=== PATIENT | male | born 1985 | race Asian ===

== ENCOUNTER 2016-06-26 23:03 | Inpatient (IN) | payer MEDICAID ==
[2016-06-26] MEDS ORDERED: Sodium Chloride 0.9% 2,000 ML IV ONE (23:23)
--- NOTE | 2016-06-26 23:29 | ED Physician Chart ---
Chief Complaint/HPI - Patient Information Date Seen:: 06/26/16 Time Seen:: 23:15 Chief Complaint:: vomiting History of Present Illness:: has vomited 4 times since 1600. No diarrhea. Allergies:: Allergies Allergy/AdvReac Type Severity Reaction Status Date / Time MDX No Known Allergies - Nka Allergy Verified 05/18/12 10:42 [No Known Allergies - Nka] Historian:: EMS, Family Member Review:: Nurse's Note Reviewed, Transfer documents Reviewed Review of Systems - Review of Systems General/Constitutional: No fever, No chills Skin: No skin lesions Head: No headache Eyes: No loss of vision ENT: No earache Neck: No neck pain Cardio Vascular: No chest pain, No palpitations Pulmonary: No SOB GI: Vomiting G/U: No dysuria Musculoskeletal: No bone or joint pain Endocrine: No polyuria, No polydipsia Psychiatric: No prior psych history Hematopoietic: No bruising Allergic/Immuno: No urticaria Neurological: No syncope Past Medical History - Past Medical History Past Medical History: Arthritis, Other (cerebral palsy; spastic quadrplegia; osteopenia; dysphagia; chronic otitis media; osteoporosis) Family History: Other (non-contributory) Social History: Care Facility Surgical History: PEG/GTube Medication: Reviewed Labs/Radiology/EKG Results - Lab Results Results: CXR: negative. KUB: small bowel obstruction; large amount of stool in recto- sigmoid Laboratory Results - last 24 hr 06/26/16 06/26/16 23:39 23:39 WBC 12.9 H D RBC 6.12 H Hgb 18.7 H D Hct 54.2 H D MCV 88.5 MCH 30.5 H MCHC Differential 34.5 RDW 12.5 Plt Count 239 D MPV 8.2 Band Neutrophils % 2 Neutrophils (Manual) 90 H Lymphocytes 8 L Platelet Estimate ADEQUATE Sodium 145 Potassium 4.0 Chloride 97 L Carbon Dioxide 27.6 Anion Gap 24.4 H BUN 28 H Creatinine 1.3 Est GFR ( Amer) > 60.0 Est GFR (Non-Af Amer) > 60.0 BUN/Creatinine Ratio 21.5 Glucose 136 H Calcium 11.5 H Lipase 13 - Radiology Results Results: chest x-ray negative; KUB: SBO; large stool in rectosigmoid ED Septic Shock - . Is Septic Shock (SBP<90, OR Lactate>4 mmol\L) present?: No Reassessment (Disposition) - Reassessment Reassessment Condition:: Unchanged - Diagnosis Diagnosis:: small bowel obstruction; leukocytosis; obstipation; profound mental retardation - Patient Disposition Admitted to:: Med/Surg Spoke to:: José Luis Conteh Admitting Medical Physician:: José Luis Conteh Condition at Disposition:: Stable, Unchanged
[2016-06-26 23:48] LABS: MEAN CELL VOLUME 88.5 fl (80-99); MEAN CORPUSCULAR HEMOGLOBIN 30.5 pg (26.0-30.0); MEAN CORPUSCULAR HGB CONC 34.5 pg (28.0-36.0); MEAN PLATELET VOLUME 8.2 fl; RED BLOOD COUNT 6.12 Mil/cmm (4.30-5.70); RED CELL DISTRIBUTION WIDTH 12.5 % (11.5-20.0)
[2016-06-26 23:49] LABS: HEMATOCRIT 54.2 % (39.0-49.0); HEMOGLOBIN 18.7 gm/dL (13.2-17.3); WHITE BLOOD COUNT 12.9 Th/cmm (4.8-10.8)
[2016-06-26 23:50] LABS: PLATELET COUNT 239 Th/cmm (150-400)
[2016-06-26] MEDS ORDERED: Morphine Sulfate 2 mg/mL 1mL Syr IVP PRN (23:51)
--- NOTE | 2016-06-26 23:52 | Admit Criteria Form ---
Admit Criteria Forms - Admit Criteria Diagnosis: VOMITING: OBSERVATION CARE USE THIS FORM ONLY WHEN INPATIENT ADMISSION CRITERIA ARE NOT MET. (Place X for any and all applicable criteria): Placement for observation care is indicated for patient with ANY ONE of the following(1)(2)(3)(4)(5)(6): []I. Hemodynamic instability [X]II. Vomiting refractory to outpatient treatment (ie, precluding oral rehydration) []III. Electrolyte imbalance unable to be corrected in outpatient setting []IV. Inability to take necessary medication or fluids orally []V. Child whose situation includes ANY ONE of the following: []a) Clinical response to outpatient therapy uncertain []b) Outpatient supervision by parents or caregivers uncertain []. Other observation care needs ( Use General Criteria: Observation Care) The original [facility] content created by [facility] has been revised. The portions of the content which have been revised are identified through the use of italic text, and [facility] has neither reviewed nor approved the modified material. All other unmodified content is copyright [facility]. Please see references footnoted in the original [facility] edition 2016 Admit Criteria Met?: Yes
[2016-06-26] MEDS ORDERED: Magnesium Hydroxide (MOM) 30 mL UDC PO PRN (23:53)
[2016-06-26] MEDS ORDERED: Fleet Enema 135 mL RC PRN (23:53)
[2016-06-26] MEDS ORDERED: Fleet Enema 135 mL RC ONE (23:53)
[2016-06-27] LABS: ANION GAP 24.4 (7.0-16.0); BUN - UREA NITROGEN 28 mg/dL (7-25); BUN/CREATININE RATIO 21.5; CALCIUM SERUM 11.5 mg/dL (8.6-10.3); CARBON DIOXIDE 27.6 mEq/L (21.0-31.0); CHLORIDE 97 mEq/L (98-107); CREATININE - SERUM 1.3 mg/dL (0.7-1.3); GLUCOSE 136 mg/dL (70-105); LIPASE 13 U/L (11-82); SODIUM SERUM 145 mEq/L (136-145)
[2016-06-27 00:16] LABS: BAND NEUTROPHILE 2 % (0-10); NEUTROPHILS 90 % (40-80); PLATELET ESTIMATE ADEQUATE (NORMAL); TOTAL CELLS COUNTED 100
--- NOTE | 2016-06-27 02:19 | Admit Criteria Form ---
Admit Criteria Forms - Admit Criteria Diagnosis: VOMITING Clinical Indications for Admission to Inpatient Care ( Place 'X' for any and all applicable criteria): Admission is indicated for ANY ONE of the following(1)(2)(3): [ ]I. Inpatient admission required rather than observation care because of ANY ONE of the following: [ ]i) Hemodynamic instability that is severe or persistent [ ]ii) Vomiting that is severe or persistent [ ]iii) Severe electrolyte abnormalities requiring inpatient care [ ]iv) Severe pain requiring acute inpatient management [ ]v) High fever or infection requiring inpatient admission as indicated by ANY ONE of the following(7)(8): [ ]1) Appropriate outpatient or observation care antimicrobial treatment unavailable, not effective, or not feasible [ ]2) Documented bacteremia [ ]3) Temp >104.9 degrees F (40.5 degrees C) (oral) [ ]4) Temp >103.1 degrees F (39.5 C) (oral) or <96.8 degrees F (36 C) (rectal) that does not respond to all emergency treatment measures [ ]vi) Acute renal failure [ ]vii) IV fluid to replace significant ongoing losses (greater than 3 L/m2 per day) [ ]viii) Parenteral nutrition regimen that must be implemented on inpatient basis [ ]ix) Other condition, treatment or monitoring requiring inpatient admission [X ]II. Complete or partial gastrointestinal obstruction [ ]III. Other cause of vomiting requiring hospitalization (eg, poisoning, increased intracranial pressure) [ ]IV. Vomiting due to significant metabolic derangement (eg, severe hypercalcemia, diabetic ketoacidosis) Extended stay beyond goal length of stay may be needed for(1)(4): [ ]a) Severe vomiting [ ]b) Persistent vomiting, vital sign changes, severe electrolyte imbalance , or diagnosed cause of vomiting that requires continued hospitalization (eg, gastrointestinal obstruction , increased intracranial pressure) [ ]c) Surgery to treat identified causes of vomiting (eg, bowel obstruction , intracranial process) [ ]d) Comorbid illness that requires inpatient care (eg, acute heart failure , renal failure) [ ]e) Need for inpatient endoscopy The original [facility] content created by [facility] has been revised. The portions of the content which have been revised are identified through the use of italic text or in bold, and [employer] has neither reviewed nor approved the modified material. All other unmodified content is copyright [facility]. Please see references footnoted in the original [facility] edition 2016 Admit Criteria Met?: Yes
[2016-06-27] MEDS: D5-0.45NS 1,000 ML IV SCH (03:00)
[2016-06-27 07:33] LABS: MEAN CELL VOLUME 89.6 fl (80-99); MEAN CORPUSCULAR HEMOGLOBIN 30.2 pg (26.0-30.0); MEAN CORPUSCULAR HGB CONC 33.8 pg (28.0-36.0); MEAN PLATELET VOLUME 8.5 fl; PLATELET COUNT 204 Th/cmm (150-400); RED BLOOD COUNT 5.08 Mil/cmm (4.30-5.70); RED CELL DISTRIBUTION WIDTH 12.7 % (11.5-20.0)
[2016-06-27 07:36] LABS: ALB/GLOB RATIO 1.2 (1.0-1.8); ALKALINE PHOSPHATASE 73 U/L (34-104); ANION GAP 12.5 (7.0-16.0); BILIRUBIN,TOTAL 0.5 mg/dL (0.3-1.0); BUN - UREA NITROGEN 25 mg/dL (7-25); BUN/CREATININE RATIO 35.7; CALCIUM SERUM 9.2 mg/dL (8.6-10.3); CARBON DIOXIDE 27.9 mEq/L (21.0-31.0); CHLORIDE 108 mEq/L (98-107); CREATININE - SERUM 0.7 mg/dL (0.7-1.3); GLUCOSE 139 mg/dL (70-105); POTASSIUM SERUM 3.4 mEq/L (3.5-5.1); SGOT 14 U/L (13-39); SGPT/ALT 9 U/L (7-52); SODIUM SERUM 145 mEq/L (136-145)
[2016-06-27 07:50] LABS: HEMATOCRIT 45.5 % (39.0-49.0); HEMOGLOBIN 15.4 gm/dL (13.2-17.3); WHITE BLOOD COUNT 8.5 Th/cmm (4.8-10.8)
[2016-06-27] MEDS ORDERED: Pneumococcal Vaccine 0.5 mL Vial IM ONE (09:00)
[2016-06-27 09:32] LABS: BAND NEUTROPHILE 5 % (0-10); EOSINOPHIL 0 % (0-5); NEUTROPHILS 78 % (40-80); PLATELET ESTIMATE ADEQUATE (NORMAL); PLATELET MORPHOLOGY NORMAL (NORMAL); TOTAL CELLS COUNTED 100
[2016-06-27 09:34] LABS: EOSINOPHIL 0 % (0-5)
--- NOTE | 2016-06-27 09:38 | Diagnostic Imaging Report ---
CHEST X-RAY: AP view INDICATION: Small bowel obstruction COMPARISON: KUB the same day FINDINGS: No focal consolidation or pleural effusions. Heart size is normal. Distended bowel loops are seen along the right upper quadrant. Osseous structures are intact. IMPRESSION: No focal acute pulmonary process. Distended bowel loops along the right upper quadrant. Please refer to KUB the same day for further findings.
--- NOTE | 2016-06-27 09:44 | Diagnostic Imaging Report ---
KUB History: Obstruction, constipation comparison: Chest x-ray the same day Findings: There is severe distal fecal impaction. Diffuse distended loops of bowel are seen proximally including markedly distended small bowel loops. No evidence of gross free air. A gastric feeding tube is noted. Spinal scoliosis is noted. 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 IMPRESSION: Severe distal fecal impaction. Diffuse distended loops of bowel are seen proximally including markedly distended small bowel loops. The distended small bowel loops may be due to patient's severe distal fecal impaction, however, a distal small bowel obstructive process cannot be completely excluded. Clinical correlation and follow-up is recommended.
[2016-06-27] MEDS ORDERED: Fleet Enema 135 mL RC ONE (12:51)
--- NOTE | 2016-06-27 12:58 | Internal Medicine Prog Note ---
Internal Medicine Subjective - Subjective Service Date: 06/27/16 ([facility] dictated [id number]) Internal Medicine Objective - Results Result Diagrams: 06/27/16 06:16 06/27/16 06:16 Recent Labs: Laboratory Last Values WBC 8.5 Th/cmm (4.8-10.8) D 06/27/16 06:16 RBC 5.08 Mil/cmm (4.30-5.70) 06/27/16 06:16 Hgb 15.4 gm/dL (13.2-17.3) D 06/27/16 06:16 Hct 45.5 % (39.0-49.0) D 06/27/16 06:16 MCV 89.6 fl (80-99) 06/27/16 06:16 MCH 30.2 pg (26.0-30.0) H 06/27/16 06:16 MCHC Differential 33.8 pg (28.0-36.0) 06/27/16 06:16 RDW 12.7 % (11.5-20.0) 06/27/16 06:16 Plt Count 204 Th/cmm (150-400) 06/27/16 06:16 MPV 8.5 fl 06/27/16 06:16 Band Neutrophils % 5 % (0-10) 06/27/16 06:16 Neutrophils (Manual) 78 % (40-80) 06/27/16 06:16 Lymphocytes 7 % (20-50) L 06/27/16 06:16 Monocytes 10 % (2-10) 06/27/16 06:16 Eosinophils 0 % (0-5) 06/27/16 06:16 Platelet Estimate ADEQUATE (NORMAL) 06/27/16 06:16 Platelet Morphology NORMAL (NORMAL) 06/27/16 06:16 RBC Morph Micro Appear NORMAL (NORMAL) 06/27/16 06:16 Sodium 145 mEq/L (136-145) 06/27/16 06:16 Potassium 3.4 mEq/L (3.5-5.1) L 06/27/16 06:16 Chloride 108 mEq/L (98-107) H 06/27/16 06:16 Carbon Dioxide 27.9 mEq/L (21.0-31.0) 06/27/16 06:16 Anion Gap 12.5 (7.0-16.0) 06/27/16 06:16 BUN 25 mg/dL (7-25) 06/27/16 06:16 Creatinine 0.7 mg/dL (0.7-1.3) 06/27/16 06:16 Est GFR ( Amer) > 60.0 ml/min 06/27/16 06:16 Est GFR (Non-Af Amer) > 60.0 ml/min 06/27/16 06:16 BUN/Creatinine Ratio 35.7 06/27/16 06:16 Glucose 139 mg/dL (70-105) H 06/27/16 06:16 Calcium 9.2 mg/dL (8.6-10.3) 06/27/16 06:16 Total Bilirubin 0.5 mg/dL (0.3-1.0) 06/27/16 06:16 AST 14 U/L (13-39) 06/27/16 06:16 ALT 9 U/L (7-52) 06/27/16 06:16 Alkaline Phosphatase 73 U/L (34-104) 06/27/16 06:16 Total Protein 7.6 gm/dL (6.0-8.3) 06/27/16 06:16 Albumin 4.2 gm/dL (4.2-5.5) 06/27/16 06:16 Globulin 3.4 gm/dL 06/27/16 06:16 Albumin/Globulin Ratio 1.2 (1.0-1.8) 06/27/16 06:16 Lipase 13 U/L (11-82) 06/26/16 23:39 TSH 0.20 uIU/ml (0.34-5.60) L 06/27/16 06:16 - Physical Exam Vitals and I&O: Vital Signs Temp 99 F 06/27/16 05:00 Pulse 90 06/27/16 05:00 Resp 18 06/27/16 05:00 BP 117/71 06/27/16 05:00 Pulse Ox 100 06/27/16 05:00 Intake & Output 06/26/16 06/27/16 06/27/16 18:59 06:59 18:59 Intake Total 4000.000 Balance 4000.000 Intake: Intake, IV Amount 4000.000 Active Medications: Current Medications Acetaminophen (Tylenol) 650 mg PO Q4HR PRN PRN Reason: Pain or Fever >101 Stop: 08/25/16 23:50 Bisacodyl (Dulcolax 10 Mg Supp) 10 mg RC DAILY PRN PRN Reason: Constipation Stop: 08/25/16 23:52 Clonidine HCl (Catapres) 0.1 mg PO Q6HR PRN PRN Reason: SBP GREATER THAN 160 Stop: 08/25/16 23:50 Dextrose/Sodium Chloride (D5-0.45ns) 1,000 mls @ 100 mls/hr IV .Q10H ALLISON Stop: 08/25/16 23:44 Last Admin: 06/27/16 03:00 Dose: 100 mls/hr Magnesium Hydroxide (Milk Of Magnesia) 30 ml PO Q72H PRN PRN Reason: Constipation Stop: 08/25/16 23:52 Mineral Oil (Mineral Oil 30 Ml) 30 ml GT Q72H PRN PRN Reason: Constipation Stop: 08/25/16 23:52 Morphine Sulfate (Morphine) 2 mg IVP Q4HR PRN PRN Reason: Pain (Severe) Stop: 08/25/16 23:50 Ondansetron HCl (Zofran) 4 mg IV Q8H PRN PRN Reason: Nausea / Vomiting Stop: 08/25/16 23:50 Pantoprazole Sodium (Protonix) 40 mg IVP BID [facility] Stop: 08/26/16 08:59 Last Admin: 06/27/16 10:48 Dose: 40 mg Prochlorperazine (Compazine) 25 mg RC Q12H PRN; Protocol PRN Reason: Nausea Stop: 08/25/16 23:52 Sodium Phosphate (Fleet Enema) 135 ml RC Q72H PRN PRN Reason: Constipation Stop: 08/25/16 23:52 Sodium Phosphate (Fleet Enema) 135 ml RC X1 ONE Stop: 06/27/16 12:52 Vitamin D (Vitamin D) 400 iu GT DAILY [facility] Stop: 08/26/16 08:59 Last Admin: 06/27/16 10:44 Dose: Not Given - Procedures Procedures: Procedures Procedure Code Date EGD BIOPSY SINGLE/MULTIPLE 06594 12/22/13 ESOPHAGOGASTRODUODENOSCOPY [EGD] W/CLOSED BIOPSY 45.16 12/22/13 INFLUENZA VACCINATION 99.52 07/14/13 INSERT INDWELLING CATH 57.94 05/17/12 INSERT INTESTINAL TUBE 96.08 05/17/12 INSERT PICC CATH [id number] 05/17/12 INSERT TEMP BLADDER CATH 97182 05/17/12 OPEN AND OTHER CECECTOMY 45.72 05/17/12 OPEN AND OTHER RIGHT HEMICOLECTOMY 45.73 05/17/12 PARTIAL REMOVAL OF COLON 93594 05/17/12 UNLISTED PX SMALL INTESTINE 80939 05/17/12 VENOUS CATHETERIZATION NEC 38.93 05/17/12 Internal Medicine Assmt/Plan - Assessment Assessment: abdominal pain, intractable vomiting
--- NOTE | 2016-06-27 17:28 | History & Physical ---
CHIEF COMPLAINT: Vomiting. HISTORY OF PRESENT ILLNESS: This is a 31-year-old male who is a resident of [facility] who is brought here to [facility] for reports of vomiting x 3 since yesterday afternoon. The patient did not have any diarrhea or any fevers. For this reason, the patient is now admitted to the med/surg unit. PAST MEDICAL HISTORY: Arthritis, cerebral palsy, spastic quadriplegia, osteopenia, dysphagia. FAMILY HISTORY: Noncontributory. ALLERGIES: No drug allergies. SOCIAL HISTORY: The patient resides at [facility], requiring 24-hour nursing care. PAST SURGICAL HISTORY: PEG. MEDICATIONS: Please see medication reconciliation sheet. REVIEW OF SYSTEMS: Unable to obtain, the patient is non-interactive. PHYSICAL EXAMINATION: GENERAL: The patient is well developed, well nourished, no acute distress. VITAL SIGNS: Temperature 99, heart rate 90, blood pressure 170/71, respirations 18, O2 100%. HEENT: Head; normocephalic, atraumatic. NECK: Supple. No mass. LUNGS: Clear bilaterally upon auscultation. CARDIOVASCULAR: Regular rhythm. No murmurs or gallops. SKIN: Intact, warm and dry to touch. ABDOMEN: Soft, nontender, nondistended. Positive bowel sounds in all 4 quadrants. LABORATORY DATA: WBC 12.9, H and H 18.7 and 54.2. Sodium 145, potassium 4.0, chloride 97, BUN ____, creatinine 1.3. The patient had a chest x-ray done and the impression is no focal acute pulmonary processes. ASSESSMENT: Abdominal pain, intractable vomiting, spastic quadriplegia, intellectual disability and seizures. PLAN: The patient to be admitted to the med/surg unit. The patient to have a consultation with Dr. Gallegos. The patient to be kept n.p.o. for now. IV fluids for hydration. We will continue to monitor the patient. JOB# [id number]
[2016-06-27] MEDS: Magnesium Hydroxide (MOM) 30 mL UDC PO SCH (21:53)
[2016-06-28] MEDS: D5-0.45NS 1,000 ML IV SCH ×2 (05:15→21:56)
[2016-06-28] MEDS ORDERED: Potassium Chloride 20 mEq ER Tab PO ONE (16:48)
--- NOTE | 2016-06-28 21:12 | Consultation ---
REASON FOR CONSULTATION: Abdominal pain and vomiting. HISTORY OF PRESENT ILLNESS: This consult was obtained through the courtesy of Dr. Conteh for this 31-year-old with history of mental retardation, cerebral palsy, spastic quadriplegia, osteopenia, dysphagia, status post G-tube and arthritis, admitted to the hospital because of vomiting few times yesterday. The patient came to the hospital. GI consult was called in for further evaluation. The patient is unable to provide any history. Apparently, the patient had some fecal impaction, was given some laxative, did better, and now he seems calmer. PAST MEDICAL HISTORY: Cerebral palsy, spastic quadriplegia, arthritis, osteopenia, dysphagia. PAST SURGICAL HISTORY: He had hip surgery and he had abdominal surgery and has a G-tube. SOCIAL HISTORY: Nonsmoker, nonalcoholic, non-IV drug abuser. FAMILY HISTORY: Noncontributory. ALLERGIES: No known drug allergies. MEDICATIONS: The patient is on Tylenol, Dulcolax, clonidine, milk of magnesia, mineral oil, Zofran, morphine, Protonix, Fleet enema, vitamin D. REVIEW OF SYSTEMS: Unobtainable. PHYSICAL EXAMINATION: GENERAL: The patient is awake, nonverbal. VITAL SIGNS: Blood pressure is 117/71, heart rate 90, respiratory rate 18, temperature is 99.0. HEAD AND NECK: Pupils reactive to light. Extraocular muscles could not be tested. Oral cavity, no lesion. NECK: Supple. No jugular venous distention. No carotid bruit or lymph nodes. CHEST: Good respiratory movements. LUNGS: Clear to auscultation. CARDIOVASCULAR SYSTEM: Regular rate and rhythm. No murmur or gallop. ABDOMEN: Soft. There is scar on midline. There is a G-tube, which has a balloon. Bowel sounds are present. Nontender. EXTREMITIES: Lower extremities, no edema. There is a scar on the left hip. CENTRAL NERVOUS SYSTEM: Unable to evaluate. Limbs has contracted posture of the lower ones. LABORATORY DATA: White count was 12.9, now is normal. Potassium was low. H and H are normal. KUB showed fecal impaction. IMPRESSION: A 31-year-old with multiple medical problems, now with fecal impaction, nausea and vomiting. ASSESSMENT AND PLAN: Nausea and vomiting most probably due to fecal impaction. The patient had good response to laxative, so now he is more comfortable, he is not vomiting, he is at ease. So, we will continue his bowel prep. We will give him on a daily basis milk of magnesia. If needed, we can add some more. Then, further recommendations to follow. Given the age of the patient and general condition, at this time there is no reason for colonoscopy unless some other issues arise. Other medical problems such as cerebral palsy, quadriplegia, osteoporosis, etc., as per Dr. Conteh. Thank you, Dr. Conteh, for allowing me to participate in the care of this patient. If you have any further questions, please let me know. JOB# [id number]
[2016-06-28] MEDS: Magnesium Hydroxide (MOM) 30 mL UDC PO SCH (21:57)
[2016-06-28 22:13] LABS: URINE BILIRUBIN NEGATIVE (NEGATIVE); URINE BLOOD NEGATIVE (NEGATIVE); URINE COLOR YELLOW; URINE GLUCOSE (UA) NEGATIVE (NEGATIVE); URINE KETONE NEGATIVE (NEGATIVE)
[2016-06-28 22:14] LABS: URINE BACTERIA FEW /hpf (NONE SEEN); URINE EPITHELIAL CELLS NONE SEEN /lpf (FEW); URINE PH >=9.0; URINE PROTEIN TRACE mg/dL (NEGATIVE); URINE RBC 0-2 /hpf (0-5); URINE UROBILINOGEN 0.2 E.U./dL (0.2 - 1.0); URINE WBC 0-2 /hpf (0-5)
[2016-06-29] MEDS ORDERED: POLYETHYLENE GLYCOL 3350 17 GM PACK PO SCH (09:00)
--- NOTE | 2016-06-29 11:21 | Diagnostic Imaging Report ---
KUB abdominal film HISTORY: Abdominal distention Compared with the prior exam of 06/26/2016, slight decrease in small bowel dilatation along with persistent mildly dilated air-filled large bowel. Stool noted in the rectal region of May be associated with a degree of fecal impaction. IMPRESSION: 1. Stool-filled distended rectum suggesting a fecal impaction. Additional mildly dilated large and small bowel.
--- NOTE | 2016-06-29 16:52 | Internal Medicine Prog Note ---
Internal Medicine Subjective - Subjective Service Date: 06/29/16 Patient seen and examined:: with staff Patient is:: awake Per staff patient is:: no adverse event Internal Medicine Objective - Results Result Diagrams: 06/27/16 06:16 06/27/16 06:16 Recent Labs: Laboratory Last Values WBC 8.5 Th/cmm (4.8-10.8) D 06/27/16 06:16 RBC 5.08 Mil/cmm (4.30-5.70) 06/27/16 06:16 Hgb 15.4 gm/dL (13.2-17.3) D 06/27/16 06:16 Hct 45.5 % (39.0-49.0) D 06/27/16 06:16 MCV 89.6 fl (80-99) 06/27/16 06:16 MCH 30.2 pg (26.0-30.0) H 06/27/16 06:16 MCHC Differential 33.8 pg (28.0-36.0) 06/27/16 06:16 RDW 12.7 % (11.5-20.0) 06/27/16 06:16 Plt Count 204 Th/cmm (150-400) 06/27/16 06:16 MPV 8.5 fl 06/27/16 06:16 Band Neutrophils % 5 % (0-10) 06/27/16 06:16 Neutrophils (Manual) 78 % (40-80) 06/27/16 06:16 Lymphocytes 7 % (20-50) L 06/27/16 06:16 Monocytes 10 % (2-10) 06/27/16 06:16 Eosinophils 0 % (0-5) 06/27/16 06:16 Platelet Estimate ADEQUATE (NORMAL) 06/27/16 06:16 Platelet Morphology NORMAL (NORMAL) 06/27/16 06:16 RBC Morph Micro Appear NORMAL (NORMAL) 06/27/16 06:16 Sodium 145 mEq/L (136-145) 06/27/16 06:16 Potassium 3.4 mEq/L (3.5-5.1) L 06/27/16 06:16 Chloride 108 mEq/L (98-107) H 06/27/16 06:16 Carbon Dioxide 27.9 mEq/L (21.0-31.0) 06/27/16 06:16 Anion Gap 12.5 (7.0-16.0) 06/27/16 06:16 BUN 25 mg/dL (7-25) 06/27/16 06:16 Creatinine 0.7 mg/dL (0.7-1.3) 06/27/16 06:16 Est GFR ( Amer) > 60.0 ml/min 06/27/16 06:16 Est GFR (Non-Af Amer) > 60.0 ml/min 06/27/16 06:16 BUN/Creatinine Ratio 35.7 06/27/16 06:16 Glucose 139 mg/dL (70-105) H 06/27/16 06:16 Calcium 9.2 mg/dL (8.6-10.3) 06/27/16 06:16 Total Bilirubin 0.5 mg/dL (0.3-1.0) 06/27/16 06:16 AST 14 U/L (13-39) 06/27/16 06:16 ALT 9 U/L (7-52) 06/27/16 06:16 Alkaline Phosphatase 73 U/L (34-104) 06/27/16 06:16 Total Protein 7.6 gm/dL (6.0-8.3) 06/27/16 06:16 Albumin 4.2 gm/dL (4.2-5.5) 06/27/16 06:16 Globulin 3.4 gm/dL 06/27/16 06:16 Albumin/Globulin Ratio 1.2 (1.0-1.8) 06/27/16 06:16 Lipase 13 U/L (11-82) 06/26/16 23:39 TSH 0.20 uIU/ml (0.34-5.60) L 06/27/16 06:16 Urine Source CLEAN C 06/28/16 21:35 Urine Color YELLOW 06/28/16 21:35 Urine Clarity CLEAR (CLEAR) 06/28/16 21:35 Urine pH >=9.0 06/28/16 21:35 Ur Specific [place] 1.020 (1.005-1.030) 06/28/16 21:35 Urine Protein TRACE mg/dL (NEGATIVE) 06/28/16 21:35 Urine Glucose (UA) NEGATIVE mg/dL (NEGATIVE) 06/28/16 21:35 Urine Ketones NEGATIVE mg/dL (NEGATIVE) 06/28/16 21:35 Urine Blood NEGATIVE (NEGATIVE) 06/28/16 21:35 Urine Nitrate NEGATIVE (NEGATIVE) 06/28/16 21:35 Urine Bilirubin NEGATIVE (NEGATIVE) 06/28/16 21:35 Urine Urobilinogen 0.2 E.U./dL (0.2 - 1.0) 06/28/16 21:35 Ur Leukocyte Esterase NEGATIVE (NEGATIVE) 06/28/16 21:35 Urine RBC 0-2 /hpf (0-5) H 06/28/16 21:35 Urine WBC 0-2 /hpf (0-5) 06/28/16 21:35 Ur Epithelial Cells NONE SEEN /lpf (FEW) 06/28/16 21:35 Urine Bacteria FEW /hpf (NONE SEEN) 06/28/16 21:35 - Physical Exam Vitals and I&O: Vital Signs Temp 98.1 F 06/29/16 16:00 Pulse 83 06/29/16 16:00 Resp 17 06/29/16 16:00 BP 112/40 06/29/16 16:00 Pulse Ox 95 06/29/16 16:00 Intake & Output 06/28/16 06/29/16 06/29/16 18:59 06:59 18:59 Intake Total 360 Balance 360 Intake: Tube Feeding 240 Other 120 Active Medications: Current Medications Acetaminophen (Tylenol) 650 mg PO Q4HR PRN PRN Reason: Pain or Fever >101 Stop: 08/25/16 23:50 Bisacodyl (Dulcolax 10 Mg Supp) 10 mg RC DAILY PRN PRN Reason: Constipation Stop: 08/25/16 23:52 Clonidine HCl (Catapres) 0.1 mg PO Q6HR PRN PRN Reason: SBP GREATER THAN 160 Stop: 08/25/16 23:50 Dextrose/Sodium Chloride (D5-0.45ns) 1,000 mls @ 70 mls/hr IV .[id number] ALLISON Stop: 08/27/16 21:46 Last Admin: 06/28/16 21:56 Dose: 70 mls/hr Magnesium Hydroxide (Milk Of Magnesia) 30 ml PO HS ALLISON Stop: 08/26/16 20:59 Last Admin: 06/28/16 21:57 Dose: 30 ml Mineral Oil (Mineral Oil 30 Ml) 30 ml GT DAILY ALLISON Stop: 08/27/16 08:59 Last Admin: 06/29/16 10:59 Dose: 30 ml Morphine Sulfate (Morphine) 2 mg IVP Q4HR PRN PRN Reason: Pain (Severe) Stop: 08/25/16 23:50 Ondansetron HCl (Zofran) 4 mg IV Q8H PRN PRN Reason: Nausea / Vomiting Stop: 08/25/16 23:50 Pantoprazole Sodium (Protonix) 40 mg IVP BID ALLISON Stop: 08/26/16 08:59 Last Admin: 06/29/16 10:59 Dose: 40 mg Polyethylene Glycol (Miralax) 17 gm PO DAILY ALLISON Stop: 08/28/16 08:59 Last Admin: 06/29/16 10:59 Dose: 17 gm Prochlorperazine (Compazine) 25 mg RC Q12H PRN; Protocol PRN Reason: Nausea Stop: 08/25/16 23:52 Sodium Phosphate (Fleet Enema) 135 ml RC Q72H PRN PRN Reason: Constipation Stop: 08/25/16 23:52 Vitamin D (Vitamin D) 400 iu GT DAILY ALLISON Stop: 08/26/16 08:59 Last Admin: 06/29/16 10:59 Dose: 400 iu General: alert HEENT: NC/AT, PERRLA Neck: Supple Lungs: CTAB Cardiovascular: RRR, Normal S1, Normal S2, without murmur Abdomen: soft non-tender - Procedures Procedures: Procedures Procedure Code Date EGD BIOPSY SINGLE/MULTIPLE 92322 12/22/13 ESOPHAGOGASTRODUODENOSCOPY [EGD] W/CLOSED BIOPSY 45.16 12/22/13 INFLUENZA VACCINATION 99.52 07/14/13 INSERT INDWELLING CATH 57.94 05/17/12 INSERT INTESTINAL TUBE 96.08 05/17/12 INSERT PICC CATH 17777 05/17/12 INSERT TEMP BLADDER CATH 45488 05/17/12 OPEN AND OTHER CECECTOMY 45.72 05/17/12 OPEN AND OTHER RIGHT HEMICOLECTOMY 45.73 05/17/12 PARTIAL REMOVAL OF COLON 14862 05/17/12 UNLISTED PX SMALL INTESTINE 43836 05/17/12 VENOUS CATHETERIZATION NEC 38.93 05/17/12 Internal Medicine Assmt/Plan - Assessment Assessment: abdominal pain intractable vomitinG - Plan Plan: ivf for hydration gtf zofran prn monitor electrolytes cbc/bmp in am
[2016-06-29] MEDS: Magnesium Hydroxide (MOM) 30 mL UDC PO SCH (22:52)
[2016-06-30] MEDS ORDERED: Diatrizoate Meglumine/Diatri 30 mL Sol PO ONE ×2 (01:00→12:00)
[2016-06-30] MEDS: D5-0.45NS 1,000 ML IV SCH (03:48)
[2016-06-30] MEDS: Metoclopramide 5 mg/mL 2mL Vial IVP SCH ×3 (05:46→22:36)
[2016-06-30 06:46] LABS: ANION GAP 8.5 (7.0-16.0); BUN - UREA NITROGEN 12 mg/dL (7-25); CALCIUM SERUM 9.5 mg/dL (8.6-10.3); CARBON DIOXIDE 26.6 mEq/L (21.0-31.0); CHLORIDE 104 mEq/L (98-107); CREATININE - SERUM 0.5 mg/dL (0.7-1.3); GLUCOSE 115 mg/dL (70-105); POTASSIUM SERUM 4.1 mEq/L (3.5-5.1); SODIUM SERUM 135 mEq/L (136-145)
[2016-06-30 06:49] LABS: % BASOPHILS 0.2 % (0.0-2.0); % EOSINOPHILS 5.5 % (0.0-5.0); % LYMPHOCYTES 33.4 % (20.0-50.0); % NEUTROPHILS 51.9 % (40.0-80.0); MEAN CELL VOLUME 86.2 fl (80-99); MEAN CORPUSCULAR HEMOGLOBIN 29.7 pg (26.0-30.0); MEAN CORPUSCULAR HGB CONC 34.4 pg (28.0-36.0); MEAN PLATELET VOLUME 8.5 fl; NEUTROPHILE ABSOLUTE 3.8 Th/cmm (1.8-8.0); PLATELET COUNT 168 Th/cmm (150-400); RED BLOOD COUNT 4.71 Mil/cmm (4.30-5.70); RED CELL DISTRIBUTION WIDTH 12.4 % (11.5-20.0); WHITE BLOOD COUNT 7.4 Th/cmm (4.8-10.8)
[2016-06-30 07:05] LABS: HEMATOCRIT 40.6 % (39.0-49.0)
[2016-06-30] MEDS: POLYETHYLENE GLYCOL 3350 17 GM PACK PO SCH ×2 (09:39→16:44)
--- NOTE | 2016-06-30 12:16 | Internal Medicine Prog Note ---
Internal Medicine Subjective - Subjective Service Date: 06/30/16 Patient seen and examined:: with staff Patient is:: awake Per staff patient is:: no adverse event Internal Medicine Objective - Results Result Diagrams: 06/30/16 05:50 06/30/16 05:50 Recent Labs: Laboratory Last Values WBC 7.4 Th/cmm (4.8-10.8) 06/30/16 05:50 RBC 4.71 Mil/cmm (4.30-5.70) 06/30/16 05:50 Hgb 14.0 gm/dL (13.2-17.3) 06/30/16 05:50 Hct 40.6 % (39.0-49.0) D 06/30/16 05:50 MCV 86.2 fl (80-99) 06/30/16 05:50 MCH 29.7 pg (26.0-30.0) 06/30/16 05:50 MCHC Differential 34.4 pg (28.0-36.0) 06/30/16 05:50 RDW 12.4 % (11.5-20.0) 06/30/16 05:50 Plt Count 168 Th/cmm (150-400) 06/30/16 05:50 MPV 8.5 fl 06/30/16 05:50 Neutrophils % 51.9 % (40.0-80.0) 06/30/16 05:50 Band Neutrophils % 5 % (0-10) 06/27/16 06:16 Lymphocytes % 33.4 % (20.0-50.0) 06/30/16 05:50 Monocytes % 9.0 % (2.0-10.0) 06/30/16 05:50 Eosinophils % 5.5 % (0.0-5.0) H 06/30/16 05:50 Basophils % 0.2 % (0.0-2.0) 06/30/16 05:50 Neutrophils (Manual) 78 % (40-80) 06/27/16 06:16 Lymphocytes 7 % (20-50) L 06/27/16 06:16 Monocytes 10 % (2-10) 06/27/16 06:16 Eosinophils 0 % (0-5) 06/27/16 06:16 Platelet Estimate ADEQUATE (NORMAL) 06/27/16 06:16 Platelet Morphology NORMAL (NORMAL) 06/27/16 06:16 RBC Morph Micro Appear NORMAL (NORMAL) 06/27/16 06:16 Sodium 135 mEq/L (136-145) L 06/30/16 05:50 Potassium 4.1 mEq/L (3.5-5.1) 06/30/16 05:50 Chloride 104 mEq/L (98-107) 06/30/16 05:50 Carbon Dioxide 26.6 mEq/L (21.0-31.0) 06/30/16 05:50 Anion Gap 8.5 (7.0-16.0) 06/30/16 05:50 BUN 12 mg/dL (7-25) 06/30/16 05:50 Creatinine 0.5 mg/dL (0.7-1.3) L 06/30/16 05:50 Est GFR ( Amer) > 60.0 ml/min 06/30/16 05:50 Est GFR (Non-Af Amer) > 60.0 ml/min 06/30/16 05:50 BUN/Creatinine Ratio 24.0 06/30/16 05:50 Glucose 115 mg/dL (70-105) H 06/30/16 05:50 Calcium 9.5 mg/dL (8.6-10.3) 06/30/16 05:50 Total Bilirubin 0.5 mg/dL (0.3-1.0) 06/27/16 06:16 AST 14 U/L (13-39) 06/27/16 06:16 ALT 9 U/L (7-52) 06/27/16 06:16 Alkaline Phosphatase 73 U/L (34-104) 06/27/16 06:16 Total Protein 7.6 gm/dL (6.0-8.3) 06/27/16 06:16 Albumin 4.2 gm/dL (4.2-5.5) 06/27/16 06:16 Globulin 3.4 gm/dL 06/27/16 06:16 Albumin/Globulin Ratio 1.2 (1.0-1.8) 06/27/16 06:16 Lipase 13 U/L (11-82) 06/26/16 23:39 TSH 0.20 uIU/ml (0.34-5.60) L 06/27/16 06:16 Urine Source CLEAN C 06/28/16 21:35 Urine Color YELLOW 06/28/16 21:35 Urine Clarity CLEAR (CLEAR) 06/28/16 21:35 Urine pH >=9.0 06/28/16 21:35 Ur Specific [place] 1.020 (1.005-1.030) 06/28/16 21:35 Urine Protein TRACE mg/dL (NEGATIVE) 06/28/16 21:35 Urine Glucose (UA) NEGATIVE mg/dL (NEGATIVE) 06/28/16 21:35 Urine Ketones NEGATIVE mg/dL (NEGATIVE) 06/28/16 21:35 Urine Blood NEGATIVE (NEGATIVE) 06/28/16 21:35 Urine Nitrate NEGATIVE (NEGATIVE) 06/28/16 21:35 Urine Bilirubin NEGATIVE (NEGATIVE) 06/28/16 21:35 Urine Urobilinogen 0.2 E.U./dL (0.2 - 1.0) 06/28/16 21:35 Ur Leukocyte Esterase NEGATIVE (NEGATIVE) 06/28/16 21:35 Urine RBC 0-2 /hpf (0-5) H 06/28/16 21:35 Urine WBC 0-2 /hpf (0-5) 06/28/16 21:35 Ur Epithelial Cells NONE SEEN /lpf (FEW) 06/28/16 21:35 Urine Bacteria FEW /hpf (NONE SEEN) 06/28/16 21:35 - Physical Exam Vitals and I&O: Vital Signs Temp 97.3 F 06/30/16 08:00 Pulse 62 06/30/16 08:00 Resp 19 06/30/16 08:00 BP 102/56 06/30/16 08:00 Pulse Ox 96 06/30/16 08:00 Intake & Output 06/29/16 06/30/16 06/30/16 18:59 06:59 18:59 Intake Total 1200 Balance 1200 Intake: Intake, IV Amount 1000 D5-0.45NS 1,000 ml @ 70 1000 mls/hr IV .[id number] [facility] Rx #:[id number] Oral 200 Other: # Voids 3 3 Stool Characteristics Soft Active Medications: Current Medications Acetaminophen (Tylenol) 650 mg PO Q4HR PRN PRN Reason: Pain or Fever >101 Stop: 08/25/16 23:50 Bisacodyl (Dulcolax 10 Mg Supp) 10 mg RC DAILY PRN PRN Reason: Constipation Stop: 08/25/16 23:52 Clonidine HCl (Catapres) 0.1 mg PO Q6HR PRN PRN Reason: SBP GREATER THAN 160 Stop: 08/25/16 23:50 Dextrose/Sodium Chloride (D5-0.45ns) 1,000 mls @ 70 mls/hr IV .[id number] [facility] Stop: 08/27/16 21:46 Last Admin: 06/30/16 03:48 Dose: 70 mls/hr Magnesium Hydroxide (Milk Of Magnesia) 30 ml PO HS [facility] Stop: 08/26/16 20:59 Last Admin: 06/29/16 22:52 Dose: 30 ml Metoclopramide HCl (Reglan) 10 mg IVP Q8HR [facility] Stop: 08/29/16 04:59 Last Admin: 06/30/16 05:46 Dose: 10 mg Mineral Oil (Mineral Oil 30 Ml) 30 ml GT DAILY [facility] Stop: 08/27/16 08:59 Last Admin: 06/30/16 09:39 Dose: 30 ml Morphine Sulfate (Morphine) 2 mg IVP Q4HR PRN PRN Reason: Pain (Severe) Stop: 08/25/16 23:50 Ondansetron HCl (Zofran) 4 mg IV Q8H PRN PRN Reason: Nausea / Vomiting Stop: 08/25/16 23:50 Pantoprazole Sodium (Protonix) 40 mg IVP BID [facility] Stop: 08/26/16 08:59 Last Admin: 06/30/16 09:39 Dose: 40 mg Polyethylene Glycol (Miralax) 17 gm PO BID [facility] Stop: 08/29/16 08:59 Last Admin: 06/30/16 09:39 Dose: 17 gm Prochlorperazine (Compazine) 25 mg RC Q12H PRN; Protocol PRN Reason: Nausea Stop: 08/25/16 23:52 Vitamin D (Vitamin D) 400 iu GT DAILY [facility] Stop: 08/26/16 08:59 Last Admin: 06/30/16 09:39 Dose: 400 iu General: alert HEENT: NC/AT, PERRLA Neck: Supple Lungs: CTAB Cardiovascular: RRR, Normal S1, Normal S2, without murmur Abdomen: soft non-tender, positive bowel sound - Procedures Procedures: Procedures Procedure Code Date EGD BIOPSY SINGLE/MULTIPLE 97067 12/22/13 ESOPHAGOGASTRODUODENOSCOPY [EGD] W/CLOSED BIOPSY 45.16 12/22/13 INFLUENZA VACCINATION 99.52 07/14/13 INSERT INDWELLING CATH 57.94 05/17/12 INSERT INTESTINAL TUBE 96.08 05/17/12 INSERT PICC CATH [id number] 05/17/12 INSERT TEMP BLADDER CATH 45072 05/17/12 OPEN AND OTHER CECECTOMY 45.72 05/17/12 OPEN AND OTHER RIGHT HEMICOLECTOMY 45.73 05/17/12 PARTIAL REMOVAL OF COLON 79874 05/17/12 UNLISTED PX SMALL INTESTINE 34424 05/17/12 VENOUS CATHETERIZATION NEC 38.93 05/17/12 Internal Medicine Assmt/Plan - Assessment Assessment: abdominal pain intractable vomiting- resolved - Plan Plan: ivf for hydration awaiting for results for abdominal US results zofran prn monitor electrolytes cbc/bmp in am
--- NOTE | 2016-06-30 12:19 | Diagnostic Imaging Report ---
Abdominal ultrasound HISTORY: Nausea, vomiting Exam is very limited due to considerable bowel gas. There is incomplete visualization the liver with no definite focal lesions. No definite intraluminal abnormality seen within the gallbladder. The common bile duct is difficult to visualized, but appears to be somewhat generous in caliber (9 mm). Findings should be correlated clinically and with laboratory data. The pancreas cannot be seen. There is poor visualization of the right kidney with no obvious focal lesions or hydronephrosis. The left kidney and spleen cannot be seen. IMPRESSION: 1. Very Limited/suboptimal exam with incomplete visualization particularly of the left abdomen and liver. 2. Questionable dilatation of the common bile duct (9 mm). The findings should be correlated clinically and with laboratory data.
[2016-06-30] MEDS ORDERED: Fleet Enema 135 mL RC ONE (14:04)
--- NOTE | 2016-06-30 15:45 | Diagnostic Imaging Report ---
CT scan abdomen and pelvis without intravenous contrast HISTORY: Nausea, vomiting The liver exhibits a homogeneous parenchyma. No focal lesions. The spleen appears normal. The suboptimal delineation the margins of the pancreas. No focal abnormalities. Gastrostomy tube noted. No significant focal renal lesions. The exam of the pelvis demonstrate a markedly distended stool and air-filled rectum and lower sigmoid colon. Additional dilated loops of large bowel noted. There is poor delineation of the small bowel wall margins due to a paucity of intra-abdominal fat. No obvious abnormal masses or fluid collections. IMPRESSION: 1. Markedly distended stool-filled air-filled rectum associated with generalized dilatation of the colon. Suggestion of dilated loops of small bowel. However, bowel wall margins are poorly defined due to a paucity of intra-abdominal fat. Colonic and bowel dilatation is less pronounced compared to a prior CT scan of May 16, 2012. Findings may be at least partially related to fecal impaction along with a chronic etiology. Clinical correlation is needed.
[2016-06-30] MEDS: Magnesium Hydroxide (MOM) 30 mL UDC PO SCH (22:36)
[2016-07-01] MEDS: Metoclopramide 5 mg/mL 2mL Vial IVP SCH ×3 (05:52→21:54)
[2016-07-01 06:13] LABS: HEMATOCRIT 44.6 % (39.0-49.0); HEMOGLOBIN 14.7 gm/dL (13.2-17.3); MEAN CELL VOLUME 88.3 fl (80-99); MEAN CORPUSCULAR HEMOGLOBIN 29.1 pg (26.0-30.0); MEAN PLATELET VOLUME 8.6 fl; PLATELET COUNT 154 Th/cmm (150-400); RED BLOOD COUNT 5.05 Mil/cmm (4.30-5.70); RED CELL DISTRIBUTION WIDTH 12.4 % (11.5-20.0); WHITE BLOOD COUNT 7.8 Th/cmm (4.8-10.8)
[2016-07-01 07:17] LABS: BASOPHIL 1 % (0-3); EOSINOPHIL 2 % (0-5); NEUTROPHILS 42 % (40-80); PLATELET ESTIMATE ADEQUATE (NORMAL); PLATELET MORPHOLOGY NORMAL (NORMAL); TOTAL CELLS COUNTED 100
[2016-07-01] MEDS: POLYETHYLENE GLYCOL 3350 17 GM PACK PO SCH ×2 (08:28→18:44)
[2016-07-01 09:13] LABS: BUN - UREA NITROGEN 15 mg/dL (7-25); CALCIUM SERUM 9.6 mg/dL (8.6-10.3); CARBON DIOXIDE 18.7 mEq/L (21.0-31.0); CHLORIDE 108 mEq/L (98-107); CREATININE - SERUM 0.6 mg/dL (0.7-1.3); GLUCOSE 95 mg/dL (70-105); POTASSIUM SERUM 4.7 mEq/L (3.5-5.1); SODIUM SERUM 141 mEq/L (136-145)
[2016-07-01] MEDS ORDERED: Diatrizoate Meglumine/Diatri 30 mL Sol PO ONE (13:08)
--- NOTE | 2016-07-01 16:20 | Internal Medicine Prog Note ---
Internal Medicine Subjective - Subjective Patient seen and examined:: with staff, chart reviewed, other (family at bedside ) Patient is:: awake, non-verbal, in bed Patient Complaints of:: congestion Per staff patient is:: no adverse event, confused Internal Medicine Objective - Results Result Diagrams: 07/01/16 05:45 07/01/16 05:45 Recent Labs: Laboratory Last Values WBC 7.8 Th/cmm (4.8-10.8) 07/01/16 05:45 RBC 5.05 Mil/cmm (4.30-5.70) 07/01/16 05:45 Hgb 14.7 gm/dL (13.2-17.3) 07/01/16 05:45 Hct 44.6 % (39.0-49.0) 07/01/16 05:45 MCV 88.3 fl (80-99) 07/01/16 05:45 MCH 29.1 pg (26.0-30.0) 07/01/16 05:45 MCHC Differential 33.0 pg (28.0-36.0) 07/01/16 05:45 RDW 12.4 % (11.5-20.0) 07/01/16 05:45 Plt Count 154 Th/cmm (150-400) 07/01/16 05:45 MPV 8.6 fl 07/01/16 05:45 Neutrophils % 51.9 % (40.0-80.0) 06/30/16 05:50 Band Neutrophils % 5 % (0-10) 06/27/16 06:16 Lymphocytes % 33.4 % (20.0-50.0) 06/30/16 05:50 Monocytes % 9.0 % (2.0-10.0) 06/30/16 05:50 Eosinophils % 5.5 % (0.0-5.0) H 06/30/16 05:50 Basophils % 0.2 % (0.0-2.0) 06/30/16 05:50 Neutrophils (Manual) 42 % (40-80) 07/01/16 05:45 Lymphocytes 36 % (20-50) 07/01/16 05:45 Monocytes 14 % (2-10) H 07/01/16 05:45 Eosinophils 2 % (0-5) 07/01/16 05:45 Basophils 1 % (0-3) 07/01/16 05:45 Atypical Lymphocytes 5 % 07/01/16 05:45 Platelet Estimate ADEQUATE (NORMAL) 07/01/16 05:45 Platelet Morphology NORMAL (NORMAL) 07/01/16 05:45 RBC Morph Micro Appear NORMAL (NORMAL) 07/01/16 05:45 Sodium 141 mEq/L (136-145) 07/01/16 05:45 Potassium 4.7 mEq/L (3.5-5.1) 07/01/16 05:45 Chloride 108 mEq/L (98-107) H 07/01/16 05:45 Carbon Dioxide 18.7 mEq/L (21.0-31.0) L 07/01/16 05:45 Anion Gap 19.0 (7.0-16.0) H 07/01/16 05:45 BUN 15 mg/dL (7-25) 07/01/16 05:45 Creatinine 0.6 mg/dL (0.7-1.3) L 07/01/16 05:45 Est GFR ( Amer) > 60.0 ml/min 07/01/16 05:45 Est GFR (Non-Af Amer) > 60.0 ml/min 07/01/16 05:45 BUN/Creatinine Ratio 25.0 07/01/16 05:45 Glucose 95 mg/dL (70-105) 07/01/16 05:45 Calcium 9.6 mg/dL (8.6-10.3) 07/01/16 05:45 Total Bilirubin 0.5 mg/dL (0.3-1.0) 06/27/16 06:16 AST 14 U/L (13-39) 06/27/16 06:16 ALT 9 U/L (7-52) 06/27/16 06:16 Alkaline Phosphatase 73 U/L (34-104) 06/27/16 06:16 Total Protein 7.6 gm/dL (6.0-8.3) 06/27/16 06:16 Albumin 4.2 gm/dL (4.2-5.5) 06/27/16 06:16 Globulin 3.4 gm/dL 06/27/16 06:16 Albumin/Globulin Ratio 1.2 (1.0-1.8) 06/27/16 06:16 Lipase 13 U/L (11-82) 06/26/16 23:39 TSH 0.20 uIU/ml (0.34-5.60) L 06/27/16 06:16 Urine Source CLEAN C 06/28/16 21:35 Urine Color YELLOW 06/28/16 21:35 Urine Clarity CLEAR (CLEAR) 06/28/16 21:35 Urine pH >=9.0 06/28/16 21:35 Ur Specific [place] 1.020 (1.005-1.030) 06/28/16 21:35 Urine Protein TRACE mg/dL (NEGATIVE) 06/28/16 21:35 Urine Glucose (UA) NEGATIVE mg/dL (NEGATIVE) 06/28/16 21:35 Urine Ketones NEGATIVE mg/dL (NEGATIVE) 06/28/16 21:35 Urine Blood NEGATIVE (NEGATIVE) 06/28/16 21:35 Urine Nitrate NEGATIVE (NEGATIVE) 06/28/16 21:35 Urine Bilirubin NEGATIVE (NEGATIVE) 06/28/16 21:35 Urine Urobilinogen 0.2 E.U./dL (0.2 - 1.0) 06/28/16 21:35 Ur Leukocyte Esterase NEGATIVE (NEGATIVE) 06/28/16 21:35 Urine RBC 0-2 /hpf (0-5) H 06/28/16 21:35 Urine WBC 0-2 /hpf (0-5) 06/28/16 21:35 Ur Epithelial Cells NONE SEEN /lpf (FEW) 06/28/16 21:35 Urine Bacteria FEW /hpf (NONE SEEN) 06/28/16 21:35 - Physical Exam Vitals and I&O: Vital Signs Temp 97.1 F 07/01/16 12:00 Pulse 67 07/01/16 12:00 Resp 17 07/01/16 12:00 BP 106/78 07/01/16 12:00 Pulse Ox 97 07/01/16 12:00 Intake & Output 06/30/16 07/01/16 07/01/16 18:59 06:59 18:59 Intake Total 300 Balance 300 Intake: Tube Feeding 300 Other: # Voids 3 Stool Characteristics Soft Soft Liquid Active Medications: Current Medications Acetaminophen (Tylenol) 650 mg PO Q4HR PRN PRN Reason: Pain or Fever >101 Stop: 08/25/16 23:50 Bisacodyl (Dulcolax 10 Mg Supp) 10 mg RC DAILY PRN PRN Reason: Constipation Stop: 08/25/16 23:52 Clonidine HCl (Catapres) 0.1 mg PO Q6HR PRN PRN Reason: SBP GREATER THAN 160 Stop: 08/25/16 23:50 Dextrose/Sodium Chloride (D5-0.45ns) 1,000 mls @ 70 mls/hr IV .[id number] [facility] Stop: 08/27/16 21:46 Last Admin: 06/30/16 03:48 Dose: 70 mls/hr Magnesium Hydroxide (Milk Of Magnesia) 30 ml PO HS [facility] Stop: 08/26/16 20:59 Last Admin: 06/30/16 22:36 Dose: 30 ml Metoclopramide HCl (Reglan) 10 mg IVP Q8HR [facility] Stop: 08/29/16 04:59 Last Admin: 07/01/16 14:20 Dose: 10 mg Mineral Oil (Mineral Oil 30 Ml) 30 ml GT DAILY [facility] Stop: 08/27/16 08:59 Last Admin: 07/01/16 08:28 Dose: 30 ml Morphine Sulfate (Morphine) 2 mg IVP Q4HR PRN PRN Reason: Pain (Severe) Stop: 08/25/16 23:50 Ondansetron HCl (Zofran) 4 mg IV Q8H PRN PRN Reason: Nausea / Vomiting Stop: 08/25/16 23:50 Pantoprazole Sodium (Protonix) 40 mg IVP BID [facility] Stop: 08/26/16 08:59 Last Admin: 07/01/16 16:15 Dose: 40 mg Polyethylene Glycol (Miralax) 17 gm PO BID [facility] Stop: 08/29/16 08:59 Last Admin: 07/01/16 08:28 Dose: 17 gm Prochlorperazine (Compazine) 25 mg RC Q12H PRN; Protocol PRN Reason: Nausea Stop: 08/25/16 23:52 Vitamin D (Vitamin D) 400 iu GT DAILY [facility] Stop: 08/26/16 08:59 Last Admin: 07/01/16 08:29 Dose: 400 iu General: lethargic, demented HEENT: NC/AT, PERRLA Neck: Supple Lungs: CTAB Cardiovascular: RRR, Normal S1, Normal S2 Abdomen: soft non-tender, thin, +GT Extremities: excoriation, contracture Neurological: no change - Procedures Procedures: Procedures Procedure Code Date EGD BIOPSY SINGLE/MULTIPLE 17143 12/22/13 ESOPHAGOGASTRODUODENOSCOPY [EGD] W/CLOSED BIOPSY 45.16 12/22/13 INFLUENZA VACCINATION 99.52 07/14/13 INSERT INDWELLING CATH 57.94 05/17/12 INSERT INTESTINAL TUBE 96.08 05/17/12 INSERT PICC CATH [id number] 05/17/12 INSERT TEMP BLADDER CATH 66621 05/17/12 OPEN AND OTHER CECECTOMY 45.72 05/17/12 OPEN AND OTHER RIGHT HEMICOLECTOMY 45.73 05/17/12 PARTIAL REMOVAL OF COLON 45839 05/17/12 UNLISTED PX SMALL INTESTINE 10676 05/17/12 VENOUS CATHETERIZATION NEC 38.93 05/17/12 Internal Medicine Assmt/Plan - Assessment Assessment: abdominal pain intractable vomiting dehyration cp - Plan Plan: cont on ivf on reglan on ppi veronika rn ge follow up
[2016-07-01] MEDS: Magnesium Hydroxide (MOM) 30 mL UDC PO SCH (21:54)
[2016-07-02] MEDS: Metoclopramide 5 mg/mL 2mL Vial IVP SCH ×3 (06:03→21:22)
[2016-07-02 07:54] LABS: ALB/GLOB RATIO 1.2 (1.0-1.8); ALKALINE PHOSPHATASE 65 U/L (34-104); ANION GAP 8.5 (7.0-16.0); BILIRUBIN,TOTAL 0.4 mg/dL (0.3-1.0); BUN - UREA NITROGEN 14 mg/dL (7-25); CALCIUM SERUM 9.4 mg/dL (8.6-10.3); CARBON DIOXIDE 30.1 mEq/L (21.0-31.0); CHLORIDE 104 mEq/L (98-107); CREATININE - SERUM 0.5 mg/dL (0.7-1.3); GLUCOSE 94 mg/dL (70-105); POTASSIUM SERUM 4.6 mEq/L (3.5-5.1); SGOT 23 U/L (13-39); SGPT/ALT 15 U/L (7-52); SODIUM SERUM 138 mEq/L (136-145)
[2016-07-02] MEDS: POLYETHYLENE GLYCOL 3350 17 GM PACK PO SCH ×2 (08:37→16:27)
[2016-07-02] MEDS ORDERED: Fleet Enema 135 mL RC ONE (10:14)
--- NOTE | 2016-07-02 10:55 | Diagnostic Imaging Report ---
KUB History: Nausea and vomiting Comparison: CT abdomen and pelvis on 06/30/2016 showing severe distal fecal impaction Findings: Percutaneous feeding tube is noted. Diffuse distended loops of small and large bowel are noted. IMPRESSION: Persistent diffuse distended loops of small and large bowel. Findings may be related patient's distal fecal impaction better seen on recent CT examination. Clinical correlation recommended.
--- NOTE | 2016-07-02 13:41 | Internal Medicine Prog Note ---
Internal Medicine Subjective - Subjective Service Date: 07/02/16 Patient seen and examined:: with staff Patient is:: awake Per staff patient is:: no adverse event Internal Medicine Objective - Results Result Diagrams: 07/01/16 05:45 07/02/16 06:55 Recent Labs: Laboratory Last Values WBC 7.8 Th/cmm (4.8-10.8) 07/01/16 05:45 RBC 5.05 Mil/cmm (4.30-5.70) 07/01/16 05:45 Hgb 14.7 gm/dL (13.2-17.3) 07/01/16 05:45 Hct 44.6 % (39.0-49.0) 07/01/16 05:45 MCV 88.3 fl (80-99) 07/01/16 05:45 MCH 29.1 pg (26.0-30.0) 07/01/16 05:45 MCHC Differential 33.0 pg (28.0-36.0) 07/01/16 05:45 RDW 12.4 % (11.5-20.0) 07/01/16 05:45 Plt Count 154 Th/cmm (150-400) 07/01/16 05:45 MPV 8.6 fl 07/01/16 05:45 Neutrophils % 51.9 % (40.0-80.0) 06/30/16 05:50 Band Neutrophils % 5 % (0-10) 06/27/16 06:16 Lymphocytes % 33.4 % (20.0-50.0) 06/30/16 05:50 Monocytes % 9.0 % (2.0-10.0) 06/30/16 05:50 Eosinophils % 5.5 % (0.0-5.0) H 06/30/16 05:50 Basophils % 0.2 % (0.0-2.0) 06/30/16 05:50 Neutrophils (Manual) 42 % (40-80) 07/01/16 05:45 Lymphocytes 36 % (20-50) 07/01/16 05:45 Monocytes 14 % (2-10) H 07/01/16 05:45 Eosinophils 2 % (0-5) 07/01/16 05:45 Basophils 1 % (0-3) 07/01/16 05:45 Atypical Lymphocytes 5 % 07/01/16 05:45 Platelet Estimate ADEQUATE (NORMAL) 07/01/16 05:45 Platelet Morphology NORMAL (NORMAL) 07/01/16 05:45 RBC Morph Micro Appear NORMAL (NORMAL) 07/01/16 05:45 Sodium 138 mEq/L (136-145) 07/02/16 06:55 Potassium 4.6 mEq/L (3.5-5.1) 07/02/16 06:55 Chloride 104 mEq/L (98-107) 07/02/16 06:55 Carbon Dioxide 30.1 mEq/L (21.0-31.0) 07/02/16 06:55 Anion Gap 8.5 (7.0-16.0) 07/02/16 06:55 BUN 14 mg/dL (7-25) 07/02/16 06:55 Creatinine 0.5 mg/dL (0.7-1.3) L 07/02/16 06:55 Est GFR ( Amer) > 60.0 ml/min 07/02/16 06:55 Est GFR (Non-Af Amer) > 60.0 ml/min 07/02/16 06:55 BUN/Creatinine Ratio 28.0 07/02/16 06:55 Glucose 94 mg/dL (70-105) 07/02/16 06:55 Calcium 9.4 mg/dL (8.6-10.3) 07/02/16 06:55 Total Bilirubin 0.4 mg/dL (0.3-1.0) 07/02/16 06:55 AST 23 U/L (13-39) 07/02/16 06:55 ALT 15 U/L (7-52) 07/02/16 06:55 Alkaline Phosphatase 65 U/L (34-104) 07/02/16 06:55 Total Protein 7.6 gm/dL (6.0-8.3) 07/02/16 06:55 Albumin 4.2 gm/dL (4.2-5.5) 07/02/16 06:55 Globulin 3.4 gm/dL 07/02/16 06:55 Albumin/Globulin Ratio 1.2 (1.0-1.8) 07/02/16 06:55 Lipase 13 U/L (11-82) 06/26/16 23:39 TSH 0.20 uIU/ml (0.34-5.60) L 06/27/16 06:16 Urine Source CLEAN C 06/28/16 21:35 Urine Color YELLOW 06/28/16 21:35 Urine Clarity CLEAR (CLEAR) 06/28/16 21:35 Urine pH >=9.0 06/28/16 21:35 Ur Specific [place] 1.020 (1.005-1.030) 06/28/16 21:35 Urine Protein TRACE mg/dL (NEGATIVE) 06/28/16 21:35 Urine Glucose (UA) NEGATIVE mg/dL (NEGATIVE) 06/28/16 21:35 Urine Ketones NEGATIVE mg/dL (NEGATIVE) 06/28/16 21:35 Urine Blood NEGATIVE (NEGATIVE) 06/28/16 21:35 Urine Nitrate NEGATIVE (NEGATIVE) 06/28/16 21:35 Urine Bilirubin NEGATIVE (NEGATIVE) 06/28/16 21:35 Urine Urobilinogen 0.2 E.U./dL (0.2 - 1.0) 06/28/16 21:35 Ur Leukocyte Esterase NEGATIVE (NEGATIVE) 06/28/16 21:35 Urine RBC 0-2 /hpf (0-5) H 06/28/16 21:35 Urine WBC 0-2 /hpf (0-5) 06/28/16 21:35 Ur Epithelial Cells NONE SEEN /lpf (FEW) 06/28/16 21:35 Urine Bacteria FEW /hpf (NONE SEEN) 06/28/16 21:35 - Physical Exam Vitals and I&O: Vital Signs Temp 98.6 F 07/02/16 12:10 Pulse 93 07/02/16 12:10 Resp 18 07/02/16 12:10 BP 117/77 07/02/16 12:10 Pulse Ox 97 07/02/16 12:10 Intake & Output 07/01/16 07/02/16 07/02/16 18:59 06:59 18:59 Output Total 1 Balance -1 Output: Emesis 1 Other: # Voids 3 # Bowel Movements 3 Stool Characteristics Liquid Liquid Active Medications: Current Medications Acetaminophen (Tylenol) 650 mg PO Q4HR PRN PRN Reason: Pain or Fever >101 Stop: 08/25/16 23:50 Bisacodyl (Dulcolax 10 Mg Supp) 10 mg RC DAILY PRN PRN Reason: Constipation Stop: 08/25/16 23:52 Clonidine HCl (Catapres) 0.1 mg PO Q6HR PRN PRN Reason: SBP GREATER THAN 160 Stop: 08/25/16 23:50 Dextrose/Sodium Chloride (D5-0.45ns) 1,000 mls @ 70 mls/hr IV .[id number] [facility] Stop: 08/27/16 21:46 Last Admin: 06/30/16 03:48 Dose: 70 mls/hr Magnesium Hydroxide (Milk Of Magnesia) 30 ml PO HS [facility] Stop: 08/26/16 20:59 Last Admin: 07/01/16 21:54 Dose: 30 ml Metoclopramide HCl (Reglan) 10 mg IVP Q8HR [facility] Stop: 08/29/16 04:59 Last Admin: 07/02/16 12:57 Dose: 10 mg Mineral Oil (Mineral Oil 30 Ml) 30 ml GT DAILY [facility] Stop: 08/27/16 08:59 Last Admin: 07/02/16 08:37 Dose: Not Given Morphine Sulfate (Morphine) 2 mg IVP Q4HR PRN PRN Reason: Pain (Severe) Stop: 08/25/16 23:50 Ondansetron HCl (Zofran) 4 mg IV Q8H PRN PRN Reason: Nausea / Vomiting Stop: 08/25/16 23:50 Pantoprazole Sodium (Protonix) 40 mg IVP BID [facility] Stop: 08/26/16 08:59 Last Admin: 07/02/16 08:37 Dose: 40 mg Polyethylene Glycol (Miralax) 17 gm PO BID [facility] Stop: 08/29/16 08:59 Last Admin: 07/02/16 08:37 Dose: Not Given Prochlorperazine (Compazine) 25 mg RC Q12H PRN; Protocol PRN Reason: Nausea Stop: 08/25/16 23:52 Vitamin D (Vitamin D) 400 iu GT DAILY [facility] Stop: 08/26/16 08:59 Last Admin: 07/02/16 08:38 Dose: Not Given General: alert Neck: Supple Lungs: CTAB Cardiovascular: RRR, Normal S1, Normal S2, without murmur Abdomen: soft non-tender Neurological: no change - Procedures Procedures: Procedures Procedure Code Date EGD BIOPSY SINGLE/MULTIPLE 95640 12/22/13 ESOPHAGOGASTRODUODENOSCOPY [EGD] W/CLOSED BIOPSY 45.16 07/10/14 INFLUENZA VACCINATION 99.52 07/14/13 INSERT INDWELLING CATH 57.94 05/17/12 INSERT INTESTINAL TUBE 96.08 05/17/12 INSERT PICC CATH 17175 05/17/12 INSERT TEMP BLADDER CATH 95876 05/17/12 OPEN AND OTHER CECECTOMY 45.72 05/17/12 OPEN AND OTHER RIGHT HEMICOLECTOMY 45.73 05/17/12 PARTIAL REMOVAL OF COLON 59838 05/17/12 UNLISTED PX SMALL INTESTINE 22528 05/17/12 VENOUS CATHETERIZATION NEC 38.93 05/17/12 Internal Medicine Assmt/Plan - Assessment Assessment: abdominal pain intractable vomiting- resolved - Plan Plan: ivf for hydration zofran prn monitor electrolytes cbc/bmp in am
[2016-07-02] MEDS: Magnesium Hydroxide (MOM) 30 mL UDC PO SCH (21:23)
[2016-07-03] MEDS: Metoclopramide 5 mg/mL 2mL Vial IVP SCH ×3 (05:32→22:22)
[2016-07-03 07:36] LABS: % BASOPHILS 0.1 % (0.0-2.0); % EOSINOPHILS 5.9 % (0.0-5.0); % LYMPHOCYTES 33.5 % (20.0-50.0); % MONOCYTES 9.2 % (2.0-10.0); % NEUTROPHILS 51.3 % (40.0-80.0); HEMOGLOBIN 12.9 gm/dL (13.2-17.3); MEAN CELL VOLUME 88.6 fl (80-99); MEAN CORPUSCULAR HEMOGLOBIN 30.2 pg (26.0-30.0); MEAN CORPUSCULAR HGB CONC 34.1 pg (28.0-36.0); MEAN PLATELET VOLUME 8.1 fl; NEUTROPHILE ABSOLUTE 2.7 Th/cmm (1.8-8.0); PLATELET COUNT 156 Th/cmm (150-400); RED BLOOD COUNT 4.27 Mil/cmm (4.30-5.70); RED CELL DISTRIBUTION WIDTH 12.4 % (11.5-20.0)
[2016-07-03 07:57] LABS: ANION GAP 7.6 (7.0-16.0); BUN - UREA NITROGEN 15 mg/dL (7-25); CALCIUM SERUM 8.8 mg/dL (8.6-10.3); CARBON DIOXIDE 29.6 mEq/L (21.0-31.0); CHLORIDE 103 mEq/L (98-107); CREATININE - SERUM 0.5 mg/dL (0.7-1.3); GLUCOSE 100 mg/dL (70-105); POTASSIUM SERUM 4.2 mEq/L (3.5-5.1); SODIUM SERUM 136 mEq/L (136-145)
[2016-07-03 08:06] LABS: HEMATOCRIT 37.9 % (39.0-49.0); WHITE BLOOD COUNT 5.2 Th/cmm (4.8-10.8)
[2016-07-03] MEDS: POLYETHYLENE GLYCOL 3350 17 GM PACK PO SCH (10:07)
[2016-07-03] MEDS: Magnesium Hydroxide (MOM) 30 mL UDC PO SCH (22:22)
--- NOTE | 2016-07-04 12:24 | Internal Medicine Prog Note ---
Internal Medicine Subjective - Subjective Service Date: 07/04/16 Patient seen and examined:: with staff Patient is:: awake Per staff patient is:: no adverse event Internal Medicine Objective - Results Result Diagrams: 07/03/16 07:07 07/03/16 07:07 Recent Labs: Laboratory Last Values WBC 5.2 Th/cmm (4.8-10.8) D 07/03/16 07:07 RBC 4.27 Mil/cmm (4.30-5.70) L 07/03/16 07:07 Hgb 12.9 gm/dL (13.2-17.3) L 07/03/16 07:07 Hct 37.9 % (39.0-49.0) L D 07/03/16 07:07 MCV 88.6 fl (80-99) 07/03/16 07:07 MCH 30.2 pg (26.0-30.0) H 07/03/16 07:07 MCHC Differential 34.1 pg (28.0-36.0) 07/03/16 07:07 RDW 12.4 % (11.5-20.0) 07/03/16 07:07 Plt Count 156 Th/cmm (150-400) 07/03/16 07:07 MPV 8.1 fl 07/03/16 07:07 Neutrophils % 51.3 % (40.0-80.0) 07/03/16 07:07 Band Neutrophils % 5 % (0-10) 06/27/16 06:16 Lymphocytes % 33.5 % (20.0-50.0) 07/03/16 07:07 Monocytes % 9.2 % (2.0-10.0) 07/03/16 07:07 Eosinophils % 5.9 % (0.0-5.0) H 07/03/16 07:07 Basophils % 0.1 % (0.0-2.0) 07/03/16 07:07 Neutrophils (Manual) 42 % (40-80) 07/01/16 05:45 Lymphocytes 36 % (20-50) 07/01/16 05:45 Monocytes 14 % (2-10) H 07/01/16 05:45 Eosinophils 2 % (0-5) 07/01/16 05:45 Basophils 1 % (0-3) 07/01/16 05:45 Atypical Lymphocytes 5 % 07/01/16 05:45 Platelet Estimate ADEQUATE (NORMAL) 07/01/16 05:45 Platelet Morphology NORMAL (NORMAL) 07/01/16 05:45 RBC Morph Micro Appear NORMAL (NORMAL) 07/01/16 05:45 Sodium 136 mEq/L (136-145) 07/03/16 07:07 Potassium 4.2 mEq/L (3.5-5.1) 07/03/16 07:07 Chloride 103 mEq/L (98-107) 07/03/16 07:07 Carbon Dioxide 29.6 mEq/L (21.0-31.0) 07/03/16 07:07 Anion Gap 7.6 (7.0-16.0) 07/03/16 07:07 BUN 15 mg/dL (7-25) 07/03/16 07:07 Creatinine 0.5 mg/dL (0.7-1.3) L 07/03/16 07:07 Est GFR ( Amer) > 60.0 ml/min 07/03/16 07:07 Est GFR (Non-Af Amer) > 60.0 ml/min 07/03/16 07:07 BUN/Creatinine Ratio 30.0 07/03/16 07:07 Glucose 100 mg/dL (70-105) 07/03/16 07:07 Calcium 8.8 mg/dL (8.6-10.3) 07/03/16 07:07 Total Bilirubin 0.4 mg/dL (0.3-1.0) 07/02/16 06:55 AST 23 U/L (13-39) 07/02/16 06:55 ALT 15 U/L (7-52) 07/02/16 06:55 Alkaline Phosphatase 65 U/L (34-104) 07/02/16 06:55 Total Protein 7.6 gm/dL (6.0-8.3) 07/02/16 06:55 Albumin 4.2 gm/dL (4.2-5.5) 07/02/16 06:55 Globulin 3.4 gm/dL 07/02/16 06:55 Albumin/Globulin Ratio 1.2 (1.0-1.8) 07/02/16 06:55 Lipase 13 U/L (11-82) 06/26/16 23:39 TSH 0.20 uIU/ml (0.34-5.60) L 06/27/16 06:16 Urine Source CLEAN C 06/28/16 21:35 Urine Color YELLOW 06/28/16 21:35 Urine Clarity CLEAR (CLEAR) 06/28/16 21:35 Urine pH >=9.0 06/28/16 21:35 Ur Specific [place] 1.020 (1.005-1.030) 06/28/16 21:35 Urine Protein TRACE mg/dL (NEGATIVE) 06/28/16 21:35 Urine Glucose (UA) NEGATIVE mg/dL (NEGATIVE) 06/28/16 21:35 Urine Ketones NEGATIVE mg/dL (NEGATIVE) 06/28/16 21:35 Urine Blood NEGATIVE (NEGATIVE) 06/28/16 21:35 Urine Nitrate NEGATIVE (NEGATIVE) 06/28/16 21:35 Urine Bilirubin NEGATIVE (NEGATIVE) 06/28/16 21:35 Urine Urobilinogen 0.2 E.U./dL (0.2 - 1.0) 06/28/16 21:35 Ur Leukocyte Esterase NEGATIVE (NEGATIVE) 06/28/16 21:35 Urine RBC 0-2 /hpf (0-5) H 06/28/16 21:35 Urine WBC 0-2 /hpf (0-5) 06/28/16 21:35 Ur Epithelial Cells NONE SEEN /lpf (FEW) 06/28/16 21:35 Urine Bacteria FEW /hpf (NONE SEEN) 06/28/16 21:35 - Physical Exam Vitals and I&O: Vital Signs Temp 97.1 F 07/04/16 08:00 Pulse 65 07/04/16 08:00 Resp 18 07/04/16 08:00 BP 108/83 07/04/16 08:00 Pulse Ox 98 07/04/16 08:00 Intake & Output 07/03/16 07/04/16 07/04/16 18:59 06:59 18:59 Intake Total 700 120 Balance 700 120 Intake: Oral 400 120 Other 300 Other: # Voids 3 # Bowel Movements 2 Active Medications: Current Medications Bisacodyl (Dulcolax 10 Mg Supp) 10 mg RC DAILY PRN PRN Reason: Constipation Stop: 08/25/16 23:52 Dextrose/Sodium Chloride (D5-0.45ns) 1,000 mls @ 70 mls/hr IV .[id number] [facility] Stop: 09/02/16 12:29 Magnesium Hydroxide (Milk Of Magnesia) 30 ml PO HS [facility] Stop: 08/26/16 20:59 Last Admin: 07/03/16 22:22 Dose: 30 ml Metoclopramide HCl (Reglan) 10 mg IVP Q8HR [facility] Stop: 08/29/16 04:59 Last Admin: 07/03/16 22:22 Dose: 10 mg Mineral Oil (Mineral Oil 30 Ml) 30 ml GT DAILY [facility] Stop: 08/27/16 08:59 Last Admin: 07/04/16 10:04 Dose: 30 ml Prochlorperazine (Compazine) 25 mg RC Q12H PRN; Protocol PRN Reason: Nausea Stop: 08/25/16 23:52 Vitamin D (Vitamin D) 400 iu GT DAILY [facility] Stop: 08/26/16 08:59 Last Admin: 07/04/16 10:04 Dose: 400 iu General: alert HEENT: NC/AT Neck: Supple Lungs: CTAB Cardiovascular: RRR, Normal S1, Normal S2, without murmur Abdomen: soft non-tender, non-distended, positive bowel sound Neurological: no change - Procedures Procedures: Procedures Procedure Code Date EGD BIOPSY SINGLE/MULTIPLE 04798 12/22/13 ESOPHAGOGASTRODUODENOSCOPY [EGD] W/CLOSED BIOPSY 45.16 12/22/13 INFLUENZA VACCINATION 99.52 07/14/13 INSERT INDWELLING CATH 57.94 05/17/12 INSERT INTESTINAL TUBE 96.08 05/17/12 INSERT PICC CATH 48248 05/17/12 INSERT TEMP BLADDER CATH 28937 05/17/12 OPEN AND OTHER CECECTOMY 45.72 05/17/12 OPEN AND OTHER RIGHT HEMICOLECTOMY 45.73 05/17/12 PARTIAL REMOVAL OF COLON 96983 05/17/12 UNLISTED PX SMALL INTESTINE 17616 05/17/12 VENOUS CATHETERIZATION NEC 38.93 05/17/12 Internal Medicine Assmt/Plan - Assessment Assessment: abdominal pain intractable vomiting- resolved - Plan Plan: ivf for hydration placement issues zofran prn monitor electrolytes cbc/bmp in am
[2016-07-04] MEDS ORDERED: D5-0.45NS 1,000 ML IV SCH (12:30)
[2016-07-04] MEDS: Magnesium Hydroxide (MOM) 30 mL UDC PO SCH (22:29)
[2016-07-05 05:45] LABS: % BASOPHILS 1.7 % (0.0-2.0); % EOSINOPHILS 5.3 % (0.0-5.0); % LYMPHOCYTES 32.8 % (20.0-50.0); % MONOCYTES 10.8 % (2.0-10.0); % NEUTROPHILS 49.4 % (40.0-80.0); HEMATOCRIT 39.8 % (39.0-49.0); HEMOGLOBIN 13.5 gm/dL (13.2-17.3); MEAN CELL VOLUME 87.2 fl (80-99); MEAN CORPUSCULAR HEMOGLOBIN 29.6 pg (26.0-30.0); MEAN CORPUSCULAR HGB CONC 33.9 pg (28.0-36.0); NEUTROPHILE ABSOLUTE 3.3 Th/cmm (1.8-8.0); PLATELET COUNT 180 Th/cmm (150-400); RED BLOOD COUNT 4.56 Mil/cmm (4.30-5.70); RED CELL DISTRIBUTION WIDTH 12.5 % (11.5-20.0)
[2016-07-05 06:15] LABS: WHITE BLOOD COUNT 6.7 Th/cmm (4.8-10.8)
[2016-07-05 06:42] LABS: ANION GAP 10.3 (7.0-16.0); BUN - UREA NITROGEN 9 mg/dL (7-25); BUN/CREATININE RATIO 22.5; CALCIUM SERUM 9.3 mg/dL (8.6-10.3); CARBON DIOXIDE 25.6 mEq/L (21.0-31.0); CHLORIDE 101 mEq/L (98-107); CREATININE - SERUM 0.4 mg/dL (0.7-1.3); GLUCOSE 103 mg/dL (70-105); POTASSIUM SERUM 3.9 mEq/L (3.5-5.1); SODIUM SERUM 133 mEq/L (136-145)
[2016-07-05] MEDS: D5-0.45NS 1,000 ML IV SCH ×2 (08:25→21:32)
--- NOTE | 2016-07-05 09:41 | Internal Medicine Prog Note ---
Internal Medicine Subjective - Subjective Patient seen and examined:: with staff, chart reviewed Patient is:: asleep, non-verbal, non-interactive, arousable Patient Complaints of:: congestion Per staff patient is:: no adverse event, confused Internal Medicine Objective - Results Result Diagrams: 07/05/16 05:25 07/05/16 05:25 Recent Labs: Laboratory Last Values WBC 6.7 Th/cmm (4.8-10.8) D 07/05/16 05:25 RBC 4.56 Mil/cmm (4.30-5.70) 07/05/16 05:25 Hgb 13.5 gm/dL (13.2-17.3) 07/05/16 05:25 Hct 39.8 % (39.0-49.0) 07/05/16 05:25 MCV 87.2 fl (80-99) 07/05/16 05:25 MCH 29.6 pg (26.0-30.0) 07/05/16 05:25 MCHC Differential 33.9 pg (28.0-36.0) 07/05/16 05:25 RDW 12.5 % (11.5-20.0) 07/05/16 05:25 Plt Count 180 Th/cmm (150-400) 07/05/16 05:25 MPV 8.0 fl 07/05/16 05:25 Neutrophils % 49.4 % (40.0-80.0) 07/05/16 05:25 Band Neutrophils % 5 % (0-10) 06/27/16 06:16 Lymphocytes % 32.8 % (20.0-50.0) 07/05/16 05:25 Monocytes % 10.8 % (2.0-10.0) H 07/05/16 05:25 Eosinophils % 5.3 % (0.0-5.0) H 07/05/16 05:25 Basophils % 1.7 % (0.0-2.0) 07/05/16 05:25 Neutrophils (Manual) 42 % (40-80) 07/01/16 05:45 Lymphocytes 36 % (20-50) 07/01/16 05:45 Monocytes 14 % (2-10) H 07/01/16 05:45 Eosinophils 2 % (0-5) 07/01/16 05:45 Basophils 1 % (0-3) 07/01/16 05:45 Atypical Lymphocytes 5 % 07/01/16 05:45 Platelet Estimate ADEQUATE (NORMAL) 07/01/16 05:45 Platelet Morphology NORMAL (NORMAL) 07/01/16 05:45 RBC Morph Micro Appear NORMAL (NORMAL) 07/01/16 05:45 Sodium 133 mEq/L (136-145) L 07/05/16 05:25 Potassium 3.9 mEq/L (3.5-5.1) 07/05/16 05:25 Chloride 101 mEq/L (98-107) 07/05/16 05:25 Carbon Dioxide 25.6 mEq/L (21.0-31.0) 07/05/16 05:25 Anion Gap 10.3 (7.0-16.0) 07/05/16 05:25 BUN 9 mg/dL (7-25) 07/05/16 05:25 Creatinine 0.4 mg/dL (0.7-1.3) L 07/05/16 05:25 Est GFR ( Amer) > 60.0 ml/min 07/05/16 05:25 Est GFR (Non-Af Amer) > 60.0 ml/min 07/05/16 05:25 BUN/Creatinine Ratio 22.5 07/05/16 05:25 Glucose 103 mg/dL (70-105) 07/05/16 05:25 Calcium 9.3 mg/dL (8.6-10.3) 07/05/16 05:25 Total Bilirubin 0.4 mg/dL (0.3-1.0) 07/02/16 06:55 AST 23 U/L (13-39) 07/02/16 06:55 ALT 15 U/L (7-52) 07/02/16 06:55 Alkaline Phosphatase 65 U/L (34-104) 07/02/16 06:55 Total Protein 7.6 gm/dL (6.0-8.3) 07/02/16 06:55 Albumin 4.2 gm/dL (4.2-5.5) 07/02/16 06:55 Globulin 3.4 gm/dL 07/02/16 06:55 Albumin/Globulin Ratio 1.2 (1.0-1.8) 07/02/16 06:55 Lipase 13 U/L (11-82) 06/26/16 23:39 TSH 0.20 uIU/ml (0.34-5.60) L 06/27/16 06:16 Urine Source CLEAN C 06/28/16 21:35 Urine Color YELLOW 06/28/16 21:35 Urine Clarity CLEAR (CLEAR) 06/28/16 21:35 Urine pH >=9.0 06/28/16 21:35 Ur Specific [place] 1.020 (1.005-1.030) 06/28/16 21:35 Urine Protein TRACE mg/dL (NEGATIVE) 06/28/16 21:35 Urine Glucose (UA) NEGATIVE mg/dL (NEGATIVE) 06/28/16 21:35 Urine Ketones NEGATIVE mg/dL (NEGATIVE) 06/28/16 21:35 Urine Blood NEGATIVE (NEGATIVE) 06/28/16 21:35 Urine Nitrate NEGATIVE (NEGATIVE) 06/28/16 21:35 Urine Bilirubin NEGATIVE (NEGATIVE) 06/28/16 21:35 Urine Urobilinogen 0.2 E.U./dL (0.2 - 1.0) 06/28/16 21:35 Ur Leukocyte Esterase NEGATIVE (NEGATIVE) 06/28/16 21:35 Urine RBC 0-2 /hpf (0-5) H 06/28/16 21:35 Urine WBC 0-2 /hpf (0-5) 06/28/16 21:35 Ur Epithelial Cells NONE SEEN /lpf (FEW) 06/28/16 21:35 Urine Bacteria FEW /hpf (NONE SEEN) 06/28/16 21:35 - Physical Exam Vitals and I&O: Vital Signs Temp 97.2 F 07/05/16 08:34 Pulse 62 07/05/16 08:34 Resp 18 07/05/16 08:34 BP 105/58 07/05/16 08:34 Pulse Ox 99 07/05/16 08:34 Intake & Output 07/04/16 07/05/16 07/05/16 18:59 06:59 18:59 Intake Total 470 Balance 470 Intake: Oral 350 Tube Feeding 120 Other: # Voids 2 # Bowel Movements 1 Active Medications: Current Medications Bisacodyl (Dulcolax 10 Mg Supp) 10 mg RC DAILY PRN PRN Reason: Constipation Stop: 08/25/16 23:52 Dextrose/Sodium Chloride (D5-0.45ns) 1,000 mls @ 70 mls/hr IV .[id number] [facility] Stop: 09/02/16 19:04 Last Admin: 07/05/16 08:25 Dose: 70 mls/hr Magnesium Hydroxide (Milk Of Magnesia) 30 ml PO HS [facility] Stop: 08/26/16 20:59 Last Admin: 07/04/16 22:29 Dose: 30 ml Metoclopramide HCl (Reglan) 10 mg PO TID [facility] Stop: 09/02/16 14:59 Last Admin: 07/05/16 08:25 Dose: 10 mg Mineral Oil (Mineral Oil 30 Ml) 30 ml GT DAILY [facility] Stop: 08/27/16 08:59 Last Admin: 07/05/16 08:25 Dose: 30 ml Prochlorperazine (Compazine) 25 mg RC Q12H PRN; Protocol PRN Reason: Nausea Stop: 08/25/16 23:52 Vitamin D (Vitamin D) 400 iu GT DAILY [facility] Stop: 08/26/16 08:59 Last Admin: 07/05/16 08:25 Dose: 400 iu General: lethargic HEENT: NC/AT Neck: Supple, No JVD Lungs: congested Cardiovascular: RRR, Normal S1, Normal S2 Abdomen: soft non-tender, globular, distended, positive bowel sound Extremities: excoriation, contracture Neurological: no change - Procedures Procedures: Procedures Procedure Code Date EGD BIOPSY SINGLE/MULTIPLE 34333 12/22/13 ESOPHAGOGASTRODUODENOSCOPY [EGD] W/CLOSED BIOPSY 45.16 12/22/13 INFLUENZA VACCINATION 99.52 07/14/13 INSERT INDWELLING CATH 57.94 05/17/12 INSERT INTESTINAL TUBE 96.08 05/17/12 INSERT PICC CATH 19114 05/17/12 INSERT TEMP BLADDER CATH 84444 05/17/12 OPEN AND OTHER CECECTOMY 45.72 05/17/12 OPEN AND OTHER RIGHT HEMICOLECTOMY 45.73 05/17/12 PARTIAL REMOVAL OF COLON 07614 05/17/12 UNLISTED PX SMALL INTESTINE 95879 05/17/12 VENOUS CATHETERIZATION NEC 38.93 05/17/12 Internal Medicine Assmt/Plan - Assessment Assessment: abdominal pain intractable vomiting dehyration cp stool impaction debility - Plan Plan: cont on ivf on reglan on ppi dw rn gi follow up
[2016-07-05] MEDS: Magnesium Hydroxide (MOM) 30 mL UDC PO SCH (21:24)
--- NOTE | 2016-07-06 11:49 | Internal Medicine Prog Note ---
Internal Medicine Subjective - Subjective Patient seen and examined:: with staff, chart reviewed Patient is:: asleep, non-verbal, non-interactive Per staff patient is:: no adverse event, confused Internal Medicine Objective - Results Result Diagrams: 07/05/16 05:25 07/05/16 05:25 Recent Labs: Laboratory Last Values WBC 6.7 Th/cmm (4.8-10.8) D 07/05/16 05:25 RBC 4.56 Mil/cmm (4.30-5.70) 07/05/16 05:25 Hgb 13.5 gm/dL (13.2-17.3) 07/05/16 05:25 Hct 39.8 % (39.0-49.0) 07/05/16 05:25 MCV 87.2 fl (80-99) 07/05/16 05:25 MCH 29.6 pg (26.0-30.0) 07/05/16 05:25 MCHC Differential 33.9 pg (28.0-36.0) 07/05/16 05:25 RDW 12.5 % (11.5-20.0) 07/05/16 05:25 Plt Count 180 Th/cmm (150-400) 07/05/16 05:25 MPV 8.0 fl 07/05/16 05:25 Neutrophils % 49.4 % (40.0-80.0) 07/05/16 05:25 Band Neutrophils % 5 % (0-10) 06/27/16 06:16 Lymphocytes % 32.8 % (20.0-50.0) 07/05/16 05:25 Monocytes % 10.8 % (2.0-10.0) H 07/05/16 05:25 Eosinophils % 5.3 % (0.0-5.0) H 07/05/16 05:25 Basophils % 1.7 % (0.0-2.0) 07/05/16 05:25 Neutrophils (Manual) 42 % (40-80) 07/01/16 05:45 Lymphocytes 36 % (20-50) 07/01/16 05:45 Monocytes 14 % (2-10) H 07/01/16 05:45 Eosinophils 2 % (0-5) 07/01/16 05:45 Basophils 1 % (0-3) 07/01/16 05:45 Atypical Lymphocytes 5 % 07/01/16 05:45 Platelet Estimate ADEQUATE (NORMAL) 07/01/16 05:45 Platelet Morphology NORMAL (NORMAL) 07/01/16 05:45 RBC Morph Micro Appear NORMAL (NORMAL) 07/01/16 05:45 Sodium 133 mEq/L (136-145) L 07/05/16 05:25 Potassium 3.9 mEq/L (3.5-5.1) 07/05/16 05:25 Chloride 101 mEq/L (98-107) 07/05/16 05:25 Carbon Dioxide 25.6 mEq/L (21.0-31.0) 07/05/16 05:25 Anion Gap 10.3 (7.0-16.0) 07/05/16 05:25 BUN 9 mg/dL (7-25) 07/05/16 05:25 Creatinine 0.4 mg/dL (0.7-1.3) L 07/05/16 05:25 Est GFR ( Amer) > 60.0 ml/min 07/05/16 05:25 Est GFR (Non-Af Amer) > 60.0 ml/min 07/05/16 05:25 BUN/Creatinine Ratio 22.5 07/05/16 05:25 Glucose 103 mg/dL (70-105) 07/05/16 05:25 Calcium 9.3 mg/dL (8.6-10.3) 07/05/16 05:25 Total Bilirubin 0.4 mg/dL (0.3-1.0) 07/02/16 06:55 AST 23 U/L (13-39) 07/02/16 06:55 ALT 15 U/L (7-52) 07/02/16 06:55 Alkaline Phosphatase 65 U/L (34-104) 07/02/16 06:55 Total Protein 7.6 gm/dL (6.0-8.3) 07/02/16 06:55 Albumin 4.2 gm/dL (4.2-5.5) 07/02/16 06:55 Globulin 3.4 gm/dL 07/02/16 06:55 Albumin/Globulin Ratio 1.2 (1.0-1.8) 07/02/16 06:55 Lipase 13 U/L (11-82) 06/26/16 23:39 TSH 0.20 uIU/ml (0.34-5.60) L 06/27/16 06:16 Urine Source CLEAN C 06/28/16 21:35 Urine Color YELLOW 06/28/16 21:35 Urine Clarity CLEAR (CLEAR) 06/28/16 21:35 Urine pH >=9.0 06/28/16 21:35 Ur Specific [place] 1.020 (1.005-1.030) 06/28/16 21:35 Urine Protein TRACE mg/dL (NEGATIVE) 06/28/16 21:35 Urine Glucose (UA) NEGATIVE mg/dL (NEGATIVE) 06/28/16 21:35 Urine Ketones NEGATIVE mg/dL (NEGATIVE) 06/28/16 21:35 Urine Blood NEGATIVE (NEGATIVE) 06/28/16 21:35 Urine Nitrate NEGATIVE (NEGATIVE) 06/28/16 21:35 Urine Bilirubin NEGATIVE (NEGATIVE) 06/28/16 21:35 Urine Urobilinogen 0.2 E.U./dL (0.2 - 1.0) 06/28/16 21:35 Ur Leukocyte Esterase NEGATIVE (NEGATIVE) 06/28/16 21:35 Urine RBC 0-2 /hpf (0-5) H 06/28/16 21:35 Urine WBC 0-2 /hpf (0-5) 06/28/16 21:35 Ur Epithelial Cells NONE SEEN /lpf (FEW) 06/28/16 21:35 Urine Bacteria FEW /hpf (NONE SEEN) 06/28/16 21:35 - Physical Exam Vitals and I&O: Vital Signs Temp 97.5 F 07/06/16 08:00 Pulse 61 07/06/16 08:00 Resp 18 07/06/16 08:00 BP 120/73 07/06/16 08:00 Pulse Ox 95 07/06/16 08:00 Intake & Output 07/05/16 07/06/16 07/06/16 18:59 06:59 18:59 Intake Total 250 918.167 150 Balance 250 918.167 150 Intake: Intake, IV Amount 918.167 D5-0.45NS 1,000 ml @ 70 918.167 mls/hr IV .[id number] [facility] Rx #:[id number] Oral 100 0 Tube Feeding 150 150 Other: # Voids 1 1 # Bowel Movements 0 Active Medications: Current Medications Bisacodyl (Dulcolax 10 Mg Supp) 10 mg RC DAILY PRN PRN Reason: Constipation Stop: 08/25/16 23:52 Bisacodyl (Dulcolax 5 Mg Ec Tab) 10 mg PO X1 ONE Stop: 07/06/16 16:01 Dextrose/Sodium Chloride (D5-0.45ns) 1,000 mls @ 70 mls/hr IV .[id number] [facility] Stop: 09/02/16 19:04 Last Admin: 07/05/16 21:32 Dose: 70 mls/hr Magnesium Hydroxide (Milk Of Magnesia) 30 ml PO HS [facility] Stop: 08/26/16 20:59 Last Admin: 07/05/16 21:24 Dose: 30 ml Metoclopramide HCl (Reglan) 10 mg PO TID [facility] Stop: 09/02/16 14:59 Last Admin: 07/06/16 08:20 Dose: 10 mg Mineral Oil (Mineral Oil 30 Ml) 30 ml GT DAILY [facility] Stop: 08/27/16 08:59 Last Admin: 07/06/16 08:20 Dose: 30 ml Prochlorperazine (Compazine) 25 mg RC Q12H PRN; Protocol PRN Reason: Nausea Stop: 08/25/16 23:52 Vitamin D (Vitamin D) 400 iu GT DAILY [facility] Stop: 08/26/16 08:59 Last Admin: 07/06/16 08:20 Dose: 400 iu General: lethargic HEENT: NC/AT, PERRLA Neck: Supple, No JVD Lungs: CTAB Cardiovascular: RRR, Normal S1, Normal S2 Abdomen: soft non-tender, globular, +GT Extremities: excoriation, contracture Neurological: no change - Procedures Procedures: Procedures Procedure Code Date EGD BIOPSY SINGLE/MULTIPLE 09493 12/22/13 ESOPHAGOGASTRODUODENOSCOPY [EGD] W/CLOSED BIOPSY 45.16 12/22/13 INFLUENZA VACCINATION 99.52 07/14/13 INSERT INDWELLING CATH 57.94 05/17/12 INSERT INTESTINAL TUBE 96.08 05/17/12 INSERT PICC CATH 15214 05/17/12 INSERT TEMP BLADDER CATH 82545 05/17/12 OPEN AND OTHER CECECTOMY 45.72 05/17/12 OPEN AND OTHER RIGHT HEMICOLECTOMY 45.73 05/17/12 PARTIAL REMOVAL OF COLON 05070 05/17/12 UNLISTED PX SMALL INTESTINE 52456 05/17/12 VENOUS CATHETERIZATION NEC 38.93 05/17/12 Internal Medicine Assmt/Plan - Assessment Assessment: abdominal pain intractable vomiting dehyration cp stool impaction debility - Plan Plan: cont on ivf on reglan on ppi [place] rn gi follow up
[2016-07-06] MEDS: D5-0.45NS 1,000 ML IV SCH (13:01)
[2016-07-06] MEDS: Magnesium Hydroxide (MOM) 30 mL UDC PO SCH (21:18)
[2016-07-07 07:38] LABS: INR 1.1 (0.5-1.4)
[2016-07-07] MEDS: D5-0.45NS 1,000 ML IV SCH (12:05)
--- NOTE | 2016-07-07 12:51 | Internal Medicine Prog Note ---
Internal Medicine Subjective - Subjective Service Date: 07/07/16 Patient seen and examined:: with staff Patient is:: awake, non-interactive Internal Medicine Objective - Results Result Diagrams: 07/05/16 05:25 07/05/16 05:25 Recent Labs: Laboratory Last Values WBC 6.7 Th/cmm (4.8-10.8) D 07/05/16 05:25 RBC 4.56 Mil/cmm (4.30-5.70) 07/05/16 05:25 Hgb 13.5 gm/dL (13.2-17.3) 07/05/16 05:25 Hct 39.8 % (39.0-49.0) 07/05/16 05:25 MCV 87.2 fl (80-99) 07/05/16 05:25 MCH 29.6 pg (26.0-30.0) 07/05/16 05:25 MCHC Differential 33.9 pg (28.0-36.0) 07/05/16 05:25 RDW 12.5 % (11.5-20.0) 07/05/16 05:25 Plt Count 180 Th/cmm (150-400) 07/05/16 05:25 MPV 8.0 fl 07/05/16 05:25 Neutrophils % 49.4 % (40.0-80.0) 07/05/16 05:25 Band Neutrophils % 5 % (0-10) 06/27/16 06:16 Lymphocytes % 32.8 % (20.0-50.0) 07/05/16 05:25 Monocytes % 10.8 % (2.0-10.0) H 07/05/16 05:25 Eosinophils % 5.3 % (0.0-5.0) H 07/05/16 05:25 Basophils % 1.7 % (0.0-2.0) 07/05/16 05:25 Neutrophils (Manual) 42 % (40-80) 07/01/16 05:45 Lymphocytes 36 % (20-50) 07/01/16 05:45 Monocytes 14 % (2-10) H 07/01/16 05:45 Eosinophils 2 % (0-5) 07/01/16 05:45 Basophils 1 % (0-3) 07/01/16 05:45 Atypical Lymphocytes 5 % 07/01/16 05:45 Platelet Estimate ADEQUATE (NORMAL) 07/01/16 05:45 Platelet Morphology NORMAL (NORMAL) 07/01/16 05:45 RBC Morph Micro Appear NORMAL (NORMAL) 07/01/16 05:45 PT 11.0 SECONDS (9.5-11.5) 07/07/16 07:00 INR 1.10 (0.5-1.4) 07/07/16 07:00 Sodium 133 mEq/L (136-145) L 07/05/16 05:25 Potassium 3.9 mEq/L (3.5-5.1) 07/05/16 05:25 Chloride 101 mEq/L (98-107) 07/05/16 05:25 Carbon Dioxide 25.6 mEq/L (21.0-31.0) 07/05/16 05:25 Anion Gap 10.3 (7.0-16.0) 07/05/16 05:25 BUN 9 mg/dL (7-25) 07/05/16 05:25 Creatinine 0.4 mg/dL (0.7-1.3) L 07/05/16 05:25 Est GFR ( Amer) > 60.0 ml/min 07/05/16 05:25 Est GFR (Non-Af Amer) > 60.0 ml/min 07/05/16 05:25 BUN/Creatinine Ratio 22.5 07/05/16 05:25 Glucose 103 mg/dL (70-105) 07/05/16 05:25 Calcium 9.3 mg/dL (8.6-10.3) 07/05/16 05:25 Total Bilirubin 0.4 mg/dL (0.3-1.0) 07/02/16 06:55 AST 23 U/L (13-39) 07/02/16 06:55 ALT 15 U/L (7-52) 07/02/16 06:55 Alkaline Phosphatase 65 U/L (34-104) 07/02/16 06:55 Total Protein 7.6 gm/dL (6.0-8.3) 07/02/16 06:55 Albumin 4.2 gm/dL (4.2-5.5) 07/02/16 06:55 Globulin 3.4 gm/dL 07/02/16 06:55 Albumin/Globulin Ratio 1.2 (1.0-1.8) 07/02/16 06:55 Lipase 13 U/L (11-82) 06/26/16 23:39 TSH 0.20 uIU/ml (0.34-5.60) L 06/27/16 06:16 Urine Source CLEAN C 06/28/16 21:35 Urine Color YELLOW 06/28/16 21:35 Urine Clarity CLEAR (CLEAR) 06/28/16 21:35 Urine pH >=9.0 06/28/16 21:35 Ur Specific [place] 1.020 (1.005-1.030) 06/28/16 21:35 Urine Protein TRACE mg/dL (NEGATIVE) 06/28/16 21:35 Urine Glucose (UA) NEGATIVE mg/dL (NEGATIVE) 06/28/16 21:35 Urine Ketones NEGATIVE mg/dL (NEGATIVE) 06/28/16 21:35 Urine Blood NEGATIVE (NEGATIVE) 06/28/16 21:35 Urine Nitrate NEGATIVE (NEGATIVE) 06/28/16 21:35 Urine Bilirubin NEGATIVE (NEGATIVE) 06/28/16 21:35 Urine Urobilinogen 0.2 E.U./dL (0.2 - 1.0) 06/28/16 21:35 Ur Leukocyte Esterase NEGATIVE (NEGATIVE) 06/28/16 21:35 Urine RBC 0-2 /hpf (0-5) H 06/28/16 21:35 Urine WBC 0-2 /hpf (0-5) 06/28/16 21:35 Ur Epithelial Cells NONE SEEN /lpf (FEW) 06/28/16 21:35 Urine Bacteria FEW /hpf (NONE SEEN) 06/28/16 21:35 - Physical Exam Vitals and I&O: Vital Signs Temp 97.4 F 07/07/16 04:25 Pulse 77 07/07/16 04:25 Resp 20 07/07/16 08:19 BP 114/73 07/07/16 04:25 Pulse Ox 97 07/07/16 04:25 Intake & Output 07/06/16 07/07/16 07/07/16 18:59 06:59 18:59 Intake Total 1150 1200 Balance 1150 1200 Intake: Intake, IV Amount 1000 1000 D5-0.45NS 1,000 ml @ 70 1000 1000 mls/hr IV .[id number] [facility] Rx #:[id number] Oral 0 Tube Feeding 150 200 Other: # Voids 1 Active Medications: Current Medications Bisacodyl (Dulcolax 10 Mg Supp) 10 mg RC DAILY PRN PRN Reason: Constipation Stop: 08/25/16 23:52 Dextrose/Sodium Chloride (D5-0.45ns) 1,000 mls @ 70 mls/hr IV .[id number] [facility] Stop: 09/02/16 19:04 Last Admin: 07/07/16 12:05 Dose: 70 mls/hr Magnesium Hydroxide (Milk Of Magnesia) 30 ml PO HS ALLISON Stop: 08/26/16 20:59 Last Admin: 07/06/16 21:18 Dose: 30 ml Megestrol Acetate (Megace) 400 mg PO BID ALLISON PRN Reason: Protocol Stop: 09/04/16 16:59 Last Admin: 07/06/16 16:02 Dose: Not Given Metoclopramide HCl (Reglan) 10 mg PO TID ALLISON Stop: 09/02/16 14:59 Last Admin: 07/06/16 21:18 Dose: 10 mg Mineral Oil (Mineral Oil 30 Ml) 30 ml GT DAILY ALLISON Stop: 08/27/16 08:59 Last Admin: 07/06/16 08:20 Dose: 30 ml Prochlorperazine (Compazine) 25 mg RC Q12H PRN; Protocol PRN Reason: Nausea Stop: 08/25/16 23:52 Vitamin D (Vitamin D) 400 iu GT DAILY ALLISON Stop: 08/26/16 08:59 Last Admin: 07/06/16 08:20 Dose: 400 iu General: weak HEENT: NC/AT Neck: Supple Lungs: CTAB Cardiovascular: RRR, Normal S1, Normal S2, without murmur Abdomen: soft non-tender - Procedures Procedures: Procedures Procedure Code Date EGD BIOPSY SINGLE/MULTIPLE 51105 12/22/13 ESOPHAGOGASTRODUODENOSCOPY [EGD] W/CLOSED BIOPSY 45.16 12/22/13 INFLUENZA VACCINATION 99.52 07/14/13 INSERT INDWELLING CATH 57.94 05/17/12 INSERT INTESTINAL TUBE 96.08 05/17/12 INSERT PICC CATH [id number] 05/17/12 INSERT TEMP BLADDER CATH [id number] 05/17/12 OPEN AND OTHER CECECTOMY 45.72 05/17/12 OPEN AND OTHER RIGHT HEMICOLECTOMY 45.73 05/17/12 PARTIAL REMOVAL OF COLON 24683 05/17/12 UNLISTED PX SMALL INTESTINE 47633 05/17/12 VENOUS CATHETERIZATION NEC 38.93 05/17/12 Internal Medicine Assmt/Plan - Assessment Assessment: abdominal pain intractable vomiting- resolved - Plan Plan: ivf for hydration colonoscopy today reglan prn monitor electrolytes cbc/bmp in am
[2016-07-07] MEDS ORDERED: Lactated Ringer 1,000 ML IV SCH (15:00)
--- NOTE | 2016-07-07 17:51 | Operative Report ---
GASTROINTESTINAL CONSULTATION NAME OF PROCEDURE: Colonoscopy. REASON FOR PROCEDURE: Fecal impaction. REFERRING PHYSICIAN: Dr. Conteh. CONSENT: Risks, benefits, alternatives, nature, indication, possible outcomes were discussed. Mentioned bleeding, infection, perforation, , disability, cardiopulmonary distress and arrest, missed lesion and cancers, need for surgery. The patient's mother expressed understanding and provided informed consent. PREOPERATIVE DIAGNOSIS: Fecal impaction. POSTOPERATIVE DIAGNOSES: Altered anatomy of the colon, did not see the ileocecal valve and appendiceal orifice or cecum, possible anastomosis. MEDICATIONS: Provided by anesthesiologist because the patient has mental retardation and difficult IV access. DESCRIPTION OF PROCEDURE: The patient was placed on left side. Rectal exam was performed and was normal. Pediatric colonoscope was advanced from the anus into the proximal colon where there might have been an anastomosis. Scope could not get beyond this area. Scope was slowly withdrawn ____ mucosa along the way. Once in the rectum, retroflexion was performed, scope was straightened and removed along with air. COMPLICATIONS: None. FINDINGS: Ulcerative anatomy, possible colonic enteric anastomosis. No ileocecal valve, cecum or appendiceal orifice seen. RECOMMENDATIONS: 1. Barium enema. 2. Continue supportive care and laxatives. Thank you for allowing me to participate. Please call me if any questions. [facility]# [phone]
[2016-07-07] MEDS: Magnesium Hydroxide (MOM) 30 mL UDC PO SCH (22:04)
[2016-07-08] MEDS ORDERED: Fleet Enema 135 mL RC ONE (05:00)
[2016-07-08 07:18] LABS: % BASOPHILS 0.4 % (0.0-2.0); % EOSINOPHILS 3.4 % (0.0-5.0); % LYMPHOCYTES 26.4 % (20.0-50.0); % NEUTROPHILS 61.8 % (40.0-80.0); HEMATOCRIT 40.2 % (39.0-49.0); HEMOGLOBIN 13.5 gm/dL (13.2-17.3); MEAN CELL VOLUME 88.9 fl (80-99); MEAN CORPUSCULAR HGB CONC 33.7 pg (28.0-36.0); MEAN PLATELET VOLUME 7.9 fl; NEUTROPHILE ABSOLUTE 4.2 Th/cmm (1.8-8.0); PLATELET COUNT 190 Th/cmm (150-400); RED BLOOD COUNT 4.52 Mil/cmm (4.30-5.70); RED CELL DISTRIBUTION WIDTH 12.6 % (11.5-20.0); WHITE BLOOD COUNT 6.7 Th/cmm (4.8-10.8)
[2016-07-08 08:28] LABS: ANION GAP 8.7 (7.0-16.0); BUN - UREA NITROGEN 7 mg/dL (7-25); CALCIUM SERUM 9.4 mg/dL (8.6-10.3); CHLORIDE 106 mEq/L (98-107); CREATININE - SERUM 0.5 mg/dL (0.7-1.3); GLUCOSE 114 mg/dL (70-105); POTASSIUM SERUM 3.7 mEq/L (3.5-5.1); SODIUM SERUM 136 mEq/L (136-145)
--- NOTE | 2016-07-08 09:47 | Diagnostic Imaging Report ---
KUB abdominal film HISTORY: Abdominal distention The exam demonstrates multiple loops of mildly dilated large and small bowel. Little change from the prior exam of July 02, 2016. Changes associated with any dynamic ileus cannot be excluded. Gastrostomy catheter projects over the upper mid abdomen. No free intraperitoneal air. IMPRESSION: 1. Multiple loops of mildly dilated large and small bowel. Findings may be associated with an ileus. Clinical correlation is needed.
--- NOTE | 2016-07-08 12:59 | Internal Medicine Prog Note ---
Internal Medicine Subjective - Subjective Patient seen and examined:: with staff, chart reviewed Patient is:: awake, non-verbal, non-interactive Per staff patient is:: no adverse event, noncompliant, confused Internal Medicine Objective - Results Result Diagrams: 07/08/16 06:45 07/08/16 06:45 Recent Labs: Laboratory Last Values WBC 6.7 Th/cmm (4.8-10.8) 07/08/16 06:45 RBC 4.52 Mil/cmm (4.30-5.70) 07/08/16 06:45 Hgb 13.5 gm/dL (13.2-17.3) 07/08/16 06:45 Hct 40.2 % (39.0-49.0) 07/08/16 06:45 MCV 88.9 fl (80-99) 07/08/16 06:45 MCH 30.0 pg (26.0-30.0) 07/08/16 06:45 MCHC Differential 33.7 pg (28.0-36.0) 07/08/16 06:45 RDW 12.6 % (11.5-20.0) 07/08/16 06:45 Plt Count 190 Th/cmm (150-400) 07/08/16 06:45 MPV 7.9 fl 07/08/16 06:45 Neutrophils % 61.8 % (40.0-80.0) 07/08/16 06:45 Band Neutrophils % 5 % (0-10) 06/27/16 06:16 Lymphocytes % 26.4 % (20.0-50.0) 07/08/16 06:45 Monocytes % 8.0 % (2.0-10.0) 07/08/16 06:45 Eosinophils % 3.4 % (0.0-5.0) 07/08/16 06:45 Basophils % 0.4 % (0.0-2.0) 07/08/16 06:45 Neutrophils (Manual) 42 % (40-80) 07/01/16 05:45 Lymphocytes 36 % (20-50) 07/01/16 05:45 Monocytes 14 % (2-10) H 07/01/16 05:45 Eosinophils 2 % (0-5) 07/01/16 05:45 Basophils 1 % (0-3) 07/01/16 05:45 Atypical Lymphocytes 5 % 07/01/16 05:45 Platelet Estimate ADEQUATE (NORMAL) 07/01/16 05:45 Platelet Morphology NORMAL (NORMAL) 07/01/16 05:45 RBC Morph Micro Appear NORMAL (NORMAL) 07/01/16 05:45 PT 11.0 SECONDS (9.5-11.5) 07/07/16 07:00 INR 1.10 (0.5-1.4) 07/07/16 07:00 Sodium 136 mEq/L (136-145) 07/08/16 06:45 Potassium 3.7 mEq/L (3.5-5.1) 07/08/16 06:45 Chloride 106 mEq/L (98-107) 07/08/16 06:45 Carbon Dioxide 25.0 mEq/L (21.0-31.0) 07/08/16 06:45 Anion Gap 8.7 (7.0-16.0) 07/08/16 06:45 BUN 7 mg/dL (7-25) 07/08/16 06:45 Creatinine 0.5 mg/dL (0.7-1.3) L 07/08/16 06:45 Est GFR ( Amer) > 60.0 ml/min 07/08/16 06:45 Est GFR (Non-Af Amer) > 60.0 ml/min 07/08/16 06:45 BUN/Creatinine Ratio 14.0 07/08/16 06:45 Glucose 114 mg/dL (70-105) H 07/08/16 06:45 Calcium 9.4 mg/dL (8.6-10.3) 07/08/16 06:45 Total Bilirubin 0.4 mg/dL (0.3-1.0) 07/02/16 06:55 AST 23 U/L (13-39) 07/02/16 06:55 ALT 15 U/L (7-52) 07/02/16 06:55 Alkaline Phosphatase 65 U/L (34-104) 07/02/16 06:55 Total Protein 7.6 gm/dL (6.0-8.3) 07/02/16 06:55 Albumin 4.2 gm/dL (4.2-5.5) 07/02/16 06:55 Globulin 3.4 gm/dL 07/02/16 06:55 Albumin/Globulin Ratio 1.2 (1.0-1.8) 07/02/16 06:55 Lipase 13 U/L (11-82) 06/26/16 23:39 TSH 0.20 uIU/ml (0.34-5.60) L 06/27/16 06:16 Urine Source CLEAN C 06/28/16 21:35 Urine Color YELLOW 06/28/16 21:35 Urine Clarity CLEAR (CLEAR) 06/28/16 21:35 Urine pH >=9.0 06/28/16 21:35 Ur Specific [place] 1.020 (1.005-1.030) 06/28/16 21:35 Urine Protein TRACE mg/dL (NEGATIVE) 06/28/16 21:35 Urine Glucose (UA) NEGATIVE mg/dL (NEGATIVE) 06/28/16 21:35 Urine Ketones NEGATIVE mg/dL (NEGATIVE) 06/28/16 21:35 Urine Blood NEGATIVE (NEGATIVE) 06/28/16 21:35 Urine Nitrate NEGATIVE (NEGATIVE) 06/28/16 21:35 Urine Bilirubin NEGATIVE (NEGATIVE) 06/28/16 21:35 Urine Urobilinogen 0.2 E.U./dL (0.2 - 1.0) 06/28/16 21:35 Ur Leukocyte Esterase NEGATIVE (NEGATIVE) 06/28/16 21:35 Urine RBC 0-2 /hpf (0-5) H 06/28/16 21:35 Urine WBC 0-2 /hpf (0-5) 06/28/16 21:35 Ur Epithelial Cells NONE SEEN /lpf (FEW) 06/28/16 21:35 Urine Bacteria FEW /hpf (NONE SEEN) 06/28/16 21:35 - Physical Exam Vitals and I&O: Vital Signs Temp 98.5 F 07/08/16 12:00 Pulse 71 07/08/16 12:00 Resp 17 07/08/16 12:00 BP 124/59 07/08/16 12:00 Pulse Ox 98 07/08/16 12:00 Intake & Output 07/07/16 07/08/16 07/08/16 18:59 06:59 18:59 Intake Total 600 Balance 600 Intake: Oral 480 Tube Feeding 120 Other: # Voids 3 # Bowel Movements 3 Stool Characteristics Formed Active Medications: Current Medications Bisacodyl (Dulcolax 10 Mg Supp) 10 mg RC DAILY PRN PRN Reason: Constipation Stop: 08/25/16 23:52 Dextrose/Sodium Chloride (D5-0.45ns) 1,000 mls @ 70 mls/hr IV .[id number] [facility] Stop: 09/02/16 19:04 Last Admin: 07/07/16 12:05 Dose: 70 mls/hr Magnesium Hydroxide (Milk Of Magnesia) 30 ml PO HS [facility] Stop: 08/26/16 20:59 Last Admin: 07/07/16 22:04 Dose: 30 ml Megestrol Acetate (Megace) 400 mg PO BID [facility] PRN Reason: Protocol Stop: 09/04/16 16:59 Last Admin: 07/08/16 09:38 Dose: Not Given Metoclopramide HCl (Reglan) 10 mg PO TID [facility] Stop: 09/02/16 14:59 Last Admin: 07/08/16 09:38 Dose: Not Given Mineral Oil (Mineral Oil 30 Ml) 30 ml GT DAILY [facility] Stop: 08/27/16 08:59 Last Admin: 07/08/16 09:38 Dose: Not Given Prochlorperazine (Compazine) 25 mg RC Q12H PRN; Protocol PRN Reason: Nausea Stop: 08/25/16 23:52 Vitamin D (Vitamin D) 400 iu GT DAILY [facility] Stop: 08/26/16 08:59 Last Admin: 07/08/16 09:38 Dose: Not Given General: lethargic HEENT: NC/AT, PERRLA Neck: Supple, No JVD Lungs: congested Cardiovascular: RRR, Normal S1, Normal S2 Abdomen: soft non-tender, globular Extremities: excoriation, contracture Neurological: no change - Procedures Procedures: Procedures Procedure Code Date EGD BIOPSY SINGLE/MULTIPLE 24938 12/22/13 ESOPHAGOGASTRODUODENOSCOPY [EGD] W/CLOSED BIOPSY 45.16 12/22/13 INFLUENZA VACCINATION 99.52 07/14/13 INSERT INDWELLING CATH 57.94 05/17/12 INSERT INTESTINAL TUBE 96.08 05/17/12 INSERT PICC CATH 60501 05/17/12 INSERT TEMP BLADDER CATH 62496 05/17/12 OPEN AND OTHER CECECTOMY 45.72 05/17/12 OPEN AND OTHER RIGHT HEMICOLECTOMY 45.73 05/17/12 PARTIAL REMOVAL OF COLON 60231 05/17/12 UNLISTED PX SMALL INTESTINE 08859 05/17/12 VENOUS CATHETERIZATION NEC 38.93 05/17/12 Internal Medicine Assmt/Plan - Assessment Assessment: abdominal pain intractable vomiting dehyration cp stool impaction debility - Plan Plan: cont on ivf on reglan on ppi veronika rn gi follow up for BE today
[2016-07-08] MEDS: Magnesium Hydroxide (MOM) 30 mL UDC PO SCH (22:37)
--- NOTE | 2016-07-09 12:19 | Internal Medicine Prog Note ---
Internal Medicine Subjective - Subjective Service Date: 07/09/16 Patient seen and examined:: with staff Patient is:: awake Per staff patient is:: no adverse event Internal Medicine Objective - Results Result Diagrams: 07/08/16 06:45 07/08/16 06:45 Recent Labs: Laboratory Last Values WBC 6.7 Th/cmm (4.8-10.8) 07/08/16 06:45 RBC 4.52 Mil/cmm (4.30-5.70) 07/08/16 06:45 Hgb 13.5 gm/dL (13.2-17.3) 07/08/16 06:45 Hct 40.2 % (39.0-49.0) 07/08/16 06:45 MCV 88.9 fl (80-99) 07/08/16 06:45 MCH 30.0 pg (26.0-30.0) 07/08/16 06:45 MCHC Differential 33.7 pg (28.0-36.0) 07/08/16 06:45 RDW 12.6 % (11.5-20.0) 07/08/16 06:45 Plt Count 190 Th/cmm (150-400) 07/08/16 06:45 MPV 7.9 fl 07/08/16 06:45 Neutrophils % 61.8 % (40.0-80.0) 07/08/16 06:45 Band Neutrophils % 5 % (0-10) 06/27/16 06:16 Lymphocytes % 26.4 % (20.0-50.0) 07/08/16 06:45 Monocytes % 8.0 % (2.0-10.0) 07/08/16 06:45 Eosinophils % 3.4 % (0.0-5.0) 07/08/16 06:45 Basophils % 0.4 % (0.0-2.0) 07/08/16 06:45 Neutrophils (Manual) 42 % (40-80) 07/01/16 05:45 Lymphocytes 36 % (20-50) 07/01/16 05:45 Monocytes 14 % (2-10) H 07/01/16 05:45 Eosinophils 2 % (0-5) 07/01/16 05:45 Basophils 1 % (0-3) 07/01/16 05:45 Atypical Lymphocytes 5 % 07/01/16 05:45 Platelet Estimate ADEQUATE (NORMAL) 07/01/16 05:45 Platelet Morphology NORMAL (NORMAL) 07/01/16 05:45 RBC Morph Micro Appear NORMAL (NORMAL) 07/01/16 05:45 PT 11.0 SECONDS (9.5-11.5) 07/07/16 07:00 INR 1.10 (0.5-1.4) 07/07/16 07:00 Sodium 136 mEq/L (136-145) 07/08/16 06:45 Potassium 3.7 mEq/L (3.5-5.1) 07/08/16 06:45 Chloride 106 mEq/L (98-107) 07/08/16 06:45 Carbon Dioxide 25.0 mEq/L (21.0-31.0) 07/08/16 06:45 Anion Gap 8.7 (7.0-16.0) 07/08/16 06:45 BUN 7 mg/dL (7-25) 07/08/16 06:45 Creatinine 0.5 mg/dL (0.7-1.3) L 07/08/16 06:45 Est GFR ( Amer) > 60.0 ml/min 07/08/16 06:45 Est GFR (Non-Af Amer) > 60.0 ml/min 07/08/16 06:45 BUN/Creatinine Ratio 14.0 07/08/16 06:45 Glucose 114 mg/dL (70-105) H 07/08/16 06:45 Calcium 9.4 mg/dL (8.6-10.3) 07/08/16 06:45 Total Bilirubin 0.4 mg/dL (0.3-1.0) 07/02/16 06:55 AST 23 U/L (13-39) 07/02/16 06:55 ALT 15 U/L (7-52) 07/02/16 06:55 Alkaline Phosphatase 65 U/L (34-104) 07/02/16 06:55 Total Protein 7.6 gm/dL (6.0-8.3) 07/02/16 06:55 Albumin 4.2 gm/dL (4.2-5.5) 07/02/16 06:55 Globulin 3.4 gm/dL 07/02/16 06:55 Albumin/Globulin Ratio 1.2 (1.0-1.8) 07/02/16 06:55 Lipase 13 U/L (11-82) 06/26/16 23:39 TSH 0.20 uIU/ml (0.34-5.60) L 06/27/16 06:16 Urine Source CLEAN C 06/28/16 21:35 Urine Color YELLOW 06/28/16 21:35 Urine Clarity CLEAR (CLEAR) 06/28/16 21:35 Urine pH >=9.0 06/28/16 21:35 Ur Specific [place] 1.020 (1.005-1.030) 06/28/16 21:35 Urine Protein TRACE mg/dL (NEGATIVE) 06/28/16 21:35 Urine Glucose (UA) NEGATIVE mg/dL (NEGATIVE) 06/28/16 21:35 Urine Ketones NEGATIVE mg/dL (NEGATIVE) 06/28/16 21:35 Urine Blood NEGATIVE (NEGATIVE) 06/28/16 21:35 Urine Nitrate NEGATIVE (NEGATIVE) 06/28/16 21:35 Urine Bilirubin NEGATIVE (NEGATIVE) 06/28/16 21:35 Urine Urobilinogen 0.2 E.U./dL (0.2 - 1.0) 06/28/16 21:35 Ur Leukocyte Esterase NEGATIVE (NEGATIVE) 06/28/16 21:35 Urine RBC 0-2 /hpf (0-5) H 06/28/16 21:35 Urine WBC 0-2 /hpf (0-5) 06/28/16 21:35 Ur Epithelial Cells NONE SEEN /lpf (FEW) 06/28/16 21:35 Urine Bacteria FEW /hpf (NONE SEEN) 06/28/16 21:35 - Physical Exam Vitals and I&O: Vital Signs Temp 98.3 F 07/09/16 08:01 Pulse 65 07/09/16 08:01 Resp 18 07/09/16 08:01 BP 110/68 07/09/16 08:01 Pulse Ox 93 07/09/16 08:01 Intake & Output 07/08/16 07/09/16 07/09/16 18:59 06:59 18:59 Intake Total 250 310 Balance 250 310 Intake: Oral 250 310 Tube Feeding 0 0 Other: # Voids 3 2 # Bowel Movements 3 0 Stool Characteristics Formed Formed Active Medications: Current Medications Bisacodyl (Dulcolax 10 Mg Supp) 10 mg RC DAILY PRN PRN Reason: Constipation Stop: 08/25/16 23:52 Dextrose/Sodium Chloride (D5-0.45ns) 1,000 mls @ 70 mls/hr IV .[id number] [facility] Stop: 09/02/16 19:04 Last Admin: 07/07/16 12:05 Dose: 70 mls/hr Magnesium Hydroxide (Milk Of Magnesia) 30 ml PO HS [facility] Stop: 08/26/16 20:59 Last Admin: 07/08/16 22:37 Dose: 30 ml Megestrol Acetate (Megace) 400 mg PO BID [facility] PRN Reason: Protocol Stop: 09/04/16 16:59 Last Admin: 07/09/16 09:41 Dose: 400 mg Metoclopramide HCl (Reglan) 10 mg PO TID [facility] Stop: 09/02/16 14:59 Last Admin: 07/09/16 09:41 Dose: 10 mg Mineral Oil (Mineral Oil 30 Ml) 30 ml GT DAILY [facility] Stop: 08/27/16 08:59 Last Admin: 07/09/16 09:41 Dose: 30 ml Prochlorperazine (Compazine) 25 mg RC Q12H PRN; Protocol PRN Reason: Nausea Stop: 08/25/16 23:52 Vitamin D (Vitamin D) 400 iu GT DAILY [facility] Stop: 08/26/16 08:59 Last Admin: 07/09/16 09:42 Dose: 400 iu General: weak HEENT: NC/AT Neck: Supple Lungs: CTAB Cardiovascular: RRR, Normal S1, Normal S2, without murmur Abdomen: soft non-tender, non-distended, positive bowel sound Extremities: clear Neurological: no change - Procedures Procedures: Procedures Procedure Code Date DIAGNOSTIC COLONOSCOPY 15108 06/26/16 EGD BIOPSY SINGLE/MULTIPLE 62594 12/22/13 ESOPHAGOGASTRODUODENOSCOPY [EGD] W/CLOSED BIOPSY 45.16 12/22/13 INFLUENZA VACCINATION 99.52 07/14/13 INSERT INDWELLING CATH 57.94 05/17/12 INSERT INTESTINAL TUBE 96.08 05/17/12 INSERT PICC CATH 35384 05/17/12 INSERT TEMP BLADDER CATH 68916 05/17/12 INSPECTION OF LOWER INTESTINAL TRACT, ENDO [id number] 06/26/16 OPEN AND OTHER CECECTOMY 45.72 05/17/12 OPEN AND OTHER RIGHT HEMICOLECTOMY 45.73 05/17/12 PARTIAL REMOVAL OF COLON 54857 05/17/12 UNLISTED PX SMALL INTESTINE 43278 05/17/12 VENOUS CATHETERIZATION NEC 38.93 05/17/12 Internal Medicine Assmt/Plan - Assessment Assessment: abdominal pain intractable vomiting- resolved - Plan Plan: awaiting for placement ivf for hydration reglan prn monitor electrolytes cbc/bmp in am
--- NOTE | 2016-07-09 16:47 | Diagnostic Imaging Report ---
Barium (Gastrografin) enema HISTORY: Abdominal distention, incomplete colonoscopy The preliminary coffee blender radiograph demonstrates mild to moderately dilated air-filled large and small bowel. Exam is very limited and suboptimal due to patient contracture and difficulty in positioning and mobility. Contrast was passed from the rectum up through the distal portion of the transverse colon. Contrast could not be passed beyond this point due to difficulty in patient tolerances. No obvious focal lesions seen within the visualized colon. No evidence of any extrinsic masses. IMPRESSION: 1. Incomplete/suboptimal exam due to patient contracture, immobility, and intolerance. No obvious focal lesions within the distal large bowel.
[2016-07-09] MEDS: Magnesium Hydroxide (MOM) 30 mL UDC PO SCH (21:18)
[2016-07-10 05:48] LABS: % BASOPHILS 0.7 % (0.0-2.0); % EOSINOPHILS 1.2 % (0.0-5.0); % MONOCYTES 7.9 % (2.0-10.0); % NEUTROPHILS 65.2 % (40.0-80.0); HEMATOCRIT 38.9 % (39.0-49.0); HEMOGLOBIN 13.1 gm/dL (13.2-17.3); MEAN CELL VOLUME 88.5 fl (80-99); MEAN CORPUSCULAR HEMOGLOBIN 29.9 pg (26.0-30.0); MEAN CORPUSCULAR HGB CONC 33.7 pg (28.0-36.0); MEAN PLATELET VOLUME 7.8 fl; NEUTROPHILE ABSOLUTE 5.9 Th/cmm (1.8-8.0); PLATELET COUNT 180 Th/cmm (150-400); RED CELL DISTRIBUTION WIDTH 12.3 % (11.5-20.0)
[2016-07-10 06:39] LABS: ANION GAP 12.6 (7.0-16.0); BUN - UREA NITROGEN 10 mg/dL (7-25); CALCIUM SERUM 9.2 mg/dL (8.6-10.3); CARBON DIOXIDE 19.4 mEq/L (21.0-31.0); CHLORIDE 105 mEq/L (98-107); CREATININE - SERUM 0.5 mg/dL (0.7-1.3); GLUCOSE 104 mg/dL (70-105); SODIUM SERUM 133 mEq/L (136-145)
--- NOTE | 2016-07-10 14:37 | Internal Medicine Prog Note ---
Internal Medicine Subjective - Subjective Patient seen and examined:: with staff, chart reviewed Patient is:: awake, non-verbal, non-interactive Patient Complaints of:: congestion Per staff patient is:: no adverse event, eating well, confused Internal Medicine Objective - Results Result Diagrams: 07/10/16 05:30 07/10/16 05:30 Recent Labs: Laboratory Last Values WBC 9.0 Th/cmm (4.8-10.8) D 07/10/16 05:30 RBC 4.40 Mil/cmm (4.30-5.70) 07/10/16 05:30 Hgb 13.1 gm/dL (13.2-17.3) L 07/10/16 05:30 Hct 38.9 % (39.0-49.0) L 07/10/16 05:30 MCV 88.5 fl (80-99) 07/10/16 05:30 MCH 29.9 pg (26.0-30.0) 07/10/16 05:30 MCHC Differential 33.7 pg (28.0-36.0) 07/10/16 05:30 RDW 12.3 % (11.5-20.0) 07/10/16 05:30 Plt Count 180 Th/cmm (150-400) 07/10/16 05:30 MPV 7.8 fl 07/10/16 05:30 Neutrophils % 65.2 % (40.0-80.0) 07/10/16 05:30 Band Neutrophils % 5 % (0-10) 06/27/16 06:16 Lymphocytes % 25.0 % (20.0-50.0) 07/10/16 05:30 Monocytes % 7.9 % (2.0-10.0) 07/10/16 05:30 Eosinophils % 1.2 % (0.0-5.0) 07/10/16 05:30 Basophils % 0.7 % (0.0-2.0) 07/10/16 05:30 Neutrophils (Manual) 42 % (40-80) 07/01/16 05:45 Lymphocytes 36 % (20-50) 07/01/16 05:45 Monocytes 14 % (2-10) H 07/01/16 05:45 Eosinophils 2 % (0-5) 07/01/16 05:45 Basophils 1 % (0-3) 07/01/16 05:45 Atypical Lymphocytes 5 % 07/01/16 05:45 Platelet Estimate ADEQUATE (NORMAL) 07/01/16 05:45 Platelet Morphology NORMAL (NORMAL) 07/01/16 05:45 RBC Morph Micro Appear NORMAL (NORMAL) 07/01/16 05:45 PT 11.0 SECONDS (9.5-11.5) 07/07/16 07:00 INR 1.10 (0.5-1.4) 07/07/16 07:00 Sodium 133 mEq/L (136-145) L 07/10/16 05:30 Potassium 4.0 mEq/L (3.5-5.1) 07/10/16 05:30 Chloride 105 mEq/L (98-107) 07/10/16 05:30 Carbon Dioxide 19.4 mEq/L (21.0-31.0) L 07/10/16 05:30 Anion Gap 12.6 (7.0-16.0) 07/10/16 05:30 BUN 10 mg/dL (7-25) 07/10/16 05:30 Creatinine 0.5 mg/dL (0.7-1.3) L 07/10/16 05:30 Est GFR ( Amer) > 60.0 ml/min (>90) 07/10/16 05:30 Est GFR (Non-Af Amer) > 60.0 ml/min 07/10/16 05:30 BUN/Creatinine Ratio 20.0 07/10/16 05:30 Glucose 104 mg/dL (70-105) 07/10/16 05:30 Calcium 9.2 mg/dL (8.6-10.3) 07/10/16 05:30 Total Bilirubin 0.4 mg/dL (0.3-1.0) 07/02/16 06:55 AST 23 U/L (13-39) 07/02/16 06:55 ALT 15 U/L (7-52) 07/02/16 06:55 Alkaline Phosphatase 65 U/L (34-104) 07/02/16 06:55 Total Protein 7.6 gm/dL (6.0-8.3) 07/02/16 06:55 Albumin 4.2 gm/dL (4.2-5.5) 07/02/16 06:55 Globulin 3.4 gm/dL 07/02/16 06:55 Albumin/Globulin Ratio 1.2 (1.0-1.8) 07/02/16 06:55 Lipase 13 U/L (11-82) 06/26/16 23:39 TSH 0.20 uIU/ml (0.34-5.60) L 06/27/16 06:16 Urine Source CLEAN C 06/28/16 21:35 Urine Color YELLOW 06/28/16 21:35 Urine Clarity CLEAR (CLEAR) 06/28/16 21:35 Urine pH >=9.0 06/28/16 21:35 Ur Specific [place] 1.020 (1.005-1.030) 06/28/16 21:35 Urine Protein TRACE mg/dL (NEGATIVE) 06/28/16 21:35 Urine Glucose (UA) NEGATIVE mg/dL (NEGATIVE) 06/28/16 21:35 Urine Ketones NEGATIVE mg/dL (NEGATIVE) 06/28/16 21:35 Urine Blood NEGATIVE (NEGATIVE) 06/28/16 21:35 Urine Nitrate NEGATIVE (NEGATIVE) 06/28/16 21:35 Urine Bilirubin NEGATIVE (NEGATIVE) 06/28/16 21:35 Urine Urobilinogen 0.2 E.U./dL (0.2 - 1.0) 06/28/16 21:35 Ur Leukocyte Esterase NEGATIVE (NEGATIVE) 06/28/16 21:35 Urine RBC 0-2 /hpf (0-5) H 06/28/16 21:35 Urine WBC 0-2 /hpf (0-5) 06/28/16 21:35 Ur Epithelial Cells NONE SEEN /lpf (FEW) 06/28/16 21:35 Urine Bacteria FEW /hpf (NONE SEEN) 06/28/16 21:35 - Physical Exam Vitals and I&O: Vital Signs Temp 97.8 F 07/10/16 12:00 Pulse 64 07/10/16 12:00 Resp 18 07/10/16 12:00 BP 100/55 07/10/16 12:00 Pulse Ox 96 07/10/16 12:00 Intake & Output 07/09/16 07/10/16 07/10/16 18:59 06:59 18:59 Intake Total 300 100 Balance 300 100 Intake: Oral 250 100 Tube Feeding 50 Other: # Voids 2 2 # Bowel Movements 3 Active Medications: Current Medications Bisacodyl (Dulcolax 10 Mg Supp) 10 mg RC DAILY PRN PRN Reason: Constipation Stop: 08/25/16 23:52 Dextrose/Sodium Chloride (D5-0.45ns) 1,000 mls @ 70 mls/hr IV .[id number] [facility] Stop: 09/02/16 19:04 Last Admin: 07/07/16 12:05 Dose: 70 mls/hr Magnesium Hydroxide (Milk Of Magnesia) 30 ml PO HS [facility] Stop: 08/26/16 20:59 Last Admin: 07/09/16 21:18 Dose: 30 ml Megestrol Acetate (Megace) 400 mg PO BID [facility] PRN Reason: Protocol Stop: 09/04/16 16:59 Last Admin: 07/10/16 09:17 Dose: 400 mg Metoclopramide HCl (Reglan) 10 mg PO TID [facility] Stop: 09/02/16 14:59 Last Admin: 07/10/16 14:10 Dose: 10 mg Mineral Oil (Mineral Oil 30 Ml) 30 ml GT DAILY [facility] Stop: 08/27/16 08:59 Last Admin: 07/10/16 09:18 Dose: 30 ml Prochlorperazine (Compazine) 25 mg RC Q12H PRN; Protocol PRN Reason: Nausea Stop: 08/25/16 23:52 Vitamin D (Vitamin D) 400 iu GT DAILY [facility] Stop: 08/26/16 08:59 Last Admin: 07/10/16 09:17 Dose: 400 iu General: demented HEENT: NC/AT, PERRLA Neck: Supple, No JVD Lungs: congested Cardiovascular: RRR, Normal S1, Normal S2 Abdomen: soft non-tender, globular, positive bowel sound Extremities: excoriation, contracture Neurological: no change - Procedures Procedures: Procedures Procedure Code Date DIAGNOSTIC COLONOSCOPY 13881 06/26/16 EGD BIOPSY SINGLE/MULTIPLE 03583 12/22/13 ESOPHAGOGASTRODUODENOSCOPY [EGD] W/CLOSED BIOPSY 45.16 12/22/13 INFLUENZA VACCINATION 99.52 07/14/13 INSERT INDWELLING CATH 57.94 05/17/12 INSERT INTESTINAL TUBE 96.08 05/17/12 INSERT PICC CATH 97378 05/17/12 INSERT TEMP BLADDER CATH 43982 05/17/12 INSPECTION OF LOWER INTESTINAL TRACT, ENDO [id number] 06/26/16 OPEN AND OTHER CECECTOMY 45.72 05/17/12 OPEN AND OTHER RIGHT HEMICOLECTOMY 45.73 05/17/12 PARTIAL REMOVAL OF COLON 18145 05/17/12 UNLISTED PX SMALL INTESTINE 82378 05/17/12 VENOUS CATHETERIZATION NEC 38.93 05/17/12 Internal Medicine Assmt/Plan - Assessment Assessment: abdominal pain intractable vomiting dehyration cp stool impaction debility - Plan Plan: cont on ivf on reglan on ppi veronika rn gi follow up for BE today
[2016-07-10] MEDS: Magnesium Hydroxide (MOM) 30 mL UDC PO SCH (21:08)
[2016-07-11] MEDS: D5-0.45NS 1,000 ML IV SCH (03:05)
--- NOTE | 2016-07-11 12:12 | Internal Medicine Prog Note ---
Internal Medicine Subjective - Subjective Service Date: 07/11/16 Patient seen and examined:: with staff Patient is:: awake Per staff patient is:: no adverse event Internal Medicine Objective - Results Result Diagrams: 07/10/16 05:30 07/10/16 05:30 Recent Labs: Laboratory Last Values WBC 9.0 Th/cmm (4.8-10.8) D 07/10/16 05:30 RBC 4.40 Mil/cmm (4.30-5.70) 07/10/16 05:30 Hgb 13.1 gm/dL (13.2-17.3) L 07/10/16 05:30 Hct 38.9 % (39.0-49.0) L 07/10/16 05:30 MCV 88.5 fl (80-99) 07/10/16 05:30 MCH 29.9 pg (26.0-30.0) 07/10/16 05:30 MCHC Differential 33.7 pg (28.0-36.0) 07/10/16 05:30 RDW 12.3 % (11.5-20.0) 07/10/16 05:30 Plt Count 180 Th/cmm (150-400) 07/10/16 05:30 MPV 7.8 fl 07/10/16 05:30 Neutrophils % 65.2 % (40.0-80.0) 07/10/16 05:30 Band Neutrophils % 5 % (0-10) 06/27/16 06:16 Lymphocytes % 25.0 % (20.0-50.0) 07/10/16 05:30 Monocytes % 7.9 % (2.0-10.0) 07/10/16 05:30 Eosinophils % 1.2 % (0.0-5.0) 07/10/16 05:30 Basophils % 0.7 % (0.0-2.0) 07/10/16 05:30 Neutrophils (Manual) 42 % (40-80) 07/01/16 05:45 Lymphocytes 36 % (20-50) 07/01/16 05:45 Monocytes 14 % (2-10) H 07/01/16 05:45 Eosinophils 2 % (0-5) 07/01/16 05:45 Basophils 1 % (0-3) 07/01/16 05:45 Atypical Lymphocytes 5 % 07/01/16 05:45 Platelet Estimate ADEQUATE (NORMAL) 07/01/16 05:45 Platelet Morphology NORMAL (NORMAL) 07/01/16 05:45 RBC Morph Micro Appear NORMAL (NORMAL) 07/01/16 05:45 PT 11.0 SECONDS (9.5-11.5) 07/07/16 07:00 INR 1.10 (0.5-1.4) 07/07/16 07:00 Sodium 133 mEq/L (136-145) L 07/10/16 05:30 Potassium 4.0 mEq/L (3.5-5.1) 07/10/16 05:30 Chloride 105 mEq/L (98-107) 07/10/16 05:30 Carbon Dioxide 19.4 mEq/L (21.0-31.0) L 07/10/16 05:30 Anion Gap 12.6 (7.0-16.0) 07/10/16 05:30 BUN 10 mg/dL (7-25) 07/10/16 05:30 Creatinine 0.5 mg/dL (0.7-1.3) L 07/10/16 05:30 Est GFR ( Amer) > 60.0 ml/min (>90) 07/10/16 05:30 Est GFR (Non-Af Amer) > 60.0 ml/min 07/10/16 05:30 BUN/Creatinine Ratio 20.0 07/10/16 05:30 Glucose 104 mg/dL (70-105) 07/10/16 05:30 Calcium 9.2 mg/dL (8.6-10.3) 07/10/16 05:30 Total Bilirubin 0.4 mg/dL (0.3-1.0) 07/02/16 06:55 AST 23 U/L (13-39) 07/02/16 06:55 ALT 15 U/L (7-52) 07/02/16 06:55 Alkaline Phosphatase 65 U/L (34-104) 07/02/16 06:55 Total Protein 7.6 gm/dL (6.0-8.3) 07/02/16 06:55 Albumin 4.2 gm/dL (4.2-5.5) 07/02/16 06:55 Globulin 3.4 gm/dL 07/02/16 06:55 Albumin/Globulin Ratio 1.2 (1.0-1.8) 07/02/16 06:55 Lipase 13 U/L (11-82) 06/26/16 23:39 TSH 0.20 uIU/ml (0.34-5.60) L 06/27/16 06:16 Urine Source CLEAN C 06/28/16 21:35 Urine Color YELLOW 06/28/16 21:35 Urine Clarity CLEAR (CLEAR) 06/28/16 21:35 Urine pH >=9.0 06/28/16 21:35 Ur Specific [place] 1.020 (1.005-1.030) 06/28/16 21:35 Urine Protein TRACE mg/dL (NEGATIVE) 06/28/16 21:35 Urine Glucose (UA) NEGATIVE mg/dL (NEGATIVE) 06/28/16 21:35 Urine Ketones NEGATIVE mg/dL (NEGATIVE) 06/28/16 21:35 Urine Blood NEGATIVE (NEGATIVE) 06/28/16 21:35 Urine Nitrate NEGATIVE (NEGATIVE) 06/28/16 21:35 Urine Bilirubin NEGATIVE (NEGATIVE) 06/28/16 21:35 Urine Urobilinogen 0.2 E.U./dL (0.2 - 1.0) 06/28/16 21:35 Ur Leukocyte Esterase NEGATIVE (NEGATIVE) 06/28/16 21:35 Urine RBC 0-2 /hpf (0-5) H 06/28/16 21:35 Urine WBC 0-2 /hpf (0-5) 06/28/16 21:35 Ur Epithelial Cells NONE SEEN /lpf (FEW) 06/28/16 21:35 Urine Bacteria FEW /hpf (NONE SEEN) 06/28/16 21:35 - Physical Exam Vitals and I&O: Vital Signs Temp 97.5 F 07/11/16 08:00 Pulse 80 07/11/16 08:00 Resp 18 07/11/16 08:00 BP 127/73 07/11/16 08:00 Pulse Ox 96 07/11/16 08:00 Intake & Output 07/10/16 07/11/16 07/11/16 18:59 06:59 18:59 Other: # Voids 2 Stool Characteristics Brown Active Medications: Current Medications Bisacodyl (Dulcolax 10 Mg Supp) 10 mg RC DAILY PRN PRN Reason: Constipation Stop: 08/25/16 23:52 Dextrose/Sodium Chloride (D5-0.45ns) 1,000 mls @ 70 mls/hr IV .[id number] [facility] Stop: 09/02/16 19:04 Last Admin: 07/11/16 03:05 Dose: 70 mls/hr Magnesium Hydroxide (Milk Of Magnesia) 30 ml PO HS [facility] Stop: 08/26/16 20:59 Last Admin: 07/10/16 21:08 Dose: 30 ml Megestrol Acetate (Megace) 400 mg PO BID [facility] PRN Reason: Protocol Stop: 09/04/16 16:59 Last Admin: 07/11/16 08:33 Dose: 400 mg Metoclopramide HCl (Reglan) 10 mg PO TID [facility] Stop: 09/02/16 14:59 Last Admin: 07/11/16 08:33 Dose: 10 mg Mineral Oil (Mineral Oil 30 Ml) 30 ml GT DAILY [facility] Stop: 08/27/16 08:59 Last Admin: 07/10/16 09:18 Dose: 30 ml Prochlorperazine (Compazine) 25 mg RC Q12H PRN; Protocol PRN Reason: Nausea Stop: 08/25/16 23:52 Vitamin D (Vitamin D) 400 iu GT DAILY [facility] Stop: 08/26/16 08:59 Last Admin: 07/11/16 08:33 Dose: 400 iu General: alert HEENT: NC/AT, PERRLA Neck: Supple Lungs: CTAB Cardiovascular: RRR, Normal S1, Normal S2, without murmur Abdomen: soft non-tender, non-distended Extremities: clear - Procedures Procedures: Procedures Procedure Code Date DIAGNOSTIC COLONOSCOPY 01826 06/26/16 EGD BIOPSY SINGLE/MULTIPLE 60304 12/22/13 ESOPHAGOGASTRODUODENOSCOPY [EGD] W/CLOSED BIOPSY 45.16 12/22/13 INFLUENZA VACCINATION 99.52 07/14/13 INSERT INDWELLING CATH 57.94 05/17/12 INSERT INTESTINAL TUBE 96.08 05/17/12 INSERT PICC CATH [id number] 05/17/12 INSERT TEMP BLADDER CATH 21053 05/17/12 INSPECTION OF LOWER INTESTINAL TRACT, ENDO [id number] 06/26/16 OPEN AND OTHER CECECTOMY 45.72 05/17/12 OPEN AND OTHER RIGHT HEMICOLECTOMY 45.73 05/17/12 PARTIAL REMOVAL OF COLON 72528 05/17/12 UNLISTED PX SMALL INTESTINE 52589 05/17/12 VENOUS CATHETERIZATION NEC 38.93 05/17/12 Internal Medicine Assmt/Plan - Assessment Assessment: abdominal pain intractable vomiting dehyration cp stool impaction debility - Plan Plan: awaiting for placement ivf for hydration reglan prn monitor electrolytes cbc/bmp in am
[2016-07-11] MEDS: Magnesium Hydroxide (MOM) 30 mL UDC PO SCH (20:56)
[2016-07-12 06:57] LABS: % BASOPHILS 0.2 % (0.0-2.0); % EOSINOPHILS 0.4 % (0.0-5.0); % LYMPHOCYTES 21.7 % (20.0-50.0); % MONOCYTES 7.3 % (2.0-10.0); % NEUTROPHILS 70.4 % (40.0-80.0); HEMATOCRIT 37.3 % (39.0-49.0); HEMOGLOBIN 12.8 gm/dL (13.2-17.3); MEAN CELL VOLUME 88.1 fl (80-99); MEAN CORPUSCULAR HEMOGLOBIN 30.3 pg (26.0-30.0); MEAN CORPUSCULAR HGB CONC 34.4 pg (28.0-36.0); MEAN PLATELET VOLUME 7.8 fl; NEUTROPHILE ABSOLUTE 5.6 Th/cmm (1.8-8.0); PLATELET COUNT 174 Th/cmm (150-400); RED BLOOD COUNT 4.23 Mil/cmm (4.30-5.70); RED CELL DISTRIBUTION WIDTH 12.8 % (11.5-20.0); WHITE BLOOD COUNT 7.9 Th/cmm (4.8-10.8)
[2016-07-12 07:33] LABS: ANION GAP 10.1 (7.0-16.0); BUN - UREA NITROGEN 9 mg/dL (7-25); CHLORIDE 107 mEq/L (98-107); CREATININE - SERUM 0.5 mg/dL (0.7-1.3); GLUCOSE 113 mg/dL (70-105); POTASSIUM SERUM 4.1 mEq/L (3.5-5.1); SODIUM SERUM 137 mEq/L (136-145)
--- NOTE | 2016-07-12 14:42 | Internal Medicine Prog Note ---
Internal Medicine Subjective - Subjective Service Date: 07/12/16 Patient seen and examined:: with staff Patient is:: awake Per staff patient is:: no adverse event Internal Medicine Objective - Results Result Diagrams: 07/12/16 06:30 07/12/16 06:30 Recent Labs: Laboratory Last Values WBC 7.9 Th/cmm (4.8-10.8) 07/12/16 06:30 RBC 4.23 Mil/cmm (4.30-5.70) L 07/12/16 06:30 Hgb 12.8 gm/dL (13.2-17.3) L 07/12/16 06:30 Hct 37.3 % (39.0-49.0) L 07/12/16 06:30 MCV 88.1 fl (80-99) 07/12/16 06:30 MCH 30.3 pg (26.0-30.0) H 07/12/16 06:30 MCHC Differential 34.4 pg (28.0-36.0) 07/12/16 06:30 RDW 12.8 % (11.5-20.0) 07/12/16 06:30 Plt Count 174 Th/cmm (150-400) 07/12/16 06:30 MPV 7.8 fl 07/12/16 06:30 Neutrophils % 70.4 % (40.0-80.0) 07/12/16 06:30 Band Neutrophils % 5 % (0-10) 06/27/16 06:16 Lymphocytes % 21.7 % (20.0-50.0) 07/12/16 06:30 Monocytes % 7.3 % (2.0-10.0) 07/12/16 06:30 Eosinophils % 0.4 % (0.0-5.0) 07/12/16 06:30 Basophils % 0.2 % (0.0-2.0) 07/12/16 06:30 Neutrophils (Manual) 42 % (40-80) 07/01/16 05:45 Lymphocytes 36 % (20-50) 07/01/16 05:45 Monocytes 14 % (2-10) H 07/01/16 05:45 Eosinophils 2 % (0-5) 07/01/16 05:45 Basophils 1 % (0-3) 07/01/16 05:45 Atypical Lymphocytes 5 % 07/01/16 05:45 Platelet Estimate ADEQUATE (NORMAL) 07/01/16 05:45 Platelet Morphology NORMAL (NORMAL) 07/01/16 05:45 RBC Morph Micro Appear NORMAL (NORMAL) 07/01/16 05:45 PT 11.0 SECONDS (9.5-11.5) 07/07/16 07:00 INR 1.10 (0.5-1.4) 07/07/16 07:00 Sodium 137 mEq/L (136-145) 07/12/16 06:30 Potassium 4.1 mEq/L (3.5-5.1) 07/12/16 06:30 Chloride 107 mEq/L (98-107) 07/12/16 06:30 Carbon Dioxide 24.0 mEq/L (21.0-31.0) 07/12/16 06:30 Anion Gap 10.1 (7.0-16.0) 07/12/16 06:30 BUN 9 mg/dL (7-25) 07/12/16 06:30 Creatinine 0.5 mg/dL (0.7-1.3) L 07/12/16 06:30 Est GFR ( Amer) > 60.0 ml/min (>90) 07/12/16 06:30 Est GFR (Non-Af Amer) > 60.0 ml/min 07/12/16 06:30 BUN/Creatinine Ratio 18.0 07/12/16 06:30 Glucose 113 mg/dL (70-105) H 07/12/16 06:30 Calcium 9.0 mg/dL (8.6-10.3) 07/12/16 06:30 Total Bilirubin 0.4 mg/dL (0.3-1.0) 07/02/16 06:55 AST 23 U/L (13-39) 07/02/16 06:55 ALT 15 U/L (7-52) 07/02/16 06:55 Alkaline Phosphatase 65 U/L (34-104) 07/02/16 06:55 Total Protein 7.6 gm/dL (6.0-8.3) 07/02/16 06:55 Albumin 4.2 gm/dL (4.2-5.5) 07/02/16 06:55 Globulin 3.4 gm/dL 07/02/16 06:55 Albumin/Globulin Ratio 1.2 (1.0-1.8) 07/02/16 06:55 Lipase 13 U/L (11-82) 06/26/16 23:39 TSH 0.20 uIU/ml (0.34-5.60) L 06/27/16 06:16 Urine Source CLEAN C 06/28/16 21:35 Urine Color YELLOW 06/28/16 21:35 Urine Clarity CLEAR (CLEAR) 06/28/16 21:35 Urine pH >=9.0 06/28/16 21:35 Ur Specific [place] 1.020 (1.005-1.030) 06/28/16 21:35 Urine Protein TRACE mg/dL (NEGATIVE) 06/28/16 21:35 Urine Glucose (UA) NEGATIVE mg/dL (NEGATIVE) 06/28/16 21:35 Urine Ketones NEGATIVE mg/dL (NEGATIVE) 06/28/16 21:35 Urine Blood NEGATIVE (NEGATIVE) 06/28/16 21:35 Urine Nitrate NEGATIVE (NEGATIVE) 06/28/16 21:35 Urine Bilirubin NEGATIVE (NEGATIVE) 06/28/16 21:35 Urine Urobilinogen 0.2 E.U./dL (0.2 - 1.0) 06/28/16 21:35 Ur Leukocyte Esterase NEGATIVE (NEGATIVE) 06/28/16 21:35 Urine RBC 0-2 /hpf (0-5) H 06/28/16 21:35 Urine WBC 0-2 /hpf (0-5) 06/28/16 21:35 Ur Epithelial Cells NONE SEEN /lpf (FEW) 06/28/16 21:35 Urine Bacteria FEW /hpf (NONE SEEN) 06/28/16 21:35 - Physical Exam Vitals and I&O: Vital Signs Temp 97.8 F 07/12/16 12:00 Pulse 80 07/12/16 12:00 Resp 18 07/12/16 12:00 BP 110/60 07/12/16 12:00 Pulse Ox 97 07/12/16 12:00 Intake & Output 07/11/16 07/12/16 07/12/16 18:59 06:59 18:59 Intake Total 500 1000 Balance 500 1000 Intake: Intake, IV Amount 1000 D5-0.45NS 1,000 ml @ 70 1000 mls/hr IV .[id number] [facility] Rx #:[id number] Oral 500 Other: # Voids 2 Stool Characteristics Brown Brown Active Medications: Current Medications Bisacodyl (Dulcolax 10 Mg Supp) 10 mg RC DAILY PRN PRN Reason: Constipation Stop: 08/25/16 23:52 Dextrose/Sodium Chloride (D5-0.45ns) 1,000 mls @ 70 mls/hr IV .[id number] [facility] Stop: 09/02/16 19:04 Last Infusion: 07/11/16 23:10 Dose: Infused Magnesium Hydroxide (Milk Of Magnesia) 30 ml PO HS [facility] Stop: 08/26/16 20:59 Last Admin: 07/11/16 20:56 Dose: 30 ml Megestrol Acetate (Megace) 400 mg PO BID [facility] PRN Reason: Protocol Stop: 09/04/16 16:59 Last Admin: 07/12/16 08:49 Dose: 400 mg Metoclopramide HCl (Reglan) 10 mg PO TID [facility] Stop: 09/02/16 14:59 Last Admin: 07/12/16 14:26 Dose: 10 mg Mineral Oil (Mineral Oil 30 Ml) 30 ml GT DAILY [facility] Stop: 08/27/16 08:59 Last Admin: 07/12/16 08:49 Dose: 30 ml Prochlorperazine (Compazine) 25 mg RC Q12H PRN; Protocol PRN Reason: Nausea Stop: 08/25/16 23:52 Vitamin D (Vitamin D) 400 iu GT DAILY [facility] Stop: 08/26/16 08:59 Last Admin: 07/12/16 08:49 Dose: 400 iu General: alert HEENT: NC/AT, PERRLA Neck: Supple Lungs: CTAB Cardiovascular: RRR, Normal S1, Normal S2, without murmur Abdomen: soft non-tender, non-distended, positive bowel sound Extremities: clear Neurological: no change - Procedures Procedures: Procedures Procedure Code Date DIAGNOSTIC COLONOSCOPY 26106 06/26/16 EGD BIOPSY SINGLE/MULTIPLE 87507 12/22/13 ESOPHAGOGASTRODUODENOSCOPY [EGD] W/CLOSED BIOPSY 45.16 12/22/13 INFLUENZA VACCINATION 99.52 07/14/13 INSERT INDWELLING CATH 57.94 05/17/12 INSERT INTESTINAL TUBE 96.08 05/17/12 INSERT PICC CATH 96839 05/17/12 INSERT TEMP BLADDER CATH 08279 05/17/12 INSPECTION OF LOWER INTESTINAL TRACT, ENDO [id number] 06/26/16 OPEN AND OTHER CECECTOMY 45.72 05/17/12 OPEN AND OTHER RIGHT HEMICOLECTOMY 45.73 05/17/12 PARTIAL REMOVAL OF COLON 95804 05/17/12 UNLISTED PX SMALL INTESTINE 06639 05/17/12 VENOUS CATHETERIZATION NEC 38.93 05/17/12 Internal Medicine Assmt/Plan - Assessment Assessment: abdominal pain intractable vomiting dehyration cp stool impaction debility - Plan Plan: awaiting for placement ivf for hydration reglan prn monitor electrolytes cbc/bmp in am
[2016-07-12] MEDS: D5-0.45NS 1,000 ML IV SCH ×8 (19:15→19:34)
[2016-07-12] MEDS: Magnesium Hydroxide (MOM) 30 mL UDC PO SCH (20:07)
[2016-07-13] MEDS: D5-0.45NS 1,000 ML IV SCH (09:09)
--- NOTE | 2016-07-13 17:32 | Internal Medicine Prog Note ---
Internal Medicine Subjective - Subjective Service Date: 07/13/16 Patient seen and examined:: with staff Patient is:: awake Per staff patient is:: no adverse event Internal Medicine Objective - Results Result Diagrams: 07/12/16 06:30 07/12/16 06:30 Recent Labs: Laboratory Last Values WBC 7.9 Th/cmm (4.8-10.8) 07/12/16 06:30 RBC 4.23 Mil/cmm (4.30-5.70) L 07/12/16 06:30 Hgb 12.8 gm/dL (13.2-17.3) L 07/12/16 06:30 Hct 37.3 % (39.0-49.0) L 07/12/16 06:30 MCV 88.1 fl (80-99) 07/12/16 06:30 MCH 30.3 pg (26.0-30.0) H 07/12/16 06:30 MCHC Differential 34.4 pg (28.0-36.0) 07/12/16 06:30 RDW 12.8 % (11.5-20.0) 07/12/16 06:30 Plt Count 174 Th/cmm (150-400) 07/12/16 06:30 MPV 7.8 fl 07/12/16 06:30 Neutrophils % 70.4 % (40.0-80.0) 07/12/16 06:30 Band Neutrophils % 5 % (0-10) 06/27/16 06:16 Lymphocytes % 21.7 % (20.0-50.0) 07/12/16 06:30 Monocytes % 7.3 % (2.0-10.0) 07/12/16 06:30 Eosinophils % 0.4 % (0.0-5.0) 07/12/16 06:30 Basophils % 0.2 % (0.0-2.0) 07/12/16 06:30 Neutrophils (Manual) 42 % (40-80) 07/01/16 05:45 Lymphocytes 36 % (20-50) 07/01/16 05:45 Monocytes 14 % (2-10) H 07/01/16 05:45 Eosinophils 2 % (0-5) 07/01/16 05:45 Basophils 1 % (0-3) 07/01/16 05:45 Atypical Lymphocytes 5 % 07/01/16 05:45 Platelet Estimate ADEQUATE (NORMAL) 07/01/16 05:45 Platelet Morphology NORMAL (NORMAL) 07/01/16 05:45 RBC Morph Micro Appear NORMAL (NORMAL) 07/01/16 05:45 PT 11.0 SECONDS (9.5-11.5) 07/07/16 07:00 INR 1.10 (0.5-1.4) 07/07/16 07:00 Sodium 137 mEq/L (136-145) 07/12/16 06:30 Potassium 4.1 mEq/L (3.5-5.1) 07/12/16 06:30 Chloride 107 mEq/L (98-107) 07/12/16 06:30 Carbon Dioxide 24.0 mEq/L (21.0-31.0) 07/12/16 06:30 Anion Gap 10.1 (7.0-16.0) 07/12/16 06:30 BUN 9 mg/dL (7-25) 07/12/16 06:30 Creatinine 0.5 mg/dL (0.7-1.3) L 07/12/16 06:30 Est GFR ( Amer) > 60.0 ml/min (>90) 07/12/16 06:30 Est GFR (Non-Af Amer) > 60.0 ml/min 07/12/16 06:30 BUN/Creatinine Ratio 18.0 07/12/16 06:30 Glucose 113 mg/dL (70-105) H 07/12/16 06:30 Calcium 9.0 mg/dL (8.6-10.3) 07/12/16 06:30 Total Bilirubin 0.4 mg/dL (0.3-1.0) 07/02/16 06:55 AST 23 U/L (13-39) 07/02/16 06:55 ALT 15 U/L (7-52) 07/02/16 06:55 Alkaline Phosphatase 65 U/L (34-104) 07/02/16 06:55 Total Protein 7.6 gm/dL (6.0-8.3) 07/02/16 06:55 Albumin 4.2 gm/dL (4.2-5.5) 07/02/16 06:55 Globulin 3.4 gm/dL 07/02/16 06:55 Albumin/Globulin Ratio 1.2 (1.0-1.8) 07/02/16 06:55 Lipase 13 U/L (11-82) 06/26/16 23:39 TSH 0.20 uIU/ml (0.34-5.60) L 06/27/16 06:16 Urine Source CLEAN C 06/28/16 21:35 Urine Color YELLOW 06/28/16 21:35 Urine Clarity CLEAR (CLEAR) 06/28/16 21:35 Urine pH >=9.0 06/28/16 21:35 Ur Specific [place] 1.020 (1.005-1.030) 06/28/16 21:35 Urine Protein TRACE mg/dL (NEGATIVE) 06/28/16 21:35 Urine Glucose (UA) NEGATIVE mg/dL (NEGATIVE) 06/28/16 21:35 Urine Ketones NEGATIVE mg/dL (NEGATIVE) 06/28/16 21:35 Urine Blood NEGATIVE (NEGATIVE) 06/28/16 21:35 Urine Nitrate NEGATIVE (NEGATIVE) 06/28/16 21:35 Urine Bilirubin NEGATIVE (NEGATIVE) 06/28/16 21:35 Urine Urobilinogen 0.2 E.U./dL (0.2 - 1.0) 06/28/16 21:35 Ur Leukocyte Esterase NEGATIVE (NEGATIVE) 06/28/16 21:35 Urine RBC 0-2 /hpf (0-5) H 06/28/16 21:35 Urine WBC 0-2 /hpf (0-5) 06/28/16 21:35 Ur Epithelial Cells NONE SEEN /lpf (FEW) 06/28/16 21:35 Urine Bacteria FEW /hpf (NONE SEEN) 06/28/16 21:35 - Physical Exam Vitals and I&O: Vital Signs Temp 98.2 F 07/13/16 15:00 Pulse 93 07/13/16 15:00 Resp 17 07/13/16 15:00 BP 96/50 07/13/16 15:00 Pulse Ox 94 07/13/16 15:00 Intake & Output 07/12/16 07/13/16 07/13/16 18:59 06:59 18:59 Intake Total 480 22.168 950.833 Output Total 750 Balance -270 22.168 950.833 Intake: Intake, IV Amount 22.168 950.833 D5-0.45NS 1,000 ml @ 70 22.168 950.833 mls/hr IV .[id number] [facility] Rx #:[id number] Tube Feeding 480 Output: Urine 750 Stool 0 Other: # Voids 3 Active Medications: Current Medications Bisacodyl (Dulcolax 10 Mg Supp) 10 mg RC DAILY PRN PRN Reason: Constipation Stop: 08/25/16 23:52 Dextrose/Sodium Chloride (D5-0.45ns) 1,000 mls @ 70 mls/hr IV .[id number] [facility] Stop: 09/02/16 19:04 Last Admin: 07/13/16 09:09 Dose: 70 mls/hr Magnesium Hydroxide (Milk Of Magnesia) 30 ml PO HS [facility] Stop: 08/26/16 20:59 Last Admin: 07/12/16 20:07 Dose: 30 ml Megestrol Acetate (Megace) 400 mg PO BID [facility] PRN Reason: Protocol Stop: 09/04/16 16:59 Last Admin: 07/13/16 17:01 Dose: 400 mg Metoclopramide HCl (Reglan) 10 mg PO TID [facility] Stop: 09/02/16 14:59 Last Admin: 07/13/16 14:51 Dose: 10 mg Mineral Oil (Mineral Oil 30 Ml) 30 ml GT DAILY [facility] Stop: 08/27/16 08:59 Last Admin: 07/13/16 09:09 Dose: 30 ml Prochlorperazine (Compazine) 25 mg RC Q12H PRN; Protocol PRN Reason: Nausea Stop: 08/25/16 23:52 Vitamin D (Vitamin D) 400 iu GT DAILY [facility] Stop: 08/26/16 08:59 Last Admin: 07/13/16 09:09 Dose: 400 iu General: alert HEENT: NC/AT, PERRLA Neck: Supple Lungs: CTAB Cardiovascular: RRR, Normal S1, without murmur Abdomen: soft non-tender, non-distended Extremities: clear - Procedures Procedures: Procedures Procedure Code Date DIAGNOSTIC COLONOSCOPY 11453 06/26/16 EGD BIOPSY SINGLE/MULTIPLE 11506 12/22/13 ESOPHAGOGASTRODUODENOSCOPY [EGD] W/CLOSED BIOPSY 45.16 12/22/13 INFLUENZA VACCINATION 99.52 07/14/13 INSERT INDWELLING CATH 57.94 05/17/12 INSERT INTESTINAL TUBE 96.08 05/17/12 INSERT PICC CATH 19903 05/17/12 INSERT TEMP BLADDER CATH 00692 05/17/12 INSPECTION OF LOWER INTESTINAL TRACT, ENDO [id number] 06/26/16 OPEN AND OTHER CECECTOMY 45.72 05/17/12 OPEN AND OTHER RIGHT HEMICOLECTOMY 45.73 05/17/12 PARTIAL REMOVAL OF COLON 42993 05/17/12 UNLISTED PX SMALL INTESTINE 13253 05/17/12 VENOUS CATHETERIZATION NEC 38.93 05/17/12 Internal Medicine Assmt/Plan - Assessment Assessment: abdominal pain intractable vomiting dehyration cp stool impaction debility - Plan Plan: awaiting for placement ivf for hydration monitor electrolytes cbc/bmp in am
[2016-07-13] MEDS: Magnesium Hydroxide (MOM) 30 mL UDC PO SCH (22:17)
[2016-07-14 07:25] LABS: % EOSINOPHILS 0.4 % (0.0-5.0); HEMOGLOBIN 12.5 gm/dL (13.2-17.3); WHITE BLOOD COUNT 8.3 Th/cmm (4.8-10.8)
[2016-07-14 07:44] LABS: ANION GAP 8.1 (7.0-16.0); BUN - UREA NITROGEN 10 mg/dL (7-25); CALCIUM SERUM 9.2 mg/dL (8.6-10.3); CARBON DIOXIDE 22.9 mEq/L (21.0-31.0); CHLORIDE 108 mEq/L (98-107); CREATININE - SERUM 0.4 mg/dL (0.7-1.3); GLUCOSE 111 mg/dL (70-105); SODIUM SERUM 135 mEq/L (136-145)
[2016-07-14 07:52] LABS: % BASOPHILS 0.2 % (0.0-2.0); % LYMPHOCYTES 23.2 % (20.0-50.0); % MONOCYTES 7.9 % (2.0-10.0); % NEUTROPHILS 68.3 % (40.0-80.0); HEMATOCRIT 37.1 % (39.0-49.0); MEAN CELL VOLUME 89.8 fl (80-99); MEAN CORPUSCULAR HEMOGLOBIN 30.2 pg (26.0-30.0); MEAN CORPUSCULAR HGB CONC 33.6 pg (28.0-36.0); NEUTROPHILE ABSOLUTE 5.7 Th/cmm (1.8-8.0); PLATELET COUNT 196 Th/cmm (150-400); RED BLOOD COUNT 4.13 Mil/cmm (4.30-5.70); RED CELL DISTRIBUTION WIDTH 12.9 % (11.5-20.0)
--- NOTE | 2016-07-14 11:38 | Internal Medicine Prog Note ---
Internal Medicine Subjective - Subjective Service Date: 07/14/16 Patient seen and examined:: with staff Patient is:: awake Per staff patient is:: no adverse event Internal Medicine Objective - Results Result Diagrams: 07/14/16 06:50 07/14/16 06:50 Recent Labs: Laboratory Last Values WBC 8.3 Th/cmm (4.8-10.8) 07/14/16 06:50 RBC 4.13 Mil/cmm (4.30-5.70) L 07/14/16 06:50 Hgb 12.5 gm/dL (13.2-17.3) L 07/14/16 06:50 Hct 37.1 % (39.0-49.0) L 07/14/16 06:50 MCV 89.8 fl (80-99) 07/14/16 06:50 MCH 30.2 pg (26.0-30.0) H 07/14/16 06:50 MCHC Differential 33.6 pg (28.0-36.0) 07/14/16 06:50 RDW 12.9 % (11.5-20.0) 07/14/16 06:50 Plt Count 196 Th/cmm (150-400) 07/14/16 06:50 MPV 8.0 fl 07/14/16 06:50 Neutrophils % 68.3 % (40.0-80.0) 07/14/16 06:50 Band Neutrophils % 5 % (0-10) 06/27/16 06:16 Lymphocytes % 23.2 % (20.0-50.0) 07/14/16 06:50 Monocytes % 7.9 % (2.0-10.0) 07/14/16 06:50 Eosinophils % 0.4 % (0.0-5.0) 07/14/16 06:50 Basophils % 0.2 % (0.0-2.0) 07/14/16 06:50 Neutrophils (Manual) 42 % (40-80) 07/01/16 05:45 Lymphocytes 36 % (20-50) 07/01/16 05:45 Monocytes 14 % (2-10) H 07/01/16 05:45 Eosinophils 2 % (0-5) 07/01/16 05:45 Basophils 1 % (0-3) 07/01/16 05:45 Atypical Lymphocytes 5 % 07/01/16 05:45 Platelet Estimate ADEQUATE (NORMAL) 07/01/16 05:45 Platelet Morphology NORMAL (NORMAL) 07/01/16 05:45 RBC Morph Micro Appear NORMAL (NORMAL) 07/01/16 05:45 PT 11.0 SECONDS (9.5-11.5) 07/07/16 07:00 INR 1.10 (0.5-1.4) 07/07/16 07:00 Sodium 135 mEq/L (136-145) L 07/14/16 06:50 Potassium 4.0 mEq/L (3.5-5.1) 07/14/16 06:50 Chloride 108 mEq/L (98-107) H 07/14/16 06:50 Carbon Dioxide 22.9 mEq/L (21.0-31.0) 07/14/16 06:50 Anion Gap 8.1 (7.0-16.0) 07/14/16 06:50 BUN 10 mg/dL (7-25) 07/14/16 06:50 Creatinine 0.4 mg/dL (0.7-1.3) L 07/14/16 06:50 Est GFR ( Amer) > 60.0 ml/min (>90) 07/14/16 06:50 Est GFR (Non-Af Amer) > 60.0 ml/min 07/14/16 06:50 BUN/Creatinine Ratio 25.0 07/14/16 06:50 Glucose 111 mg/dL (70-105) H 07/14/16 06:50 Calcium 9.2 mg/dL (8.6-10.3) 07/14/16 06:50 Total Bilirubin 0.4 mg/dL (0.3-1.0) 07/02/16 06:55 AST 23 U/L (13-39) 07/02/16 06:55 ALT 15 U/L (7-52) 07/02/16 06:55 Alkaline Phosphatase 65 U/L (34-104) 07/02/16 06:55 Total Protein 7.6 gm/dL (6.0-8.3) 07/02/16 06:55 Albumin 4.2 gm/dL (4.2-5.5) 07/02/16 06:55 Globulin 3.4 gm/dL 07/02/16 06:55 Albumin/Globulin Ratio 1.2 (1.0-1.8) 07/02/16 06:55 Lipase 13 U/L (11-82) 06/26/16 23:39 TSH 0.20 uIU/ml (0.34-5.60) L 06/27/16 06:16 Urine Source CLEAN C 06/28/16 21:35 Urine Color YELLOW 06/28/16 21:35 Urine Clarity CLEAR (CLEAR) 06/28/16 21:35 Urine pH >=9.0 06/28/16 21:35 Ur Specific [place] 1.020 (1.005-1.030) 06/28/16 21:35 Urine Protein TRACE mg/dL (NEGATIVE) 06/28/16 21:35 Urine Glucose (UA) NEGATIVE mg/dL (NEGATIVE) 06/28/16 21:35 Urine Ketones NEGATIVE mg/dL (NEGATIVE) 06/28/16 21:35 Urine Blood NEGATIVE (NEGATIVE) 06/28/16 21:35 Urine Nitrate NEGATIVE (NEGATIVE) 06/28/16 21:35 Urine Bilirubin NEGATIVE (NEGATIVE) 06/28/16 21:35 Urine Urobilinogen 0.2 E.U./dL (0.2 - 1.0) 06/28/16 21:35 Ur Leukocyte Esterase NEGATIVE (NEGATIVE) 06/28/16 21:35 Urine RBC 0-2 /hpf (0-5) H 06/28/16 21:35 Urine WBC 0-2 /hpf (0-5) 06/28/16 21:35 Ur Epithelial Cells NONE SEEN /lpf (FEW) 06/28/16 21:35 Urine Bacteria FEW /hpf (NONE SEEN) 06/28/16 21:35 - Physical Exam Vitals and I&O: Vital Signs Temp 98.0 F 07/14/16 08:00 Pulse 64 07/14/16 08:00 Resp 18 07/14/16 08:00 BP 119/62 07/14/16 08:00 Pulse Ox 96 07/14/16 08:00 Intake & Output 07/13/16 07/14/16 07/14/16 18:59 06:59 18:59 Intake Total 950.833 200 Balance 950.833 200 Intake: Intake, IV Amount 950.833 D5-0.45NS 1,000 ml @ 70 950.833 mls/hr IV .[id number] [facility] Rx #:[id number] Other 200 Other: # Voids 4 2 # Bowel Movements 2 0 Active Medications: Current Medications Bisacodyl (Dulcolax 10 Mg Supp) 10 mg RC DAILY PRN PRN Reason: Constipation Stop: 08/25/16 23:52 Dextrose/Sodium Chloride (D5-0.45ns) 1,000 mls @ 70 mls/hr IV .[id number] [facility] Stop: 09/02/16 19:04 Last Admin: 07/13/16 09:09 Dose: 70 mls/hr Magnesium Hydroxide (Milk Of Magnesia) 30 ml PO HS [facility] Stop: 08/26/16 20:59 Last Admin: 07/13/16 22:17 Dose: 30 ml Megestrol Acetate (Megace) 400 mg PO BID [facility] PRN Reason: Protocol Stop: 09/04/16 16:59 Last Admin: 07/14/16 09:06 Dose: 400 mg Metoclopramide HCl (Reglan) 10 mg PO TID [facility] Stop: 09/02/16 14:59 Last Admin: 07/14/16 09:06 Dose: 10 mg Mineral Oil (Mineral Oil 30 Ml) 30 ml GT DAILY [facility] Stop: 08/27/16 08:59 Last Admin: 07/14/16 09:06 Dose: 30 ml Prochlorperazine (Compazine) 25 mg RC Q12H PRN; Protocol PRN Reason: Nausea Stop: 08/25/16 23:52 Vitamin D (Vitamin D) 400 iu GT DAILY [facility] Stop: 08/26/16 08:59 Last Admin: 07/14/16 09:06 Dose: 400 iu General: alert HEENT: NC/AT, PERRLA Neck: Supple Lungs: CTAB Cardiovascular: RRR, Normal S1, Normal S2, without murmur Abdomen: soft non-tender, non-distended, positive bowel sound Extremities: clear - Procedures Procedures: Procedures Procedure Code Date DIAGNOSTIC COLONOSCOPY 28744 06/26/16 EGD BIOPSY SINGLE/MULTIPLE 94632 12/22/13 ESOPHAGOGASTRODUODENOSCOPY [EGD] W/CLOSED BIOPSY 45.16 12/22/13 INFLUENZA VACCINATION 99.52 07/14/13 INSERT INDWELLING CATH 57.94 05/17/12 INSERT INTESTINAL TUBE 96.08 05/17/12 INSERT PICC CATH 30379 05/17/12 INSERT TEMP BLADDER CATH 86269 05/17/12 INSPECTION OF LOWER INTESTINAL TRACT, ENDO [id number] 06/26/16 OPEN AND OTHER CECECTOMY 45.72 05/17/12 OPEN AND OTHER RIGHT HEMICOLECTOMY 45.73 05/17/12 PARTIAL REMOVAL OF COLON 08113 05/17/12 UNLISTED PX SMALL INTESTINE 12217 05/17/12 VENOUS CATHETERIZATION NEC 38.93 05/17/12 Internal Medicine Assmt/Plan - Assessment Assessment: abdominal pain intractable vomiting dehyration cp stool impaction debility - Plan Plan: awaiting for placement ivf for hydration monitor electrolytes cbc/bmp in am
[2016-07-14] MEDS: D5-0.45NS 1,000 ML IV SCH (15:10)
[2016-07-14] MEDS: Magnesium Hydroxide (MOM) 30 mL UDC PO SCH (22:21)
[2016-07-15 07:37] LABS: % BASOPHILS 1.1 % (0.0-2.0); % EOSINOPHILS 0.2 % (0.0-5.0); % MONOCYTES 8.2 % (2.0-10.0); % NEUTROPHILS 68.5 % (40.0-80.0); HEMATOCRIT 37.6 % (39.0-49.0); HEMOGLOBIN 12.7 gm/dL (13.2-17.3); MEAN CORPUSCULAR HEMOGLOBIN 30.3 pg (26.0-30.0); MEAN CORPUSCULAR HGB CONC 33.7 pg (28.0-36.0); MEAN PLATELET VOLUME 8.1 fl; NEUTROPHILE ABSOLUTE 5.7 Th/cmm (1.8-8.0); PLATELET COUNT 191 Th/cmm (150-400); RED BLOOD COUNT 4.18 Mil/cmm (4.30-5.70); RED CELL DISTRIBUTION WIDTH 12.7 % (11.5-20.0); WHITE BLOOD COUNT 8.3 Th/cmm (4.8-10.8)
[2016-07-15 07:39] LABS: ANION GAP 12.3 (7.0-16.0); BUN - UREA NITROGEN 10 mg/dL (7-25); CARBON DIOXIDE 22.7 mEq/L (21.0-31.0); CHLORIDE 105 mEq/L (98-107); CREATININE - SERUM 0.5 mg/dL (0.7-1.3); GLUCOSE 109 mg/dL (70-105); SODIUM SERUM 136 mEq/L (136-145)
[2016-07-15] MEDS: D5-0.45NS 1,000 ML IV SCH (10:18)
--- NOTE | 2016-07-15 12:05 | Internal Medicine Prog Note ---
Internal Medicine Subjective - Subjective Service Date: 07/15/16 Patient seen and examined:: with staff Patient is:: awake Per staff patient is:: no adverse event Internal Medicine Objective - Results Result Diagrams: 07/15/16 06:48 07/15/16 06:48 Recent Labs: Laboratory Last Values WBC 8.3 Th/cmm (4.8-10.8) 07/15/16 06:48 RBC 4.18 Mil/cmm (4.30-5.70) L 07/15/16 06:48 Hgb 12.7 gm/dL (13.2-17.3) L 07/15/16 06:48 Hct 37.6 % (39.0-49.0) L 07/15/16 06:48 MCV 90.0 fl (80-99) 07/15/16 06:48 MCH 30.3 pg (26.0-30.0) H 07/15/16 06:48 MCHC Differential 33.7 pg (28.0-36.0) 07/15/16 06:48 RDW 12.7 % (11.5-20.0) 07/15/16 06:48 Plt Count 191 Th/cmm (150-400) 07/15/16 06:48 MPV 8.1 fl 07/15/16 06:48 Neutrophils % 68.5 % (40.0-80.0) 07/15/16 06:48 Band Neutrophils % 5 % (0-10) 06/27/16 06:16 Lymphocytes % 22.0 % (20.0-50.0) 07/15/16 06:48 Monocytes % 8.2 % (2.0-10.0) 07/15/16 06:48 Eosinophils % 0.2 % (0.0-5.0) 07/15/16 06:48 Basophils % 1.1 % (0.0-2.0) 07/15/16 06:48 Neutrophils (Manual) 42 % (40-80) 07/01/16 05:45 Lymphocytes 36 % (20-50) 07/01/16 05:45 Monocytes 14 % (2-10) H 07/01/16 05:45 Eosinophils 2 % (0-5) 07/01/16 05:45 Basophils 1 % (0-3) 07/01/16 05:45 Atypical Lymphocytes 5 % 07/01/16 05:45 Platelet Estimate ADEQUATE (NORMAL) 07/01/16 05:45 Platelet Morphology NORMAL (NORMAL) 07/01/16 05:45 RBC Morph Micro Appear NORMAL (NORMAL) 07/01/16 05:45 PT 11.0 SECONDS (9.5-11.5) 07/07/16 07:00 INR 1.10 (0.5-1.4) 07/07/16 07:00 Sodium 136 mEq/L (136-145) 07/15/16 06:48 Potassium 4.0 mEq/L (3.5-5.1) 07/15/16 06:48 Chloride 105 mEq/L (98-107) 07/15/16 06:48 Carbon Dioxide 22.7 mEq/L (21.0-31.0) 07/15/16 06:48 Anion Gap 12.3 (7.0-16.0) 07/15/16 06:48 BUN 10 mg/dL (7-25) 07/15/16 06:48 Creatinine 0.5 mg/dL (0.7-1.3) L 07/15/16 06:48 Est GFR ( Amer) > 60.0 ml/min (>90) 07/15/16 06:48 Est GFR (Non-Af Amer) > 60.0 ml/min 07/15/16 06:48 BUN/Creatinine Ratio 20.0 07/15/16 06:48 Glucose 109 mg/dL (70-105) H 07/15/16 06:48 Calcium 9.0 mg/dL (8.6-10.3) 07/15/16 06:48 Total Bilirubin 0.4 mg/dL (0.3-1.0) 07/02/16 06:55 AST 23 U/L (13-39) 07/02/16 06:55 ALT 15 U/L (7-52) 07/02/16 06:55 Alkaline Phosphatase 65 U/L (34-104) 07/02/16 06:55 Total Protein 7.6 gm/dL (6.0-8.3) 07/02/16 06:55 Albumin 4.2 gm/dL (4.2-5.5) 07/02/16 06:55 Globulin 3.4 gm/dL 07/02/16 06:55 Albumin/Globulin Ratio 1.2 (1.0-1.8) 07/02/16 06:55 Lipase 13 U/L (11-82) 06/26/16 23:39 TSH 0.20 uIU/ml (0.34-5.60) L 06/27/16 06:16 Urine Source CLEAN C 06/28/16 21:35 Urine Color YELLOW 06/28/16 21:35 Urine Clarity CLEAR (CLEAR) 06/28/16 21:35 Urine pH >=9.0 06/28/16 21:35 Ur Specific [place] 1.020 (1.005-1.030) 06/28/16 21:35 Urine Protein TRACE mg/dL (NEGATIVE) 06/28/16 21:35 Urine Glucose (UA) NEGATIVE mg/dL (NEGATIVE) 06/28/16 21:35 Urine Ketones NEGATIVE mg/dL (NEGATIVE) 06/28/16 21:35 Urine Blood NEGATIVE (NEGATIVE) 06/28/16 21:35 Urine Nitrate NEGATIVE (NEGATIVE) 06/28/16 21:35 Urine Bilirubin NEGATIVE (NEGATIVE) 06/28/16 21:35 Urine Urobilinogen 0.2 E.U./dL (0.2 - 1.0) 06/28/16 21:35 Ur Leukocyte Esterase NEGATIVE (NEGATIVE) 06/28/16 21:35 Urine RBC 0-2 /hpf (0-5) H 06/28/16 21:35 Urine WBC 0-2 /hpf (0-5) 06/28/16 21:35 Ur Epithelial Cells NONE SEEN /lpf (FEW) 06/28/16 21:35 Urine Bacteria FEW /hpf (NONE SEEN) 06/28/16 21:35 - Physical Exam Vitals and I&O: Vital Signs Temp 97.4 F 07/15/16 07:00 Pulse 72 07/15/16 07:00 Resp 18 07/15/16 08:00 BP 105/27 07/15/16 07:00 Pulse Ox 98 07/15/16 07:00 Intake & Output 07/14/16 07/15/16 07/15/16 18:59 06:59 18:59 Intake Total 600 1000 Output Total 1 Balance 599 1000 Intake: Intake, IV Amount 1000 D5-0.45NS 1,000 ml @ 70 1000 mls/hr IV .[id number] [facility] Rx #:[id number] Oral 600 Output: Stool 1 Other: # Voids 2 3 # Bowel Movements 1 Stool Characteristics Liquid Liquid Liquid Active Medications: Current Medications Bisacodyl (Dulcolax 10 Mg Supp) 10 mg RC DAILY PRN PRN Reason: Constipation Stop: 08/25/16 23:52 Dextrose/Sodium Chloride (D5-0.45ns) 1,000 mls @ 70 mls/hr IV .[id number] [facility] Stop: 09/02/16 19:04 Last Admin: 07/15/16 10:18 Dose: 70 mls/hr Magnesium Hydroxide (Milk Of Magnesia) 30 ml PO HS [facility] Stop: 08/26/16 20:59 Last Admin: 07/14/16 22:21 Dose: 30 ml Megestrol Acetate (Megace) 400 mg PO BID [facility] PRN Reason: Protocol Stop: 09/04/16 16:59 Last Admin: 07/15/16 10:00 Dose: 400 mg Metoclopramide HCl (Reglan) 10 mg PO TID [facility] Stop: 09/02/16 14:59 Last Admin: 07/15/16 10:00 Dose: 10 mg Mineral Oil (Mineral Oil 30 Ml) 30 ml GT DAILY [facility] Stop: 08/27/16 08:59 Last Admin: 07/15/16 10:01 Dose: 30 ml Prochlorperazine (Compazine) 25 mg RC Q12H PRN; Protocol PRN Reason: Nausea Stop: 08/25/16 23:52 Vitamin D (Vitamin D) 400 iu GT DAILY [facility] Stop: 08/26/16 08:59 Last Admin: 07/15/16 10:00 Dose: 400 iu General: alert HEENT: NC/AT, PERRLA Neck: Supple Lungs: CTAB Cardiovascular: RRR, Normal S1, Normal S2, without murmur Abdomen: soft non-tender Extremities: clear - Procedures Procedures: Procedures Procedure Code Date DIAGNOSTIC COLONOSCOPY 30739 06/26/16 EGD BIOPSY SINGLE/MULTIPLE 54901 12/22/13 ESOPHAGOGASTRODUODENOSCOPY [EGD] W/CLOSED BIOPSY 45.16 12/22/13 INFLUENZA VACCINATION 99.52 07/14/13 INSERT INDWELLING CATH 57.94 05/17/12 INSERT INTESTINAL TUBE 96.08 05/17/12 INSERT PICC CATH 74280 05/17/12 INSERT TEMP BLADDER CATH 04170 05/17/12 INSPECTION OF LOWER INTESTINAL TRACT, ENDO [id number] 06/26/16 OPEN AND OTHER CECECTOMY 45.72 05/17/12 OPEN AND OTHER RIGHT HEMICOLECTOMY 45.73 05/17/12 PARTIAL REMOVAL OF COLON 65133 05/17/12 UNLISTED PX SMALL INTESTINE 13462 05/17/12 VENOUS CATHETERIZATION NEC 38.93 05/17/12 Internal Medicine Assmt/Plan - Assessment Assessment: abdominal pain intractable vomiting dehyration cp stool impaction debility - Plan Plan: awaiting for placement ivf for hydration monitor electrolytes cbc/bmp in am
[2016-07-15 13:14] LABS: HEP B CORE IGM Negative (Negative); HEP C ANTIBODY <0.1 s/co ratio (0.0-0.9)
[2016-07-15] MEDS: Magnesium Hydroxide (MOM) 30 mL UDC PO SCH (21:25)
[2016-07-16] MEDS: D5-0.45NS 1,000 ML IV SCH (05:24)
[2016-07-16 06:57] LABS: % BASOPHILS 0.2 % (0.0-2.0); % EOSINOPHILS 0.3 % (0.0-5.0); % LYMPHOCYTES 21.4 % (20.0-50.0); % MONOCYTES 8.4 % (2.0-10.0); % NEUTROPHILS 69.7 % (40.0-80.0); HEMATOCRIT 37.2 % (39.0-49.0); HEMOGLOBIN 12.5 gm/dL (13.2-17.3); MEAN CELL VOLUME 90.4 fl (80-99); MEAN CORPUSCULAR HEMOGLOBIN 30.3 pg (26.0-30.0); MEAN CORPUSCULAR HGB CONC 33.6 pg (28.0-36.0); MEAN PLATELET VOLUME 7.8 fl; PLATELET COUNT 197 Th/cmm (150-400); RED BLOOD COUNT 4.11 Mil/cmm (4.30-5.70); WHITE BLOOD COUNT 8.5 Th/cmm (4.8-10.8)
[2016-07-16 07:25] LABS: ANION GAP 9.9 (7.0-16.0); BUN - UREA NITROGEN 11 mg/dL (7-25); CALCIUM SERUM 8.9 mg/dL (8.6-10.3); CARBON DIOXIDE 21.3 mEq/L (21.0-31.0); CHLORIDE 105 mEq/L (98-107); CREATININE - SERUM 0.5 mg/dL (0.7-1.3); GLUCOSE 114 mg/dL (70-105); POTASSIUM SERUM 4.2 mEq/L (3.5-5.1); SODIUM SERUM 132 mEq/L (136-145)
--- NOTE | 2016-07-16 12:32 | Internal Medicine Prog Note ---
Internal Medicine Subjective - Subjective Service Date: 07/16/16 Patient seen and examined:: with staff Patient is:: awake Per staff patient is:: no adverse event Internal Medicine Objective - Results Result Diagrams: 07/16/16 06:19 07/16/16 06:19 Recent Labs: Laboratory Last Values WBC 8.5 Th/cmm (4.8-10.8) 07/16/16 06:19 RBC 4.11 Mil/cmm (4.30-5.70) L 07/16/16 06:19 Hgb 12.5 gm/dL (13.2-17.3) L 07/16/16 06:19 Hct 37.2 % (39.0-49.0) L 07/16/16 06:19 MCV 90.4 fl (80-99) 07/16/16 06:19 MCH 30.3 pg (26.0-30.0) H 07/16/16 06:19 MCHC Differential 33.6 pg (28.0-36.0) 07/16/16 06:19 RDW 13.0 % (11.5-20.0) 07/16/16 06:19 Plt Count 197 Th/cmm (150-400) 07/16/16 06:19 MPV 7.8 fl 07/16/16 06:19 Neutrophils % 69.7 % (40.0-80.0) 07/16/16 06:19 Band Neutrophils % 5 % (0-10) 06/27/16 06:16 Lymphocytes % 21.4 % (20.0-50.0) 07/16/16 06:19 Monocytes % 8.4 % (2.0-10.0) 07/16/16 06:19 Eosinophils % 0.3 % (0.0-5.0) 07/16/16 06:19 Basophils % 0.2 % (0.0-2.0) 07/16/16 06:19 Neutrophils (Manual) 42 % (40-80) 07/01/16 05:45 Lymphocytes 36 % (20-50) 07/01/16 05:45 Monocytes 14 % (2-10) H 07/01/16 05:45 Eosinophils 2 % (0-5) 07/01/16 05:45 Basophils 1 % (0-3) 07/01/16 05:45 Atypical Lymphocytes 5 % 07/01/16 05:45 Platelet Estimate ADEQUATE (NORMAL) 07/01/16 05:45 Platelet Morphology NORMAL (NORMAL) 07/01/16 05:45 RBC Morph Micro Appear NORMAL (NORMAL) 07/01/16 05:45 PT 11.0 SECONDS (9.5-11.5) 07/07/16 07:00 INR 1.10 (0.5-1.4) 07/07/16 07:00 Sodium 132 mEq/L (136-145) L 07/16/16 06:19 Potassium 4.2 mEq/L (3.5-5.1) 07/16/16 06:19 Chloride 105 mEq/L (98-107) 07/16/16 06:19 Carbon Dioxide 21.3 mEq/L (21.0-31.0) 07/16/16 06:19 Anion Gap 9.9 (7.0-16.0) 07/16/16 06:19 BUN 11 mg/dL (7-25) 07/16/16 06:19 Creatinine 0.5 mg/dL (0.7-1.3) L 07/16/16 06:19 Est GFR ( Amer) > 60.0 ml/min (>90) 07/16/16 06:19 Est GFR (Non-Af Amer) > 60.0 ml/min 07/16/16 06:19 BUN/Creatinine Ratio 22.0 07/16/16 06:19 Glucose 114 mg/dL (70-105) H 07/16/16 06:19 Calcium 8.9 mg/dL (8.6-10.3) 07/16/16 06:19 Total Bilirubin 0.4 mg/dL (0.3-1.0) 07/02/16 06:55 AST 23 U/L (13-39) 07/02/16 06:55 ALT 15 U/L (7-52) 07/02/16 06:55 Alkaline Phosphatase 65 U/L (34-104) 07/02/16 06:55 Total Protein 7.6 gm/dL (6.0-8.3) 07/02/16 06:55 Albumin 4.2 gm/dL (4.2-5.5) 07/02/16 06:55 Globulin 3.4 gm/dL 07/02/16 06:55 Albumin/Globulin Ratio 1.2 (1.0-1.8) 07/02/16 06:55 Lipase 13 U/L (11-82) 06/26/16 23:39 TSH 0.20 uIU/ml (0.34-5.60) L 06/27/16 06:16 Urine Source CLEAN C 06/28/16 21:35 Urine Color YELLOW 06/28/16 21:35 Urine Clarity CLEAR (CLEAR) 06/28/16 21:35 Urine pH >=9.0 06/28/16 21:35 Ur Specific [place] 1.020 (1.005-1.030) 06/28/16 21:35 Urine Protein TRACE mg/dL (NEGATIVE) 06/28/16 21:35 Urine Glucose (UA) NEGATIVE mg/dL (NEGATIVE) 06/28/16 21:35 Urine Ketones NEGATIVE mg/dL (NEGATIVE) 06/28/16 21:35 Urine Blood NEGATIVE (NEGATIVE) 06/28/16 21:35 Urine Nitrate NEGATIVE (NEGATIVE) 06/28/16 21:35 Urine Bilirubin NEGATIVE (NEGATIVE) 06/28/16 21:35 Urine Urobilinogen 0.2 E.U./dL (0.2 - 1.0) 06/28/16 21:35 Ur Leukocyte Esterase NEGATIVE (NEGATIVE) 06/28/16 21:35 Urine RBC 0-2 /hpf (0-5) H 06/28/16 21:35 Urine WBC 0-2 /hpf (0-5) 06/28/16 21:35 Ur Epithelial Cells NONE SEEN /lpf (FEW) 06/28/16 21:35 Urine Bacteria FEW /hpf (NONE SEEN) 06/28/16 21:35 Hepatitis A IgM Ab Negative (Negative) 07/14/16 06:50 Hep Bs Antigen Negative (Negative) 07/14/16 06:50 Hep B Core IgM Ab Negative (Negative) 07/14/16 06:50 Hepatitis C Antibody <0.1 s/co ratio (0.0-0.9) 07/14/16 06:50 - Physical Exam Vitals and I&O: Vital Signs Temp 97.6 F 07/16/16 08:00 Pulse 66 07/16/16 08:00 Resp 18 07/16/16 08:00 BP 108/64 07/16/16 08:00 Pulse Ox 95 07/16/16 08:00 Intake & Output 07/15/16 07/16/16 07/16/16 18:59 06:59 18:59 Intake Total 1000 Balance 1000 Intake: Intake, IV Amount 1000 D5-0.45NS 1,000 ml @ 70 1000 mls/hr IV .[id number] [facility] Rx #:[id number] Other: # Voids 2 # Bowel Movements 1 Stool Characteristics Liquid Liquid Liquid Active Medications: Current Medications Bisacodyl (Dulcolax 10 Mg Supp) 10 mg RC DAILY PRN PRN Reason: Constipation Stop: 08/25/16 23:52 Last Admin: 07/15/16 16:12 Dose: 10 mg Dextrose/Sodium Chloride (D5-0.45ns) 1,000 mls @ 70 mls/hr IV .[id number] [facility] Stop: 09/02/16 19:04 Last Admin: 07/16/16 05:24 Dose: 70 mls/hr Magnesium Hydroxide (Milk Of Magnesia) 30 ml PO HS [facility] Stop: 08/26/16 20:59 Last Admin: 07/15/16 21:25 Dose: 30 ml Megestrol Acetate (Megace) 400 mg PO BID [facility] PRN Reason: Protocol Stop: 09/04/16 16:59 Last Admin: 07/16/16 09:22 Dose: 400 mg Metoclopramide HCl (Reglan) 10 mg PO TID [facility] Stop: 09/02/16 14:59 Last Admin: 07/16/16 09:22 Dose: 10 mg Mineral Oil (Mineral Oil 30 Ml) 30 ml GT DAILY [facility] Stop: 08/27/16 08:59 Last Admin: 07/16/16 09:26 Dose: 30 ml Prochlorperazine (Compazine) 25 mg RC Q12H PRN; Protocol PRN Reason: Nausea Stop: 08/25/16 23:52 Vitamin D (Vitamin D) 400 iu GT DAILY [facility] Stop: 08/26/16 08:59 Last Admin: 07/16/16 09:22 Dose: 400 iu General: alert HEENT: NC/AT, PERRLA Neck: Supple Lungs: CTAB Cardiovascular: RRR, Normal S1, Normal S2, without murmur Abdomen: soft non-tender, non-distended, positive bowel sound Extremities: clear Neurological: no change - Procedures Procedures: Procedures Procedure Code Date DIAGNOSTIC COLONOSCOPY 24270 06/26/16 EGD BIOPSY SINGLE/MULTIPLE 72927 12/22/13 ESOPHAGOGASTRODUODENOSCOPY [EGD] W/CLOSED BIOPSY 45.16 12/22/13 INFLUENZA VACCINATION 99.52 07/14/13 INSERT INDWELLING CATH 57.94 05/17/12 INSERT INTESTINAL TUBE 96.08 05/17/12 INSERT PICC CATH 26115 05/17/12 INSERT TEMP BLADDER CATH 31214 05/17/12 INSPECTION OF LOWER INTESTINAL TRACT, ENDO [id number] 06/26/16 OPEN AND OTHER CECECTOMY 45.72 05/17/12 OPEN AND OTHER RIGHT HEMICOLECTOMY 45.73 05/17/12 PARTIAL REMOVAL OF COLON 58655 05/17/12 UNLISTED PX SMALL INTESTINE 43468 05/17/12 VENOUS CATHETERIZATION NEC 38.93 05/17/12 Internal Medicine Assmt/Plan - Assessment Assessment: abdominal pain intractable vomiting dehyration cp stool impaction debility - Plan Plan: awaiting for placement ivf for hydration monitor electrolytes cbc/bmp in am
[2016-07-16] MEDS: Magnesium Hydroxide (MOM) 30 mL UDC PO SCH (20:45)
[2016-07-17 06:57] LABS: % BASOPHILS 0.1 % (0.0-2.0); % EOSINOPHILS 0.3 % (0.0-5.0); % LYMPHOCYTES 18.9 % (20.0-50.0); % MONOCYTES 7.1 % (2.0-10.0); % NEUTROPHILS 73.6 % (40.0-80.0); HEMATOCRIT 38.8 % (39.0-49.0); HEMOGLOBIN 12.9 gm/dL (13.2-17.3); MEAN CELL VOLUME 91.4 fl (80-99); MEAN CORPUSCULAR HEMOGLOBIN 30.4 pg (26.0-30.0); MEAN CORPUSCULAR HGB CONC 33.3 pg (28.0-36.0); MEAN PLATELET VOLUME 7.6 fl; NEUTROPHILE ABSOLUTE 7.1 Th/cmm (1.8-8.0); PLATELET COUNT 224 Th/cmm (150-400); RED BLOOD COUNT 4.25 Mil/cmm (4.30-5.70); RED CELL DISTRIBUTION WIDTH 13.1 % (11.5-20.0); WHITE BLOOD COUNT 9.6 Th/cmm (4.8-10.8)
[2016-07-17 07:07] LABS: ANION GAP 11.4 (7.0-16.0); BUN - UREA NITROGEN 13 mg/dL (7-25); BUN/CREATININE RATIO 21.7; CALCIUM SERUM 9.3 mg/dL (8.6-10.3); CARBON DIOXIDE 23.9 mEq/L (21.0-31.0); CHLORIDE 104 mEq/L (98-107); CREATININE - SERUM 0.6 mg/dL (0.7-1.3); GLUCOSE 107 mg/dL (70-105); POTASSIUM SERUM 4.3 mEq/L (3.5-5.1); SODIUM SERUM 135 mEq/L (136-145)
--- NOTE | 2016-07-17 21:23 | Discharge Summary ---
CHIEF COMPLAINT: Vomiting. FINAL DIAGNOSES: Abdominal pain with intractable vomiting, which has resolved, seizures, spastic quadriplegia, mental retardation, bedbound, anemia, protein calorie malnutrition. HISTORY OF PRESENT ILLNESS: This is a 31-year-old ____ male with cerebral palsy, mental retardation, was admitted from nursing facility secondary to abdominal pain, intractable vomiting. The patient was seen by Dr Gallegos for GI. HOSPITAL COURSE: The patient had endoscopy. The patient's condition did improve. There was an issue of aspiration. The patient's family was adamant that they wanted to continue with oral feeding, ____. The patient also has G-tube, which is main source of his nutrition. There was some issue with placement. The patient was not accepted back there in the previous extended care facility, will need to find a placement for the patient. CONDITION ON DISCHARGE: Fair. DISCHARGE INSTRUCTIONS: The patient to continue with current medical regimen. We will place the patient on aspiration precautions. This was related to the patient's physician. The patient will be followed by the medical lab scientist. Family were agreeable. ____ was also agreeable with the above plan. JOB# [id number]
== END 2016-07-17 08:20 | DRG 247 ==
LOC: ER 23:03 → MSI 23:35
PROVIDERS: ADMIT Internal Medicine; ATTEND Internal Medicine
PROC: 0DJD8ZZ Inspection of Lower Intestinal Tract, Via Natural or Artificial Opening Endoscopic (ICD-10-PCS; principal; 2016-07-07)
DX: K56.41 Fecal impaction (principal); E46 Unspecified protein-calorie malnutrition; G80.0 Spastic quadriplegic cerebral palsy; R13.10 Dysphagia, unspecified; G40.909 Epilepsy, unspecified, not intractable, without status epilepticus; M19.90 Unspecified osteoarthritis, unspecified site; M85.80 Other specified disorders of bone density and structure, unspecified site; F79 Unspecified intellectual disabilities; D64.9 Anemia, unspecified; E86.0 Dehydration; R53.81 Other malaise; M81.0 Age-related osteoporosis without current pathological fracture; H66.90 Otitis media, unspecified, unspecified ear; Z91.14 Patient's other noncompliance with medication regimen; Z74.01 Bed confinement status; Z68.22 Body mass index [BMI] 22.0-22.9, adult; Z98.890 Other specified postprocedural states; Z93.1 Gastrostomy status
CPT/HCPCS: 36415-UA; 71010-TC; 74000-TC; 74280-TC; 76700-TC; 80048-TC; 80053-TC; 80074-90; 81001-TC; 83690-TC; 84443-TC; 85007-TC; 85025-TC; 85027-TC; 85610-TC; 86592-TC; 87046-90; 87209-90; C9113; J2704; J2765; J7030; J7042; Z7506; Z7610

== ENCOUNTER 2016-08-17 22:39 | Inpatient (IN) | payer MEDICAID ==
--- NOTE | 2016-08-17 23:17 | ED Physician Chart ---
Chief Complaint/HPI - Patient Information Date Seen:: 08/17/16 Time Seen:: 22:40 Chief Complaint:: Constipation History of Present Illness:: Brought in by ambulance from nursing facility because pt has not had a BM for at least one day. Pt reportedly had prior h/o small bowel obstruction. Pt has profound intellectual disabilities. H & P are limited because pt is unable to cooperate. Info is primarily from review of limited transfer documents. Allergies:: Allergies Allergy/AdvReac Type Severity Reaction Status Date / Time No Known Allergies Allergy Verified 06/26/16 23:32 Vitals:: Vital Signs - 8 hr 08/17/16 22:51 Temp 98.2 F HR 84 RR 17 BP 119/69 O2 Sat % 98 Historian:: Medical Records (from transferrng facility.) Family MD/PCP:: Dr. Menard LMP:: N/A Review:: Nurse's Note Reviewed, Transfer documents Reviewed Review of Systems - Review of Systems General/Constitutional: Other (Pt does not cooperate for ROS.) Past Medical History - Past Medical History Past Medical History: PUD/GERD, Arthritis, Dementia, Other (cerebral palsy. spastic quadraplegia, osteoporosis) Family History: Other (Pt is unable to cooperate to provide info on FHx.) Social History: Care Facility, Other (Pt is unable to provide info on SHx.) Surgical History: PEG/GTube Psychiatricy History: Dementia Medication: Reviewed Family Medical History - Family Member Mother History Unknown: Yes Ethnicity: Non- Living Status: Still Living Physical Exam - Physical Examination General/Constitutional: Awake, Well-developed, well-nourished, Alert, No distress, Non-toxic appearing Other Gen/Cons comments:: Alert, responsive to voice and tactile stimuli at times. Breathes comfortably. Pt is not cooperative. Head: Atraumatic Eyes: Lids, conjuctiva normal Skin: No ecchymosis, Well hydrated, No lymphadenopathy ENMT: Oropharynx nl Neck: Nontender, Full ROM w/o pain, No JVD, No nuchal rigidity, No mass, No stridor Respiratory: Nl effort/Exclusion, Clear to Auscultation, No Wheeze/Rhonchi/Rales Cardio Vascular: RRR, No murmur, gallop, rubs GI: No tenderness/rebounding/guarding, No organomegaly, No hernia, Nondistended , No mass/bruits, No McBurney tenderness Other GI comments:: Well healed midline longitudinal surgical scar noticed. G-tube at LUQ. Slightly decrease in BS throughout. Abdominal exam is limited because pt cannot cooperate. Other Extremities comments:: Contractures noticed in all 4 extremities. Other Neuro/Psych comments:: Alert. Pt is responsive to voice and tactile stimuli at times. Occasional spontaneous movements with contractures noticed in all 4 extremities. Labs/Radiology/EKG Results - Lab Results Results: Laboratory Tests 08/17/16 08/17/16 23:00 23:00 PT 11.3 INR 1.09 PTT (Actin FS) 24.9 L Sodium 141 Potassium 3.8 Chloride 108 H Carbon Dioxide 23.1 Anion Gap 13.7 BUN 24 Creatinine 0.6 L Est GFR ( Amer) > 60.0 Est GFR (Non-Af Amer) > 60.0 BUN/Creatinine Ratio 40.0 Glucose 91 Calcium 10.0 Total Bilirubin 0.4 AST 19 ALT 12 Alkaline Phosphatase 65 Total Protein 8.1 Albumin 4.5 Globulin 3.6 Albumin/Globulin Ratio 1.3 Pending lab result: CBC - Radiology Results Results: CT abdomen/pelvis without contrast:pending. ED Septic Shock - . Is Septic Shock (SBP<90, OR Lactate>4 mmol\L) present?: No - <6hrs of presentation: Vital Signs: Vital Signs - 8 hr 08/17/16 22:51 Temp 98.2 F HR 84 RR 17 BP 119/69 O2 Sat % 98 Reassessment (Disposition) - Reassessment Reassessment:: 0012 Pt remains stable. H & P and available lab findings have been reviewed. Dr. Menard decided to admit pt to [facility] for observation. He will follow on pending lab results and abdominal/pelvic CT report. Reassessment Condition:: Improved - Diagnosis Diagnosis:: Prior h/o small bowel obstruction by hx with constipation for at least one day. Stable. h/o cerebral palsy with dementia and spastic quadraplegia. Stable. - Patient Disposition Admitted to:: Med/Surg Admitting Medical Physician:: Sobia Menard Time:: 00:20 Condition at Disposition:: Stable, Improved
[2016-08-17 23:28] LABS: ALB/GLOB RATIO 1.3 (1.0-1.8); ALKALINE PHOSPHATASE 65 U/L (34-104); ANION GAP 13.7 (7.0-16.0); BILIRUBIN,TOTAL 0.4 mg/dL (0.3-1.0); BUN - UREA NITROGEN 24 mg/dL (7-25); CARBON DIOXIDE 23.1 mEq/L (21.0-31.0); CHLORIDE 108 mEq/L (98-107); CREATININE - SERUM 0.6 mg/dL (0.7-1.3); GLUCOSE 91 mg/dL (70-105); POTASSIUM SERUM 3.8 mEq/L (3.5-5.1); SGOT 19 U/L (13-39); SGPT/ALT 12 U/L (7-52); SODIUM SERUM 141 mEq/L (136-145)
[2016-08-17 23:30] LABS: INR 1.09 (0.5-1.4); PROTHROMBIN TIME (TEST) 11.3 SECONDS (9.5-11.5)
[2016-08-18 00:21] LABS: HEMATOCRIT 43.4 % (39.0-49.0); MEAN CELL VOLUME 90.9 fl (80-99); MEAN CORPUSCULAR HEMOGLOBIN 29.4 pg (26.0-30.0); RED BLOOD COUNT 4.77 Mil/cmm (4.30-5.70); WHITE BLOOD COUNT 8.2 Th/cmm (4.8-10.8)
[2016-08-18 00:22] LABS: % EOSINOPHILS 2.3 % (0.0-5.0); % LYMPHOCYTES 26.6 % (20.0-50.0); % MONOCYTES 6.2 % (2.0-10.0); % NEUTROPHILS 63.9 % (40.0-80.0); MEAN CORPUSCULAR HGB CONC 32.3 pg (28.0-36.0); MEAN PLATELET VOLUME 7.2 fl; NEUTROPHILE ABSOLUTE 5.2 Th/cmm (1.8-8.0); PLATELET COUNT 211 Th/cmm (150-400); RED CELL DISTRIBUTION WIDTH 12.9 % (11.5-20.0)
[2016-08-18] MEDS ORDERED: Morphine Sulfate 2 mg/mL 1mL Syr IVP PRN (00:36)
[2016-08-18] MEDS: D5-0.45NS 1,000 ML IV SCH ×2 (05:06→18:40)
[2016-08-18 08:02] LABS: % BASOPHILS 0.4 % (0.0-2.0); % EOSINOPHILS 2.3 % (0.0-5.0); % LYMPHOCYTES 35.3 % (20.0-50.0); % MONOCYTES 7.4 % (2.0-10.0); % NEUTROPHILS 54.6 % (40.0-80.0); HEMATOCRIT 41.4 % (39.0-49.0); HEMOGLOBIN 13.6 gm/dL (13.2-17.3); MEAN CELL VOLUME 89.6 fl (80-99); MEAN CORPUSCULAR HEMOGLOBIN 29.5 pg (26.0-30.0); MEAN CORPUSCULAR HGB CONC 32.9 pg (28.0-36.0); MEAN PLATELET VOLUME 7.6 fl; NEUTROPHILE ABSOLUTE 4.9 Th/cmm (1.8-8.0); PLATELET COUNT 170 Th/cmm (150-400); RED BLOOD COUNT 4.62 Mil/cmm (4.30-5.70); RED CELL DISTRIBUTION WIDTH 12.8 % (11.5-20.0)
[2016-08-18 08:23] LABS: ALB/GLOB RATIO 1.3 (1.0-1.8); ALKALINE PHOSPHATASE 61 U/L (34-104); ANION GAP 15.7 (7.0-16.0); BILIRUBIN,TOTAL 0.4 mg/dL (0.3-1.0); BUN - UREA NITROGEN 25 mg/dL (7-25); BUN/CREATININE RATIO 41.7; CALCIUM SERUM 9.4 mg/dL (8.6-10.3); CARBON DIOXIDE 22.8 mEq/L (21.0-31.0); CHLORIDE 108 mEq/L (98-107); CREATININE - SERUM 0.6 mg/dL (0.7-1.3); GLUCOSE 91 mg/dL (70-105); MAGNESIUM 2.4 mg/dL (1.9-2.7); POTASSIUM SERUM 4.5 mEq/L (3.5-5.1); SGOT 21 U/L (13-39); SGPT/ALT 10 U/L (7-52); SODIUM SERUM 142 mEq/L (136-145)
--- NOTE | 2016-08-18 09:28 | Diagnostic Imaging Report ---
CT scan abdomen and pelvis without intravenous contrast HISTORY: Pain, abdominal distention Total DLP equals 389 CTDI equals 7.4 Exam is compared with prior study June 30, 2016. The liver exhibits a homogeneous parenchyma. No focal lesions. The spleen appears normal. No focal abnormality seen in the region of the pancreas. No focal renal lesions. The exam demonstrates stool and air-filled dilated large bowel. There is poor delineation of the small bowel margins due to limited intra-abdominal fat and absence/bowel contrast. Gastrostomy tube is noted. No abnormal masses or fluid collections seen within the pelvis. IMPRESSION: 1. Little change from the prior exam of June 30, 2016. 2. Dilated stool and air-filled large bowel 3. No other definite acute abnormalities.
--- NOTE | 2016-08-18 19:57 | General Progress Note ---
Subjective - Review of Systems Service Date: 08/18/16 Events since last encounter: CT scan noted Labs normal PE: abdomen is soft, scar from previous surgery Plan: SBO series Objective - Results Result Diagrams: 08/18/16 07:20 08/18/16 07:20 Recent Labs: Laboratory Last Values WBC 9.0 Th/cmm (4.8-10.8) 08/18/16 07:20 RBC 4.62 Mil/cmm (4.30-5.70) 08/18/16 07:20 Hgb 13.6 gm/dL (13.2-17.3) 08/18/16 07:20 Hct 41.4 % (39.0-49.0) 08/18/16 07:20 MCV 89.6 fl (80-99) 08/18/16 07:20 MCH 29.5 pg (26.0-30.0) 08/18/16 07:20 MCHC Differential 32.9 pg (28.0-36.0) 08/18/16 07:20 RDW 12.8 % (11.5-20.0) 08/18/16 07:20 Plt Count 170 Th/cmm (150-400) 08/18/16 07:20 MPV 7.6 fl 08/18/16 07:20 Neutrophils % 54.6 % (40.0-80.0) 08/18/16 07:20 Lymphocytes % 35.3 % (20.0-50.0) 08/18/16 07:20 Monocytes % 7.4 % (2.0-10.0) 08/18/16 07:20 Eosinophils % 2.3 % (0.0-5.0) 08/18/16 07:20 Basophils % 0.4 % (0.0-2.0) 08/18/16 07:20 PT 11.3 SECONDS (9.5-11.5) 08/17/16 23:00 INR 1.09 (0.5-1.4) 08/17/16 23:00 PTT (Actin FS) 24.9 SECONDS (26.0-38.0) L 08/17/16 23:00 Sodium 142 mEq/L (136-145) 08/18/16 07:20 Potassium 4.5 mEq/L (3.5-5.1) 08/18/16 07:20 Chloride 108 mEq/L (98-107) H 08/18/16 07:20 Carbon Dioxide 22.8 mEq/L (21.0-31.0) 08/18/16 07:20 Anion Gap 15.7 (7.0-16.0) 08/18/16 07:20 BUN 25 mg/dL (7-25) 08/18/16 07:20 Creatinine 0.6 mg/dL (0.7-1.3) L 08/18/16 07:20 Est GFR ( Amer) > 60.0 ml/min (>90) 08/18/16 07:20 Est GFR (Non-Af Amer) > 60.0 ml/min 08/18/16 07:20 BUN/Creatinine Ratio 41.7 08/18/16 07:20 Glucose 91 mg/dL (70-105) 08/18/16 07:20 Whole Bld Lactic Acid 1.51 mmol/L (0.60-1.99) 08/18/16 07:20 Calcium 9.4 mg/dL (8.6-10.3) 08/18/16 07:20 Magnesium 2.4 mg/dL (1.9-2.7) 08/18/16 07:20 Total Bilirubin 0.4 mg/dL (0.3-1.0) 08/18/16 07:20 AST 21 U/L (13-39) 08/18/16 07:20 ALT 10 U/L (7-52) 08/18/16 07:20 Alkaline Phosphatase 61 U/L (34-104) 08/18/16 07:20 Total Protein 7.7 gm/dL (6.0-8.3) 08/18/16 07:20 Albumin 4.3 gm/dL (4.2-5.5) 08/18/16 07:20 Globulin 3.4 gm/dL 08/18/16 07:20 Albumin/Globulin Ratio 1.3 (1.0-1.8) 08/18/16 07:20 - Physical Exam Vitals and I&O: Vital Signs Temp 97.9 F 08/18/16 19:50 Pulse 93 08/18/16 19:50 Resp 20 08/18/16 19:50 BP 117/81 08/18/16 19:50 Pulse Ox 97 08/18/16 16:00 Intake & Output 08/18/16 08/18/16 08/19/16 06:59 18:59 06:59 Intake Total 0 1000 Balance 0 1000 Intake: Intake, IV Amount 1000 D5-0.45NS 1,000 ml @ 75 1000 mls/hr IV .[id number] [facility] Rx #:[id number] Oral 0 Other: # Voids 0 3 Active Medications: Current Medications Dextrose/Sodium Chloride (D5-0.45ns) 1,000 mls @ 75 mls/hr IV .[id number] [facility] Stop: 10/17/16 00:36 Last Admin: 08/18/16 18:40 Dose: 75 mls/hr Morphine Sulfate (Morphine) 1 mg IVP Q4H PRN PRN Reason: Pain (Severe) Stop: 10/17/16 00:44 Ondansetron HCl (Zofran) 4 mg IV Q4H PRN PRN Reason: Nausea Stop: 10/17/16 00:44 - Procedures Procedures: Procedures Procedure Code Date DIAGNOSTIC COLONOSCOPY 53744 06/26/16 EGD BIOPSY SINGLE/MULTIPLE 07404 12/22/13 ESOPHAGOGASTRODUODENOSCOPY [EGD] W/CLOSED BIOPSY 45.16 12/22/13 INFLUENZA VACCINATION 99.52 07/14/13 INSERT INDWELLING CATH 57.94 05/17/12 INSERT INTESTINAL TUBE 96.08 05/17/12 INSERT PICC CATH 08893 05/17/12 INSERT TEMP BLADDER CATH 93659 05/17/12 INSPECTION OF LOWER INTESTINAL TRACT, ENDO [id number] 06/26/16 OPEN AND OTHER CECECTOMY 45.72 05/17/12 OPEN AND OTHER RIGHT HEMICOLECTOMY 45.73 05/17/12 PARTIAL REMOVAL OF COLON 90716 05/17/12 UNLISTED PX SMALL INTESTINE 74824 05/17/12 VENOUS CATHETERIZATION NEC 38.93 05/17/12 Assessment/Plan - Problem List Patient Problems: All Active Problems coffee ground vomitus (Acute)
[2016-08-19 07:20] LABS: % BASOPHILS 0.4 % (0.0-2.0); % LYMPHOCYTES 34.6 % (20.0-50.0); HEMATOCRIT 38.6 % (39.0-49.0); MEAN CELL VOLUME 90.1 fl (80-99); MEAN CORPUSCULAR HEMOGLOBIN 30.3 pg (26.0-30.0); MEAN CORPUSCULAR HGB CONC 33.7 pg (28.0-36.0); MEAN PLATELET VOLUME 7.3 fl; NEUTROPHILE ABSOLUTE 3.1 Th/cmm (1.8-8.0); PLATELET COUNT 174 Th/cmm (150-400); RED BLOOD COUNT 4.29 Mil/cmm (4.30-5.70); RED CELL DISTRIBUTION WIDTH 12.3 % (11.5-20.0)
[2016-08-19 07:26] LABS: INR 1.17 (0.5-1.4); PROTHROMBIN TIME (TEST) 12.3 SECONDS (9.5-11.5)
[2016-08-19 07:37] LABS: ANION GAP 11.5 (7.0-16.0); BUN - UREA NITROGEN 17 mg/dL (7-25); BUN/CREATININE RATIO 28.3; CALCIUM SERUM 8.9 mg/dL (8.6-10.3); CARBON DIOXIDE 24.1 mEq/L (21.0-31.0); CHLORIDE 109 mEq/L (98-107); CREATININE - SERUM 0.6 mg/dL (0.7-1.3); GLUCOSE 103 mg/dL (70-105); MAGNESIUM 2.1 mg/dL (1.9-2.7); POTASSIUM SERUM 3.6 mEq/L (3.5-5.1); SODIUM SERUM 141 mEq/L (136-145)
[2016-08-19 07:40] LABS: WHITE BLOOD COUNT 5.6 Th/cmm (4.8-10.8)
[2016-08-19] MEDS: D5-0.45NS 1,000 ML IV SCH (08:52)
--- NOTE | 2016-08-19 08:53 | General Progress Note ---
Subjective - Review of Systems Service Date: 08/19/16 Subjective: labs normal undergoing SBO series Objective - Results Result Diagrams: 08/19/16 06:56 08/19/16 06:56 Recent Labs: Laboratory Last Values WBC 5.6 Th/cmm (4.8-10.8) D 08/19/16 06:56 RBC 4.29 Mil/cmm (4.30-5.70) L 08/19/16 06:56 Hgb 13.0 gm/dL (13.2-17.3) L 08/19/16 06:56 Hct 38.6 % (39.0-49.0) L 08/19/16 06:56 MCV 90.1 fl (80-99) 08/19/16 06:56 MCH 30.3 pg (26.0-30.0) H 08/19/16 06:56 MCHC Differential 33.7 pg (28.0-36.0) 08/19/16 06:56 RDW 12.3 % (11.5-20.0) 08/19/16 06:56 Plt Count 174 Th/cmm (150-400) 08/19/16 06:56 MPV 7.3 fl 08/19/16 06:56 Neutrophils % 54.0 % (40.0-80.0) 08/19/16 06:56 Lymphocytes % 34.6 % (20.0-50.0) 08/19/16 06:56 Monocytes % 7.0 % (2.0-10.0) 08/19/16 06:56 Eosinophils % 4.0 % (0.0-5.0) 08/19/16 06:56 Basophils % 0.4 % (0.0-2.0) 08/19/16 06:56 PT 12.3 SECONDS (9.5-11.5) H 08/19/16 06:56 INR 1.17 (0.5-1.4) 08/19/16 06:56 PTT (Actin FS) 29.6 SECONDS (26.0-38.0) 08/19/16 06:56 Sodium 141 mEq/L (136-145) 08/19/16 06:56 Potassium 3.6 mEq/L (3.5-5.1) 08/19/16 06:56 Chloride 109 mEq/L (98-107) H 08/19/16 06:56 Carbon Dioxide 24.1 mEq/L (21.0-31.0) 08/19/16 06:56 Anion Gap 11.5 (7.0-16.0) 08/19/16 06:56 BUN 17 mg/dL (7-25) 08/19/16 06:56 Creatinine 0.6 mg/dL (0.7-1.3) L 08/19/16 06:56 Est GFR ( Amer) > 60.0 ml/min (>90) 08/19/16 06:56 Est GFR (Non-Af Amer) > 60.0 ml/min 08/19/16 06:56 BUN/Creatinine Ratio 28.3 08/19/16 06:56 Glucose 103 mg/dL (70-105) 08/19/16 06:56 Whole Bld Lactic Acid 1.51 mmol/L (0.60-1.99) 08/18/16 07:20 Calcium 8.9 mg/dL (8.6-10.3) 08/19/16 06:56 Magnesium 2.1 mg/dL (1.9-2.7) 08/19/16 06:56 Total Bilirubin 0.4 mg/dL (0.3-1.0) 08/18/16 07:20 AST 21 U/L (13-39) 08/18/16 07:20 ALT 10 U/L (7-52) 08/18/16 07:20 Alkaline Phosphatase 61 U/L (34-104) 08/18/16 07:20 Total Protein 7.7 gm/dL (6.0-8.3) 08/18/16 07:20 Albumin 4.3 gm/dL (4.2-5.5) 08/18/16 07:20 Globulin 3.4 gm/dL 08/18/16 07:20 Albumin/Globulin Ratio 1.3 (1.0-1.8) 08/18/16 07:20 - Physical Exam Vitals and I&O: Vital Signs Temp 97.6 F 08/19/16 03:35 Pulse 70 08/19/16 03:35 Resp 18 08/19/16 03:35 BP 118/74 08/19/16 03:35 Pulse Ox 97 08/18/16 16:00 Intake & Output 08/18/16 08/19/16 08/19/16 18:59 06:59 18:59 Intake Total 1000 Balance 1000 Intake: Intake, IV Amount 1000 D5-0.45NS 1,000 ml @ 75 1000 mls/hr IV .[id number] [facility] Rx #:[id number] Other: # Voids 3 1 Active Medications: Current Medications Dextrose/Sodium Chloride (D5-0.45ns) 1,000 mls @ 75 mls/hr IV .[id number] [facility] Stop: 10/17/16 00:36 Last Admin: 08/18/16 18:40 Dose: 75 mls/hr Morphine Sulfate (Morphine) 1 mg IVP Q4H PRN PRN Reason: Pain (Severe) Stop: 10/17/16 00:44 Ondansetron HCl (Zofran) 4 mg IV Q4H PRN PRN Reason: Nausea Stop: 10/17/16 00:44 Pantoprazole Sodium (Protonix) 40 mg IVP DAILY [facility] Stop: 10/18/16 08:59 - Procedures Procedures: Procedures Procedure Code Date DIAGNOSTIC COLONOSCOPY 47269 06/26/16 EGD BIOPSY SINGLE/MULTIPLE 20152 12/22/13 ESOPHAGOGASTRODUODENOSCOPY [EGD] W/CLOSED BIOPSY 45.16 12/22/13 INFLUENZA VACCINATION 99.52 07/14/13 INSERT INDWELLING CATH 57.94 05/17/12 INSERT INTESTINAL TUBE 96.08 05/17/12 INSERT PICC CATH [id number] 05/17/12 INSERT TEMP BLADDER CATH 98564 05/17/12 INSPECTION OF LOWER INTESTINAL TRACT, ENDO [id number] 06/26/16 OPEN AND OTHER CECECTOMY 45.72 05/17/12 OPEN AND OTHER RIGHT HEMICOLECTOMY 45.73 05/17/12 PARTIAL REMOVAL OF COLON 30653 05/17/12 UNLISTED PX SMALL INTESTINE 76213 05/17/12 VENOUS CATHETERIZATION NEC 38.93 05/17/12 Assessment/Plan - Problem List Patient Problems: All Active Problems coffee ground vomitus (Acute)
[2016-08-19] MEDS ORDERED: Diatrizoate Meglumine/Diatri 30 mL Sol PO ONE (10:30)
--- NOTE | 2016-08-19 12:24 | History & Physical ---
CHIEF COMPLAINT: Constipation. HISTORY OF PRESENT ILLNESS: This is a 31-year-old male with history of mental retardation, cerebral palsy, acid reflux disease, quadriplegia, history of small bowel obstruction, history of PEG placement, who was brought into the ER secondary to constipation. It is not known exactly as to how long the symptoms have been ongoing. PERTINENT FINDINGS ON ADMISSION: Include a CT of the abdomen and pelvis showing dilated stool and air filled large bowel and no other abnormalities. When compared to a film on June 30, there was no major change. The patient has been admitted to a medical/surgical floor for supportive care and treatment. PAST MEDICAL HISTORY: As noted above, profound intellectual disability, cerebral palsy, GERD without esophagitis, osteoarthritis, age-related osteoporosis, history of quadriplegia, history of acid reflux disease. PAST SURGICAL HISTORY: Include PEG placement. FAMILY HISTORY: Likely noncontributory. SOCIAL HISTORY: No tobacco, ETOH or illicit drug usage. He lives at [facility]. ALLERGIES: NKDA. OUTPATIENT MEDICATIONS: Tylenol 650 q. 4 p.r.n. for pain, Alendronate 70 mg q. Saturdays, ascorbic acid 500 mg every day, Dulcolax 10 mg per rectum q. 96 hours, calcium carbonate 500 mg every day, docusate sodium 200 mg b.i.d., Nexium 40 mg daily, Fleet enema 135 mL q. 96 hours p.r.n. for severe constipation, milk of magnesia 30 mL q. 72 hours, meloxicam 7.5 b.i.d., multivitamins and minerals every day, MiraLax 17 grams every day, vitamin D 400 international units every day. REVIEW OF SYSTEMS: Not able to be done given patient's condition. PHYSICAL EXAMINATION: VITAL SIGNS: Temperature 98.0, pulse 70, respirations 16, BP 99/58, satting 98% on room air. GENERAL: He is a well-nourished, thin, developmentally delayed male, not in acute distress. HEAD AND NECK: Normocephalic, atraumatic. NECK: There is no JVD or LAD. CARDIOVASCULAR: Regular rate. S1 and S2 could be heard. LUNGS: Decreased, but clear to auscultation bilaterally. ABDOMEN: Soft, supple. There is tenderness to palpation around the epigastric area. There are hypoactive bowel sounds noted at this time. No organomegaly noted. LABORATORY DATA ON ADMISSION: CBC was essentially within normal limits. CMP results were essentially within normal limits. Chloride 108, BUN 24, creatinine 0.6, glucose 91. Lactic acid 1.51. LFTs were within normal limits. DIAGNOSTICS: CT of the abdomen and pelvis, please refer to HPI. IMPRESSION: 1. Acute on chronic constipation. 2. Rule out small bowel obstruction/ileus. 3. History of small bowel obstruction. 5. History of acid reflux disease. 6. History of mental retardation/cerebral palsy. PLAN: The patient has been admitted to the medical floor and has been placed on IV fluids as well as other supportive care including pain control. The patient also has been placed on Protonix given his history of acid reflux disease. The surgical eval will also be asked for and small bowel follow through will also be asked for to rule out obstruction. JOB# [id number]
--- NOTE | 2016-08-19 12:46 | Admit Criteria Form ---
Admit Criteria Forms - Admit Criteria Diagnosis: GASTROENTEROLOGY GRG Clinical Indications for Admission to Inpatient Care (Place 'X' for any and all applicable criteria): Hospital admission is needed for appropriate care of the patient because of ANY ONE of the followin [ ]I. Hemoperitoneum(7) [ ]II. Ascites requiring acute treatment indicated by ANY ONE of the following( 8)(9): [ ]a) Hemodynamic instability remaining after emergency or observation level care (as appropriate) [ ]b) Peritoneal signs present (eg, abdominal rigidity, rebound tenderness, absent bowel sounds) [ ]c) Tachypnea, Hypoxemia, or other respiratory symptoms remain after emergency or observation level care (as appropriate) [ ]d) Suspected infected ascites as indicated by ANY ONE of the following: [ ]i) Temperature greater than 100 degrees F (37.8 degrees C) [ ]ii) Abdominal pain or tenderness not relieved by paracentesis [ ]iii) Systemic signs of infection (eg, elevated WBC count, fever) [ ]iv) Ascitic fluid analysis consistent with infection ( eg, elevated WBC count): [ ]v) Vital sign abnormality [X ]III. Suspected acute intra-abdominal process indicated by ANY ONE of the following(1)(2)(3)(4)(5): [ ]a) Hemodynamic instability [ ]b) Peritoneal signs present (eg, abdominal rigidity, rebound tenderness, absent bowel sounds) [ ]c) Bowel obstruction suspected (eg, severe vomiting, abdominal distension) [ ]d) Suspected mesenteric ischemia or ischemic colitis(6) [X ]e) Other signs or symptoms of acute abdominal disease (eg, severe pain, free air): [ ]IV. Severe liver disease indicated by ANY ONE of the following(8)(9)(10)(11)( 12)(13)(14): [ ]a) Acute hepatitis (eg, transaminase level greater than 1000 IU/L) [ ]b) Acute elevation of prothrombin time to more than 50% above normal or INR greater than 1.5 [ ]c) Bilirubin greater than 20 mg/dL (342 micromoles/L) (15) [ ]d) New-onset or worsening hepatic encephalopathy [ ]e) Acute liver necrosis [ ]f) Vomiting or dehydration that is severe of persistent [ ]g) Hemodynamic instability due to liver disease [ ]h) Acute renal failure [ ]i) Hepatic abscess [ ]j) Dehydration that is severe or persistent [ ]k) Hepatic hydrothorax(21) [ ]l) Other indications of severe liver disease (eg, persistent fever , ingestion of hepatotoxin) [ ]V. Severe diarrhea indicated by ANY ONE of the following(17)(18)(19)(20)(21)( 22)(23): [ ]a) High fever or other high-risk infection situation [ ]b) Intractable bloody diarrhea (eg, more than 6 bloody stools per day) [ ]c) Suspected Clostridium difficile-associated diarrhea(24) [ ]d) Change in mental status that persists after emergency or observation level care (as appropriate) [ ]e) Severe dehydration (eg, greater than 9% loss of body weight in children) [ ]f) Inability to maintain hydration [ ]g) Peritoneal signs present (eg, abdominal rigidity, rebound tenderness, absent bowel sounds) [ ]h) Abdominal ischemia suspected(6) [ ]i) Hemodynamic instability that persists after emergency or observation level care (as appropriate) [ ]j) Severe electrolyte abnormalities requiring inpatient care [ ]k) Acute renal failure [ ]. Suspected toxic megacolon(5)(6) [ ]VII.Severe dysphagia indicated by ANY ONE of the following(25)(26): [ ]a) Suspected esophageal perforation or fistula(27) [ ]b) Suspected cause that requires inpatient care (eg, caustic ingestion, severe esophagitis) (28) [ ]c) Severe dehydration (eg, greater than 9% loss of body weight in children) [ ]d) Inability to manage secretions or maintain hydration [ ]e) Hemodynamic instability that persists after emergency or observation level care (as appropriate) [ ]f) Severe electrolyte abnormalities requiring inpatient care [ ]g) Acute renal failure [ ]VIII.Vomiting and ANY ONE of the following (29)(30)(31)(32): [ ]a) High fever or other high-risk infection situation [ ]b) Change in mental status that persists after emergency or observation level care (as appropriate) [ ]c) Severe dehydration (e.g., greater than 9% loss of body weight in children) [ ]d) Peritoneal signs present (e.g., abdominal rigidity, rebound tenderness, absent bowel sounds) [ ]e) Hemodynamic instability that persists after emergency or observation level care (as appropriate) [ ]f) Severe electrolyte abnormalities requiring inpatient care [ ]g) Acute renal failure [ ]h) Bowel obstruction suspected (e.g., severe vomiting, abdominal distension) [ ]i) Vomiting that is severe or persistent after medical treatment [ ]IX. Significant dehydration indicated by ANY ONE of the following(23)(24)(25) [ ]a) Clinical findings of severe dehydration indicated by ANY ONE of the following: [ ]i) Acute loss of weight from baseline (5% of body weight in adults, 9% in pediatric patients) [ ]ii) Hemodynamic instability [ ]iii) Acute renal failure [ ]iv) Serum sodium greater than 150 mEq/L (mmol/L) [ ]b) Dehydration that is persistent indicated by ALL of the following: [ ]i) Oral rehydration therapy not tolerated or insufficient to adequately correct dehydration [ ]ii) Appropriate intravenous treatment (eg, fluids) does not readily correct dehydration hours of (ie, after 12 to 24 of treatment) [ ]X. Gastroparesis and ANY ONE of the following(37)(38)(39): [ ]a) Dehydration that is severe or persistent [ ]b) Severe electrolyte abnormalities requiring inpatient care [ ]c) Acute renal failure [ ]d) Vomiting that is severe or persistent [ ]XI. Complications of transplanted liver indicated by ANY ONE of the following (40)(41): [ ]a) Acute graft rejection requiring inpatient management (eg, intravenous immunosuppression)(42) [ ]b) Failure of transplanted liver as indicated by ANY ONE of the following: [ ]i) Acute hepatitis (eg, transaminase level greater than 1000 International Units per liter (IU/L)) [ ]ii) Acute elevation of prothrombin time to more than 50% above baseline or INR greater than 1.5 [ ]iii) Bilirubin greater than 20 mg/dL (342 micromoles/L) [ ]iv) New-onset or worsening hepatic encephalopathy [ ]v) Acute elevation of serum ammonia level (eg, greater than 210 mcg/dL (150 micromoles/L)) [ ]vi) Acute liver necrosis [ ]c) Infection requiring inpatient management (eg, Hemodynamic instability, need for intravenous antimicrobial treatment)(43)(44)(45)(46)(47)(48)(49)(50) [ ]d) Other complication of transplanted liver (eg, thrombosis, autoimmune hepatitis, variceal bleeding) requiring inpatient management(51)(52) [ ]XII Complications of transplanted pancreas indicated by ANY ONE of the following(53): [ ]a) Acute graft rejection requiring inpatient management (eg, intravenous immunosuppression)(42)(54) [ ]b) Failure of transplanted pancreas as indicated by ANY ONE of the following: [ ]i) Serum amylase greater than 3 times the upper limit of normal or baseline [ ]ii) Serum lipase greater than 3 times the upper limit of normal or baseline [ ]iii) Imaging findings consistent with pancreatic inflammation or necrosis [ ]c) Infection requiring inpatient management (eg, Hemodynamic instability, need for intravenous antimicrobial treatment)(43)(44)(45)(46)(47)(48)(49)(50) [ ]d) Other complication of transplanted liver (eg, thrombosis, autoimmune hepatitis, variceal bleeding) requiring inpatient management(51)(52) [ ]X. Gastroenterology condition and ALL of the following: [ ]a) Symptom or finding for which emergency and observation care have failed or are not considered appropriate (Also use General Criteria: Observation Care as appropriate) [ ]b) Presence of ANY ONE of the following: [ ]i) A General Admission Criteria [ ]ii) A Pediatric General Admission Criteria. The original [facility] content created by [facility] [employer] has been revised. The portions of the content which have been revised are identified through the use of italic text or in bold,and [facility] has neither reviewed nor approved the modified material. All other unmodified content is copyright [facility]. Please see references footnoted in the original [facility] edition 2016 Admit Criteria Met?: Yes
--- NOTE | 2016-08-20 06:10 | Consultation ---
INPATIENT GASTROINTESTINAL CONSULTATION REFERRING PHYSICIAN: Dr. Sobia Menard. REASON FOR CONSULTATION: Constipation. HISTORY OF PRESENT ILLNESS: This is a 31-year-old male with cerebral palsy, poor historian and quadriplegic with PEG tube, was brought into the hospital because of constipation. The patient is otherwise a poor historian. PAST MEDICAL HISTORY: Cerebral palsy, mental retardation, GERD, quadriplegia and dysphagia. PAST SURGICAL HISTORY: PEG tube placement. FAMILY HISTORY: Noncontributory. SOCIAL HISTORY: Resident of skilled facility. ALLERGIES: None. CURRENT MEDICATIONS: Morphine, Zofran and Protonix. REVIEW OF SYSTEMS: Unobtainable. PHYSICAL EXAMINATION: VITAL SIGNS: Temperature 97.6, breathing 18, pulse of 70 and blood pressure of 118/74. GENERAL: No apparent distress. EYES: Anicteric. NECK: Soft and supple. CHEST: Clear. No effort. CARDIOVASCULAR: Regular rate and rhythm. ABDOMEN: Soft, nontender and nondistended with a G-tube. SKIN: Warm and dry. EXTREMITIES: Reveal no cyanosis. LABORATORY DATA: Show white count 5.6, hemoglobin 13 and platelets of 174. INR is 1.17. LFTs within normal limits. CT abdomen and pelvis showed a dilated stool and air filled large bowel. IMPRESSION: This is a 31-year-old male with constipation, could be from underlying condition versus medication versus obstructive pathology, consider colonoscopy if the patient has never had this before, but we will search records to see if it was done recently. PLAN: 1. Get records of colonoscopy. 2. If no recent colonoscopy, then we will need colonoscopy. 3. Continue laxatives. Thank you for allowing me to participate. Please call me if you have any questions. JOB# [id number]
[2016-08-20] MEDS ORDERED: POLYETHYLENE GLYCOL 3350 17 GM PACK GT SCH (09:00)
--- NOTE | 2016-08-20 09:36 | Diagnostic Imaging Report ---
Small bowel follow-through History: Obstruction Comparison: CT abdomen and pelvis on 08/17/2016 Technique/procedure: Hardwood Floor Layer view demonstrates diffuse distended loops of primarily large bowel. A percutaneous gastric feeding tube is noted. Oral contrast was administered to patient's feeding tube. There is opacification of the stomach with subsequent opacification of small bowel and large bowel loops after one hour. Follow-up images demonstrates contrast all the way to the rectum. IMPRESSION: No evidence of small bowel obstruction. Markedly distended loops of colon. These findings are likely related to a colonic ileus. Clinical correlation is recommended.
--- NOTE | 2016-08-20 10:08 | General Progress Note ---
Subjective - Review of Systems Service Date: 08/20/16 Events since last encounter: history of chronic constipation this might be resolve on this patient with severe mental retardation and quadriplegia by doing a subtotal colectomy Subjective: labs normal undergoing SBO series Objective - Results Result Diagrams: 08/19/16 06:56 08/19/16 06:56 Recent Labs: Laboratory Last Values WBC 5.6 Th/cmm (4.8-10.8) D 08/19/16 06:56 RBC 4.29 Mil/cmm (4.30-5.70) L 08/19/16 06:56 Hgb 13.0 gm/dL (13.2-17.3) L 08/19/16 06:56 Hct 38.6 % (39.0-49.0) L 08/19/16 06:56 MCV 90.1 fl (80-99) 08/19/16 06:56 MCH 30.3 pg (26.0-30.0) H 08/19/16 06:56 MCHC Differential 33.7 pg (28.0-36.0) 08/19/16 06:56 RDW 12.3 % (11.5-20.0) 08/19/16 06:56 Plt Count 174 Th/cmm (150-400) 08/19/16 06:56 MPV 7.3 fl 08/19/16 06:56 Neutrophils % 54.0 % (40.0-80.0) 08/19/16 06:56 Lymphocytes % 34.6 % (20.0-50.0) 08/19/16 06:56 Monocytes % 7.0 % (2.0-10.0) 08/19/16 06:56 Eosinophils % 4.0 % (0.0-5.0) 08/19/16 06:56 Basophils % 0.4 % (0.0-2.0) 08/19/16 06:56 PT 12.3 SECONDS (9.5-11.5) H 08/19/16 06:56 INR 1.17 (0.5-1.4) 08/19/16 06:56 PTT (Actin FS) 29.6 SECONDS (26.0-38.0) 08/19/16 06:56 Sodium 141 mEq/L (136-145) 08/19/16 06:56 Potassium 3.6 mEq/L (3.5-5.1) 08/19/16 06:56 Chloride 109 mEq/L (98-107) H 08/19/16 06:56 Carbon Dioxide 24.1 mEq/L (21.0-31.0) 08/19/16 06:56 Anion Gap 11.5 (7.0-16.0) 08/19/16 06:56 BUN 17 mg/dL (7-25) 08/19/16 06:56 Creatinine 0.6 mg/dL (0.7-1.3) L 08/19/16 06:56 Est GFR ( Amer) > 60.0 ml/min (>90) 08/19/16 06:56 Est GFR (Non-Af Amer) > 60.0 ml/min 08/19/16 06:56 BUN/Creatinine Ratio 28.3 08/19/16 06:56 Glucose 103 mg/dL (70-105) 08/19/16 06:56 Whole Bld Lactic Acid 1.51 mmol/L (0.60-1.99) 08/18/16 07:20 Calcium 8.9 mg/dL (8.6-10.3) 08/19/16 06:56 Magnesium 2.1 mg/dL (1.9-2.7) 08/19/16 06:56 Total Bilirubin 0.4 mg/dL (0.3-1.0) 08/18/16 07:20 AST 21 U/L (13-39) 08/18/16 07:20 ALT 10 U/L (7-52) 08/18/16 07:20 Alkaline Phosphatase 61 U/L (34-104) 08/18/16 07:20 Total Protein 7.7 gm/dL (6.0-8.3) 08/18/16 07:20 Albumin 4.3 gm/dL (4.2-5.5) 08/18/16 07:20 Globulin 3.4 gm/dL 08/18/16 07:20 Albumin/Globulin Ratio 1.3 (1.0-1.8) 08/18/16 07:20 - Physical Exam Vitals and I&O: Vital Signs Temp 98.3 F 08/19/16 23:00 Pulse 65 03/07/17 23:00 Resp 18 08/19/16 23:00 BP 105/68 08/19/16 23:00 Pulse Ox 98 08/19/16 23:00 Intake & Output 08/19/16 08/20/16 08/20/16 18:59 06:59 18:59 Intake Total 1000 Output Total 200 Balance 1000 -200 Intake: Intake, IV Amount 1000 D5-0.45NS 1,000 ml @ 75 1000 mls/hr IV .[id number] [facility] Rx #:[id number] Output: Urine 200 Other: # Voids 3 Active Medications: Current Medications Dextrose/Sodium Chloride (D5-0.45ns) 1,000 mls @ 75 mls/hr IV .[id number] [facility] Stop: 10/17/16 00:36 Last Admin: 08/19/16 08:52 Dose: 75 mls/hr Morphine Sulfate (Morphine) 1 mg IVP Q4H PRN PRN Reason: Pain (Severe) Stop: 10/17/16 00:44 Ondansetron HCl (Zofran) 4 mg IV Q4H PRN PRN Reason: Nausea Stop: 10/17/16 00:44 Pantoprazole Sodium (Protonix) 40 mg IVP DAILY [facility] Stop: 10/18/16 08:59 Last Admin: 08/20/16 09:38 Dose: Not Given Polyethylene Glycol (Miralax) 17 gm GT DAILY [facility] Stop: 10/19/16 08:59 Last Admin: 08/20/16 09:38 Dose: Not Given - Procedures Procedures: Procedures Procedure Code Date DIAGNOSTIC COLONOSCOPY 56748 06/26/16 EGD BIOPSY SINGLE/MULTIPLE 54433 12/22/13 ESOPHAGOGASTRODUODENOSCOPY [EGD] W/CLOSED BIOPSY 45.16 12/22/13 INFLUENZA VACCINATION 99.52 07/14/13 INSERT INDWELLING CATH 57.94 05/17/12 INSERT INTESTINAL TUBE 96.08 05/17/12 INSERT PICC CATH 62158 05/17/12 INSERT TEMP BLADDER CATH 05623 05/17/12 INSPECTION OF LOWER INTESTINAL TRACT, ENDO [id number] 06/26/16 OPEN AND OTHER CECECTOMY 45.72 05/17/12 OPEN AND OTHER RIGHT HEMICOLECTOMY 45.73 05/17/12 PARTIAL REMOVAL OF COLON 95140 05/17/12 UNLISTED PX SMALL INTESTINE 74548 05/17/12 VENOUS CATHETERIZATION NEC 38.93 05/17/12 Assessment/Plan - Problem List Patient Problems: All Active Problems coffee ground vomitus (Acute)
--- NOTE | 2016-08-20 13:25 | Consultation ---
REFERRING PHYSICIAN: Dr. Menard. REASON FOR CONSULTATION: Abdominal pain. Thank you for referring this patient to me. A 31-year-old male with severe mental retardation, cerebral palsy and quadriplegia. He comes in because of constipation. The CT scan of the abdomen showed large amount of stool in the colon, although from a study over a month ago. These findings essentially unchanged. LABORATORY STUDIES: Include CBC that is within normal limits, chemistry as well. PHYSICAL EXAMINATION: GENERAL: The patient unable to give any response and is nonverbal. ABDOMEN: Flat and soft. There is scar from previous surgery and a G-tube is in place. Otherwise, it appears that this is a chronic condition on this patient. The question of chronic constipation on a mentally retarded, quadriplegic patient can probably be resolved by doing a subtotal colectomy and colostomy. This is something that may have to be recommended to the family. [facility]# [id number]
--- NOTE | 2016-08-23 17:56 | Discharge Summary ---
ADMITTING DIAGNOSES: 1. Abdominal pain. 2. Acute on chronic constipation. 3. Rule out small bowel obstruction/ileus. SECONDARY DIAGNOSES: 1. History of small-bowel obstruction. 2. History of acid reflux disease. 3. History of mental retardation. 4. Cerebral palsy. DISCHARGE DIAGNOSES: 1. Acute abdominal pain, resolved. 2. Acute on chronic constipation, improved. CONSULTANTS: Dr. Ellis of GI and Dr. Chavez of Surgery. MAJOR PROCEDURES: 1. Abdominal and pelvic CT showing little change from prior exam on 06/30/2016. 2. Dilated stool and air filled large bowel. Small bowel series on 08/19/2016 showing no evidence of small-bowel obstruction. There are markedly dilated loops of colon. These findings are likely related to colonic ileus. DISCHARGE MEDICATIONS: Tylenol as needed, Fosamax 70 mg every Saturdays, ascorbic acid 500 mg every day, Dulcolax 10 mg per rectum every day as needed for constipation, calcium carbonate 500 mg every day, docusate sodium 200 mg twice a day, Nexium 40 mg every day, Fleet enema every 96 hours as needed for severe constipation, milk of magnesia 30 mL every 72 hours, meloxicam 7.5 twice a day, multivitamins, multi minerals, MiraLax 17 g every day and vitamin D 400 International Units every day. BRIEF HOSPITAL COURSE: A 31-year-old male with history of mental retardation, cerebral palsy, acid reflux disease, quadriplegia, previous history of small-bowel obstruction and constipation, who presented to the ER with abdominal pain and acute constipation. He underwent a CT of the abdomen and pelvis showing the above-mentioned results. He was admitted to the Medical Floor and was started on a regimen of laxatives including an enema, which improved his symptoms. Given his history of previous small-bowel obstruction, GI and surgical consults were asked for further management and care. However, the patient's symptoms improved with the above-mentioned regimen. He had multiple bowel movements and he was able to tolerate his feeds well with no nausea, vomiting and no abdominal distention. His vital signs and his labs remained stable throughout his hospital stay and given that he had multiple bowel movements and appeared not to be in distress, the patient was discharged back to [facility]. CONDITION ON DISCHARGE: Stable. DISPOSITION: As mentioned above, the patient was transferred to [facility]. [facility]# [id number]
== END 2016-08-20 18:00 | DRG 254 ==
LOC: ER 22:39 → MSI 08-18 00:20 → OBSVTOIN 08-18 13:35
PROVIDERS: ADMIT Internal Medicine; ATTEND Internal Medicine
DX: K59.00 Constipation, unspecified (principal); F72 Severe intellectual disabilities; F03.90 Unspecified dementia, unspecified severity, without behavioral disturbance, psychotic disturbance, mood disturbance, and anxiety; K56.7 Ileus, unspecified; K21.9 Gastro-esophageal reflux disease without esophagitis; M19.90 Unspecified osteoarthritis, unspecified site; M81.0 Age-related osteoporosis without current pathological fracture; G80.0 Spastic quadriplegic cerebral palsy; R13.10 Dysphagia, unspecified; Z93.1 Gastrostomy status
CPT/HCPCS: 36415-UA; 74250-TC; 80048-TC; 80053-TC; 83605; 83735-TC; 85025-TC; 85610-TC; C9113; Z7610

== ENCOUNTER 2017-02-02 05:10 | Inpatient (IN) | payer MEDICAID ==
--- NOTE | 2017-02-02 05:27 | ED Physician Chart ---
Chief Complaint/HPI - Patient Information Date Seen:: 02/02/17 Time Seen:: 05:10 Chief Complaint:: Coffee ground emesis noticed this morning. History of Present Illness:: Pt was seen by me immediately upon his arrival. Pt was brought in by ambulance from nursing facility because he was reportedly noticed to have coffee ground emesis earlier this morning. Pt has profound mental disability related to cerebral palsy and is essentially nonverbal. H & P are limited because of pt's dementia and his inability to cooperate. Pt appears to be comfortable and is in no distress. Allergies:: Allergies Allergy/AdvReac Type Severity Reaction Status Date / Time No Known Allergies Allergy Verified 06/26/16 23:32 Vitals:: see Nurse Note. Historian:: Medical Records (from transferring facility.) Family MD/PCP:: Dr. Escudero LMP:: N/A Review:: Nurse's Note Reviewed, Transfer documents Reviewed Review of Systems - Review of Systems General/Constitutional: Other (Pt does not cooperate for ROS.) Past Medical History - Past Medical History Past Medical History: PUD/GERD, Dementia (with cerebral palsy), Other ( osteoporosis) Family History: Other (Pt is unable to cooperate to provide info on FHx.) Social History: Care Facility, Other (Pt does not cooperate to provide info on SHx.) Surgical History: PEG/GTube Psychiatricy History: Dementia Medication: Reviewed Family Medical History - Family Member Mother History Unknown: Yes Ethnicity: Non- Living Status: Still Living Physical Exam - Physical Examination General/Constitutional: Awake, Well-developed, well-nourished, Alert, No distress, Non-toxic appearing Other Gen/Cons comments:: Breathes comfortably and responds to tactile stimuli. Pt is nonverbal. Head: Atraumatic Eyes: Lids, conjuctiva normal, PERRL, EOMI Skin: Nl inspection, No rash, No skin lesions, No ecchymosis, Well hydrated, No lymphadenopathy ENMT: External ears, nose nl, Nasal exam nl, Oropharynx nl Neck: Nontender, Full ROM w/o pain, No JVD, No nuchal rigidity, No mass, No stridor Respiratory: Nl effort/Exclusion, Clear to Auscultation, No Wheeze/Rhonchi/Rales Cardio Vascular: RRR, No murmur, gallop, rubs GI: No tenderness/rebounding/guarding, No organomegaly, No hernia, Normal BS's, Nondistended, No mass/bruits Other GI comments:: Gastrostomy tube noticed in epigastric region. Extremities: No edema Other Extremities comments:: Contractures noticed in all 4 extremities. Other Neuro/Psych comments:: Alert and responsive to tactile stimuli. Spontaneous movements noticed in all 4 extremities. Pt does not cooperate for full neurological exam. Labs/Radiology/EKG Results - Lab Results Results: Laboratory Tests 02/02/17 05:40 WBC 8.4 D RBC 5.47 Hgb 16.1 D Hct 48.4 D MCV 88.6 MCH 29.4 MCHC Differential 33.1 RDW 13.6 Plt Count 182 MPV 7.7 Neutrophils % 79.4 Lymphocytes % 12.6 L Monocytes % 7.2 Eosinophils % 0.7 Basophils % 0.1 PT/PTT, CMP are pending. ED Septic Shock - . Is Septic Shock (SBP<90, OR Lactate>4 mmol\L) present?: No Reassessment (Disposition) - Reassessment Reassessment:: 0605 Pt has been repeatedly evaluated. Pt remains stable without signs of active bleeding. Case was discussed with Dr. Menard with pertinent H & P, and available lab results discussed. Dr. Menard will follow on pending lab results. Pt is to be admitted to Med/Surg Unit under his care. Reassessment Condition:: Improved - Diagnosis Diagnosis:: Coffee ground emesis by hx. Stable. Cerebral palsy with profound mental disability. - Patient Disposition Admitted to:: Med/Surg Admitting Medical Physician:: Sobia Menard Time:: 06:15 Condition at Disposition:: Stable
[2017-02-02 05:58] LABS: % BASOPHILS 0.1 % (0.0-2.0); % EOSINOPHILS 0.7 % (0.0-5.0); % LYMPHOCYTES 12.6 % (20.0-50.0); % MONOCYTES 7.2 % (2.0-10.0); % NEUTROPHILS 79.4 % (40.0-80.0); MEAN CELL VOLUME 88.6 fl (80-99); MEAN CORPUSCULAR HEMOGLOBIN 29.4 pg (26.0-30.0); MEAN CORPUSCULAR HGB CONC 33.1 pg (28.0-36.0); MEAN PLATELET VOLUME 7.7 fl; NEUTROPHILE ABSOLUTE 6.6 Th/cmm (1.8-8.0); PLATELET COUNT 182 Th/cmm (150-400); RED BLOOD COUNT 5.47 Mil/cmm (4.30-5.70); RED CELL DISTRIBUTION WIDTH 13.6 % (11.5-20.0)
[2017-02-02 06:02] LABS: HEMATOCRIT 48.4 % (39.0-49.0); HEMOGLOBIN 16.1 gm/dL (13.2-17.3); WHITE BLOOD COUNT 8.4 Th/cmm (4.8-10.8)
[2017-02-02 06:12] LABS: INR 0.97 (0.5-1.4); PROTHROMBIN TIME (TEST) 10.1 SECONDS (9.5-11.5)
[2017-02-02 06:14] LABS: ALB/GLOB RATIO 1.3 (1.0-1.8); ALKALINE PHOSPHATASE 67 U/L (34-104); ANION GAP 11.2 (7.0-16.0); BILIRUBIN,TOTAL 0.4 mg/dL (0.3-1.0); BUN - UREA NITROGEN 16 mg/dL (7-25); BUN/CREATININE RATIO 26.7; CALCIUM SERUM 9.7 mg/dL (8.6-10.3); CARBON DIOXIDE 27.7 mEq/L (21.0-31.0); CHLORIDE 100 mEq/L (98-107); CREATININE - SERUM 0.6 mg/dL (0.7-1.3); GLUCOSE 107 mg/dL (70-105); POTASSIUM SERUM 4.9 mEq/L (3.5-5.1); SGOT 18 U/L (13-39); SGPT/ALT 13 U/L (7-52); SODIUM SERUM 134 mEq/L (136-145)
[2017-02-02] MEDS: D5-0.45NS 1,000 ML IV SCH (07:50)
--- NOTE | 2017-02-02 10:23 | History & Physical ---
ADMIT DATE: 02/02/2017 CHIEF COMPLAINT: Coffee-ground emesis. HISTORY OF PRESENT ILLNESS: A 31-year-old mentally disabled gentleman with diagnosis of mental retardation, cerebral palsy, history of acid reflux disease, osteoarthritis, constipation, osteoporosis, who resides at [facility]. He was noted to have coffee-ground emesis and was transferred to the ER where his labs were essentially within normal limits. The G-tube was eval by ER physician and it was noted not to be function properly and was not able to be flushed. The patient has been admitted to the medical/surgical floor for further management and care. The patient appears to be comfortable, but is nonverbal. PAST MEDICAL HISTORY: Mental disability related cerebral palsy. FAMILY HISTORY: Noncontributory. PAST SURGICAL HISTORY: Include a PEG placement. SOCIAL HISTORY: He lives at Care Facility [facility] under the care of Dr. Escudero. ALLERGIES: NKDA. OUTPATIENT MEDICATIONS: Tylenol p.r.n. q.4, Fosamax 70 mg every Thursday, vitamin C 500 mg every day, Dulcolax 10 mg q. 96 hours for constipation, calcium carbonate 500 mg every day, vitamin D3 400 units every day, docusate sodium 200 mg q.12, Nexium 40 mg every day, Fleet enema q. 96 hours for severe constipation, milk of magnesia 30 mL q. 72 hours for GI upset, meloxicam 7.5 b.i.d., multivitamins every day, MiraLax 17 grams b.i.d. REVIEW OF SYSTEMS: Not able to be done given patient's condition. PHYSICAL EXAMINATION: LILIA L SIGNS: Temperature 97.8, pulse 77, respirations 20, BP 110/77, satting 98% on room air. GENERAL: Well-developed, thin male, not in acute distress. NECK: There is no JVD or LAD. CARDIOVASCULAR: Regular rate and rhythm without any murmurs. LUNGS: Clear to auscultation. ABDOMEN: Soft, supple. There is mild distention, but no organomegaly. The G-tube is in place. There is no surrounding erythema noted. There is normoactive bowel sounds. LOWER EXTREMITIES: There is no pedal edema. LABORATORY DATA: CBC within normal limits. INR within normal limits. Sodium 134, other than that, his chemistry was within normal limits. Glucose was 107. LFTs were within normal limits. ASSESSMENT: 1. Coffee-ground emesis, rule out upper gastrointestinal bleed. 2. Malfunctioning gastrostomy tube. 3. History of dysphagia, secondary to severe mental retardation, status post PEG. 4. Mental retardation/cerebral palsy. 5. History of osteoarthritis. 6. History of osteoporosis. 7. History of constipation. PLAN: The patient has been admitted to the medical/surgical floor for further management and care. He has been placed on Protonix IV and IV fluids with D5 half NS at 75 mL per hour. His home meds will be withheld for the time being and a GI eval has been asked for further management and care. [facility]# [id number] GUERO
[2017-02-02] MEDS ORDERED: Diatrizoate Meglumine/Diatri 30 mL Sol ONE (16:18)
[2017-02-02] MEDS ORDERED: MINERAL OIL ENEMA 135 ML BOTTLE RC ONE ×2 (16:32→17:09)
[2017-02-03] MEDS: D5-0.45NS 1,000 ML IV SCH ×2 (04:07→20:52)
[2017-02-03 07:28] LABS: ANION GAP 7.1 (7.0-16.0); BUN - UREA NITROGEN 9 mg/dL (7-25); CALCIUM SERUM 8.4 mg/dL (8.6-10.3); CARBON DIOXIDE 26.8 mEq/L (21.0-31.0); CHLORIDE 107 mEq/L (98-107); CREATININE - SERUM 0.5 mg/dL (0.7-1.3); GLUCOSE 95 mg/dL (70-105); MAGNESIUM 2.3 mg/dL (1.9-2.7); POTASSIUM SERUM 3.9 mEq/L (3.5-5.1); SODIUM SERUM 137 mEq/L (136-145)
[2017-02-03 07:30] LABS: MEAN CELL VOLUME 89.5 fl (80-99); MEAN CORPUSCULAR HEMOGLOBIN 30.1 pg (26.0-30.0); MEAN CORPUSCULAR HGB CONC 33.7 pg (28.0-36.0); MEAN PLATELET VOLUME 7.3 fl; PLATELET COUNT 146 Th/cmm (150-400); RED BLOOD COUNT 4.05 Mil/cmm (4.30-5.70); RED CELL DISTRIBUTION WIDTH 13.6 % (11.5-20.0)
[2017-02-03 08:03] LABS: HEMOGLOBIN 12.2 gm/dL (13.2-17.3)
[2017-02-03 08:04] LABS: HEMATOCRIT 36.3 % (39.0-49.0)
[2017-02-03 09:05] LABS: EOSINOPHIL 2 % (0-5); NEUTROPHILS 38 % (40-80); PLATELET ESTIMATE ADEQUATE (NORMAL); PLATELET MORPHOLOGY NORMAL (NORMAL); TOTAL CELLS COUNTED 100
--- NOTE | 2017-02-03 09:25 | Diagnostic Imaging Report ---
Exam: Upper GI series, placement of gastrostomy tube The KUB of the abdomen was reviewed the study demonstrates distention of small bowel large bowel loops most likely consistent with pelvic ileus. After injection of contrast material gastrostomy tube there is normal opacification of stomach. Large amount of fecal impaction is noted in the lower abdomen. IMPRESSION: Gastrostomy tube in stomach Generalized distention of the large and small bowel loops question of severe ileus Distal fecal impaction within the rectosigmoid junction and rectum appreciated clinical correlation is recommended.
[2017-02-03] MEDS ORDERED: Magnesium Hydroxide (MOM) 30 mL UDC GT PRN (09:32)
[2017-02-03] MEDS ORDERED: Fleet Enema 135 mL RC PRN (09:32)
[2017-02-03] MEDS: Multivitamin w/ Minerals Tab GT SCH (10:02)
[2017-02-03] MEDS: Docusate Sodium 100 mg/10 mL UD GT SCH ×2 (10:02→20:55)
[2017-02-03] MEDS: POLYETHYLENE GLYCOL 3350 17 GM PACK GT SCH ×2 (10:02→17:01)
--- NOTE | 2017-02-03 15:07 | Consultation ---
DATE OF CONSULTATION: 02/02/2017 INPATIENT GI CONSULTATION CONSULTING PHYSICIAN: Dr. Menard. REASON FOR CONSULTATION: Malfunctioning G-tube. Possible coffee-ground emesis. HISTORY OF PRESENT ILLNESS: The patient is a 31-year-old male with a history of severe mental retardation, cerebral palsy, acid reflux disease, osteoporosis, constipation, previous sigmoid volvulus requiring colon resection who presents to the Emergency Room with nausea and vomiting. Once the patient was seen in the Emergency Room and the ER physician attempted to flush his previously placed G-tube, it was noted that the G-tube was not able to be flushed well. There was some note that there may be coffee-ground emesis. However, what was able to be flushed out of the G-tube did not appear to be blood or have coffee-grounds in it at the time the patient came to the floor. At current time, the patient's mother reports that she thinks he is very constipated and has not had a bowel movement in some time. The patient is unable to give any additional history as he is nonverbal. PAST MEDICAL HISTORY: Cerebral palsy, severe mental retardation, GERD, osteoporosis, and constipation. PAST SURGICAL HISTORY: Previously placed PEG tube, previous colon resection secondary to sigmoid volvulus. FAMILY HISTORY: Noncontributory. SOCIAL HISTORY: The patient lives at an assisted care facility. Does not use tobacco products. Does not drink alcohol. ALLERGIES: No known drug allergies. REVIEW OF SYSTEMS: This was not able to be performed given the patient's poor mental status. MEDICATIONS: Tylenol, Fosamax, vitamin C, Dulcolax, calcium carbonate, vitamin D3, Colace, Nexium, Fleet Enema, milk of magnesia, Meloxicam, multivitamin, and MiraLax. PHYSICAL EXAMINATION: VITAL SIGNS: Blood pressure 107/70, pulse of 63, temperature 98.3 Fahrenheit, respiratory rate of 16, and oxygen saturation 93% on room air. GENERAL: The patient is lying in bed, somewhat contracted alert and oriented x 0. HEENT: There is no obvious scleral icterus. Pupils are equal and reactive. NECK: No thyromegaly, no JVD, and no lymphadenopathy. CHEST: Clear to auscultation bilaterally. ABDOMEN: Soft. PEG tube site is clean, dry, and intact. No obvious cellulitis. No obvious pain to palpation. No guarding and no rebound. CARDIOVASCULAR: S1 and S2 present. No extra sounds. EXTREMITIES: No edema. Positive pulses. LABORATORY DATA: White count 8.4, hemoglobin 16.1, and platelets 182,000. INR 0.9. Sodium 134, BUN 16, creatinine 0.6, AST 18, ALT 13, total bilirubin 0.4, alkaline phosphatase 67, and albumin 4.6. IMAGING STUDIES: There are no current imaging studies performed. IMPRESSION: This is a 31-year-old male with history of cerebral palsy, severe mental retardation, constipation, previous sigmoid volvulus requiring colon resection, who is presenting with emesis and G-tube malfunction. 1. G-tube malfunction. 2. Nausea and vomiting. 3. Obstipation. 4. Cerebral palsy. 5. Severe mental retardation. DISCUSSION: The patient's presentation with nausea and vomiting is likely due to his ongoing problems with constipation, which is what his mother thinks as well. The G-tube is not flushing correctly, although what is coming out of it does not appear like blood. Thus, an upper GI bleed is unlikely. His hemoglobin is currently 16, which also supports that there is likely not a GI bleed ongoing. The patient's mother reports that the patient usually grinds his teeth when he is severely constipated and this is relieved by enemas and laxatives which may not have been able to be given with his malfunctioning tube. PLAN: 1. We will change the G-tube at bedside to a #20 Urdu tube and confirm with x-ray. 2. We will administer mineral oil enemas now and then write an order for p.r.n. use. 3. Once the G-tube is confirmed, we can give oral laxatives through the G-tube. 4. We will get a KUB to monitor progress of stool evacuation. 5. We will defer upper endoscopy at this time unless the patient shows obvious signs of upper GI bleeding or acute hemoglobin drop. Thank you for allowing me to participate in the care of this patient. Please call with any further questions. JOB# [id number]
--- NOTE | 2017-02-03 15:07 | Operative Report ---
DATE OF SURGERY: 02/02/2017 PROCEDURE: PEG change. PROCEDURE WAS PERFORMED BY: Bashir Singh M.D. INDICATIONS: A 31-year-old male with severe mental retardation who has a previously placed PEG tube and was brought to the ER with vomiting and found to have a malfunctioning PEG tube. PREOPERATIVE DIAGNOSIS: Malfunctioning PEG tube. POSTOPERATIVE DIAGNOSIS: Malfunctioning PEG tube. ANESTHESIA: There was no anesthesia given during this procedure. PROCEDURE IN DETAIL: The previous PEG tube was carefully inspected. There was no obvious erythema or infection around the site of the PEG tube. Using a normal saline syringe, the internal balloon was then taken down, 15 mL of water was removed. The malfunctioning PEG tube was then carefully pulled out. A new 20-Telugu PEG tube was lubricated and carefully inserted into the gastrocutaneous fistula. The internal balloon was then inflated with 10 mL of normal saline. The bumper was put in place. PEG tube was then able to be twisted, although it was firmly snug against the skin. There were no complications at the conclusion of this procedure. IMPRESSION AND RECOMMENDATIONS: An abdominal plain film with Gastrografin injected into the PEG tube. If the internal PEG tube is confirmed to be within the stomach, it can be immediately used. Thank you for allowing me to participate in the care of this patient. Please call with any further questions. JOB# [id number]
--- NOTE | 2017-02-03 16:21 | GI Progress Note ---
Subjective - Review of Systems Service Date: 02/03/17 Subjective: Pt's mother reports no BM since yesterday. PEG tube is functioning, swallow eval result pending. Objective - Results Result Diagrams: 02/03/17 06:10 02/03/17 06:10 Recent Labs: Laboratory Last Values WBC 4.0 Th/cmm (4.8-10.8) L D 02/03/17 06:10 RBC 4.05 Mil/cmm (4.30-5.70) L 02/03/17 06:10 Hgb 12.2 gm/dL (13.2-17.3) L D 02/03/17 06:10 Hct 36.3 % (39.0-49.0) L D 02/03/17 06:10 MCV 89.5 fl (80-99) 02/03/17 06:10 MCH 30.1 pg (26.0-30.0) H 02/03/17 06:10 MCHC Differential 33.7 pg (28.0-36.0) 02/03/17 06:10 RDW 13.6 % (11.5-20.0) 02/03/17 06:10 Plt Count 146 Th/cmm (150-400) L 02/03/17 06:10 MPV 7.3 fl 02/03/17 06:10 Neutrophils % 79.4 % (40.0-80.0) 02/02/17 05:40 Lymphocytes % 12.6 % (20.0-50.0) L 02/02/17 05:40 Monocytes % 7.2 % (2.0-10.0) 02/02/17 05:40 Eosinophils % 0.7 % (0.0-5.0) 02/02/17 05:40 Basophils % 0.1 % (0.0-2.0) 02/02/17 05:40 Neutrophils (Manual) 38 % (40-80) L 02/03/17 06:10 Lymphocytes 50 % (20-50) 02/03/17 06:10 Monocytes 10 % (2-10) 02/03/17 06:10 Eosinophils 2 % (0-5) 02/03/17 06:10 Platelet Estimate ADEQUATE (NORMAL) 02/03/17 06:10 Platelet Morphology NORMAL (NORMAL) 02/03/17 06:10 RBC Morph Micro Appear NORMAL (NORMAL) 02/03/17 06:10 PT 10.1 SECONDS (9.5-11.5) 02/02/17 05:40 INR 0.97 (0.5-1.4) 02/02/17 05:40 PTT (Actin FS) 28.0 SECONDS (26.0-38.0) 02/02/17 05:40 Sodium 137 mEq/L (136-145) 02/03/17 06:10 Potassium 3.9 mEq/L (3.5-5.1) 02/03/17 06:10 Chloride 107 mEq/L (98-107) 02/03/17 06:10 Carbon Dioxide 26.8 mEq/L (21.0-31.0) 02/03/17 06:10 Anion Gap 7.1 (7.0-16.0) 02/03/17 06:10 BUN 9 mg/dL (7-25) 02/03/17 06:10 Creatinine 0.5 mg/dL (0.7-1.3) L 02/03/17 06:10 Est GFR ( Amer) > 60.0 ml/min (>90) 02/03/17 06:10 Est GFR (Non-Af Amer) > 60.0 ml/min 02/03/17 06:10 BUN/Creatinine Ratio 18.0 02/03/17 06:10 Glucose 95 mg/dL (70-105) 02/03/17 06:10 Calcium 8.4 mg/dL (8.6-10.3) L 02/03/17 06:10 Magnesium 2.3 mg/dL (1.9-2.7) 02/03/17 06:10 Total Bilirubin 0.4 mg/dL (0.3-1.0) 02/02/17 05:40 AST 18 U/L (13-39) 02/02/17 05:40 ALT 13 U/L (7-52) 02/02/17 05:40 Alkaline Phosphatase 67 U/L (34-104) 02/02/17 05:40 Total Protein 8.2 gm/dL (6.0-8.3) 02/02/17 05:40 Albumin 4.6 gm/dL (4.2-5.5) 02/02/17 05:40 Globulin 3.6 gm/dL 02/02/17 05:40 Albumin/Globulin Ratio 1.3 (1.0-1.8) 02/02/17 05:40 Blood Type O POSITIVE 02/02/17 05:40 Antibody Screen NEGATIVE 02/02/17 05:40 - Physical Exam Vitals and I&O: Vital Signs Temp 97.9 F 02/03/17 12:00 Pulse 74 02/03/17 12:00 Resp 18 02/03/17 12:00 BP 118/63 02/03/17 12:00 Pulse Ox 99 02/03/17 12:00 Intake & Output 02/02/17 02/03/17 02/03/17 18:59 06:59 18:59 Intake Total 0 1000.0 Balance 0 1000.0 Weight (lbs) 46.266 kg 50.167 kg Intake: Intake, IV Amount 1000.0 D5-0.45NS 1,000 ml @ 75 1000.0 mls/hr IV .[id number] [facility] Rx #:[id number] Oral 0 Other: # Voids 3 2 # Bowel Movements 1 Active Medications: Current Medications Acetaminophen (Tylenol 650mg Supp) 650 mg RC Q8H PRN PRN Reason: Pain or Fever >101 Stop: 04/03/17 06:14 Acetaminophen (Tylenol) 650 mg GT Q4HR PRN PRN Reason: Pain or Fever >101 Stop: 04/04/17 09:31 Alendronate Sodium (Fosamax) 70 mg PO QSAT [facility] Stop: 04/08/17 06:29 Ascorbic Acid (Vitamin C) 500 mg GT DAILY [facility] Stop: 04/04/17 09:44 Last Admin: 02/03/17 10:02 Dose: 500 mg Bisacodyl (Dulcolax 10 Mg Supp) 10 mg RC Q96H PRN PRN Reason: Constipation Stop: 04/04/17 09:31 Calcium Carbonate (Os-Jesus) 500 mg GT DAILY [facility] Stop: 04/04/17 09:44 Last Admin: 02/03/17 10:02 Dose: 500 mg Docusate Sodium (Colace) 200 mg GT Q12H [facility] Stop: 04/04/17 09:44 Last Admin: 02/03/17 10:02 Dose: 200 mg Dextrose/Sodium Chloride (D5-0.45ns) 1,000 mls @ 75 mls/hr IV .[id number] [facility] Stop: 04/03/17 06:10 Last Admin: 02/03/17 04:07 Dose: 75 mls/hr Magnesium Hydroxide (Milk Of Magnesia) 30 ml GT Q72H PRN PRN Reason: Constipation Stop: 04/04/17 09:31 Pantoprazole Sodium (Protonix) 40 mg IVP DAILY [facility] Stop: 04/03/17 08:59 Last Admin: 02/03/17 10:02 Dose: 40 mg Pantoprazole Sodium (Protonix) 40 mg GT QDAC [facility] Stop: 04/05/17 07:29 Polyethylene Glycol (Miralax) 17 gm GT BID [facility] Stop: 04/04/17 09:44 Last Admin: 02/03/17 10:02 Dose: 17 gm Polyethylene Glycol/Electrolytes (Golytely) 4,000 ml PO X1 ONE Stop: 02/03/17 16:16 Sodium Phosphate (Fleet Enema) 135 ml RC Q96H PRN PRN Reason: IF DULCOLAX SUPP. INEFFECTIVE Stop: 04/04/17 09:31 Vitamin D (Vitamin D) 400 iu GT DAILY [facility] Stop: 04/04/17 09:44 Last Admin: 02/03/17 10:02 Dose: 400 iu General: Alert HEENT: Atraumatic, EOMI, Mucous membr. moist/pink Neck: Supple, Other (mo LAD) Cardiovascular: Normal S1, Normal S2 Lungs: Clear to auscultation Abdomen: Soft, Other (non tender, non distended) - Procedures Procedures: Procedures Procedure Code Date DIAGNOSTIC COLONOSCOPY 23730 06/26/16 EGD BIOPSY SINGLE/MULTIPLE 17874 12/22/13 ESOPHAGOGASTRODUODENOSCOPY [EGD] W/CLOSED BIOPSY 45.16 12/22/13 INFLUENZA VACCINATION 99.52 07/14/13 INSERT INDWELLING CATH 57.94 05/17/12 INSERT INTESTINAL TUBE 96.08 05/17/12 INSERT PICC CATH 99070 05/17/12 INSERT TEMP BLADDER CATH 96873 05/17/12 INSPECTION OF LOWER INTESTINAL TRACT, ENDO [id number] 06/26/16 OPEN AND OTHER CECECTOMY 45.72 05/17/12 OPEN AND OTHER RIGHT HEMICOLECTOMY 45.73 05/17/12 PARTIAL REMOVAL OF COLON 79348 05/17/12 UNLISTED PX SMALL INTESTINE 18501 05/17/12 VENOUS CATHETERIZATION NEC 38.93 05/17/12 Assessment/Plan - Problem List Patient Problems: All Active Problems CONSTIPATION WITH POOR INTAKE (Acute) coffee ground vomitus (Acute) - Assessment Assessment: # PEG tube malfunction - s/p G tube change on 02/02, functioning well at this time - No evidence of GI bleeding when flushing the G tube. Drop in hgb is likely dilutional given all cell lines dropped # Constipation - Received mineral oil enema yesterday without BM, and taking daily miralax. - Will administer a slow 4L golytely bowel prep tonight in order to help relieve obstipation (there is no evidence of bowel obstruction) - Continue enemas
--- NOTE | 2017-02-03 20:55 | Admit Criteria Form ---
Admit Criteria Forms - Admit Criteria Diagnosis: GENERAL ADMISSION CRITERIA (Place 'X' for any and all applicable criteria): Admission is indicated for ANY ONE of the following: [ ]I. Hemodynamic instability as indicated by ANY ONE of the following(1)(2) (3)(4)(5): [ ]a) Vital sign abnormality not readily corrected by appropriate treatment within 12 to 24 hours indicated by ANY ONE of the following: [ ]i) Hypotension [ ]ii) Symptomatic Tachycardia unresponsive to treatment (eg , analgesia, fluids, sedation as indicated) [ ]iii) Orthostatic vital sign changes unresponsive to treatment (eg, fluids) [ ]b) Vital sign abnormality that is severe indicated by ANY ONE of the following: [ ]i) Inadequate perfusion indicated by ANY ONE of the following: [ ]1) Lactic acidosis (greater than 2 mmol/L) [ ]2) New abnormal capillary refill (greater than 3 seconds) [ ]3) Other metabolic acidosis (arterial pH less than 7.35) not otherwise explained [ ]4) Reduced urine output [ ]5) Altered mental status [ ]6) Myocardial Ischemia [ ]v) Mean arterial pressure[A] less than 60 mm Hg [ ]vi) Mean arterial pressure[A] less than 70 mm Hg after 30 minutes of appropriate treatment (eg, fluid resuscitation) [ ]vii) IV inotropic or vasopressor medication required to maintain adequate blood pressure or perfusion [ ]viii) Sustained heart rate greater than 120 beats per minute in adult or child 6 years or older[B]] [ ]II. Hypertension requiring inpatient treatment as indicated by ANY ONE of the following(6)(7)(8): [ ]a) SBP greater than 220 mm Hg or DBP greater than 120 mm Hg despite treatment [ ]b) SBP greater than 140 mm Hg or DBP greater than 100 mm Hg with evidence of acute end organ damage as indicated by ANY ONE of the following: [ ]i) Encephalopathy [ ]ii) Acute renal failure as indicated by new onset of ANY ONE of the following(9)(10)(11)(12)(13): [ ]1) A 3-fold rise in serum creatinine from baseline [ ]2) Serum creatinine greater than 4 mg/dL ( 354 micromoles/L) with acute rise greater than 0.5 mg/dL (44.2 micromoles/L) [ ]3) Reduction of more than 75% in estimated glomerular filtration rate from baseline [ ]4) Estimated glomerular filtration rate less than 35 mL/min/1.73m2 (0.59 mL/sec/1.73m2) in child up to 18 years of age [ ]5) Cessation of urine output indicated by ALL of the following: [ ]A. Adequate volume status [ ]B. Inadequate urine output as indicated by ANY ONE of the following: [ ]a. Urine output less than 0.3 mL/kg/hr for 24 hours [ ]b. Anuria (urine output less than 0.1 mL/kg/hr) for 12 hours [ ]iii) Aortic dissection [ ]iv) Myocardial ischemia [ ]v) Left ventricular heart failure [ ]vi) Retinal hemorrhage [ ]vii) Other significant finding [ ]c) Hypertension in child requiring inpatient treatment as indicated by ALL of the following(14)(15)(16): [ ]i) Outpatient treatment not effective, not available, or not appropriate [ ]ii) SBP or DBP greater than 95th percentile for age [ ]iii) Evidence of acute end organ damage as indicated by ANY ONE of the following: [ ]1) Altered mental status [ ]2) Acute renal failure as indicated by new onset of ANY ONE of the following(9)(10)(11)(12)(13): [ ]A. A 3-fold rise in serum creatinine from baseline [ ]B. Serum creatinine greater than 4 mg/dL (354 micromoles/L) with acute rise greater than 0.5 mg/dL (44.2 micromoles/L) [ ]C. Reduction of more than 75% in estimated glomerular filtration rate from baseline [ ]D. Estimated glomerular filtration rate less than 35 mL/min/1.73m2 (0.59 mL/sec/1.73m2)in child up to 18 years of age [ ]E. Cessation of urine output indicated by ALL of the following: [ ]a. Adequate volume status [ ]b. Inadequate urine output as indicated by ANY ONE of the following: [ ]1) Urine output less than 0.3 mL/kg/hr for 24 hours [ ]2) Anuria (urine output less than 0.1 mL/kg/hr) for 12 hours [ ]3) Severe headache [ ]4) Visual disturbance [ ]5) Retinal hemorrhage [ ]6) Other significant finding [ ]III. Acute cardiac or peripheral ischemia as indicated by ANY ONE of the following: [ ]a) Acute coronary syndrome(17)(18) [ ]b) Acute peripheral ischemia (eg, pulseless, cool, mottled, or cyanotic extremity)(19) [ ]IV. Cardiac arrhythmias or findings of immediate concern indicated by ANY ONE of the following(20)(21): [ ]a) Heart rhythms that are inherently dangerous or unstable indicated by ANY ONE of the following(22)(23)(24): [ ]i) Resuscitated ventricular fibrillation or cardiac arrest [ ]ii) Ventricular escape rhythm [ ]iii) Sustained ventricular tachycardia (30 seconds or more of ventricular rhythm at greater than 100 beats per minute) [ ]iv) Nonsustained ventricular tachycardia and ANY ONE of the following: [ ]1) Suspected cardiac ischemia as cause or consequence of ventricular tachycardia [ ]2) In setting of acute myocarditis [ ]b) Unstable cardiac conduction defects indicated by ANY ONE of the following(24)(25)(26): [ ]i) Type II second-degree atrioventricular block [ ]ii) Third-degree atrioventricular block [ ]iii) New-onset left bundle branch block with suspected myocardial ischemia [ ]c) Any heart rhythm and ANY ONE of the following(22)(23)(27)(28)( 29): [ ] i) Continuous long-term ECG monitoring needed (eg, initiation of drug requiring monitoring for more than 24 hours) [ ] ii) Patient has automatic implanted cardioverter defibrillator that is repeatedly firing, malfunctioning, or in need of immediate adjustment of settings beyond the scope of ambulatory or observation care. [ ]d) Heart rhythms of concern due to ANY ONE of the following: [ ]i) Hypotension [ ]ii) Respiratory distress [ ]iii) Association with other significant symptoms (eg, bradycardia with syncope or ongoing dizziness, supraventricular tachycardia with chest pain) (27)(28) (30) [ ] V. Severe heart failure as indicated by ANY ONE of the following ( 31)(32): [ ]a) Respiratory distress [ ]b) Hypotension [ ]c) Anasarca (refractory to outpatient therapy) [ ]d) Cardiac arrhythmias of immediate concern [ ]e) Myocardial ischemia [ ]. Respiratory abnormalities, including ANY ONE of the following(33)(34) (35)(36): [ ]a) Respiratory rate greater than 30 breaths per minute unresponsive to treatment [A] [ ]b) New saturation of arterial oxygen less than 90% [ ]c) New partial pressure of carbon dioxide greater than 44 mm Hg ( 5.9 kPa) [ ]d) Supplemental oxygen or respiratory treatments needed that are new or not performable at other levels of care [ ]e) New-onset cyanosis [ ]f) Inability to protect airway [ ]g) Chronic lung disease with severe deterioration (not responsive to emergency and observation care treatment as appropriate) as indicated by ANY ONE of the following(34)(36 ): [ ]i) SaO2 5% below baseline in patient with chronic hypoxemia [ ]ii) New requirement for supplemental oxygen to keep SaO2 at baseline or acceptable level [ ]iii) Required supplemental oxygen performable only in acute inpatient setting [ ]iv) Severe airflow or ventilation abnormalities [ ]v) Previously mobile patient unable to walk between rooms [ ]vi Inability to eat or sleep due to dyspnea [ ]vii) Rapid rate of exacerbation onset [ ]viii) Altered mental status ]VII. Severe airflow or ventilation abnormalities (not responsive to emergency and observation care treatment as appropriate) as indicated by ANY ONE of the following(33)(34)(35)(37): [ ]a) PCO2 greater than 42 mm Hg (5.6 kPa) and pH less than 7.35 (new ) [ ]b) Documented PCO2 increased more than 5 mm Hg (0.7 kPa) from disease baseline [ ]c) Airflow measurements [B] less than 60% of previous best or predicted (eg, peak expiratory flow rate less than 300 L/minute) despite intensive emergent treatment [C] [ ]d) Required respiratory treatments that are performable only in acute inpatient setting [ ]VIII. Impending or actual respiratory arrest ( Also use Respiratory Failure GRG for severe respiratory disease and long-term mechanical ventilation patients) [ ]IX. Neurologic abnormalities, including ANY ONE of the following: [ ]a) New findings that suggest ANY ONE of the following: [ ]i) SUPERVISORY CLERK infection(38) [ ]ii) Cerebral bleeding, ischemia, or vasospasm(39)(40) [ ]iii) Increased intracranial pressure, hydrocephalus, or cerebral edema(41)(42)(43) [ ]iv) Spinal cord injury(44) [ ]b) Uncontrolled seizures(45) [ ]c) New-onset coma (eg, Christos coma scale score less than 9) or unexplained abnormal mental status (eg, Christos coma scale score less than 14) [D](41)(46)(47) [ ]X. New-onset severe neurologic findings requiring inpatient care; examples include(42)(48)(49): [ ]a) Papilledema [ ]b) Cerebral edema [ ]c) Mass effect on CT scan [ ]XI. Suspected acute intra-abdominal process with peritoneal signs, abdominal mass, or similar findings (50)(51)(52) [ ]XII. Severe physiologic disorder remaining after emergency or observation level care (as appropriate) as indicated by ANY ONE of the following (53): [ ]a) Significant dehydration [ ]b) Diabetic ketoacidosis [ ]c) Hyperglycemic hyperosmolar state (eg, osmolality greater than 320 mOsm/kg (mmol/kg) [ ]d) Hypoglycemia [ ]e) Other (new) acid-base disorder with pH less than 7.35 or greater than 7.5(54) [ ]f) Thyroid storm (55) [ ]g) Myxedema coma (55) [ ]XIII. Abdominal abnormalities with ANY ONE of the following(56)(57): [ ]a) Absent bowel sounds with complete ileus [ ]b) Signs of intestinal obstruction or peritonitis [E] [ ]c) Nausea and vomiting that cannot be controlled with outpatient or observation care [ ]XIV. Acute renal failure as indicated by new onset of ANY ONE of the following(9)(10)(11)(12)(13): [ ]a) A 3-fold rise in serum creatinine from baseline [ ]b) Serum creatinine greater than 4 mg/dL (354 micromoles/L) with acute rise greater than 0.5 mg/dL (44.2 micromoles/L) [ ]c) Reduction of more than 75% in estimated glomerular filtration rate from baseline [ ]d) Estimated glomerular filtration rate less than 35 mL/min/ 1.73m2 (0.59 mL/sec/1.73m2) in child up to 18 years of age [ ]e) Cessation of urine output indicated by ALL of the following: [ ]i) Adequate volume status [ ]ii) Inadequate urine output as indicated by ANY ONE of the following: [ ]1) Urine output less than 0.3 mL/kg/hr for 24 hours [ ]2) Anuria (urine output less than 0.1 mL/kg/hr) for 12 hours [ ]XV. Significant uremic complications as indicated by ANY ONE of the following(58)(59)(60): [ ]a) Outpatient therapy is ineffective or not feasible for ANY ONE of the following: [ ]i) Severe heart failure [ ]ii) Severehypertension [ ]iii) Pleural effusion [ ]iv) Pericarditis or pericardial effusion [ ]b) Cardiac arrhythmias of immediate concern [ ]c) Intractable nausea or vomiting [ ]d) Recurrent seizures [ ]e) Encephalopathy [ ]f) Bleeding abnormalities (eg, platelet dysfunction) with active (eg, gastrointestinal) bleeding [ ]g) Dialysis indicated before long-term access or ambulatory arrangements can be made [ ]h) Significant metabolic or electrolyte abnormalities (eg, severe acidosis or hyperkalemia) [ ]XVI. High fever or other high-risk infection situation as indicated by ANY ONE of the following(61)(62)(63)(64): [ ]a) Outpatient and observation care antimicrobial treatment unavailable, not effective, or not appropriate [ ]b) Documented bacteremia [ ]c) Temperature greater than 40.5 degrees C (104.9 degrees F) ( oral) [ ]d) Temperature greater than 39.5 degrees C (103.1 degrees F) ( oral) or less than 36 degrees C (96.8 degrees F) (rectal) that does not respond to e treatment and observation care [ ] XVII. Temperature less than 95 degrees F (35 degrees C)(rectal)(65) [ ] XVIII. Severe nutritional abnormalities as indicated by ALL of the following (66)(67): [ ]a) Inability to tolerate or establish sufficient oral or other enteral nutrition in outpatient setting [ ]b) Parenteral nutrition regimen need that must be implemented on inpatient basis [ ] XIX. Severe electrolyte abnormalities indicated by ALL of the following(68) (69)(70): [ ]a) Electrolytes and associated findings are not as expected for patient baseline or acceptable treatment effects. [ ]b) Severe abnormalities indicated by ANY ONE of the following: [ ]i) Sodium less than 130 mEq/L (mmol/L) (new) [ ]ii)Sodium less than 135 mEq/L (mmol/L) with ANY ONE of the following: [ ]1) Uncorrectable (to near normal or chronic baseline) after trial of outpatient and emergency treatment [ ]2) Altered mental status [ ]3) Seizures [ ]4) Severe medical etiology requiring inpatient management (eg, heart failure, hypovolemia) [ ]iii) Sodium greater than 155 mEq/L (mmol/L) [ ]iv) Sodium greater than 150 mEq/L (mmol/L) with ANY ONE of the following: [ ]1) Uncorrectable (to near normal or chronic baseline) with outpatient and emergency treatment [ ]2) Altered mental status [ ]3) Seizures [ ]4) Severe medical etiology (eg, hypovolemia, diabetes insipidus) [ ]v) Potassium less than 2.5 mEq/L (mmol/L) despite outpatient and emergency treatment [ ]vi) Potassium less than 3 mEq/L (mmol/L) with ANY ONE of the following: [ ]1) Weakness [ ]2) Cardiac abnormality (eg, arrhythmia, conduction disturbance) [ ]3) Cardiac ischemia [ ]4) Ileus [ ]5) Ongoing medical cause requiring inpatient management (eg, acute renal wasting or SIADH) [ ]6) Other severe symptoms [ ]vii) Potassium greater than 6.5 mEq/L (mmol/L) [ ]viii) Potassium greater than 5 mEq/L (mmol/L) with ANY ONE of the following: [ ]1) Uncorrectable (to near normal or chronic baseline) with outpatient and emergency treatment [ ]2) Severe ECG findings [F] [ ]3) Acute worsening of renal failure (creatinine greater than 2.5 mg/dL (221 micromoles/L) or significant elevation for age and size) [ ]4) Severe weakness [ ]5) Severe medical etiology (eg, hemolysis, infection, drug overdose) [ ]ix) Calcium less than 7 mg/dL (1.75 mmol/L) despite outpatient and emergency treatment (72) [ ]x) Calcium less than 8 mg/dL (2 mmol/L) with significant symptoms or findings; examples include(72): [ ]1) Altered mental status [ ]2) Muscle spasms [ ]3) Seizures [ ]4) Breathing difficulty [ ]5) Cardiac abnormality (eg, arrhythmia or conduction disturbance) [ ]xi) Calcium greater than 14 mg/dL (3.5 mmol/L)(72) [ ]xii) Calcium greater than 12 mg/dL (3 mmol/L) with ANY ONE of the following(72): [ ]1) Uncorrectable (to near normal or chronic baseline) with outpatient and emergency treatment [ ]2) Significant dehydration or hypovolemia as indicated by ALL of the following(70)(73)(74): [ ]A. Not resolved with initial treatments [ ]B. Clinically significant dehydration as indicated by ANY ONE of the following: [ ]a. Vomiting refractory to outpatient treatment (ie, precluding oral rehydration) [ ]b. Inability to drink [ ]c. Hypernatremia or other electrolyte abnormality unable to be corrected with outpatient and emergency treatment [ ]d. Failure to remain hydrated with outpatient therapy [ ]e. Reduced urine output [ ]f. Hypotension [ ]g. Serious cause for dehydration requiring acute hospitalization (eg, bowel obstruction, increased intracranial pressure, infectious cause) [ ]h. Child with ANY ONE of the following(75): [ ]1) Severe abdominal tenderness [ ]2) Adequate care not available at home [ ]3) Severe dehydration ( greater than 9% loss of body weight) [ ]4) Significant symptoms or findings; examples include: [ ]A. Altered mental status [ ]B. Cardiac abnormality (eg, arrhythmia, conduction disturbance) [ ]C. Malignant etiology requiring inpatient treatment [ ]xiii) Phosphorus less than 1 mg/dL (0.32 mmol/L) [ ]xiv) Phosphorus less than 1.5 mg/dL (0.48 mmol/L) with ANY ONE of the following: [ ]1) Patient unresponsive to outpatient and emergency treatment [ ]2) Significant symptoms or findings; examples include: [ ]A. Weakness [ ]B. Altered mental status [ ]C. Breathing difficulty [ ]D. Seizures [ ]E. Rhabdomyolysis [ ]xv) Phosphorus greater than 10 mg/dL (3.2 mmol/L) [ ]xvi) Phosphorus greater than 4.5 mg/dL (1.45 mmol/L) (new) with ANY ONE of the following: [ ]1) Severe medical etiology (eg, crush injury, acute renal failure) [ ]2) Associated hypocalcemia with significant findings; examples include: [ ]A. Neurologic symptoms [ ]B. Altered mental status [ ]C. Muscle spasms [ ]D. Seizures [ ]E. Breathing difficulty [ ]F. Cardiac abnormality (eg, arrhythmia, conduction disturbance) [ ]xvii) Magnesium less than 1 mg/dL (0.41 mmol/L) [ ]xviii) Magnesium less than 1.5 mg/dL (0.62 mmol/L) with ANY ONE of the following: [ ]1) Patient unresponsive to outpatient and emergency treatment [ ]2) Associated hypocalcemia with significant findings; examples include: [ ]A. Altered mental status [ ]B. Muscle spasms [ ]C. Seizures [ ]D. Breathing difficulty [ ]E. Cardiac abnormality (eg, arrhythmia , conduction disturbance) [ ]3) Associated hypokalemia (potassium less than 3 mEq/L (mmol/L)) with risk of arrhythmia [ ]xix) Magnesium greater than 4 mEq/L (2 mmol/L) [ ]xx) Magnesium greater than 2.5 mEq/L (1.25 mmol/L) with significant symptoms or findings; examples include: [ ]1) Weakness [ ]2) Altered mental status [ ]3) Cardiac abnormality (eg, arrhythmia, conduction disturbance) [ ]4) Breathing difficulty [ ]5) Severe medical etiology (eg, renal failure, hypovolemia) [ ]xxi) Uric acid greater than 20 mg/dL (1190 micromoles/L)(76) [ ]xxii) Uric acid greater than 8 mg/dL (476 micromoles/L) with significant symptoms or findings of tumor lysis syndrome; examples include(76): [ ]1) Creatinine greater than 1.5 times upper limit of normal [ ]2) Cardiac abnormality (eg, arrhythmia, conduction disturbance) [ ]3) Seizure [ ]XX. Acute blood loss causing significant abnormality as indicated by ANY ONE of the following(77)(78): [ ]a) Hemoglobin less than 10 g/dL (100 g/L) (not baseline) [ ]b) Hematocrit less than 30% (0.30) (not baseline) [ ]c) Repeat hematocrit decreased more than 2% (0.02) [ ]d) Uncontrolled bleeding [ ]XXI. Severe anemia indicated by ANY ONE of the following(78)(79): [ ]a) Altered mental status [ ]b) Chest pain [ ]c) Exertional dyspnea [ ]d) Syncope [ ]e) Other findings suggesting inadequate perfusion [ ]f) Treatment with transfusion or volume replacement is ineffective at resolving ANY ONE of the following [G]: [ ]i) Tachycardia for age [ ]ii) Orthostatic vital sign changes as indicated by ANY ONE of the following(80): [ ]1) Fall in SBP of 20 mm Hg or more 1 to 3 minutes after patient sits or stands from recumbent position [ ]2) Fall in DBP of 10 mm Hg or more 1 to 3 minutes after patient sits or stands from recumbent position [ ]XXII. High-risk low platelet count as indicated by ANY ONE of the following( 81)(82): [ ]a) Severe or life-threatening bleeding (eg, intracranial, major gastrointestinal, or extensive mucosal bleeding), with any reduced platelet count [ ]b) Platelet count less than 20,000/mm3 (20 x109/L) with any active bleeding [ ]c) Platelet count less than 10,000/mm3 (10 x109/L) with minor purpura or petechiae [ ]d) Platelet count less than 5000/mm3 (5 x109/L) [ ]e) Low platelet count with hemolytic anemia [ ]XXIII. Disseminated intravascular coagulation(77)(83) [ ]XXIV. Severe adverse drug or systemic toxin reaction requiring inpatient treatment; examples include(84)(85): [ ]a) Serotonin syndrome(86) [ ]b) Neuroleptic malignant syndrome(86) [ ]c) Cholinergic syndrome with severe symptoms (eg, bronchorrhea, weakness, mental status changes, seizures) [ ]d) Sympathetic syndrome with severe symptoms (eg, seizures, mental status changes, cardiac dysrhythmias) [ ]e) Anticholinergic syndrome [ ]XXV. Severe pain requiring acute inpatient management as indicated by ALL of the following (87)(88)(89): [ ]a) Continuous or frequent (eg, every 2 to 4 hours) parenteral analgesics required [H] [ ]b) Rapid improvement expected from treatment or acute intervention (eg, surgery, anesthesia procedure) [ ]XXVI.Severe behavioral health issues judged unmanageable at a lower level of care (eg, residential) in a patient who is ANY ONE of the following(91) [ ]a) Acutely suicidal [ ]b) A danger to self (eg, self-mutilating or suicidal behavior) [ ]c) A danger to others (eg, assaultive or homicidal behavior) [ ]d) Incapacitated because of grave disability (eg, inability to provide for self at lower level of care) (92) [X ]XXVII. Inpatient monitoring needed; examples include(1)(3)(87)(93)(94)(95)( 96): [ X]a) Vital signs, neurologic signs, or vascular checks more frequently than every 4 hours [ ]b) Cardiac or respiratory monitoring beyond the scope (eg, over 24 hours) of observation care [ ]c) Pulmonary artery catheter monitoring [ ]d) Suspected compartment syndrome(97) (98) [ ]e) Cerebral bleeding, hydrocephalus, or vasospasm monitoring [ ]f) Increased intracranial pressure or cerebral edema monitoring [ ]g) monitoring [ ]XXVIII. Treatment requiring inpatient care; examples include: [ ]a) IV fluid to replace significant ongoing losses (greater than 3 L/m2 per day)(53) [ ]b) High concentration oxygen (greater than 40%)(33)(99)(100) [ ]c) Frequent respiratory therapy (more frequently than every 4 hours) to maintain airflow rates greater than 60% of baseline(33)(99)(100) [ ]d) Epidural analgesia(87) [ ]e) IV anticoagulation, vasoactive, or antiarrhythmic medication(19 )(23) [ ]f) Acute thrombolytics (generally require 24 hours of observation )(101)(102) [ ]XXIX. Emergency procedures needed; examples include: [ ]a) Emergency inpatient surgery [ ]b) Temporary pacemaker placement(103) [ ]c) Chest tube placement with active evacuation (eg, suction, drainage)(104) [ ]d) Emergent cardioversion(105) [ ]e) Emergent cardiac or vascular procedures (eg, cardiac catheterization, angioplasty) (17)(18) [ ]f) Emergent dialysis access placement and institution(10)(106) [ ]g) Emergent pericardiocentesis(107) [ ]h) Emergent plasmapheresis or leukapheresis(83) [ ]i) Emergent tracheostomy The original [employer] content created by [employer] has been revised. The portions of the content which have been revised are identified through the use of italic text or in bold, and [facility] has neither reviewed nor approved the modified material. All other unmodified content is copyright [employer]. Please see references footnoted in the original [employer] edition 2016 Admit Criteria Met?: Yes
[2017-02-04 06:33] LABS: % BASOPHILS 0.1 % (0.0-2.0); % EOSINOPHILS 4.1 % (0.0-5.0); % LYMPHOCYTES 41.9 % (20.0-50.0); % MONOCYTES 7.6 % (2.0-10.0); % NEUTROPHILS 46.3 % (40.0-80.0); HEMATOCRIT 36.7 % (39.0-49.0); HEMOGLOBIN 12.6 gm/dL (13.2-17.3); MEAN CELL VOLUME 87.7 fl (80-99); MEAN CORPUSCULAR HEMOGLOBIN 30.1 pg (26.0-30.0); MEAN CORPUSCULAR HGB CONC 34.4 pg (28.0-36.0); MEAN PLATELET VOLUME 7.4 fl; NEUTROPHILE ABSOLUTE 2.2 Th/cmm (1.8-8.0); PLATELET COUNT 139 Th/cmm (150-400); RED BLOOD COUNT 4.18 Mil/cmm (4.30-5.70); RED CELL DISTRIBUTION WIDTH 13.5 % (11.5-20.0); WHITE BLOOD COUNT 4.6 Th/cmm (4.8-10.8)
[2017-02-04 07:14] LABS: ANION GAP 6.6 (7.0-16.0); BUN - UREA NITROGEN 8 mg/dL (7-25); BUN/CREATININE RATIO 13.3; CALCIUM SERUM 9.1 mg/dL (8.6-10.3); CARBON DIOXIDE 26.7 mEq/L (21.0-31.0); CHLORIDE 108 mEq/L (98-107); CREATININE - SERUM 0.6 mg/dL (0.7-1.3); GLUCOSE 96 mg/dL (70-105); MAGNESIUM 2.5 mg/dL (1.9-2.7); POTASSIUM SERUM 4.3 mEq/L (3.5-5.1); SODIUM SERUM 137 mEq/L (136-145)
[2017-02-04] MEDS ORDERED: Pantoprazole 40 mg/Packet GT SCH (07:30)
[2017-02-04] MEDS: POLYETHYLENE GLYCOL 3350 17 GM PACK GT SCH ×2 (09:03→16:39)
[2017-02-04] MEDS: Multivitamin w/ Minerals Tab GT SCH (09:03)
[2017-02-04] MEDS: D5-0.45NS 1,000 ML IV SCH ×2 (09:19→23:30)
--- NOTE | 2017-02-04 11:01 | GI Progress Note ---
Subjective - Review of Systems Subjective: s/p golytely prep last night, and RN reports pt had multiple BMs. Objective - Results Result Diagrams: 02/04/17 06:00 02/04/17 06:00 Recent Labs: Laboratory Last Values WBC 4.6 Th/cmm (4.8-10.8) L 02/04/17 06:00 RBC 4.18 Mil/cmm (4.30-5.70) L 02/04/17 06:00 Hgb 12.6 gm/dL (13.2-17.3) L 02/04/17 06:00 Hct 36.7 % (39.0-49.0) L 02/04/17 06:00 MCV 87.7 fl (80-99) 02/04/17 06:00 MCH 30.1 pg (26.0-30.0) H 02/04/17 06:00 MCHC Differential 34.4 pg (28.0-36.0) 02/04/17 06:00 RDW 13.5 % (11.5-20.0) 02/04/17 06:00 Plt Count 139 Th/cmm (150-400) L 02/04/17 06:00 MPV 7.4 fl 02/04/17 06:00 Neutrophils % 46.3 % (40.0-80.0) 02/04/17 06:00 Lymphocytes % 41.9 % (20.0-50.0) 02/04/17 06:00 Monocytes % 7.6 % (2.0-10.0) 02/04/17 06:00 Eosinophils % 4.1 % (0.0-5.0) 02/04/17 06:00 Basophils % 0.1 % (0.0-2.0) 02/04/17 06:00 Neutrophils (Manual) 38 % (40-80) L 02/03/17 06:10 Lymphocytes 50 % (20-50) 02/03/17 06:10 Monocytes 10 % (2-10) 02/03/17 06:10 Eosinophils 2 % (0-5) 02/03/17 06:10 Platelet Estimate ADEQUATE (NORMAL) 02/03/17 06:10 Platelet Morphology NORMAL (NORMAL) 02/03/17 06:10 RBC Morph Micro Appear NORMAL (NORMAL) 02/03/17 06:10 PT 10.1 SECONDS (9.5-11.5) 02/02/17 05:40 INR 0.97 (0.5-1.4) 02/02/17 05:40 PTT (Actin FS) 28.0 SECONDS (26.0-38.0) 02/02/17 05:40 Sodium 137 mEq/L (136-145) 02/04/17 06:00 Potassium 4.3 mEq/L (3.5-5.1) 02/04/17 06:00 Chloride 108 mEq/L (98-107) H 02/04/17 06:00 Carbon Dioxide 26.7 mEq/L (21.0-31.0) 02/04/17 06:00 Anion Gap 6.6 (7.0-16.0) L 02/04/17 06:00 BUN 8 mg/dL (7-25) 02/04/17 06:00 Creatinine 0.6 mg/dL (0.7-1.3) L 02/04/17 06:00 Est GFR ( Amer) > 60.0 ml/min (>90) 02/04/17 06:00 Est GFR (Non-Af Amer) > 60.0 ml/min 02/04/17 06:00 BUN/Creatinine Ratio 13.3 02/04/17 06:00 Glucose 96 mg/dL (70-105) 02/04/17 06:00 Calcium 9.1 mg/dL (8.6-10.3) 02/04/17 06:00 Magnesium 2.5 mg/dL (1.9-2.7) 02/04/17 06:00 Total Bilirubin 0.4 mg/dL (0.3-1.0) 02/02/17 05:40 AST 18 U/L (13-39) 02/02/17 05:40 ALT 13 U/L (7-52) 02/02/17 05:40 Alkaline Phosphatase 67 U/L (34-104) 02/02/17 05:40 Total Protein 8.2 gm/dL (6.0-8.3) 02/02/17 05:40 Albumin 4.6 gm/dL (4.2-5.5) 02/02/17 05:40 Globulin 3.6 gm/dL 02/02/17 05:40 Albumin/Globulin Ratio 1.3 (1.0-1.8) 02/02/17 05:40 Blood Type O POSITIVE 02/02/17 05:40 Antibody Screen NEGATIVE 02/02/17 05:40 - Physical Exam Vitals and I&O: Vital Signs Temp 98.0 F 02/04/17 04:00 Pulse 72 02/04/17 04:00 Resp 19 02/04/17 04:00 BP 112/72 02/04/17 04:00 Pulse Ox 96 02/04/17 04:00 Intake & Output 02/03/17 02/04/17 02/04/17 18:59 06:59 18:59 Intake Total 1600 933.75 Output Total 50 Balance 1550 933.75 Weight (lbs) 49.895 kg 47.355 kg Intake: Intake, IV Amount 1000 933.75 D5-0.45NS 1,000 ml @ 75 1000 933.75 mls/hr IV .[id number] [facility] Rx #:[id number] Oral 200 Other 400 Output: Other 50 Other: # Voids 3 # Bowel Movements 0 Stool Characteristics Liquid Brown Active Medications: Current Medications Acetaminophen (Tylenol 650mg Supp) 650 mg RC Q8H PRN PRN Reason: Pain or Fever >101 Stop: 04/03/17 06:14 Acetaminophen (Tylenol) 650 mg GT Q4HR PRN PRN Reason: Pain or Fever >101 Stop: 04/04/17 09:31 Alendronate Sodium (Fosamax) 70 mg PO QSAT [facility] Stop: 04/08/17 06:29 Ascorbic Acid (Vitamin C) 500 mg GT DAILY [facility] Stop: 04/04/17 09:44 Last Admin: 02/04/17 09:03 Dose: 500 mg Bisacodyl (Dulcolax 10 Mg Supp) 10 mg RC Q96H PRN PRN Reason: Constipation Stop: 04/04/17 09:31 Calcium Carbonate (Os-Jesus) 500 mg GT DAILY [facility] Stop: 04/04/17 09:44 Last Admin: 02/04/17 09:03 Dose: 500 mg Docusate Sodium (Colace) 200 mg GT Q12H [facility] Stop: 04/04/17 09:44 Last Admin: 02/03/17 20:55 Dose: 200 mg Dextrose/Sodium Chloride (D5-0.45ns) 1,000 mls @ 75 mls/hr IV .[id number] [facility] Stop: 04/03/17 06:10 Last Admin: 02/04/17 09:19 Dose: 75 mls/hr Magnesium Hydroxide (Milk Of Magnesia) 30 ml GT Q72H PRN PRN Reason: Constipation Stop: 04/04/17 09:31 Pantoprazole Sodium (Protonix) 40 mg IVP DAILY [facility] Stop: 04/03/17 08:59 Last Admin: 02/04/17 09:03 Dose: 40 mg Pantoprazole Sodium (Protonix) 40 mg GT QDAC [facility] Stop: 04/05/17 07:29 Last Admin: 02/04/17 06:59 Dose: 40 mg Polyethylene Glycol (Miralax) 17 gm GT BID [facility] Stop: 04/04/17 09:44 Last Admin: 02/04/17 09:03 Dose: 17 gm Sodium Phosphate (Fleet Enema) 135 ml RC Q96H PRN PRN Reason: IF DULCOLAX SUPP. INEFFECTIVE Stop: 04/04/17 09:31 Vitamin D (Vitamin D) 400 iu GT DAILY [facility] Stop: 04/04/17 09:44 Last Admin: 02/04/17 09:03 Dose: 400 iu General: Alert HEENT: Atraumatic, EOMI, Mucous membr. moist/pink Neck: Supple, Other (mo LAD) Cardiovascular: Normal S1, Normal S2 Lungs: Clear to auscultation Abdomen: Soft, Other (non tender, non distended) - Procedures Procedures: Procedures Procedure Code Date DIAGNOSTIC COLONOSCOPY 87345 06/26/16 EGD BIOPSY SINGLE/MULTIPLE 07549 12/22/13 ESOPHAGOGASTRODUODENOSCOPY [EGD] W/CLOSED BIOPSY 45.16 12/22/13 INFLUENZA VACCINATION 99.52 07/14/13 INSERT INDWELLING CATH 57.94 05/17/12 INSERT INTESTINAL TUBE 96.08 05/17/12 INSERT PICC CATH 65396 05/17/12 INSERT TEMP BLADDER CATH 91994 05/17/12 INSPECTION OF LOWER INTESTINAL TRACT, ENDO [id number] 06/26/16 OPEN AND OTHER CECECTOMY 45.72 05/17/12 OPEN AND OTHER RIGHT HEMICOLECTOMY 45.73 05/17/12 PARTIAL REMOVAL OF COLON 02737 05/17/12 UNLISTED PX SMALL INTESTINE 47760 05/17/12 VENOUS CATHETERIZATION NEC 38.93 05/17/12 Assessment/Plan - Problem List Patient Problems: All Active Problems CONSTIPATION WITH POOR INTAKE (Acute) coffee ground vomitus (Acute) - Assessment Assessment: # PEG tube malfunction - s/p G tube change on 02/02, functioning well at this time - No evidence of GI bleeding when flushing the G tube. Drop in hgb is likely dilutional given all cell lines dropped # Constipation - Now s/p golytely bowel prep on 02/03 with multiple BMs. Improved. Would maintain pt on strong bowel regimen on discharge Thank you for allowing me to participate in the care of this patient.
--- NOTE | 2017-02-04 14:02 | Discharge Summary ---
DATE OF DISCHARGE: 02/05/2017 ADMITTING DIAGNOSES: 1. Coffee ground emesis, rule out gastrointestinal bleed. 2. Malfunctioning G-tube. SECONDARY DIAGNOSES: 1. Include history of dysphagia secondary to severe mental retardation. 2. History of PEG placement. 3. History of mental retardation/cerebral palsy. 4. History of osteoarthritis. 5. History of osteoporosis. 6. History of constipation. DISCHARGE DIAGNOSES: 1. Coffee-ground emesis, possible upper gastrointestinal bleed, clinically resolved. 2. Malfunctioning gastrostomy tube, status post replacement. 3. Constipation/fecal impaction/ileus, clinically/objectively improved. CONSULTANTS: Dr. Caldwell. MAJOR PROCEDURES: There was upper GI done on 02/02/2017 showing gastrostomy tube in stomach. There was generalized distention of the large and small bowel loops with possible ileus. Distal fecal impaction within the rectosigmoid junction in the rectum. On 02/02/2017, prior to the above-mentioned procedure, he underwent a G-tube replacement without any complications. On 02/05/2017 repeat kub showed mild distention of small and large bowel loops without obstruction and no fecal impaction. BRIEF HOSPITAL COURSE: A 31-year-old male with history of mental retardation, cerebral palsy, acid reflux disease, constipation, osteoporosis, who was transferred from [facility] secondary to coffee-ground emesis noted. It was unsure if the coffee grounds were noted on the G-tube suction or if he actually had emesis, but nevertheless, he was evaluated in the ER where his labs were essentially within normal limits with an H and H of 16/48 and sodium was slightly low at 134. ER staff attempted to suction and flush the G-tube, but this was noted to be plugged; therefore, he was admitted to the Medical/Surgical floor for further GI evaluation. He was seen by GI and the above-mentioned procedure took place at bedside without any complications. Since admission, he has not had any nausea, vomiting or any coffee grounds noted from the G-tube replacement. He was placed on IV fluids and Protonix, and the day after the PEG tube, he was started on feeds, which he has tolerated well. He also underwent an ST eval given that in the past he was taking p.o.'s. ST eval showed oral phase impairment with decreased bolus acceptance and containment. They suggest pureed nectar thickened liquids with medications via PEG and for all meals and with feeder assistance. The patient has remained stable, afebrile, and his labs also remained stable. MEDICATIONS ON DISCHARGE: Acetaminophen per rectum q. 8 hours p.r.n. for fever or pain, alendronate 70 mg q. Thursday, ascorbic acid 500 mg every day, Dulcolax 10 mg q. 96 hours p.r.n. for constipation, calcium carbonate 500 mg every day, docusate sodium 200 mg q. 12, milk of magnesia 30 mL q. 72 hours p.r.n. constipation, Protonix 40 mg p.o. daily, MiraLax 17 g b.i.d., and Fleet enema 135 mL q. 96 hours for severe constipation, vitamin D 400 international units daily. DISPOSITION: The patient will be discharged today to [facility] under the care of Dr. Escudero. JOB# [id number] [facility]
[2017-02-04] MEDS: Docusate Sodium 100 mg/10 mL UD GT SCH ×2 (16:41→23:30)
[2017-02-04] MEDS ORDERED: Fleet Enema 135 mL RC ONE (16:43)
[2017-02-05 05:25] LABS: % BASOPHILS 0.1 % (0.0-2.0); % EOSINOPHILS 2.8 % (0.0-5.0); % LYMPHOCYTES 31.6 % (20.0-50.0); % MONOCYTES 8.1 % (2.0-10.0); % NEUTROPHILS 57.4 % (40.0-80.0); HEMATOCRIT 39.6 % (39.0-49.0); MEAN CELL VOLUME 89.4 fl (80-99); MEAN CORPUSCULAR HEMOGLOBIN 29.4 pg (26.0-30.0); MEAN CORPUSCULAR HGB CONC 32.9 pg (28.0-36.0); MEAN PLATELET VOLUME 7.4 fl; NEUTROPHILE ABSOLUTE 3.3 Th/cmm (1.8-8.0); PLATELET COUNT 150 Th/cmm (150-400); RED BLOOD COUNT 4.43 Mil/cmm (4.30-5.70); RED CELL DISTRIBUTION WIDTH 13.2 % (11.5-20.0); WHITE BLOOD COUNT 5.9 Th/cmm (4.8-10.8)
[2017-02-05 06:28] LABS: ANION GAP 10.1 (7.0-16.0); BUN - UREA NITROGEN 10 mg/dL (7-25); BUN/CREATININE RATIO 16.7; CALCIUM SERUM 9.3 mg/dL (8.6-10.3); CARBON DIOXIDE 23.8 mEq/L (21.0-31.0); CHLORIDE 105 mEq/L (98-107); CREATININE - SERUM 0.6 mg/dL (0.7-1.3); GLUCOSE 102 mg/dL (70-105); POTASSIUM SERUM 3.9 mEq/L (3.5-5.1); SODIUM SERUM 135 mEq/L (136-145)
--- NOTE | 2017-02-05 08:20 | Diagnostic Imaging Report ---
KUB abdominal film (portable) HISTORY: Abdominal distention The exam demonstrates multiple loops of mildly dilated large and small bowel. The overall appearance is suggestive of an adynamic ileus. Clinical correlation is needed. Balloon-tip catheter projects over the upper mid abdomen. IMPRESSION: 1. Mildly dilated loops of large and small bowel. Findings may be associated with an adynamic ileus. Obstruction is a less likely consideration. 2. Chronic deformities about the hips
[2017-02-05] MEDS ORDERED: Fleet Enema 135 mL RC PRN (09:04)
[2017-02-05] MEDS ORDERED: Magnesium Hydroxide (MOM) 30 mL UDC PO PRN (09:06)
[2017-02-05] MEDS: Multivitamin w/ Minerals Tab GT SCH (09:58)
[2017-02-05] MEDS: POLYETHYLENE GLYCOL 3350 17 GM PACK GT SCH ×2 (09:58→16:28)
[2017-02-05] MEDS: Docusate Sodium 100 mg/10 mL UD GT SCH (09:58)
--- NOTE | 2017-02-05 11:46 | GI Progress Note ---
Subjective - Review of Systems Subjective: Continues to have bowel movements. KUB today shows mildly dilated loops of bowel , no obstruction. Objective - Results Result Diagrams: 02/05/17 05:09 02/05/17 05:09 Recent Labs: Laboratory Last Values WBC 5.9 Th/cmm (4.8-10.8) D 02/05/17 05:09 RBC 4.43 Mil/cmm (4.30-5.70) 02/05/17 05:09 Hgb 13.0 gm/dL (13.2-17.3) L 02/05/17 05:09 Hct 39.6 % (39.0-49.0) 02/05/17 05:09 MCV 89.4 fl (80-99) 02/05/17 05:09 MCH 29.4 pg (26.0-30.0) 02/05/17 05:09 MCHC Differential 32.9 pg (28.0-36.0) 02/05/17 05:09 RDW 13.2 % (11.5-20.0) 02/05/17 05:09 Plt Count 150 Th/cmm (150-400) 02/05/17 05:09 MPV 7.4 fl 02/05/17 05:09 Neutrophils % 57.4 % (40.0-80.0) 02/05/17 05:09 Lymphocytes % 31.6 % (20.0-50.0) 02/05/17 05:09 Monocytes % 8.1 % (2.0-10.0) 02/05/17 05:09 Eosinophils % 2.8 % (0.0-5.0) 02/05/17 05:09 Basophils % 0.1 % (0.0-2.0) 02/05/17 05:09 Neutrophils (Manual) 38 % (40-80) L 02/03/17 06:10 Lymphocytes 50 % (20-50) 02/03/17 06:10 Monocytes 10 % (2-10) 02/03/17 06:10 Eosinophils 2 % (0-5) 02/03/17 06:10 Platelet Estimate ADEQUATE (NORMAL) 02/03/17 06:10 Platelet Morphology NORMAL (NORMAL) 02/03/17 06:10 RBC Morph Micro Appear NORMAL (NORMAL) 02/03/17 06:10 PT 10.1 SECONDS (9.5-11.5) 02/02/17 05:40 INR 0.97 (0.5-1.4) 02/02/17 05:40 PTT (Actin FS) 28.0 SECONDS (26.0-38.0) 02/02/17 05:40 Sodium 135 mEq/L (136-145) L 02/05/17 05:09 Potassium 3.9 mEq/L (3.5-5.1) 02/05/17 05:09 Chloride 105 mEq/L (98-107) 02/05/17 05:09 Carbon Dioxide 23.8 mEq/L (21.0-31.0) 02/05/17 05:09 Anion Gap 10.1 (7.0-16.0) 02/05/17 05:09 BUN 10 mg/dL (7-25) 02/05/17 05:09 Creatinine 0.6 mg/dL (0.7-1.3) L 02/05/17 05:09 Est GFR ( Amer) > 60.0 ml/min (>90) 02/05/17 05:09 Est GFR (Non-Af Amer) > 60.0 ml/min 02/05/17 05:09 BUN/Creatinine Ratio 16.7 02/05/17 05:09 Glucose 102 mg/dL (70-105) 02/05/17 05:09 Calcium 9.3 mg/dL (8.6-10.3) 02/05/17 05:09 Magnesium 2.5 mg/dL (1.9-2.7) 02/04/17 06:00 Total Bilirubin 0.4 mg/dL (0.3-1.0) 02/02/17 05:40 AST 18 U/L (13-39) 02/02/17 05:40 ALT 13 U/L (7-52) 02/02/17 05:40 Alkaline Phosphatase 67 U/L (34-104) 02/02/17 05:40 Total Protein 8.2 gm/dL (6.0-8.3) 02/02/17 05:40 Albumin 4.6 gm/dL (4.2-5.5) 02/02/17 05:40 Globulin 3.6 gm/dL 02/02/17 05:40 Albumin/Globulin Ratio 1.3 (1.0-1.8) 02/02/17 05:40 Blood Type O POSITIVE 02/02/17 05:40 Antibody Screen NEGATIVE 02/02/17 05:40 - Physical Exam Vitals and I&O: Vital Signs Temp 98.0 F 02/05/17 08:00 Pulse 61 02/05/17 08:00 Resp 19 02/05/17 08:00 BP 124/85 02/05/17 08:00 Pulse Ox 98 02/05/17 08:00 Intake & Output 02/04/17 02/05/17 02/05/17 18:59 06:59 18:59 Intake Total 1933.75 1200 Balance 1933.75 1200 Weight (lbs) 47.355 kg 48.308 kg Intake: Intake, IV Amount 933.75 1000 D5-0.45NS 1,000 ml @ 75 933.75 1000 mls/hr IV .[id number] [facility] Rx #:[id number] Oral 600 Albumin 200 Other 400 Other: # Voids 4 2 # Bowel Movements 0 1 Stool Characteristics Liquid Soft Soft Brown Brown Brown Active Medications: Current Medications Acetaminophen (Tylenol 650mg Supp) 650 mg RC Q8H PRN PRN Reason: Pain or Fever >101 Stop: 04/03/17 06:14 Acetaminophen (Tylenol) 650 mg GT Q4HR PRN PRN Reason: Pain or Fever >101 Stop: 04/04/17 09:31 Alendronate Sodium (Fosamax) 70 mg PO QSAT [facility] Stop: 04/08/17 06:29 Ascorbic Acid (Vitamin C) 500 mg GT DAILY [facility] Stop: 04/04/17 09:44 Last Admin: 02/05/17 09:58 Dose: 500 mg Bisacodyl (Dulcolax 10 Mg Supp) 10 mg RC Q96H PRN PRN Reason: Constipation Stop: 04/04/17 09:31 Last Admin: 02/04/17 18:33 Dose: 10 mg Calcium Carbonate (Os-Jesus) 500 mg GT DAILY [facility] Stop: 04/04/17 09:44 Last Admin: 02/05/17 09:58 Dose: 500 mg Docusate Sodium (Colace) 200 mg GT Q12H [facility] Stop: 04/04/17 09:44 Last Admin: 02/05/17 09:58 Dose: 200 mg Dextrose/Sodium Chloride (D5-0.45ns) 1,000 mls @ 75 mls/hr IV .[id number] [facility] Stop: 04/03/17 06:10 Last Admin: 02/04/17 23:30 Dose: 75 mls/hr Magnesium Hydroxide (Milk Of Magnesia) 30 ml PO HS PRN PRN Reason: Constipation Stop: 04/06/17 09:05 Pantoprazole Sodium (Protonix) 40 mg IVP DAILY [facility] Stop: 04/03/17 08:59 Last Admin: 02/05/17 09:58 Dose: 40 mg Pantoprazole Sodium (Protonix) 40 mg GT QDAC [facility] Stop: 04/05/17 07:29 Last Admin: 02/04/17 06:59 Dose: 40 mg Polyethylene Glycol (Miralax) 17 gm GT BID [facility] Stop: 04/04/17 09:44 Last Admin: 02/05/17 09:58 Dose: 17 gm Sodium Phosphate (Fleet Enema) 135 ml RC DAILY PRN PRN Reason: Constipation if MOM ineffectiv Stop: 04/06/17 09:03 Vitamin D (Vitamin D) 400 iu GT DAILY [facility] Stop: 04/04/17 09:44 Last Admin: 02/05/17 09:58 Dose: 400 iu General: Alert HEENT: Atraumatic, EOMI, Mucous membr. moist/pink Neck: Supple, Other (mo LAD) Cardiovascular: Normal S1, Normal S2 Lungs: Clear to auscultation Abdomen: Soft, Other (non tender, non distended) - Procedures Procedures: Procedures Procedure Code Date CHANGE FEEDING DEVICE IN UP INTEST TRACT, PSYCHIATRIC NURSING ASSISTANT APPROACH [id number] 02/02/17 CHANGE GASTROSTOMY TUBE 99144 02/02/17 DIAGNOSTIC COLONOSCOPY 39733 06/26/16 EGD BIOPSY SINGLE/MULTIPLE 93505 12/22/13 ESOPHAGOGASTRODUODENOSCOPY [EGD] W/CLOSED BIOPSY 45.16 12/22/13 INFLUENZA VACCINATION 99.52 07/14/13 INSERT INDWELLING CATH 57.94 05/17/12 INSERT INTESTINAL TUBE 96.08 05/17/12 INSERT PICC CATH 98827 05/17/12 INSERT TEMP BLADDER CATH 19299 05/17/12 INSPECTION OF LOWER INTESTINAL TRACT, ENDO [id number] 06/26/16 OPEN AND OTHER CECECTOMY 45.72 05/17/12 OPEN AND OTHER RIGHT HEMICOLECTOMY 45.73 05/17/12 PARTIAL REMOVAL OF COLON 73114 05/17/12 UNLISTED PX SMALL INTESTINE 45607 05/17/12 VENOUS CATHETERIZATION NEC 38.93 05/17/12 Assessment/Plan - Problem List Patient Problems: All Active Problems CONSTIPATION WITH POOR INTAKE (Acute) coffee ground vomitus (Acute) - Assessment Assessment: # PEG tube malfunction - s/p G tube change on 02/02, functioning well at this time - No evidence of GI bleeding when flushing the G tube. Drop in hgb is likely dilutional given all cell lines dropped # Constipation - Now s/p golytely bowel prep on 02/03 with multiple BMs. Improved. Would maintain pt on strong bowel regimen on discharge Thank you for allowing me to participate in the care of this patient.
== END 2017-02-05 17:15 | disposition home or self-care (01) | DRG 252 ==
LOC: ER 05:10 → MSI 06:00
PROVIDERS: ADMIT Internal Medicine; ATTEND Internal Medicine
PROC: 0D20XUZ Change Feeding Device in Upper Intestinal Tract, External Approach (ICD-10-PCS; principal; 2017-02-02)
DX: K94.23 Gastrostomy malfunction (principal); G82.50 Quadriplegia, unspecified; F73 Profound intellectual disabilities; F03.90 Unspecified dementia, unspecified severity, without behavioral disturbance, psychotic disturbance, mood disturbance, and anxiety; K92.2 Gastrointestinal hemorrhage, unspecified; R13.10 Dysphagia, unspecified; K56.41 Fecal impaction; M19.90 Unspecified osteoarthritis, unspecified site; M81.0 Age-related osteoporosis without current pathological fracture; K21.9 Gastro-esophageal reflux disease without esophagitis; K56.7 Ileus, unspecified; Y83.8 Other surgical procedures as the cause of abnormal reaction of the patient, or of later complication, without mention of misadventure at the time of the procedure; Y92.89 Other specified places as the place of occurrence of the external cause
CPT/HCPCS: 36415-UA; 74000-TC; 80048-TC; 80053-TC; 83735-TC; 85007-TC; 85025-TC; 85027-TC; 85610-TC; 86850-TC; 86900-TC; 86901-TC; 96374; C9113; X3401; X7704; Z7610

== ENCOUNTER 2017-05-09 22:20 | Emergency (ER) | payer MEDICAID ==
--- NOTE | 2017-05-09 22:26 | ED Physician Chart ---
ED Chief Complaint/HPI - Patient Information Date Seen:: 05/09/17 Time Seen:: 22:26 Chief Complaint:: DISPLACED G-TUBE AT 8:55 PM. History of Present Illness:: PT WITH SEVERE MENTAL DISABILITY AND UNABLE TO PROVIDE ANY INFORMATION. IS SMILING WITH A WANDERING GAZE. NO ACUTE DISTRESS. HAS CEREBRAL PALSY associated quadriplegia. Allergies:: Allergies Allergy/AdvReac Type Severity Reaction Status Date / Time No Known Allergies Allergy Verified 06/26/16 23:32 Historian:: EMS Review:: Nurse's Note Reviewed (nurses triage notes/hard copy reviewed.) ED Review of Systems - Review of Systems General/Constitutional: No fever, No chills, Other (history of no fever or chills obtained from nursing facility. Patient unable to provide any further ROS) Family Medical History - Family Member Mother History Unknown: Yes Ethnicity: Non- Living Status: Still Living ED Physical Exam - Physical Examination General/Constitutional: Awake, Well-developed, well-nourished, Alert, No distress, Non-toxic appearing Head: Atraumatic Eyes: Lids, conjuctiva normal, PERRL, EOMI Other Eyes comments:: Patient with marked horizontal nystagmus with rightward gaze. Skin: Nl inspection, No rash, No skin lesions, No ecchymosis, Well hydrated ENMT: External ears, nose nl Other ENMT comments:: Patient is noncooperative with oral examination and keeps his mouth clenched closed. Neck: Nontender, No JVD, No bruit, No stridor Respiratory: Nl effort/Exclusion, Clear to Auscultation, No Wheeze/Rhonchi/Rales Cardio Vascular: RRR, No murmur, gallop, rubs, NL S1 S2 Other Cardio Vascular comments:: Adequate pulses all 4 extremities. GI: No tenderness/rebounding/guarding, No organomegaly, No hernia, Normal BS's, Nondistended, No mass/bruits, No McBurney tenderness Other GI comments:: Well-healed vertical surgical scar in the midline. G-tube stoma with Naylor catheter in the left upper quadrant. : No CVA tenderness Extremities: No tenderness or effusion, No edema Other Extremities comments:: Patient with contractures in both hands and feet. Minimal movement in extremities to light touch. Other Neuro/Psych comments:: Alert with wandering gaze. Patient is completely nonverbal. His not follow simple commands such as open your mouth or look at my light. Misc: No paraspinal tenderness ED Labs/Radiology/EKG Results - Lab Results Results: Contrast material was injected into the replaced G-tube and confirmed intraluminal positioning of the tube. ED Assessment - Assessment General Assessment: CASE SUMMARY: This 32-year-old male with severe mental impairment from cerebral palsy was brought to the emergency department from his nursing facility E cause of displacement of the G-tube which was noted just before 9 PM. On physical examination the patient was in no acute distress and there was a Naylor catheter protruding from the G-tube stoma in the left upper quadrant. A Naylor catheter was removed and a size 18 G-tube was replaced without difficulty. Radiographic confirmation of tube placement is pending at this time. ED Septic Shock - . Is Septic Shock (SBP<90, OR Lactate>4 mmol\L) present?: No ED Reassessment (Disposition) - Reassessment Reassessment Condition:: Improved - Diagnosis Diagnosis:: DISPLACED GASTROSTOMY TUBE. SEVERE MENTAL DISABILITY RETURN TO THE ER ANY FURTHER PROLEMS. - Patient Disposition Discharge/Transfer:: [facility] Inserter Care - SNF
[2017-05-09] MEDS ORDERED: Diatrizoate Meglumine/Diatri 30 mL Sol ONE (23:40)
--- NOTE | 2017-05-10 09:03 | Diagnostic Imaging Report ---
Upper GI with Gastrografin HISTORY: G-tube confirmation COMPARISON: Upper GI examination on 02/02/2017 FINDINGS: Prekindergarten Teacher view demonstrates diffuse distended loops of bowel with copious amount of stool in distal fecal impaction. A percutaneous feeding tube is noted. Spinal scoliosis is noted The second image demonstrates contrast opacification of the stomach and small bowel loops. IMPRESSION: Intraluminal confirmation of patient's percutaneous gastric feeding tube.
== END 2017-05-10 00:30 ==
LOC: ER 22:20
DX: K94.23 Gastrostomy malfunction (principal); F72 Severe intellectual disabilities; Z43.1 Encounter for attention to gastrostomy
CPT/HCPCS: Z7502; Z7610

== ENCOUNTER 2018-07-09 11:51 | Inpatient (IN) | payer MEDICAID ==
[2018-07-09 12:30] LABS: INR 1.06 (0.5-1.4)
[2018-07-09 12:35] LABS: ALB/GLOB RATIO 1.3 (1.0-1.8); ALKALINE PHOSPHATASE 69 U/L (34-104); ANION GAP 20.4 (7.0-16.0); BILIRUBIN,TOTAL 0.5 mg/dL (0.3-1.0); BUN - UREA NITROGEN 28 mg/dL (7-25); CALCIUM SERUM 10.7 mg/dL (8.6-10.3); CARBON DIOXIDE 24.8 mEq/L (21.0-31.0); CHLORIDE 95 mEq/L (98-107); CREATININE - SERUM 0.8 mg/dL (0.7-1.3); GFR AFRICAN-AMERICAN > 60.0 ml/min (>90); GFR NON AFRICAN-AMERICAN > 60.0 ml/min; GLUCOSE 133 mg/dL (70-105); POTASSIUM SERUM 4.2 mEq/L (3.5-5.1); SGOT 17 U/L (13-39); SGPT/ALT 14 U/L (7-52); SODIUM SERUM 136 mEq/L (136-145); TOTAL PROTEIN,SERUM 8.9 gm/dL (6.0-8.3)
[2018-07-09] MEDS ORDERED: IOHEXOL 300mgI/mL 100 ML VIAL ONE (12:49)
[2018-07-09 12:50] LABS: HEMATOCRIT 54.9 % (41.0-60); HEMOGLOBIN 17.9 gm/dL (12-16); MEAN CELL VOLUME 91.2 fl (80-99); MEAN CORPUSCULAR HEMOGLOBIN 29.7 pg (26.0-30.0); MEAN CORPUSCULAR HGB CONC 32.6 pg (28.0-36.0); MEAN PLATELET VOLUME 7.4 fl; PLATELET COUNT 253 Th/cmm (150-400); RED BLOOD COUNT 6.02 Mil/cmm (4.30-5.70); RED CELL DISTRIBUTION WIDTH 12.2 % (11.5-20.0); WHITE BLOOD COUNT 11.6 Th/cmm (4.8-10.8)
--- NOTE | 2018-07-09 12:50 | ED Physician Chart ---
ED Chief Complaint/HPI - Patient Information Date Seen:: 07/09/18 Time Seen:: 12:25 Chief Complaint:: vomiting History of Present Illness:: this is a chronically cp patient from the long term for an evaluation of his vomiting once this am. Allergies:: Allergies Allergy/AdvReac Type Severity Reaction Status Date / Time No Known Allergies Allergy Verified 06/26/16 23:32 Vitals:: Vital Signs - 8 hr 07/09/18 12:18 Temp 100.3 F HR 87 RR 19 BP 131/90 O2 Sat % 96 Historian:: Medical Records Review:: Nurse's Note Reviewed, Transfer documents Reviewed ED Review of Systems - Review of Systems General/Constitutional: No fever, No chills, No weight loss, No weakness, No diaphoresis, No edema, No loss of appetite, Other (the patient is unable to give a review of systems) Skin: No skin lesions, No rash, No bruising Head: No headache, No light-headedness Eyes: No loss of vision, No pain, No diplopia ENT: No earache, No nasal drainage, No sore throat, No tinnitus Neck: No neck pain, No swelling, No thyromegaly, No stiffness, No mass noted Cardio Vascular: No chest pain, No palpitations, No PND, No orthopnea, No edema Pulmonary: No SOB, No cough, No sputum, No wheezing GI: No nausea, No vomiting, No diarrhea, No pain, No melena, No hematochezia, No constipation, No hematemesis G/U: No dysuria, No frequency, No hematuria Musculoskeletal: No bone or joint pain, No back pain, No muscle pain Endocrine: No polyuria, No polydipsia Psychiatric: No prior psych history, No depression, No anxiety, No suicidal ideation Hematopoietic: No bruising, No lymphadenopathy Allergic/Immuno: No urticaria, No angioedema Neurological: No syncope, No focal symptoms, No weakness, No paresthesia, No headache, No seizure, No dizziness, No confusion, No vertigo ED Past Medical History - Past Medical History Obtainable: Yes Past Medical History: Dementia, Other (cp that is quadraplegic) Family Medical History - Family Member Mother History Unknown: Yes Ethnicity: Non- Living Status: Still Living ED Physical Exam - Physical Examination General/Constitutional: Awake, Well-developed, well-nourished, Alert, No distress, GCS 15, Non-toxic appearing, Ambulatory Other Gen/Cons comments:: 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 Head: Atraumatic Eyes: Lids, conjuctiva normal, PERRL, EOMI Skin: Nl inspection, No rash, No skin lesions, No ecchymosis, Well hydrated, No lymphadenopathy ENMT: External ears, nose nl, Nasal exam nl, Lips, teeth, gums nl Neck: Nontender, Full ROM w/o pain, No JVD, No nuchal rigidity, No bruit, No mass, No stridor Respiratory: Nl effort/Exclusion, Clear to Auscultation, No Wheeze/Rhonchi/Rales Cardio Vascular: RRR, No murmur, gallop, rubs, NL S1 S2 GI: No tenderness/rebounding/guarding, No organomegaly, No hernia, Normal BS's, Nondistended, No mass/bruits, No McBurney tenderness Other GI comments:: g-tube noted and functioning ok : No CVA tenderness Extremities: No tenderness or effusion, Full ROM, normal strength in all extremities, No edema, Normal digits & nails Neuro/Psych: Alert/oriented, DTR's symmetric, Normal sensory exam, Normal motor strength, Judgement/insight normal, Mood normal, Normal gait, No focal deficits Misc: Normal back, No paraspinal tenderness ED Assessment - Assessment General Assessment: vomiting ED Septic Shock - . Is Septic Shock (SBP<90, OR Lactate>4 mmol\L) present?: No - <6hrs of presentation: Vital Signs: Vital Signs - 8 hr 07/09/18 12:18 Temp 100.3 F HR 87 RR 19 BP 131/90 O2 Sat % 96 ED Reassessment (Disposition) - Patient Disposition Discharge/Transfer:: Acute Care w/in this hosp Admitting Medical Physician:: Sobia Menard
[2018-07-09 13:08] LABS: BAND NEUTROPHILE 0 % (0-10); BASOPHIL 0 % (0-3); EOSINOPHIL 0 % (0-5); LYMPHOCYTE 6 % (20-50); MONOCYTE 2 % (2-10); NEUTROPHILS 92 % (40-80)
--- NOTE | 2018-07-09 13:32 | Diagnostic Imaging Report ---
CT scan abdomen and pelvis with intravenous contrast HISTORY: Vomiting Total DLP equals 481 CTDI equals 8.8 Following administration of intravenous contrast, axial sections were obtained from the xiphoid process down to the pubic symphysis. Limited sections through the lower chest demonstrated fluid filled dilated esophagus. There is a markedly dilated and fluid-filled stomach. Gastrostomy tube noted. Multiple loops of fluid-filled dilated small bowel are seen. Dilated fluid-filled colon is also noted. There is a severely distended stool-filled air-filled rectum and sigmoid colon. Findings suggest obstruction. Clinical correlation is needed. The liver exhibits a homogeneous parenchyma. No focal lesions. The spleen appears normal. No focal abnormality seen within the pancreas. No focal renal lesions. No hydronephrosis. No other abnormal masses or fluid collections seen within the pelvis. IMPRESSION: 1. Markedly predominantly fluid-filled dilated distal esophagus, stomach, small bowel, and colon. Changes are associated with a markedly dilated air and stool-filled rectum and sigmoid colon. Changes consistent with obstruction. Clinical correlation is needed. 2. Gastrostomy tube
[2018-07-09] MEDS ORDERED: Diatrizoate Meglumine/Diatri 30 mL Sol PO ONE (14:25)
[2018-07-09] MEDS: D5-0.45NS 1,000 ML IV SCH (15:46)
[2018-07-09] MEDS ORDERED: Pneumococcal Vaccine 0.5 mL Vial IM ONE (20:04)
[2018-07-09] MEDS ORDERED: Influenza Vaccine (5 yr & older) 0.5 ml Syr IM ONE (20:04)
[2018-07-10] MEDS ORDERED: Fleet Enema 135 mL RC PRN (00:13)
[2018-07-10] MEDS ORDERED: Magnesium Hydroxide (MOM) 30 mL UDC GT PRN (00:15)
[2018-07-10] MEDS: D5-0.45NS 1,000 ML IV SCH (04:27)
[2018-07-10] MEDS: MELOXICAM 7.5 MG GT SCH ×2 (08:11→17:43)
[2018-07-10] MEDS: POLYETHYLENE GLYCOL 3350 17 GM PACK GT SCH ×2 (08:12→17:43)
[2018-07-10] MEDS: Multivitamin w/ Minerals Tab GT SCH (08:12)
[2018-07-10] MEDS ORDERED: Pantoprazole 40 mg EC Tab PO SCH (08:30)
--- NOTE | 2018-07-10 08:31 | Diagnostic Imaging Report ---
Small bowel follow-through HISTORY: Abdominal distention, question obstruction The preliminary netbackup admin radiograph demonstrates contrast filled distorted shape urinary bladder displaced to the right side of the pelvis. This corresponds to findings noted on a prior CT scan of 07/09/2018. Changes related to a severely distended stool-filled rectum. Water-soluble contrast administered orally. There was free flow of contrast from the stomach into the duodenum. Mild to moderately dilated loops of small bowel are seen. Slight delayed transit in the passage of contrast to the colon. However, no focal point of obstruction is seen. IMPRESSION: 1. Mildly dilated small bowel along with a mild delay in small bowel transit time. No focal point of obstruction identified. 2. Severely distended stool-filled rectum with displacement of the urinary bladder to the right side. Findings consistent with a fecal impaction.
[2018-07-10 08:59] LABS: % BASOPHILS 0.4 % (0.0-2.0); % EOSINOPHILS 2.5 % (0.0-5.0); % LYMPHOCYTES 32.9 % (20.0-50.0); % MONOCYTES 7.2 % (2.0-10.0); EOSINOPHILE ABSOLUTE 0.2 Th/cmm (0.1-0.4); LYMPHOCYTE ABSOLUTE 2.5 Th/cmm (1.5-3.0); MEAN CELL VOLUME 90.7 fl (80-99); MEAN CORPUSCULAR HEMOGLOBIN 29.8 pg (26.0-30.0); MEAN CORPUSCULAR HGB CONC 32.8 pg (28.0-36.0); MEAN PLATELET VOLUME 6.7 fl; MONOCYTE ABSOLUTE 0.5 Th/cmm (0.3-1.0); NEUTROPHILE ABSOLUTE 4.4 Th/cmm (1.8-8.0); RED BLOOD COUNT 4.98 Mil/cmm (4.30-5.70); RED CELL DISTRIBUTION WIDTH 12.1 % (11.5-20.0); WHITE BLOOD COUNT 7.6 Th/cmm (4.8-10.8)
[2018-07-10] MEDS ORDERED: Docusate Sodium 100 mg/10 mL UD GT SCH (09:00)
[2018-07-10 09:03] LABS: INR 1.11 (0.5-1.4); PROTHROMBIN TIME (TEST) 11.4 SECONDS (9.5-11.5)
[2018-07-10 09:04] LABS: HEMATOCRIT 45.1 % (41.0-60); HEMOGLOBIN 14.8 gm/dL (12-16); PLATELET COUNT 194 Th/cmm (150-400)
[2018-07-10 09:12] LABS: ALB/GLOB RATIO 1.3 (1.0-1.8); ALBUMIN 3.9 gm/dL (4.2-5.5); ALKALINE PHOSPHATASE 46 U/L (34-104); ANION GAP 11.3 (7.0-16.0); BILIRUBIN,TOTAL 0.5 mg/dL (0.3-1.0); BUN - UREA NITROGEN 30 mg/dL (7-25); CALCIUM SERUM 8.9 mg/dL (8.6-10.3); CARBON DIOXIDE 30.2 mEq/L (21.0-31.0); CHLORIDE 104 mEq/L (98-107); CREATININE - SERUM 0.7 mg/dL (0.7-1.3); GFR AFRICAN-AMERICAN > 60.0 ml/min (>90); GFR NON AFRICAN-AMERICAN > 60.0 ml/min; GLUCOSE 113 mg/dL (70-105); MAGNESIUM 2.6 mg/dL (1.9-2.7); POTASSIUM SERUM 4.5 mEq/L (3.5-5.1); SGOT 16 U/L (13-39); SGPT/ALT 12 U/L (7-52); SODIUM SERUM 141 mEq/L (136-145); TOTAL PROTEIN,SERUM 6.8 gm/dL (6.0-8.3)
[2018-07-10] MEDS: Docusate Sodium 100 mg/10 mL UD GT SCH ×2 (09:35→20:32)
[2018-07-10] MEDS: cefTRIAXone 1 GM in Sodium Chloride 0.9% 50 ML IV SCH (14:45)
--- NOTE | 2018-07-10 14:46 | History & Physical ---
ADMIT DATE: 07/10/2018 CHIEF COMPLAINT: Vomiting. HISTORY OF PRESENT ILLNESS: This is a 33-year-old disabled gentleman with profound intellectual disability, cerebral palsy, history of dysphagia with a PEG in place, history of GERD, who presented to the ED with 1-day history of multiple emesis. Pertinent findings at the ED include a CT of the abdomen and pelvis showing; 1. Markedly predominantly fluid filled dilated distal esophagus, stomach, small bowel and colon. Changes are associated with a markedly distended air and stool filled rectum and sigmoid colon. These changes are consistent with obstruction. 2. Gastrostomy tube is in place. The patient was last admitted to this facility on 02/02/2017 for coffee-ground emesis/GI bleed and a malfunctioning gastrostomy tube. At that time, he underwent an EGD with PEG placement and apparently, the patient has been stable since then until yesterday given the above-mentioned findings. PAST MEDICAL HISTORY: Profound intellectual disability, cerebral palsy, acid reflux disease, history of osteoarthritis, osteoporosis, and constipation. PAST SURGICAL HISTORY: Include PEG placement. There is also evidence of back surgeries, although they are not mentioned on his medical records. FAMILY HISTORY: Likely noncontributory to this admission. SOCIAL HISTORY: No tobacco. No ETOH or illicit drug usage. ALLERGIES: NKDA. OUTPATIENT MEDICATIONS: Tylenol 650 q. 4 p.r.n. for pain, Fosamax 70 mg q. Thursday, vitamin C 500 mg daily, Dulcolax suppository 10 mg q. 96 hours for constipation, calcium carbonate 500 mg every day, Colace 200 mg q.12 hours, Nexium 40 mg every day, Fleet enema 135 mL q. 96 hours p.r.n. for severe constipation, magnesium hydroxide 30 mL q. 72 hours, meloxicam 7.5 b.i.d., multivitamins and minerals daily, nitroglycerin p.r.n. 0.4 for chest pain, MiraLax 17 g b.i.d., vitamin D 400 international units every day. REVIEW OF SYSTEMS: Unable to be done given patient's condition. PHYSICAL EXAMINATION: VITAL SIGNS: Temperature 97.4, pulse 70, respirations 18, BP 102/70 with sats of 93-94% on room air. GENERAL: He is a well-nourished, developmentally delayed male, currently awake, appears to be in no distress. HEAD AND NECK: Pupils are equal and reactive to light. Extraocular movements appear to be intact. Oropharynx moist and clear. CARDIOVASCULAR: Regular rate and rhythm without any murmurs. LUNGS: Clear to auscultation bilaterally. ABDOMEN: Somewhat distended. Currently, nontender with hypoactive bowel sounds. There are no peritoneal signs. No rebound noted. EXTREMITIES: Lower extremities, there is no edema. Both upper and lower extremities are contracted. LABORATORY DATA: On admission, white count 11.6, H and H 17/54, and platelet count of 253. Chem-7 showed a BUN of 28 with glucose of 133, otherwise within normal limits. Alkaline phosphatase 69, AST 17, ALT 14 with an albumin level of 5.0. DIAGNOSTICS: Please refer to HPI. IMPRESSION: 1. Small-bowel obstruction (Ddx 2ry to fecal impaction/ileus). 2. Mild leukocytosis 3. Mild renal insufficiency/azotemia. 4. History of dysphagia, status post PEG placement. 5. History of cerebral palsy/mental disability. 6. History of acid reflux disease. 7. History of osteoarthritis. 8. History of osteoporosis. PLAN: The patient has been admitted to the medical/surgical floor where he has been placed on IV fluids, hydration and empiric IV antibiotics. He also has been placed on Protonix IV. GI as well as a surgical consult will be placed for further management and care. JOB# [id number] MTDD
[2018-07-10] MEDS ORDERED: MINERAL OIL ENEMA 135 ML BOTTLE RC ONE (16:45)
--- NOTE | 2018-07-10 17:18 | Consultation ---
DATE OF CONSULTATION: 07/10/2018 REQUESTING PHYSICIAN: Dr. Dean Ryan. REASON FOR CONSULTATION: Megacolon, megaesophagus, megastomach. Thank you for asking me to see this patient in consultation. HISTORY OF PRESENT ILLNESS: This is a 33-year-old male with cerebral palsy as well as mostly chronic bedbound state as well as G-tube dependent, who presents to the hospital with 1-day history of emesis. The patient had a CT scan of the abdomen and pelvis, which showed a predominantly fluid filled distal esophagus, stomach, small bowel and colon, which was markedly distended with air. There was prominent amount of stool within the distal colon. The patient since arrival has been able to start passing more gas and had a large BM before my evaluation. PAST MEDICAL HISTORY: Profound intellectual disability and cerebral palsy. PAST SURGICAL HISTORY: Including a PEG placement. FAMILY HISTORY: Noncontributory for GI disease. SOCIAL HISTORY: Denies any tobacco, alcohol, or drugs. MEDICATIONS: Have been reviewed. PHYSICAL EXAMINATION: VITAL SIGNS: Temperature 97.4, pulse 70, respirations 18, blood pressure 102/70 with saturating 94% on room air. GENERAL: He is in no acute distress. He appears smiling and jovial. HEENT: Normocephalic, atraumatic. PERRLA positive. LUNGS: Clear bilaterally. No wheezes, rales, or rhonchi. ABDOMEN: Soft, slightly distended, hypertympanic to percussion. EXTREMITIES: Show no lower extremity edema. PSYCHOLOGICAL: Could not assess. LABORATORY DATA: White count of 11,000, platelets of 253,000, AST of 17, ALT of 14, albumin of 5.0. BUN 28, creatinine 0.8. Hemoglobin of 17.9, currently 14.8. IMAGING: CT of the abdomen and pelvis on personal review shows very large distended colon and small bowel loops as well with distal fecal impaction. ASSESSMENT AND PLAN: This is a 33-year-old male with intellectual disability, cerebral palsy, G-tube dependent and chronically bedbound, who presents with increased emesis and abdominal distention with findings as above on CT scan. 1. Severe abdominal organ distention. 2. Distal rectal fecal impaction causing sequelae. 3. Severe dehydration likely contributing as well to #1. 4. Severe constipation. 5. Megastomach, megaesophagus, megacolon. I believe that the constellation of his findings and presentation are likely related to severe distal rectal impaction with stool. We would recommend aggressive care with both tap water enema and mineral oil enema if patient does not have a bowel movement. Since he has already had a bowel movement, we can just use one of these enemas and reserve the other one if the x-ray that we checked tomorrow shows residual distal fecal impaction. The patient likely will be able to pass more air after having a large bowel movement; however, if he does not do so an NG tube may be of further assistance. If he indeed has a classic [place] syndrome that occurs even after removal of the fecal impaction and we can consider some other medication options; however, for now, we will recommend conservative management. I will also start Reglan 5 mg IV q. 8 hours for now. Thank you for allowing us to participate in this patient's care. JOB# [id number]
--- NOTE | 2018-07-10 19:01 | Consultation ---
DATE OF CONSULTATION: 07/10/2018 TIME OF CONSULTATION 08:18 a.m. HISTORY OF PRESENT ILLNESS: The patient is a 33-year-old male with cerebral palsy. He is mentally handicapped, nonverbal, presented to the hospital for vomiting. He denies any significant abdominal pain. Denies any significant distress at this time. Not much history is known about him. ALLERGIES: He has no known drug allergies. PHYSICAL EXAMINATION: GENERAL: He is afebrile. VITAL SIGNS: Otherwise stable. He is 48 kilograms. BMI of 17.1. HEAD AND NECK: Within normal limits. CHEST: Clear to auscultation bilaterally. CARDIOVASCULAR: Regular rate. ABDOMEN: Somewhat distended. He has got a G-tube in place. He has a midline abdominal incision which is well healed. There is no obvious ventral hernias noted. NEUROVASCULAR: Otherwise normal. RECTAL: Digital rectal examination was performed. There is no anorectal mass, is a dilated rectum. He has stool within the rectal vault, but not constipated or no fecal impaction. LABORATORY DATA: His white blood cell count 11.6, H and H is 17.9 and 54.9, platelet count 253. Coags are normal. Chloride 95, BUN 28, calcium 10.7. Troponin less than 0.01. RADIOGRAPHIC STUDIES: The CT abdomen and pelvis reviewed, the results noted, shows marked predominantly fluid filled dilated distal esophagus, stomach, small bowel and colon. Changes are associated with a markedly dilated air and stool filled rectum and sigmoid colon, changes consistent with obstruction versus severe ileus and patient has a gastrostomy tube as well too. 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 I would recommend GI either do a flexible sigmoidoscopy versus a colonoscopy to evaluate his colon. If that is clear and the colon is decompressed, we would recommend a small bowel series to evaluate the small bowel. He is afebrile. He does have a mild leukocytosis, but he has a fairly benign abdominal examination. I do not think that he is a surgical candidate at this point or there is a need for surgery as this may be an paralytic ileus process. Forsan syndrome should be considered in the differential, rule out obstructive lesion, although dilation of the colon goes all the way down to the sigmoid and rectum and digital rectal examination reveals no obvious mass or fecal impaction. We will follow closely. Would keep the patient n.p.o. until GI evaluates the patient. JOB# [id number]
[2018-07-10] MEDS: Metoclopramide 5 mg/mL 2mL Vial IVP SCH (20:32)
[2018-07-11] MEDS: D5-0.45NS 1,000 ML IV SCH ×3 (02:17→22:24)
[2018-07-11] MEDS: Metoclopramide 5 mg/mL 2mL Vial IVP SCH ×3 (04:20→22:04)
[2018-07-11 07:01] LABS: % BASOPHILS 0.3 % (0.0-2.0); % EOSINOPHILS 4.2 % (0.0-5.0); % LYMPHOCYTES 40.5 % (20.0-50.0); % MONOCYTES 8.1 % (2.0-10.0); % NEUTROPHILS 46.9 % (40.0-80.0); EOSINOPHILE ABSOLUTE 0.2 Th/cmm (0.1-0.4); HEMATOCRIT 42.7 % (41.0-60); HEMOGLOBIN 13.7 gm/dL (12-16); LYMPHOCYTE ABSOLUTE 2.2 Th/cmm (1.5-3.0); MEAN CELL VOLUME 90.8 fl (80-99); MEAN CORPUSCULAR HEMOGLOBIN 29.2 pg (26.0-30.0); MEAN CORPUSCULAR HGB CONC 32.2 pg (28.0-36.0); MEAN PLATELET VOLUME 7.2 fl; MONOCYTE ABSOLUTE 0.4 Th/cmm (0.3-1.0); NEUTROPHILE ABSOLUTE 2.7 Th/cmm (1.8-8.0); PLATELET COUNT 161 Th/cmm (150-400); RED CELL DISTRIBUTION WIDTH 12.1 % (11.5-20.0); WHITE BLOOD COUNT 5.5 Th/cmm (4.8-10.8)
[2018-07-11 07:18] LABS: ANION GAP 14.9 (7.0-16.0); BUN - UREA NITROGEN 14 mg/dL (7-25); CARBON DIOXIDE 24.2 mEq/L (21.0-31.0); CHLORIDE 105 mEq/L (98-107); GLUCOSE 104 mg/dL (70-105); MAGNESIUM 2.3 mg/dL (1.9-2.7); POTASSIUM SERUM 4.1 mEq/L (3.5-5.1); SODIUM SERUM 140 mEq/L (136-145)
[2018-07-11 08:29] LABS: CREATININE - SERUM 0.5 mg/dL (0.7-1.3); GFR AFRICAN-AMERICAN > 60.0 ml/min (>90); GFR NON AFRICAN-AMERICAN > 60.0 ml/min
--- NOTE | 2018-07-11 10:00 | Diagnostic Imaging Report ---
KUB abdominal film HISTORY: Abdominal distention Compared with the prior radiograph associated with a small bowel follow-through of 07/09/2018, radiopaque contrast remains within mildly dilated large bowel. Persistent air-filled loops of mildly dilated small bowel seen. Radiopaque contrast remains within the urinary bladder. Decreased stool within the rectal region. IMPRESSION: 1. Decreased stool within the rectal region 2. Persistent radiopaque contrast within mildly dilated large bowel along with persistent loops of mildly dilated small bowel. Significance of the findings should be correlated clinically.
[2018-07-11] MEDS: Docusate Sodium 100 mg/10 mL UD GT SCH ×2 (10:17→22:05)
[2018-07-11] MEDS: MELOXICAM 7.5 MG GT SCH (10:18)
[2018-07-11] MEDS: Multivitamin w/ Minerals Tab GT SCH (10:18)
[2018-07-11] MEDS: POLYETHYLENE GLYCOL 3350 17 GM PACK GT SCH ×2 (10:18→16:37)
--- NOTE | 2018-07-11 11:21 | GI Progress Note ---
Subjective - Review of Systems Service Date: 07/11/18 Events since last encounter: No events, pt doing well; had a large bowel movement this Am Objective - Results Result Diagrams: 07/11/18 06:05 07/11/18 06:05 Recent Labs: Laboratory Last Values WBC 5.5 Th/cmm (4.8-10.8) 07/11/18 06:05 RBC 4.70 Mil/cmm (4.30-5.70) 07/11/18 06:05 Hgb 13.7 gm/dL (12-16) 07/11/18 06:05 Hct 42.7 % (41.0-60) 07/11/18 06:05 MCV 90.8 fl (80-99) 07/11/18 06:05 MCH 29.2 pg (26.0-30.0) 07/11/18 06:05 MCHC Differential 32.2 pg (28.0-36.0) 07/11/18 06:05 RDW 12.1 % (11.5-20.0) 07/11/18 06:05 Plt Count 161 Th/cmm (150-400) 07/11/18 06:05 MPV 7.2 fl 07/11/18 06:05 Add Manual Diff YES 07/09/18 12:05 Neutrophils % 46.9 % (40.0-80.0) 07/11/18 06:05 Band Neutrophils % 0 % (0-10) 07/09/18 12:05 Lymphocytes % 40.5 % (20.0-50.0) 07/11/18 06:05 Monocytes % 8.1 % (2.0-10.0) 07/11/18 06:05 Eosinophils % 4.2 % (0.0-5.0) 07/11/18 06:05 Basophils % 0.3 % (0.0-2.0) 07/11/18 06:05 Neutrophils (Manual) 92 % (40-80) H 07/09/18 12:05 Lymphocytes 6 % (20-50) L 07/09/18 12:05 Monocytes 2 % (2-10) 07/09/18 12:05 Eosinophils 0 % (0-5) 07/09/18 12:05 Basophils 0 % (0-3) 07/09/18 12:05 PT 11.4 SECONDS (9.5-11.5) 07/10/18 08:44 INR 1.11 (0.5-1.4) 07/10/18 08:44 PTT (Actin FS) 26.7 SECONDS (26.0-38.0) 07/09/18 12:05 Sodium 140 mEq/L (136-145) 07/11/18 06:05 Potassium 4.1 mEq/L (3.5-5.1) 07/11/18 06:05 Chloride 105 mEq/L (98-107) 07/11/18 06:05 Carbon Dioxide 24.2 mEq/L (21.0-31.0) 07/11/18 06:05 Anion Gap 14.9 (7.0-16.0) 07/11/18 06:05 BUN 14 mg/dL (7-25) 07/11/18 06:05 Creatinine 0.5 mg/dL (0.7-1.3) L 07/11/18 06:05 Est GFR ( Amer) > 60.0 ml/min (>90) 07/11/18 06:05 Est GFR (Non-Af Amer) > 60.0 ml/min 07/11/18 06:05 BUN/Creatinine Ratio 28.0 07/11/18 06:05 Glucose 104 mg/dL (70-105) 07/11/18 06:05 Calcium 9.0 mg/dL (8.6-10.3) 07/11/18 06:05 Magnesium 2.3 mg/dL (1.9-2.7) 07/11/18 06:05 Total Bilirubin 0.5 mg/dL (0.3-1.0) 07/10/18 08:44 AST 16 U/L (13-39) 07/10/18 08:44 ALT 12 U/L (7-52) 07/10/18 08:44 Alkaline Phosphatase 46 U/L (34-104) 07/10/18 08:44 Troponin I < 0.01 ng/mL (0.01-0.05) L 07/09/18 12:05 Total Protein 6.8 gm/dL (6.0-8.3) 07/10/18 08:44 Albumin 3.9 gm/dL (4.2-5.5) L 07/10/18 08:44 Globulin 2.9 gm/dL 07/10/18 08:44 Albumin/Globulin Ratio 1.3 (1.0-1.8) 07/10/18 08:44 TSH 0.61 uIU/ml (0.34-5.60) 07/09/18 12:40 - Physical Exam Vitals and I&O: Vital Signs Temp 97.9 F 07/11/18 08:09 Pulse 77 07/11/18 08:09 Resp 18 07/11/18 08:09 BP 122/74 07/11/18 08:09 Pulse Ox 99 07/11/18 08:09 Intake & Output 07/10/18 07/11/18 07/11/18 18:59 06:59 18:59 Intake Total 1050 Balance 1050 Weight (lbs) 48.081 kg 48.534 kg Intake: Intake, IV Amount 1050 D5-0.45NS 1,000 ml @ 100 1000 mls/hr IV .Q10H [facility] Rx#: [id number] cefTRIAXone 1 gm In 50 Sodium Chloride 0.9% 50 ml @ 100 mls/hr IV Q24HR [facility] Rx#:[id number] Other: # Voids 3 3 # Bowel Movements 2 1 Weight Source Bedscale Bedscale Active Medications: Current Medications Acetaminophen (Tylenol) 650 mg GT Q4HR PRN PRN Reason: Pain Or Fever >99.9 Stop: 09/08/18 00:12 Alendronate Sodium (Fosamax) 70 mg PO QSAT [facility] Stop: 09/08/18 00:14 Last Admin: 07/10/18 00:25 Dose: Not Given Ascorbic Acid (Vitamin C) 500 mg GT DAILY [facility] Stop: 09/08/18 08:59 Last Admin: 07/11/18 10:17 Dose: Not Given Bisacodyl (Dulcolax 10 Mg Supp) 10 mg RC Q96H PRN PRN Reason: MODERATE CONSTIPATION Stop: 09/08/18 00:12 Calcium Carbonate (Os-Jesus) 500 mg GT DAILY [facility] Stop: 09/08/18 08:59 Last Admin: 07/11/18 10:17 Dose: Not Given Docusate Sodium (Colace) 200 mg GT Q12HR [facility] Stop: 09/08/18 08:59 Last Admin: 07/11/18 10:17 Dose: Not Given Dextrose/Sodium Chloride (D5-0.45ns) 1,000 mls @ 100 mls/hr IV .Q10H [facility] Stop: 09/07/18 14:01 Last Admin: 07/11/18 02:17 Dose: 100 mls/hr Ceftriaxone Sodium 1 gm/ (Sodium Chloride) 50 mls @ 100 mls/hr IV Q24HR [facility] Stop: 09/08/18 14:59 Last Infusion: 07/10/18 15:15 Dose: Infused Magnesium Hydroxide (Milk Of Magnesia) 30 ml GT Q72H PRN PRN Reason: Constipation Stop: 09/08/18 00:14 Metoclopramide HCl (Reglan) 5 mg IVP Q8HR [facility] Stop: 09/08/18 20:59 Last Admin: 07/11/18 04:20 Dose: 5 mg Miscellaneous (Meloxicam [Mobic]) 7.5 mg GT BID [facility] Stop: 09/08/18 08:59 Last Admin: 07/11/18 10:18 Dose: Not Given Nitroglycerin (Nitrostat) 0.4 mg SL Q5MIN PRN PRN Reason: CHEST PAIN X3 Stop: 09/08/18 00:14 Ondansetron HCl (Zofran) 4 mg IV Q4H PRN PRN Reason: Nausea / Vomiting Stop: 09/07/18 14:14 Last Admin: 07/10/18 17:36 Dose: 4 mg Pantoprazole Sodium (Protonix) 40 mg IVP DAILY [facility] Stop: 09/08/18 08:59 Last Admin: 07/11/18 08:49 Dose: 40 mg Polyethylene Glycol (Miralax) 17 gm GT BID [facility] Stop: 09/08/18 08:59 Last Admin: 07/11/18 10:18 Dose: Not Given Sodium Phosphate (Fleet Enema) 135 ml RC Q96H PRN PRN Reason: SEVERE CONSTIPATION Stop: 09/08/18 00:12 Vitamin D (Vitamin D) 400 iu GT DAILY [facility] Stop: 09/08/18 08:59 Last Admin: 07/11/18 10:18 Dose: Not Given General: Alert, Cooperative HEENT: Atraumatic, PERRLA, EOMI Neck: Supple Cardiovascular: Regular rate, Normal S1, Normal S2 Lungs: Clear to auscultation Abdomen: Bowel sounds, Soft - Procedures Procedures: Procedures Procedure Code Date CHANGE FEEDING DEVICE IN UP INTEST TRACT, [employer] [employer] APPROACH [id number] 02/02/17 CHANGE GASTROSTOMY TUBE 12183 02/02/17 DIAGNOSTIC COLONOSCOPY 01457 06/26/16 EGD BIOPSY SINGLE/MULTIPLE 97777 12/22/13 ESOPHAGOGASTRODUODENOSCOPY [EGD] W/CLOSED BIOPSY 45.16 12/22/13 INFLUENZA VACCINATION 99.52 07/14/13 INSERT INDWELLING CATH 57.94 05/17/12 INSERT INTESTINAL TUBE 96.08 05/17/12 INSERT TEMP BLADDER CATH 05670 05/17/12 INSJ PICC 5 YR+ W/O IMAGING 99521 05/17/12 INSPECTION OF LOWER INTESTINAL TRACT, ENDO [id number] 06/26/16 OPEN AND OTHER CECECTOMY 45.72 05/17/12 OPEN AND OTHER RIGHT HEMICOLECTOMY 45.73 05/17/12 PARTIAL REMOVAL OF COLON 67036 05/17/12 UNLISTED PX SMALL INTESTINE 20674 05/17/12 VENOUS CATHETERIZATION NEC 38.93 05/17/12 Assessment/Plan - Assessment Assessment: 1. Distal fecal impaction 2. Large bowel and small bowel ileus 3. Abdominal Distention 4. CP -continue with mineral oil 30mg BID -electrolyte optimization -continue Reglan 5mg IV q8hrs -If no improvement in sx may require neostigmine, but less likely -improved fecal stasis overall, one tap water enema today
[2018-07-11] MEDS: cefTRIAXone 1 GM in Sodium Chloride 0.9% 50 ML IV SCH (16:50)
--- NOTE | 2018-07-11 19:46 | Progress Notes ---
DATE: 07/11/2018 The patient was given Fleet enema, tap water enema and he had three large bowel movements. GENERAL: He is afebrile. He is resting in bed comfortably, in no acute distress. CHEST: Clear to auscultation bilaterally. CARDIOVASCULAR: Regular rate. ABDOMEN: Softer, nontender. There is no guarding, rebound or generalized peritoneal signs. NEUROVASCULAR AND EXTREMITIES: Otherwise normal. LABORATORY DATA: His white blood cell count is 5.5, H and H of 13.7 and 42.7, platelet count is 161. His Chem-7 and electrolytes are otherwise, unremarkable today. MEDICATIONS: Tylenol, Fosamax, vitamin C, Dulcolax suppository, Os-Jesus, ceftriaxone, Colace, milk of magnesia, Reglan, mineral oil, MiraLax per G-tube, Fleet enema. REPEAT IMAGING: KUB today shows decreased stool within the rectal region, persistent radiopaque contrast within mildly dilated large bowel along with persistent loops of mildly dilated small bowel. Significance of the findings should be correlated clinically. IMPRESSION AND PLAN: Discussed the case with Dr. Talib Caldwell. We both feel that the patient does not have any mechanical obstructive process. The patient responded well to laxatives and stool softeners and cathartic agents. The patient had several large bowel movements today, has no obvious signs of sepsis. The abdomen is benign, softer than it was yesterday. Dr. Talib Caldwell, at this time has no plans to perform a colonoscopy on the patient. From a surgical standpoint, probably reasonable to start the tube feedings and follow the patient clinically. We will follow the patient intermittently. [facility]# [id number]
[2018-07-12] MEDS: Metoclopramide 5 mg/mL 2mL Vial IVP SCH ×2 (05:57→13:10)
[2018-07-12 06:36] LABS: % BASOPHILS 0.7 % (0.0-2.0); % EOSINOPHILS 4.2 % (0.0-5.0); % LYMPHOCYTES 42.7 % (20.0-50.0); % NEUTROPHILS 45.4 % (40.0-80.0); EOSINOPHILE ABSOLUTE 0.2 Th/cmm (0.1-0.4); HEMATOCRIT 43.3 % (41.0-60); HEMOGLOBIN 14.4 gm/dL (12-16); MEAN CELL VOLUME 90.3 fl (80-99); MEAN CORPUSCULAR HEMOGLOBIN 30.1 pg (26.0-30.0); MEAN CORPUSCULAR HGB CONC 33.3 pg (28.0-36.0); MEAN PLATELET VOLUME 6.8 fl; MONOCYTE ABSOLUTE 0.3 Th/cmm (0.3-1.0); NEUTROPHILE ABSOLUTE 2.1 Th/cmm (1.8-8.0); PLATELET COUNT 160 Th/cmm (150-400); RED CELL DISTRIBUTION WIDTH 11.7 % (11.5-20.0); WHITE BLOOD COUNT 4.6 Th/cmm (4.8-10.8)
[2018-07-12 06:51] LABS: ANION GAP 14.6 (7.0-16.0); BUN - UREA NITROGEN 4 mg/dL (7-25); CALCIUM SERUM 9.3 mg/dL (8.6-10.3); CARBON DIOXIDE 23.3 mEq/L (21.0-31.0); CHLORIDE 107 mEq/L (98-107); CREATININE - SERUM 0.5 mg/dL (0.7-1.3); GFR AFRICAN-AMERICAN > 60.0 ml/min (>90); GFR NON AFRICAN-AMERICAN > 60.0 ml/min; GLUCOSE 97 mg/dL (70-105); POTASSIUM SERUM 3.9 mEq/L (3.5-5.1); SODIUM SERUM 141 mEq/L (136-145)
--- NOTE | 2018-07-12 09:31 | Diagnostic Imaging Report ---
KUB single view HISTORY: Fecal impaction COMPARISON: KUB on 07/11/[address] abdomen and pelvis on 07/09/2018 FINDINGS: Persistent diffuse gas distended loops of bowel are noted with oral contrast throughout the large bowel and probable excreted contrast within the urinary bladder. Filling defect of the left urinary bladder cannot be excluded. Percutaneous feeding tube is noted. IMPRESSION: Persistent diffuse gas distended loops of bowel, primarily large bowel loops. No significant stool is identified. This may be due to a marked colonic ileus. Clinical correlation is needed. There appears to be previous excreted contrast from previous procedure within the urinary bladder with filling defects noted which are nonspecific, however, correlation should be made urinalysis and urinary bladder ultrasound.
[2018-07-12] MEDS: Docusate Sodium 100 mg/10 mL UD GT SCH (10:40)
[2018-07-12] MEDS: Multivitamin w/ Minerals Tab GT SCH (10:40)
[2018-07-12] MEDS: POLYETHYLENE GLYCOL 3350 17 GM PACK GT SCH (10:40)
[2018-07-12] MEDS: D5-0.45NS 1,000 ML IV SCH (13:11)
--- NOTE | 2018-07-12 14:00 | GI Progress Note ---
Subjective - Review of Systems Subjective: HAVING BM Objective - Results Result Diagrams: 07/12/18 06:05 07/12/18 06:05 Recent Labs: Laboratory Last Values WBC 4.6 Th/cmm (4.8-10.8) L 07/12/18 06:05 RBC 4.80 Mil/cmm (4.30-5.70) 07/12/18 06:05 Hgb 14.4 gm/dL (12-16) 07/12/18 06:05 Hct 43.3 % (41.0-60) 07/12/18 06:05 MCV 90.3 fl (80-99) 07/12/18 06:05 MCH 30.1 pg (26.0-30.0) H 07/12/18 06:05 MCHC Differential 33.3 pg (28.0-36.0) 07/12/18 06:05 RDW 11.7 % (11.5-20.0) 07/12/18 06:05 Plt Count 160 Th/cmm (150-400) 07/12/18 06:05 MPV 6.8 fl 07/12/18 06:05 Add Manual Diff YES 07/09/18 12:05 Neutrophils % 45.4 % (40.0-80.0) 07/12/18 06:05 Band Neutrophils % 0 % (0-10) 07/09/18 12:05 Lymphocytes % 42.7 % (20.0-50.0) 07/12/18 06:05 Monocytes % 7.0 % (2.0-10.0) 07/12/18 06:05 Eosinophils % 4.2 % (0.0-5.0) 07/12/18 06:05 Basophils % 0.7 % (0.0-2.0) 07/12/18 06:05 Neutrophils (Manual) 92 % (40-80) H 07/09/18 12:05 Lymphocytes 6 % (20-50) L 07/09/18 12:05 Monocytes 2 % (2-10) 07/09/18 12:05 Eosinophils 0 % (0-5) 07/09/18 12:05 Basophils 0 % (0-3) 07/09/18 12:05 PT 11.4 SECONDS (9.5-11.5) 07/10/18 08:44 INR 1.11 (0.5-1.4) 07/10/18 08:44 PTT (Actin FS) 26.7 SECONDS (26.0-38.0) 07/09/18 12:05 Sodium 141 mEq/L (136-145) 07/12/18 06:05 Potassium 3.9 mEq/L (3.5-5.1) 07/12/18 06:05 Chloride 107 mEq/L (98-107) 07/12/18 06:05 Carbon Dioxide 23.3 mEq/L (21.0-31.0) 07/12/18 06:05 Anion Gap 14.6 (7.0-16.0) 07/12/18 06:05 BUN 4 mg/dL (7-25) L 07/12/18 06:05 Creatinine 0.5 mg/dL (0.7-1.3) L 07/12/18 06:05 Est GFR ( Amer) > 60.0 ml/min (>90) 07/12/18 06:05 Est GFR (Non-Af Amer) > 60.0 ml/min 07/12/18 06:05 BUN/Creatinine Ratio 8.0 07/12/18 06:05 Glucose 97 mg/dL (70-105) 07/12/18 06:05 Calcium 9.3 mg/dL (8.6-10.3) 07/12/18 06:05 Magnesium 2.3 mg/dL (1.9-2.7) 07/11/18 06:05 Total Bilirubin 0.5 mg/dL (0.3-1.0) 07/10/18 08:44 AST 16 U/L (13-39) 07/10/18 08:44 ALT 12 U/L (7-52) 07/10/18 08:44 Alkaline Phosphatase 46 U/L (34-104) 07/10/18 08:44 Troponin I < 0.01 ng/mL (0.01-0.05) L 07/09/18 12:05 Total Protein 6.8 gm/dL (6.0-8.3) 07/10/18 08:44 Albumin 3.9 gm/dL (4.2-5.5) L 07/10/18 08:44 Globulin 2.9 gm/dL 07/10/18 08:44 Albumin/Globulin Ratio 1.3 (1.0-1.8) 07/10/18 08:44 TSH 0.61 uIU/ml (0.34-5.60) 07/09/18 12:40 - Physical Exam Vitals and I&O: Vital Signs Temp 97.6 F 07/12/18 12:00 Pulse 57 07/12/18 12:00 Resp 18 07/12/18 12:00 BP 116/78 07/12/18 12:00 Pulse Ox 100 07/12/18 12:00 Intake & Output 07/11/18 07/12/18 07/12/18 18:59 06:59 18:59 Intake Total 2306 849 7279 Balance 5086 872 5446 Weight (lbs) 48.534 kg Intake: Intake, IV Amount 9096 782 5015 D5-0.45NS 1,000 ml @ 100 5200 997 5958 mls/hr IV .Q10H [facility] Rx#: [id number] Tube Feeding 200 Other: # Voids 3 # Bowel Movements 3 Stool Characteristics Soft Soft Weight Source Bedscale Active Medications: Current Medications Acetaminophen (Tylenol) 650 mg GT Q4HR PRN PRN Reason: Pain Or Fever >99.9 Stop: 09/08/18 00:12 Last Admin: 07/11/18 22:05 Dose: 650 mg Alendronate Sodium (Fosamax) 70 mg PO QSAT [facility] Stop: 09/08/18 00:14 Last Admin: 07/10/18 00:25 Dose: Not Given Ascorbic Acid (Vitamin C) 500 mg GT DAILY [facility] Stop: 09/08/18 08:59 Last Admin: 07/12/18 10:40 Dose: 500 mg Bisacodyl (Dulcolax 10 Mg Supp) 10 mg RC Q96H PRN PRN Reason: MODERATE CONSTIPATION Stop: 09/08/18 00:12 Calcium Carbonate (Os-Jesus) 500 mg GT DAILY [facility] Stop: 09/08/18 08:59 Last Admin: 07/12/18 10:40 Dose: 500 mg Docusate Sodium (Colace) 200 mg GT Q12HR [facility] Stop: 09/08/18 08:59 Last Admin: 07/12/18 10:40 Dose: 200 mg Dextrose/Sodium Chloride (D5-0.45ns) 1,000 mls @ 100 mls/hr IV .Q10H [facility] Stop: 09/07/18 14:01 Last Admin: 07/12/18 13:11 Dose: 100 mls/hr Ceftriaxone Sodium 1 gm/ (Sodium Chloride) 50 mls @ 100 mls/hr IV Q24HR [facility] Stop: 09/08/18 14:59 Last Admin: 07/11/18 16:50 Dose: 100 mls/hr Magnesium Hydroxide (Milk Of Magnesia) 30 ml GT Q72H PRN PRN Reason: Constipation Stop: 09/08/18 00:14 Metoclopramide HCl (Reglan) 5 mg IVP Q8HR [facility] Stop: 09/08/18 20:59 Last Admin: 07/12/18 13:10 Dose: 5 mg Mineral Oil (Mineral Oil 30 Ml) 30 ml PO BID [facility] Stop: 09/09/18 16:59 Last Admin: 07/12/18 10:40 Dose: 30 ml Miscellaneous (Meloxicam [Mobic]) 7.5 mg GT BID [facility] Stop: 09/08/18 08:59 Last Admin: 07/11/18 10:18 Dose: Not Given Nitroglycerin (Nitrostat) 0.4 mg SL Q5MIN PRN PRN Reason: CHEST PAIN X3 Stop: 09/08/18 00:14 Ondansetron HCl (Zofran) 4 mg IV Q4H PRN PRN Reason: Nausea / Vomiting Stop: 09/07/18 14:14 Last Admin: 07/10/18 17:36 Dose: 4 mg Pantoprazole Sodium (Protonix) 40 mg IVP DAILY [facility] Stop: 09/08/18 08:59 Last Admin: 07/12/18 10:40 Dose: 40 mg Polyethylene Glycol (Miralax) 17 gm GT BID [facility] Stop: 09/08/18 08:59 Last Admin: 07/12/18 10:40 Dose: 17 gm Sodium Phosphate (Fleet Enema) 135 ml RC Q96H PRN PRN Reason: SEVERE CONSTIPATION Stop: 09/08/18 00:12 Vitamin D (Vitamin D) 400 iu GT DAILY [facility] Stop: 09/08/18 08:59 Last Admin: 07/12/18 10:40 Dose: 400 iu General: Alert, Cooperative HEENT: Atraumatic, PERRLA, EOMI Neck: Supple Cardiovascular: Regular rate, Normal S1, Normal S2 Lungs: Clear to auscultation Abdomen: Bowel sounds, Soft - Procedures Procedures: Procedures Procedure Code Date CHANGE FEEDING DEVICE IN UP INTEST TRACT, AMUSEMENT RIDE OPERATOR APPROACH [id number] 02/02/17 CHANGE GASTROSTOMY TUBE 94159 02/02/17 DIAGNOSTIC COLONOSCOPY 28860 06/26/16 EGD BIOPSY SINGLE/MULTIPLE 46615 12/22/13 ESOPHAGOGASTRODUODENOSCOPY [EGD] W/CLOSED BIOPSY 45.16 12/22/13 INFLUENZA VACCINATION 99.52 07/14/13 INSERT INDWELLING CATH 57.94 05/17/12 INSERT INTESTINAL TUBE 96.08 05/17/12 INSERT TEMP BLADDER CATH 94777 05/17/12 INSJ PICC 5 YR+ W/O IMAGING 73239 05/17/12 INSPECTION OF LOWER INTESTINAL TRACT, ENDO [id number] 06/26/16 OPEN AND OTHER CECECTOMY 45.72 05/17/12 OPEN AND OTHER RIGHT HEMICOLECTOMY 45.73 05/17/12 PARTIAL REMOVAL OF COLON 28762 05/17/12 UNLISTED PX SMALL INTESTINE 69406 05/17/12 VENOUS CATHETERIZATION NEC 38.93 05/17/12 Assessment/Plan - Assessment Assessment: 33 YO MALE WITH MENTAL CHALLENGES WITH COLONIC ILEUS KUB SHOWED IMPROVEMENT IN FECAL IMPACTION 1.CONT SUPP CARE AND LAXATIVES 2.CONSIDER COLO IF PROBLEM PERSIST - CAN BE DONE OUTPATIENT
[2018-07-12] MEDS: cefTRIAXone 1 GM in Sodium Chloride 0.9% 50 ML IV SCH (15:18)
--- NOTE | 2018-07-12 17:44 | Discharge Summary ---
DATE OF DISCHARGE: 07/12/2018 ADMITTING DIAGNOSES: 1. Bowel obstruction likely secondary to fecal impaction/ileus. 2. Mild leukocytosis. 3. Mild renal insufficiency/azotemia. SECONDARY DIAGNOSES: 1. History of dysphagia/history of PEG placement. 2. History of cerebral palsy/mental disability or intellectual disability. 3. History of acid reflux disease. 4. History of osteoarthritis. 5. History of osteoporosis. DISCHARGE DIAGNOSES: 1. Bowel obstruction secondary to distal fecal impaction -- clinically improved. 2. Distal fecal impaction/ileus -- resolved/improved. 3. Mild leukocytosis -- resolved. 4. Mild renal insufficiency/azotemia -- resolved. CONSULTANTS: Dr. Dean Ryan, General Surgery and Dr. Caldwell, GI. MAJOR DIAGNOSTICS: Abdominal and pelvic CT done on the showed; 1. Markedly predominantly fluid filled dilated distal esophagus, stomach, small bowel and colon. The changes are associated with a markedly dilated air and stool filled rectum and sigmoid colon. Changes consistent with obstruction. 2. Gastrostomy tube is in place. On 07/09/2018, there was a small bowel follow through. Mildly dilated small bowel along with mildly delayed and small bowel transit time. No focal point of obstruction identified. 3. Severely dilated stool filled rectum with displacement of the urinary bladder to the right side. Findings consistent with fecal impaction. On 07/11/2018, KUB showed; 1. Decrease stool within the rectal region. 2. Persistent radiopaque contrast with a mildly dilated large bowel along with persistent loops of mildly dilated small bowel. BRIEF HOSPITAL COURSE: 33-year-old disabled male with profound intellectual disability, cerebral palsy, history of dysphagia with history of PEG placement and history of acid reflux disease, who presented to the ED with a 1-day history of multiple episodes of emesis. Pertinent findings of the ED included a CT of the abdomen and pelvis described above and also mild leukocytosis as well as a mild renal insufficiency. The patient was admitted to the medical floor, placed on IV fluids, empiric IV antibiotics, Protonix, IV PPI, given previous history of gastroesophageal reflux disease/gastritis and was placed on stool softener or laxative and cathartic agents. The patient was noted to have a large bowel movement on the and his G-tube feeds were restarted with no further episodes of emesis noted. Clinically, he appears to be comfortable, in no distress. His vital signs have also remained stable throughout his hospital stay. His white count did improve to a level of 7.6 by the and his BUN went from a level of 30 to a level of 14 by the . DISCHARGE MEDICATIONS: Tylenol 650 q.4 hours p.r.n. for pain, Fosamax 70 mg every Thursday, vitamin C 500 mg every day, Dulcolax 10 mg every day p.r.n. for constipation, calcium carbonate 500 mg every day, Colace 200 mg every 12 hours, Nexium 40 mg every day, Fleet enema q.96 or 135 mL q.96 hours p.r.n. for severe constipation, milk of magnesia q.72 hours p.r.n., Meloxicam 7.5 b.i.d. with meals, multivitamins and minerals daily, nitroglycerin 0.4 q.5 minutes p.r.n. for chest pain. It is MiraLax 17 grams b.i.d., vitamin D 400 international units every day. CONDITION ON DISCHARGE: Stable. DISPOSITION: The patient was discharged back to [facility] under the care of Dr. Escudero. JOB# [id number]
== END 2018-07-12 16:51 | DRG 247 ==
LOC: ER 11:51 → MSI 13:51
PROVIDERS: ADMIT Internal Medicine; ATTEND Internal Medicine
DX: K56.41 Fecal impaction (principal); K59.39 Other megacolon; F73 Profound intellectual disabilities; R53.2 Functional quadriplegia; F03.90 Unspecified dementia, unspecified severity, without behavioral disturbance, psychotic disturbance, mood disturbance, and anxiety; Z93.1 Gastrostomy status; D72.829 Elevated white blood cell count, unspecified; G80.9 Cerebral palsy, unspecified; M81.0 Age-related osteoporosis without current pathological fracture; M19.90 Unspecified osteoarthritis, unspecified site; K21.9 Gastro-esophageal reflux disease without esophagitis; E86.0 Dehydration; Z74.01 Bed confinement status; N28.9 Disorder of kidney and ureter, unspecified
CPT/HCPCS: 36415-UA; 74000-TC; 74250-TC; 80048-TC; 80053-TC; 83735-TC; 84443-TC; 84484-TC; 85007-TC; 85025-TC; 85610-TC; 85730-TC; C9113; J0696; J2405; J2765; J7030; Q9967; Z7610

== ENCOUNTER 2018-07-17 19:00 | Emergency (ER) | payer MEDICAID ==
--- NOTE | 2018-07-17 19:17 | ED Physician Chart ---
ED Chief Complaint/HPI - Patient Information Date Seen:: 07/17/18 Time Seen:: 19:12 Chief Complaint:: g-tube replacement History of Present Illness:: this is a severe mental disability and unable to provide any information and smiling with a wondering gaze.the patient is a quadriplegic. sent here for a g-tube replacement. Allergies:: Allergies Allergy/AdvReac Type Severity Reaction Status Date / Time No Known Allergies Allergy Verified 07/17/18 19:08 Vitals:: Vital Signs - 8 hr 07/17/18 19:09 Temp 98.6 F HR 67 RR 18 BP 131/78 O2 Sat % 96 Historian:: EMS, Medical Records Review:: Nurse's Note Reviewed, Transfer documents Reviewed ED Review of Systems - Review of Systems General/Constitutional: No fever, No chills, No weight loss, No weakness, No diaphoresis, No edema, No loss of appetite, Other (this patient is unable to give a review of systems.) Skin: No skin lesions, No rash, No bruising Head: No headache, No light-headedness Eyes: No loss of vision, No pain, No diplopia ENT: No earache, No nasal drainage, No sore throat, No tinnitus Neck: No neck pain, No swelling, No thyromegaly, No stiffness, No mass noted Cardio Vascular: No chest pain, No palpitations, No PND, No orthopnea, No edema Pulmonary: No SOB, No cough, No sputum, No wheezing GI: No nausea, No vomiting, No diarrhea, No pain, No melena, No hematochezia, No constipation, No hematemesis G/U: No dysuria, No frequency, No hematuria Musculoskeletal: No bone or joint pain, No back pain, No muscle pain Endocrine: No polyuria, No polydipsia Psychiatric: No prior psych history, No depression, No anxiety, No suicidal ideation Hematopoietic: No bruising, No lymphadenopathy Allergic/Immuno: No urticaria, No angioedema Neurological: No syncope, No focal symptoms, No weakness, No paresthesia, No headache, No seizure, No dizziness, No confusion, No vertigo ED Past Medical History - Past Medical History Obtainable: Yes Past Medical History: Dementia Family History: None Social History: Non Smoker, No Alcohol, No Drug Use, Single, Care Facility Surgical History: PEG/GTube Psychiatricy History: None, Dementia Medication: Reviewed Family Medical History - Family Member Mother History Unknown: Yes Ethnicity: Non- Living Status: Still Living ED Physical Exam - Physical Examination General/Constitutional: Awake, Well-developed, well-nourished, Alert, No distress, GCS 15, Non-toxic appearing, Ambulatory Other Gen/Cons comments:: non-verbal and disoriented Head: Atraumatic Eyes: Lids, conjuctiva normal, PERRL, EOMI Skin: Nl inspection, No rash, No skin lesions, No ecchymosis, Well hydrated, No lymphadenopathy ENMT: External ears, nose nl, Nasal exam nl, Lips, teeth, gums nl Neck: Nontender, Full ROM w/o pain, No JVD, No nuchal rigidity, No bruit, No mass, No stridor Respiratory: Nl effort/Exclusion, Clear to Auscultation, No Wheeze/Rhonchi/Rales Cardio Vascular: RRR, No murmur, gallop, rubs, NL S1 S2 GI: No tenderness/rebounding/guarding, No organomegaly, No hernia, Normal BS's, Nondistended, No mass/bruits, No McBurney tenderness Other GI comments:: peg that is not working : No CVA tenderness Extremities: No tenderness or effusion, Full ROM, normal strength in all extremities, No edema, Normal digits & nails Neuro/Psych: Alert/oriented, DTR's symmetric, Normal sensory exam, Normal motor strength, Judgement/insight normal, Mood normal, Normal gait, No focal deficits Other Neuro/Psych comments:: quadriplegic Misc: Normal back, No paraspinal tenderness ED Labs/Radiology/EKG Results - Radiology Results Results: kub = g-tube in the stomach ED Assessment - Assessment General Assessment: g-tube replaced without difficulty ED Septic Shock - . Is Septic Shock (SBP<90, OR Lactate>4 mmol\L) present?: No - <6hrs of presentation: Vital Signs: Vital Signs - 8 hr 07/17/18 19:09 Temp 98.6 F HR 67 RR 18 BP 131/78 O2 Sat % 96 ED Reassessment (Disposition) - Reassessment Reassessment Condition:: Improved - Diagnosis Diagnosis:: g-tube replacement - Patient Disposition Discharge/Transfer:: Long-Term Care - SNF
[2018-07-17] MEDS ORDERED: Diatrizoate Meglumine/Diatri 30 mL Sol ONE (19:48)
--- NOTE | 2018-07-18 09:23 | Diagnostic Imaging Report ---
Upper GI with Gastrografin HISTORY: G-tube confirmation COMPARISON: None FINDINGS: Negative Checker view demonstrates diffuse gas-filled loops of bowel and moderate stool and distal fecal impaction. Second image demonstrates contrast opacification of the stomach and proximal small bowel. The second image demonstrates contrast opacification of the stomach and small bowel loops. IMPRESSION: Intraluminal confirmation of patient's percutaneous gastric feeding tube. Diffuse gaseous distended loops of bowel with moderate stool in distal fecal impaction. Please correlate clinically for constipation and ileus.
== END 2018-07-17 21:34 | disposition short-term general hospital (02) ==
LOC: ER 19:00
DX: Z43.1 Encounter for attention to gastrostomy (principal); F03.90 Unspecified dementia, unspecified severity, without behavioral disturbance, psychotic disturbance, mood disturbance, and anxiety
CPT/HCPCS: Z7502; Z7610

== ENCOUNTER 2018-10-06 10:07 | Inpatient (IN) | payer MEDICAID ==
--- NOTE | 2018-10-06 11:19 | ED Physician Chart ---
ED Chief Complaint/HPI - Patient Information Date Seen:: 10/06/18 Time Seen:: 11:19 Chief Complaint:: Coffee ground emesis History of Present Illness:: 33 yo male with history of cerebral palsy, nonverbal, quadriplegic and G-tube, was brought from [facility] to ER for evaluation of one episode of large coffee ground emesis and stool impaction for a week. At ER, patient had additional 2 episodes of vomiting. Allergies:: Allergies Allergy/AdvReac Type Severity Reaction Status Date / Time No Known Allergies Allergy Verified 10/06/18 10:34 Vitals:: Vital Signs - 8 hr 10/06/18 10:30 Temp 98.3 F HR 66 RR 18 BP 130/71 O2 Sat % 99 ED Review of Systems - Review of Systems General/Constitutional: Fever, No chills Skin: No rash Head: No headache Eyes: No pain ENT: No nasal drainage Neck: No neck pain Cardio Vascular: No chest pain, No edema Pulmonary: No SOB GI: Nausea, Vomiting, Constipation, Other (G-tube) Musculoskeletal: No bone or joint pain Neurological: Weakness ED Past Medical History - Past Medical History Past Medical History: Other (osteoporosis, intellectual disability, hypotension , cerebral palsy) Social History: Non Smoker, No Alcohol, No Drug Use Surgical History: PEG/GTube Family Medical History - Family Member Mother History Unknown: Yes Ethnicity: Non- Living Status: Still Living ED Physical Exam - Physical Examination General/Constitutional: Awake, Alert Other Gen/Cons comments:: None verbal Eyes: PERRL, EOMI Skin: No ecchymosis ENMT: Nasal exam nl Neck: No nuchal rigidity Respiratory: Clear to Auscultation Cardio Vascular: RRR, No murmur, gallop, rubs, NL S1 S2 Other GI comments:: Abdominal distention Other Extremities comments:: Contracture in all 4 extremities Other Neuro/Psych comments:: Non-verbal, not following command ED Labs/Radiology/EKG Results - Lab Results Results: Laboratory Last Values Neutrophils (Manual) 89 % (40-80) H 10/06/18 11:30 Lymphocytes 7 % (20-50) L 10/06/18 11:30 Monocytes 2 % (2-10) 10/06/18 11:30 Eosinophils 0 % (0-5) 10/06/18 11:30 Basophils 0 % (0-3) 10/06/18 11:30 PT 10.4 SECONDS (9.5-11.5) 10/06/18 11:30 INR 1.00 (0.5-1.4) 10/06/18 11:30 PTT (Actin FS) 27.3 SECONDS (26.0-38.0) 10/06/18 11:30 Lipase 19 U/L (11-82) 10/06/18 11:30 Urine Source CATH 10/06/18 12:35 Urine Color YELLOW 10/06/18 12:35 Urine Clarity CLEAR (CLEAR) 10/06/18 12:35 Urine pH 6.0 (4.6 - 8.0) 10/06/18 12:35 Ur Specific [place] 1.025 (1.005-1.030) 10/06/18 12:35 Urine Protein 30 mg/dL (NEGATIVE) H 10/06/18 12:35 Urine Glucose (UA) NEGATIVE mg/dL (NEGATIVE) 10/06/18 12:35 Urine Ketones 40 mg/dL (NEGATIVE) H 10/06/18 12:35 Urine Blood NEGATIVE (NEGATIVE) 10/06/18 12:35 Urine Nitrate NEGATIVE (NEGATIVE) 10/06/18 12:35 Urine Bilirubin SMALL (NEGATIVE) H 10/06/18 12:35 Urine Urobilinogen 0.2 E.U./dL (0.2 - 1.0) 10/06/18 12:35 Ur Leukocyte Esterase NEGATIVE (NEGATIVE) 10/06/18 12:35 Urine RBC 2-5 /hpf (0-5) H 10/06/18 12:35 Urine WBC 0-2 /hpf (0-5) 10/06/18 12:35 Ur Epithelial Cells FEW /lpf (FEW) 10/06/18 12:35 Urine Bacteria FEW /hpf (NONE SEEN) 10/06/18 12:35 Urine Mucus MODERATE /lpf (FEW) 10/06/18 12:35 Laboratory Tests 10/06/18 10/06/18 10/06/18 11:30 11:30 11:30 WBC 11.4 H RBC 5.78 H Hgb 17.6 Hct 52.1 MCV 90.0 MCH 30.4 H MCHC Differential 33.8 RDW 12.5 Plt Count 211 MPV 6.9 Add Manual Diff YES Band Neutrophils % 2 Neutrophils (Manual) 89 H Lymphocytes 7 L Monocytes 2 Eosinophils 0 Basophils 0 PT 10.4 INR 1.00 PTT (Actin FS) 27.3 Sodium 137 Potassium 4.9 Chloride 97 L Carbon Dioxide 27.2 Anion Gap 17.7 H BUN 24 Creatinine 0.7 Est GFR ( Amer) > 60.0 Est GFR (Non-Af Amer) > 60.0 BUN/Creatinine Ratio 34.3 Glucose 122 H Calcium 10.8 H Total Bilirubin 0.5 AST 23 ALT 23 Alkaline Phosphatase 80 Total Protein 9.1 H Albumin 5.4 Globulin 3.7 Albumin/Globulin Ratio 1.5 Lipase 19 Urine Source Urine Color Urine Clarity Urine pH Ur Specific [place] Urine Protein Urine Glucose (UA) Urine Ketones Urine Blood Urine Nitrate Urine Bilirubin Urine Urobilinogen Ur Leukocyte Esterase Urine RBC Urine WBC Ur Epithelial Cells Urine Bacteria Urine Mucus 10/06/18 12:35 WBC RBC Hgb Hct MCV MCH MCHC Differential RDW Plt Count MPV Add Manual Diff Band Neutrophils % Neutrophils (Manual) Lymphocytes Monocytes Eosinophils Basophils PT INR PTT (Actin FS) Sodium Potassium Chloride Carbon Dioxide Anion Gap BUN Creatinine Est GFR ( Amer) Est GFR (Non-Af Amer) BUN/Creatinine Ratio Glucose Calcium Total Bilirubin AST ALT Alkaline Phosphatase Total Protein Albumin Globulin Albumin/Globulin Ratio Lipase Urine Source CATH Urine Color YELLOW Urine Clarity CLEAR Urine pH 6.0 Ur Specific [place] 1.025 Urine Protein 30 H Urine Glucose (UA) NEGATIVE Urine Ketones 40 H Urine Blood NEGATIVE Urine Nitrate NEGATIVE Urine Bilirubin SMALL H Urine Urobilinogen 0.2 Ur Leukocyte Esterase NEGATIVE Urine RBC 2-5 H Urine WBC 0-2 Ur Epithelial Cells FEW Urine Bacteria FEW Urine Mucus MODERATE - Radiology Results Results: CXR: no focal consolidation, distended bowel loops of the upper abdomen CT abdomen/pelvis: Severely distended stomach with air-fluid level and fluid level in the esophagus, massive distal fecal impaction. - EKG Interpretations EKG Time:: 12:11 Rate & Rhythm: 61 bpm, normal sinus rhythm Comments:: Normal EKG ED Assessment - Assessment General Assessment: Massive distal fecal impaction - Emesis - Severely distended stomach - Distended esophagus - Distended small bowel loops Leukocytosis Dehydration Cerebral palsy G-tube status Assessment/Comments:: CBC, CMP, UA CXR, CT abdomen/pelvis NS 1L IV bolus Rocephin 1g IV Flagyl 500mg IV NGT insertion Admit patient under Dr. Loomis for further management ED Septic Shock - . Is Septic Shock (SBP<90, OR Lactate>4 mmol\L) present?: No - <6hrs of presentation: Vital Signs: Vital Signs - 8 hr 10/06/18 10:30 Temp 98.3 F HR 66 RR 18 BP 130/71 O2 Sat % 99 ED Reassessment (Disposition) - Reassessment Reassessment Condition:: Improved - Patient Disposition Discharge/Transfer:: Acute Care w/in this hosp Admitting Medical Physician:: Matthew Loomis
[2018-10-06 11:40] LABS: HEMATOCRIT 52.1 % (41.0-60); HEMOGLOBIN 17.6 gm/dL (12-16); MEAN CORPUSCULAR HEMOGLOBIN 30.4 pg (26.0-30.0); MEAN CORPUSCULAR HGB CONC 33.8 pg (28.0-36.0); MEAN PLATELET VOLUME 6.9 fl; PLATELET COUNT 211 Th/cmm (150-400); RED BLOOD COUNT 5.78 Mil/cmm (4.30-5.70); RED CELL DISTRIBUTION WIDTH 12.5 % (11.5-20.0); WHITE BLOOD COUNT 11.4 Th/cmm (4.8-10.8)
[2018-10-06 11:49] LABS: PROTHROMBIN TIME (TEST) 10.4 SECONDS (9.5-11.5)
[2018-10-06 11:51] LABS: ALB/GLOB RATIO 1.5 (1.0-1.8); ALBUMIN 5.4 gm/dL (4.2-5.5); ALKALINE PHOSPHATASE 80 U/L (34-104); ANION GAP 17.7 (7.0-16.0); BILIRUBIN,TOTAL 0.5 mg/dL (0.3-1.0); BUN - UREA NITROGEN 24 mg/dL (7-25); CALCIUM SERUM 10.8 mg/dL (8.6-10.3); CARBON DIOXIDE 27.2 mEq/L (21.0-31.0); CHLORIDE 97 mEq/L (98-107); CREATININE - SERUM 0.7 mg/dL (0.7-1.3); GFR AFRICAN-AMERICAN > 60.0 ml/min (>90); GFR NON AFRICAN-AMERICAN > 60.0 ml/min; GLUCOSE 122 mg/dL (70-105); LIPASE 19 U/L (11-82); POTASSIUM SERUM 4.9 mEq/L (3.5-5.1); SGOT 23 U/L (13-39); SGPT/ALT 23 U/L (7-52); SODIUM SERUM 137 mEq/L (136-145); TOTAL PROTEIN,SERUM 9.1 gm/dL (6.0-8.3)
[2018-10-06 12:05] LABS: BAND NEUTROPHILE 2 % (0-10); LYMPHOCYTE 7 % (20-50); MONOCYTE 2 % (2-10); NEUTROPHILS 89 % (40-80)
[2018-10-06 12:06] LABS: BASOPHIL 0 % (0-3); EOSINOPHIL 0 % (0-5)
[2018-10-06] MEDS ORDERED: Sodium Chloride 0.9% 1,000 ML IV ONE (12:27)
[2018-10-06] MEDS ORDERED: metroNIDAZOLE 500mg/NS 100mL 500 MG/100 ML BAG IV ONE ×2 (12:27→12:38)
[2018-10-06] MEDS ORDERED: cefTRIAXone 1 GM in Sodium Chloride 0.9% 50 ML IV ONE (12:27)
--- NOTE | 2018-10-06 12:34 | Diagnostic Imaging Report ---
CHEST X-RAY: AP view INDICATION: Shortness of breath COMPARISON: 11/25/2016 FINDINGS: Suboptimal lung volumes are noted. There is no focal consolidation or pleural effusions The heart is normal in size. The osseous structures demonstrate no acute abnormalities. Distended bowel loops of the upper abdomen are noted. IMPRESSION: No focal consolidation identified Distended bowel loops of the upper abdomen. Please refer to follow-up CT abdomen and pelvis for further details.
--- NOTE | 2018-10-06 12:43 | Diagnostic Imaging Report ---
CT abdomen and pelvis without intravenous contrast Indication: Coffee-ground emesis Comparison: Small bowel follow-through procedure on 07/09/[address] abdomen and pelvis on 07/09/2018, Technique: Axial images were obtained from the lung bases to the bilateral proximal femurs without IV contrast. Coronal reconstructions were made. total DLP: 604, CTDI10.6 FINDINGS: Hypoventilatory and atelectatic changes of the lung bases are noted. Exam is limited due to motion and lack of IV contrast. There is massive distal fecal impaction with significant stool seen throughout the colon. There is also severe fluid distention of the stomach with air fluid level and Fluid distention of the esophagus. A percutaneous gastric feeding tube is noted. Multiple markedly dilated fluid distended loops of small bowel are also noted. There is mass effect upon the urinary bladder due to patient's distal fecal impaction. Assessment of solid organs is limited. No obvious focal hepatic or splenic lesions. No evident of hydronephrosis or nephrolithiasis. There may be postsurgical changes along bowel loops along the posterior right upper quadrant. The pancreas cannot be well evaluated on this exam. There are few pockets of gas seen along the anterior abdomen at the midline adjacent to the body of the stomach (image 46 through 48, series 2). No free fluid identified. Spinal scoliosis is noted. IMPRESSION: Massive distal fecal impaction with associated mass effect on adjacent organs including the urinary bladder. There is also additional copious stool throughout the colon Severely distended stomach with air-fluid level and fluid distended esophagus possibly due to gastroesophageal reflux. Multiple fluid distended loops of small bowel are also seen. Small bowel obstruction can also not be excluded. Again clinical correlation follow up recommended. Few atypical pockets of air seen along the midline abdomen. This is indeterminate and may be within the bowel lumen or may be extraluminal. Note is made of a G-tube is seen on the left side of this area. The significance of this finding should be correlated clinically. Follow-up is needed.
[2018-10-06 13:43] LABS: URINE SOURCE CATH
[2018-10-06 13:50] LABS: URINE BILIRUBIN SMALL (NEGATIVE); URINE BLOOD NEGATIVE (NEGATIVE); URINE CLARITY CLEAR (CLEAR); URINE COLOR YELLOW; URINE GLUCOSE (UA) NEGATIVE (NEGATIVE); URINE KETONE 40 mg/dL (NEGATIVE); URINE LEUKOCYTE ESTERASE NEGATIVE (NEGATIVE); URINE MICROSCOPIC INDICATED? YES; URINE NITRATE NEGATIVE (NEGATIVE); URINE PROTEIN 30 mg/dL (NEGATIVE); URINE UROBILINOGEN 0.2 E.U./dL (0.2 - 1.0)
[2018-10-06 14:07] LABS: URINE WBC 0-2 /hpf (0-5)
[2018-10-06 14:08] LABS: URINE BACTERIA FEW /hpf (NONE SEEN); URINE EPITHELIAL CELLS FEW /lpf (FEW)
[2018-10-06 15:01] VITALS: BP 132/81
[2018-10-06] MEDS ORDERED: Fleet Enema 135 mL RC ONE (15:57)
[2018-10-06] MEDS: Sodium Chloride 0.9% 1,000 ML IV SCH (17:10)
[2018-10-06] MEDS ORDERED: Magnesium Hydroxide (MOM) 30 mL UDC GT PRN (19:23)
[2018-10-06] MEDS ORDERED: Fleet Enema 135 mL RC PRN (19:23)
[2018-10-06] MEDS: Docusate Sodium 100 mg/10 mL UD GT SCH (21:10)
[2018-10-07 06:39] LABS: % BASOPHILS 0.2 % (0.0-2.0); % EOSINOPHILS 0.4 % (0.0-5.0); % MONOCYTES 7.8 % (2.0-10.0); % NEUTROPHILS 71.6 % (40.0-80.0); HEMATOCRIT 45.7 % (41.0-60); HEMOGLOBIN 14.9 gm/dL (12-16); LYMPHOCYTE ABSOLUTE 1.9 Th/cmm (1.5-3.0); MEAN CELL VOLUME 91.7 fl (80-99); MEAN CORPUSCULAR HGB CONC 32.7 pg (28.0-36.0); MONOCYTE ABSOLUTE 0.7 Th/cmm (0.3-1.0); NEUTROPHILE ABSOLUTE 6.8 Th/cmm (1.8-8.0); PLATELET COUNT 223 Th/cmm (150-400); RED BLOOD COUNT 4.99 Mil/cmm (4.30-5.70); RED CELL DISTRIBUTION WIDTH 12.8 % (11.5-20.0); WHITE BLOOD COUNT 9.4 Th/cmm (4.8-10.8)
[2018-10-07 07:02] LABS: ALB/GLOB RATIO 1.4 (1.0-1.8); ALKALINE PHOSPHATASE 60 U/L (34-104); ANION GAP 17.3 (7.0-16.0); BILIRUBIN,TOTAL 0.5 mg/dL (0.3-1.0); BUN - UREA NITROGEN 32 mg/dL (7-25); CALCIUM SERUM 8.5 mg/dL (8.6-10.3); CARBON DIOXIDE 21.3 mEq/L (21.0-31.0); CHLORIDE 107 mEq/L (98-107); CREATININE - SERUM 0.7 mg/dL (0.7-1.3); GFR AFRICAN-AMERICAN > 60.0 ml/min (>90); GFR NON AFRICAN-AMERICAN > 60.0 ml/min; GLUCOSE 96 mg/dL (70-105); POTASSIUM SERUM 3.6 mEq/L (3.5-5.1); SGOT 17 U/L (13-39); SGPT/ALT 17 U/L (7-52); SODIUM SERUM 142 mEq/L (136-145); TOTAL PROTEIN,SERUM 6.9 gm/dL (6.0-8.3)
--- NOTE | 2018-10-07 09:45 | History and Physical ---
History of Present Illness - HPI Chief Complaint: Coffe ground hemesis HPI: Patient was send from SNF due to coffe ground hemesis. During ER evaluation fecal Impactation and leukocytosis was found. Vital Signs: Last Vital Signs Temp 98.7 F 10/07/18 09:25 Pulse 92 10/07/18 09:25 Resp 20 10/07/18 09:25 BP 110/67 10/07/18 09:25 Pulse Ox 94 10/07/18 09:25 Past Medical History Cardiovascular: Report: No Pertinent Hx Pulmonary: Report: No Pertinent Hx [employer]ER: Report: Other (MR) GI: Report: Other (Peg in place.) Psych: Report: Other (MR) Musculoskeletal: Report: Stiffness, Other (Funtional quadriplegia) Rheumatologic: Report: No pertinent Hx Infectious Disease: Report: No Pertinent Hx Renal/: Report: No Pertinent Hx Endocrine: Report: No Pertinent Hx Dermatology: Report: No Pertinent Hx Family Medical History - Family Member Mother History Unknown: Yes Ethnicity: Non- Living Status: Still Living Social History Smoke: No Alcohol: None Drugs: None Lives: Group Home Domestic Violence: Negative - Medications Home Medications: Home Medication Medication Instructions Recorded Type Acetaminophen [Tylenol] 650 mg GT Q4HR PRN tab 07/12/18 Rx Alendronate Sodium [Fosamax*] 70 mg PO QSAT tab 07/12/18 Rx Ascorbic Acid [Vitamin C] 500 mg GT DAILY tab 07/12/18 Rx Bisacodyl [Dulcolax 10 Mg Supp] 10 mg RC Q96H PRN sup 07/12/18 Rx Calcium Carbonate [Os-Jesus] 500 mg GT DAILY tab 07/12/18 Rx Docusate Sodium [Colace] 200 mg GT Q12HR ud 07/12/18 Rx Fleet Enema 135 ml RC Q96H PRN btl 07/12/18 Rx Magnesium Hydroxide [Milk of 30 ml GT Q72H PRN udc 07/12/18 Rx Magnesia] Meloxicam [Mobic] 7.5 mg GT BID 07/12/18 Rx Multivitamin w/ Minerals 1 tab GT DAILY tab 07/12/18 Rx [Theragran M] Nitroglycerin [Nitrostat*] 0.4 mg SL Q5MIN PRN tab 07/12/18 Rx Pantoprazole [Protonix] 40 mg IVP DAILY vial 07/12/18 Rx Polyethylene Glycol 3350 [Miralax] 17 gm GT BID pack 07/12/18 Rx Peg Electrolyte Lavage Vaishnavi 4,000 ml PO PRN PRN btl 07/23/18 Rx [Golytely] Vitamin D 1,000 iu GT DAILY 10/06/18 History - Allergies Allergies/Adverse Reactions: Allergies Allergy/AdvReac Type Severity Reaction Status Date / Time No Known Allergies Allergy Verified 10/06/18 10:34 Review of Systems - Review of Systems Constitutional: Report: No Significant Eyes: Report: No Significant ENT: Report: No Significant Respiratory: Report: No Significant Cardiovascular: Report: No Significant Gastrointestinal: Report: Nausea, Vomiting Genitourinary: Report: No Significant Musculoskeletal: Report: Other (Funtional quadriplegia) Skin: Report: No Significant Neurological: Report: Other (CP) Physical Exam - Physical Exam HEENT: Report: Ears Nose Throat within normal limits Neck: Report: Within normal limits Cardiovascular Systems: Report: Regular, Rate and Rhythm Respiratory: Report: Breath Sounds are within normal limits Abdomen: Report: Non-tender to palpation, PEG site is clean Back: Report: Inspection of back is within normal limits. Extremities: Report: Extremities are contracted Skin: Report: Color of skin is within normal limits Neuro/Psych: Report: Other (Non verbal) - Lab Results All Lab Results last 24 hours: Laboratory Results - last 24 hr 10/06/18 10/06/18 10/06/18 11:30 11:30 11:30 WBC 11.4 H RBC 5.78 H Hgb 17.6 Hct 52.1 MCV 90.0 MCH 30.4 H MCHC Differential 33.8 RDW 12.5 Plt Count 211 MPV 6.9 Add Manual Diff YES Neutrophils % Band Neutrophils % 2 Lymphocytes % Monocytes % Eosinophils % Basophils % Neutrophils (Manual) 89 H Lymphocytes 7 L Monocytes 2 Eosinophils 0 Basophils 0 PT 10.4 INR 1.00 PTT (Actin FS) 27.3 Sodium 137 Potassium 4.9 Chloride 97 L Carbon Dioxide 27.2 Anion Gap 17.7 H BUN 24 Creatinine 0.7 Est GFR ( Amer) > 60.0 Est GFR (Non-Af Amer) > 60.0 BUN/Creatinine Ratio 34.3 Glucose 122 H POC Glucose Calcium 10.8 H Total Bilirubin 0.5 AST 23 ALT 23 Alkaline Phosphatase 80 Total Protein 9.1 H Albumin 5.4 Globulin 3.7 Albumin/Globulin Ratio 1.5 Lipase 19 TSH Urine Source Urine Color Urine Clarity Urine pH Ur Specific [place] Urine Protein Urine Glucose (UA) Urine Ketones Urine Blood Urine Nitrate Urine Bilirubin Urine Urobilinogen Ur Leukocyte Esterase Urine RBC Urine WBC Ur Epithelial Cells Urine Bacteria Urine Mucus 10/06/18 10/06/18 10/07/18 12:35 16:49 06:00 WBC 9.4 RBC 4.99 Hgb 14.9 Hct 45.7 D MCV 91.7 MCH 30.0 MCHC Differential 32.7 RDW 12.8 Plt Count 223 MPV 7.0 Add Manual Diff Neutrophils % 71.6 Band Neutrophils % Lymphocytes % 20.0 Monocytes % 7.8 Eosinophils % 0.4 Basophils % 0.2 Neutrophils (Manual) Lymphocytes Monocytes Eosinophils Basophils PT INR PTT (Actin FS) Sodium Potassium Chloride Carbon Dioxide Anion Gap BUN Creatinine Est GFR ( Amer) Est GFR (Non-Af Amer) BUN/Creatinine Ratio Glucose POC Glucose 117 H Calcium Total Bilirubin AST ALT Alkaline Phosphatase Total Protein Albumin Globulin Albumin/Globulin Ratio Lipase TSH Urine Source CATH Urine Color YELLOW Urine Clarity CLEAR Urine pH 6.0 Ur Specific [place] 1.025 Urine Protein 30 H Urine Glucose (UA) NEGATIVE Urine Ketones 40 H Urine Blood NEGATIVE Urine Nitrate NEGATIVE Urine Bilirubin SMALL H Urine Urobilinogen 0.2 Ur Leukocyte Esterase NEGATIVE Urine RBC 2-5 H Urine WBC 0-2 Ur Epithelial Cells FEW Urine Bacteria FEW Urine Mucus MODERATE 10/07/18 10/07/18 06:00 06:00 WBC RBC Hgb Hct MCV MCH MCHC Differential RDW Plt Count MPV Add Manual Diff Neutrophils % Band Neutrophils % Lymphocytes % Monocytes % Eosinophils % Basophils % Neutrophils (Manual) Lymphocytes Monocytes Eosinophils Basophils PT INR PTT (Actin FS) Sodium 142 Potassium 3.6 Chloride 107 Carbon Dioxide 21.3 Anion Gap 17.3 H BUN 32 H Creatinine 0.7 Est GFR ( Amer) > 60.0 Est GFR (Non-Af Amer) > 60.0 BUN/Creatinine Ratio 45.7 Glucose 96 POC Glucose Calcium 8.5 L Total Bilirubin 0.5 AST 17 ALT 17 Alkaline Phosphatase 60 Total Protein 6.9 Albumin 4.0 L Globulin 2.9 Albumin/Globulin Ratio 1.4 Lipase TSH 0.39 Urine Source Urine Color Urine Clarity Urine pH Ur Specific [place] Urine Protein Urine Glucose (UA) Urine Ketones Urine Blood Urine Nitrate Urine Bilirubin Urine Urobilinogen Ur Leukocyte Esterase Urine RBC Urine WBC Ur Epithelial Cells Urine Bacteria Urine Mucus - Assessment Assessment: Patient is awake, calm. Dx: Fecal impactation, Coffe ground emesis, Leukocytosis , UTI, dehydration, CP, Peg in place. - Plan Plan: Patient in IV NS, IV AB, Continue with SNF meds, Consult with GI requested. Will continue to monitor.
[2018-10-07] MEDS: Docusate Sodium 100 mg/10 mL UD GT SCH ×2 (09:48→09:58)
[2018-10-07] MEDS: Multivitamin w/ Minerals Tab GT SCH (09:48)
[2018-10-07] MEDS: POLYETHYLENE GLYCOL 3350 17 GM PACK GT SCH ×2 (09:49→16:20)
[2018-10-07] MEDS ORDERED: Magnesium Hydroxide (MOM) 30 mL UDC GT PRN (11:41)
[2018-10-07] MEDS: cefTRIAXone 1 GM in Sodium Chloride 0.9% 50 ML IV SCH (12:06)
[2018-10-07] MEDS ORDERED: MINERAL OIL ENEMA 135 ML BOTTLE RC ONE (13:44)
--- NOTE | 2018-10-07 14:13 | Consultation ---
DATE OF CONSULTATION: 10/07/2018 REQUESTING PHYSICIAN: Dr. Loomis. REASON FOR CONSULTATION: For coffee-ground emesis. Thank you for allowing us to see this patient in consultation. HISTORY OF PRESENT ILLNESS: This is a 33-year-old male with significant developmental delay and history of constipation in the past who presents with coffee-ground emesis. The patient is having recurrent vomiting in the Emergency Room as well as one time in the floor. He was thus started on Zofran, Protonix and given one tap water enema. Per nursing report, the patient has not had any further episodes of vomiting and has been fairly comfortable. PAST MEDICAL HISTORY: Profound intellectual disability and cerebral palsy. PAST SURGICAL HISTORY: Includes PEG tube placement. FAMILY HISTORY: Noncontributory for GI disease. SOCIAL HISTORY: No tobacco, alcohol or drugs. MEDICATIONS: Have been reviewed. PHYSICAL EXAMINATION: VITAL SIGNS: Temperature of 99, pulse of 89, respiratory rate of 18, blood pressure is 118/79. GENERAL: In no acute distress. HEENT: Normocephalic, atraumatic. PERRLA positive. LUNGS: Clear bilaterally. No wheezes, rales or rhonchi. HEART: Regular rate and rhythm, normal S1, S2. ABDOMEN: Soft, nontender. Bowel sounds are positive. EXTREMITIES: Show no lower extremity edema. PSYCH: Could not assess. NEUROLOGIC: Could not participate in exam. LAB DATA: Hemoglobin 14.9. Sodium 142, potassium 3.6, chloride 107, CO2 of 21.3. IMAGING: CT of the abdomen and pelvis showed severe distal fecal impaction compressing on other organs. ASSESSMENT AND PLAN: This is a 33-year-old male with severe intellectual disability and functional quadriplegia, gastric-tube dependent, who presents with severe distal fecal impaction and coffee-ground emesis. 1. Coffee-ground emesis. 2. Distal fecal impaction, likely contributing to coffee-ground emesis. 3. Severe acute on chronic constipation. 4. Intellectual disability. 5. Gastric-tube dependence. RECOMMENDATIONS: 1. We would recommend aggressive disimpaction with enemas, Fleet enemas at least 1 to 2 times daily until the patient has had several just loose bowel movements. 2. We will also recommend 2 dose of MiraLax through the G-tube to assist with bowel function. 3. We will check KUB tomorrow. 4. Supportive care management. Continue with Protonix and Zofran as needed. Thank you for allowing me to participate in this patient's care. JOB# [id number]
[2018-10-07] MEDS: Fleet Enema 135 mL RC SCH (14:43)
[2018-10-07] MEDS: Sodium Chloride 0.9% 1,000 ML IV SCH (21:58)
[2018-10-08 06:22] LABS: % BASOPHILS 1.5 % (0.0-2.0); % EOSINOPHILS 0.3 % (0.0-5.0); % LYMPHOCYTES 21.6 % (20.0-50.0); % MONOCYTES 4.9 % (2.0-10.0); % NEUTROPHILS 71.7 % (40.0-80.0); BASOPHILE ABSOLUTE 0.1 Th/cumm (0-0.2); HEMOGLOBIN 12.7 gm/dL (12-16); LYMPHOCYTE ABSOLUTE 1.2 Th/cmm (1.5-3.0); MEAN CELL VOLUME 91.5 fl (80-99); MEAN CORPUSCULAR HEMOGLOBIN 30.9 pg (26.0-30.0); MEAN CORPUSCULAR HGB CONC 33.8 pg (28.0-36.0); MEAN PLATELET VOLUME 7.5 fl; MONOCYTE ABSOLUTE 0.3 Th/cmm (0.3-1.0); RED BLOOD COUNT 4.09 Mil/cmm (4.30-5.70); RED CELL DISTRIBUTION WIDTH 12.4 % (11.5-20.0); WHITE BLOOD COUNT 5.6 Th/cmm (4.8-10.8)
[2018-10-08] MEDS: Sodium Chloride 0.9% 1,000 ML IV SCH (06:22)
[2018-10-08 07:04] LABS: HEMATOCRIT 37.4 % (41.0-60); PLATELET COUNT 126 Th/cmm (150-400)
[2018-10-08 07:29] LABS: ANION GAP 22.3 (7.0-16.0); BUN - UREA NITROGEN 28 mg/dL (7-25); CARBON DIOXIDE 15.2 mEq/L (21.0-31.0); CHLORIDE 115 mEq/L (98-107); CREATININE - SERUM 0.6 mg/dL (0.7-1.3); GLUCOSE 73 mg/dL (70-105); POTASSIUM SERUM 5.5 mEq/L (3.5-5.1); SODIUM SERUM 147 mEq/L (136-145)
[2018-10-08 07:30] LABS: ALB/GLOB RATIO 1.3 (1.0-1.8); ALKALINE PHOSPHATASE 45 U/L (34-104); BILIRUBIN,TOTAL 0.5 mg/dL (0.3-1.0); CALCIUM SERUM 8.1 mg/dL (8.6-10.3); GFR AFRICAN-AMERICAN > 60.0 ml/min (>90); GFR NON AFRICAN-AMERICAN > 60.0 ml/min; SGOT 40 U/L (13-39); SGPT/ALT 17 U/L (7-52); TOTAL PROTEIN,SERUM 7.1 gm/dL (6.0-8.3)
[2018-10-08] MEDS: Multivitamin w/ Minerals Tab GT SCH (08:35)
[2018-10-08] MEDS: POLYETHYLENE GLYCOL 3350 17 GM PACK GT SCH ×2 (08:36→17:05)
--- NOTE | 2018-10-08 09:10 | General Progress Note ---
Subjective - Review of Systems Service Date: 10/08/09 Subjective: Patient non verbal Objective - Results Result Diagrams: 10/08/18 05:40 10/08/18 05:40 Recent Labs: Laboratory Last Values WBC 5.6 Th/cmm (4.8-10.8) 10/08/18 05:40 RBC 4.09 Mil/cmm (4.30-5.70) L 10/08/18 05:40 Hgb 12.7 gm/dL (12-16) 10/08/18 05:40 Hct 37.4 % (41.0-60) L D 10/08/18 05:40 MCV 91.5 fl (80-99) 10/08/18 05:40 MCH 30.9 pg (26.0-30.0) H 10/08/18 05:40 MCHC Differential 33.8 pg (28.0-36.0) 10/08/18 05:40 RDW 12.4 % (11.5-20.0) 10/08/18 05:40 Plt Count 126 Th/cmm (150-400) L D 10/08/18 05:40 MPV 7.5 fl 10/08/18 05:40 Add Manual Diff YES 10/06/18 11:30 Neutrophils % 71.7 % (40.0-80.0) 10/08/18 05:40 Band Neutrophils % 2 % (0-10) 10/06/18 11:30 Lymphocytes % 21.6 % (20.0-50.0) 10/08/18 05:40 Monocytes % 4.9 % (2.0-10.0) 10/08/18 05:40 Eosinophils % 0.3 % (0.0-5.0) 10/08/18 05:40 Basophils % 1.5 % (0.0-2.0) 10/08/18 05:40 Neutrophils (Manual) 89 % (40-80) H 10/06/18 11:30 Lymphocytes 7 % (20-50) L 10/06/18 11:30 Monocytes 2 % (2-10) 10/06/18 11:30 Eosinophils 0 % (0-5) 10/06/18 11:30 Basophils 0 % (0-3) 10/06/18 11:30 PT 10.4 SECONDS (9.5-11.5) 10/06/18 11:30 INR 1.00 (0.5-1.4) 10/06/18 11:30 PTT (Actin FS) 27.3 SECONDS (26.0-38.0) 10/06/18 11:30 Sodium 147 mEq/L (136-145) H 10/08/18 05:40 Potassium 5.5 mEq/L (3.5-5.1) H 10/08/18 05:40 Chloride 115 mEq/L (98-107) H 10/08/18 05:40 Carbon Dioxide 15.2 mEq/L (21.0-31.0) L 10/08/18 05:40 Anion Gap 22.3 (7.0-16.0) H 10/08/18 05:40 BUN 28 mg/dL (7-25) H 10/08/18 05:40 Creatinine 0.6 mg/dL (0.7-1.3) L 10/08/18 05:40 Est GFR ( Amer) > 60.0 ml/min (>90) 10/08/18 05:40 Est GFR (Non-Af Amer) > 60.0 ml/min 10/08/18 05:40 BUN/Creatinine Ratio 46.7 10/08/18 05:40 Glucose 73 mg/dL (70-105) 10/08/18 05:40 POC Glucose 117 MG/DL (70 - 105) H 10/06/18 16:49 Calcium 8.1 mg/dL (8.6-10.3) L 10/08/18 05:40 Total Bilirubin 0.5 mg/dL (0.3-1.0) 10/08/18 05:40 AST 40 U/L (13-39) H 10/08/18 05:40 ALT 17 U/L (7-52) 10/08/18 05:40 Alkaline Phosphatase 45 U/L (34-104) 10/08/18 05:40 Total Protein 7.1 gm/dL (6.0-8.3) 10/08/18 05:40 Albumin 4.0 gm/dL (4.2-5.5) L 10/08/18 05:40 Globulin 3.1 gm/dL 10/08/18 05:40 Albumin/Globulin Ratio 1.3 (1.0-1.8) 10/08/18 05:40 Lipase 19 U/L (11-82) 10/06/18 11:30 TSH 0.39 uIU/ml (0.34-5.60) 10/07/18 06:00 Urine Source CATH 10/06/18 12:35 Urine Color YELLOW 10/06/18 12:35 Urine Clarity CLEAR (CLEAR) 10/06/18 12:35 Urine pH 6.0 (4.6 - 8.0) 10/06/18 12:35 Ur Specific [place] 1.025 (1.005-1.030) 10/06/18 12:35 Urine Protein 30 mg/dL (NEGATIVE) H 10/06/18 12:35 Urine Glucose (UA) NEGATIVE mg/dL (NEGATIVE) 10/06/18 12:35 Urine Ketones 40 mg/dL (NEGATIVE) H 10/06/18 12:35 Urine Blood NEGATIVE (NEGATIVE) 10/06/18 12:35 Urine Nitrate NEGATIVE (NEGATIVE) 10/06/18 12:35 Urine Bilirubin SMALL (NEGATIVE) H 10/06/18 12:35 Urine Urobilinogen 0.2 E.U./dL (0.2 - 1.0) 10/06/18 12:35 Ur Leukocyte Esterase NEGATIVE (NEGATIVE) 10/06/18 12:35 Urine RBC 2-5 /hpf (0-5) H 10/06/18 12:35 Urine WBC 0-2 /hpf (0-5) 10/06/18 12:35 Ur Epithelial Cells FEW /lpf (FEW) 10/06/18 12:35 Urine Bacteria FEW /hpf (NONE SEEN) 10/06/18 12:35 Urine Mucus MODERATE /lpf (FEW) 10/06/18 12:35 - Physical Exam Vitals and I&O: Vital Signs Temp 98.1 F 10/08/18 08:37 Pulse 83 10/08/18 08:37 Resp 18 10/08/18 08:37 BP 119/60 10/08/18 08:37 Pulse Ox 97 10/08/18 08:37 Intake & Output 10/07/18 10/08/18 10/08/18 18:59 06:59 18:59 Intake Total 924 Balance 924 Weight (lbs) 43.817 kg Intake: Intake, IV Amount 924 Sodium Chloride 0.9% 1, 924 000 ml @ 110 mls/hr IV . Q9H6M [facility] Rx#:[id number] Oral 0 Other: Weight Source Bedscale Active Medications: Current Medications Acetaminophen (Tylenol) 650 mg GT Q4HR PRN PRN Reason: Pain Or Fever >99.9 Stop: 12/05/18 19:22 Alendronate Sodium (Fosamax) 70 mg PO QSAT [facility] Stop: 12/08/18 07:29 Ascorbic Acid (Vitamin C) 500 mg GT DAILY [facility] Stop: 12/06/18 08:59 Last Admin: 10/08/18 08:35 Dose: 500 mg Bisacodyl (Dulcolax 10 Mg Supp) 10 mg RC Q24HR PRN PRN Reason: MODERATE CONSTIPATION Stop: 12/06/18 11:44 Calcium Carbonate (Os-Warren) 500 mg GT DAILY [facility] Stop: 12/06/18 08:59 Last Admin: 10/08/18 08:35 Dose: 500 mg Cholecalciferol (Vitamin D3) 1,000 iu GT DAILY [facility] Stop: 12/06/18 08:59 Last Admin: 10/08/18 08:35 Dose: 1,000 iu Docusate Sodium (Colace) 200 mg GT Q24HR [facility] Stop: 12/06/18 09:44 Last Admin: 10/07/18 09:58 Dose: 200 mg Ceftriaxone Sodium 1 gm/ (Sodium Chloride) 50 mls @ 100 mls/hr IV Q24HR [facility] Stop: 12/06/18 11:59 Last Admin: 10/07/18 12:06 Dose: 100 mls/hr Dextrose (D5w) 1,000 mls @ 100 mls/hr IV .Q10H [facility] Stop: 12/07/18 08:59 Magnesium Hydroxide (Milk Of Magnesia) 30 ml GT Q24HR PRN PRN Reason: Constipation Stop: 12/06/18 11:44 Mineral Oil (Mineral Oil 30 Ml) 30 ml PO DAILY PRN PRN Reason: Constipation Stop: 12/06/18 13:43 Ondansetron HCl (Zofran) 4 mg IV Q8H PRN PRN Reason: Nausea / Vomiting Stop: 12/05/18 15:56 Last Admin: 10/06/18 17:09 Dose: 4 mg Pantoprazole Sodium (Protonix) 40 mg IVP BID [facility] Stop: 12/05/18 16:59 Last Admin: 10/08/18 08:36 Dose: 40 mg Polyethylene Glycol (Miralax) 17 gm GT BID [facility] Stop: 12/06/18 08:59 Last Admin: 10/08/18 08:36 Dose: 17 gm Sodium Phosphate (Fleet Enema) 135 ml RC Q24HR [facility] Stop: 12/06/18 11:44 Last Admin: 10/07/18 14:43 Dose: 135 ml Sodium Polystyrene Sulfonate (Kayexalate) 30 gm PO X1 ONE Stop: 10/08/18 09:01 General: Alert, Other (Patient is non verbal profound MR) HEENT: Atraumatic Neck: Supple Cardiovascular: Regular rate Abdomen: Bowel sounds Extremities: Other (Contracted) Neurological: Other (Non ambulatory) Skin: Other (Warm and dry) Psych/Mental Status: Other (Profound MR) - Procedures Procedures: Procedures Procedure Code Date CHANGE FEEDING DEVICE IN UP INTEST TRACT, FOOT DRILL OPERATOR APPROACH [id number] 02/02/17 CHANGE GASTROSTOMY TUBE 09593 02/02/17 DIAGNOSTIC COLONOSCOPY 91280 06/26/16 EGD BIOPSY SINGLE/MULTIPLE 75900 12/22/13 ESOPHAGOGASTRODUODENOSCOPY [EGD] W/CLOSED BIOPSY 45.16 12/22/13 INFLUENZA VACCINATION 99.52 07/14/13 INSERT INDWELLING CATH 57.94 05/17/12 INSERT INTESTINAL TUBE 96.08 05/17/12 INSERT TEMP BLADDER CATH 16439 05/17/12 INSJ PICC 5 YR+ W/O IMAGING 36867 05/17/12 INSPECTION OF LOWER INTESTINAL TRACT, ENDO 8CEC7PM 06/26/16 OPEN AND OTHER CECECTOMY 45.72 05/17/12 OPEN AND OTHER RIGHT HEMICOLECTOMY 45.73 05/17/12 PARTIAL REMOVAL OF COLON 80896 05/17/12 UNLISTED PX SMALL INTESTINE 13575 05/17/12 VENOUS CATHETERIZATION NEC 38.93 05/17/12 Assessment/Plan - Assessment Assessment: Patient is awake, calm. Na and K high, WBC normal. Dx: Fecal impactation, Coffe ground emesis, Leukocytosis, UTI, dehydration, Hypernatremia, Hyperkalemia, Intellectually disable CP, Peg in place. - Plan Plan: Patient in IV NS, IV AB, Continue with SNF meds, already seen by GI. Brewer one time, IV change to D5. Will continue to monitor. Nutritional Asmnt/Malnutr-PDOC - Dietary Evaluation Malnutrition Findings (Please click <Entered> for more info): Nutritional Asmnt/Malnutrition Start: 10/07/18 15: 45 Text: Status: Complete Freq: Protocol: Document 10/07/18 15:45 [email or web address] (Rec: 10/07/18 16:08 OSCAR [email or web address]) Nutritional Asmnt/Malnutrition Patient General Information Nutritional Screening High Risk Consult Diagnosis ileus, fecal impaction Pertinent Medical Hx/Surgical Hx CP, quadriplegic, Gtube Subjective Information Pt seen lying in bed, non verbal, NPO status. Consult received for shavon Carlisle. Current Diet Order/ Nutrition Support NPO Pertinent Medications vitC, os-warren, vit D3, colace, mineral oil, protonix, miralax , nacl 0.9% Pertinent Labs 10/07 BUN 32, Cr 8.5, alb 4.0 Nutritional Hx/Data Height 1.68 m Height (Calculated Centimeters) 167.6 Current Weight (lbs) 44.906 kg Weight (Calculated Kilograms) 44.9 Weight (Calculated Grams) 63521.6 [place] Body Weight 142 Body Mass Index (BMI) 16.0 Weight Status Underweight GI Symptoms GI Symptoms None Last BM none Difficult in: None Skin Integrity/Comment: intact, healed incision. shavon Carlisle Estimated Nutritional Goals BEE in Kcals: Using Current wt Calories/Kcals/Kg 30-35 Kcals Calculated [id number] Protein: Using Current wt Protein g/k.2-1.4 Protein Calculated 54-63 Fluid: ml 1350-1575ml (1ml/kcal) Nutritional Problem 1. Problem Problem inadequate energy intake Etiology GI dysfunction Signs/Symptoms: GT not initiated, NPO status Intervention/Recommendation Comments 1. Monitor NPO status. 2. Monitor GI symptoms, wt, skin integrity and labs 3. F/U as high risk in 2-3 days Expected Outcomes/Goals Expected Outcomes/Goals 1. Pt to meet at least 90% of nutritional needs via nutrition support with tolerance 2. Wt stability, skin to remain intact, labs to approach WNL.
[2018-10-08] MEDS: Dextrose 5% 1,000 ML IV SCH (09:14)
[2018-10-08] MEDS: Docusate Sodium 100 mg/10 mL UD GT SCH (09:57)
[2018-10-08] MEDS: Fleet Enema 135 mL RC SCH (11:56)
[2018-10-08] MEDS: cefTRIAXone 1 GM in Sodium Chloride 0.9% 50 ML IV SCH (12:46)
[2018-10-08] MEDS ORDERED: Probiotic Screen MC PRN (13:58)
--- NOTE | 2018-10-08 23:22 | GI Progress Note ---
Subjective - Review of Systems Service Date: 10/08/18 Events since last encounter: PT HAD A LARGE BM Objective - Results Result Diagrams: 10/08/18 05:40 10/08/18 05:40 Recent Labs: Laboratory Last Values WBC 5.6 Th/cmm (4.8-10.8) 10/08/18 05:40 RBC 4.09 Mil/cmm (4.30-5.70) L 10/08/18 05:40 Hgb 12.7 gm/dL (12-16) 10/08/18 05:40 Hct 37.4 % (41.0-60) L D 10/08/18 05:40 MCV 91.5 fl (80-99) 10/08/18 05:40 MCH 30.9 pg (26.0-30.0) H 10/08/18 05:40 MCHC Differential 33.8 pg (28.0-36.0) 10/08/18 05:40 RDW 12.4 % (11.5-20.0) 10/08/18 05:40 Plt Count 126 Th/cmm (150-400) L D 10/08/18 05:40 MPV 7.5 fl 10/08/18 05:40 Add Manual Diff YES 10/06/18 11:30 Neutrophils % 71.7 % (40.0-80.0) 10/08/18 05:40 Band Neutrophils % 2 % (0-10) 10/06/18 11:30 Lymphocytes % 21.6 % (20.0-50.0) 10/08/18 05:40 Monocytes % 4.9 % (2.0-10.0) 10/08/18 05:40 Eosinophils % 0.3 % (0.0-5.0) 10/08/18 05:40 Basophils % 1.5 % (0.0-2.0) 10/08/18 05:40 Neutrophils (Manual) 89 % (40-80) H 10/06/18 11:30 Lymphocytes 7 % (20-50) L 10/06/18 11:30 Monocytes 2 % (2-10) 10/06/18 11:30 Eosinophils 0 % (0-5) 10/06/18 11:30 Basophils 0 % (0-3) 10/06/18 11:30 PT 10.4 SECONDS (9.5-11.5) 10/06/18 11:30 INR 1.00 (0.5-1.4) 10/06/18 11:30 PTT (Actin FS) 27.3 SECONDS (26.0-38.0) 10/06/18 11:30 Sodium 147 mEq/L (136-145) H 10/08/18 05:40 Potassium 5.5 mEq/L (3.5-5.1) H 10/08/18 05:40 Chloride 115 mEq/L (98-107) H 10/08/18 05:40 Carbon Dioxide 15.2 mEq/L (21.0-31.0) L 10/08/18 05:40 Anion Gap 22.3 (7.0-16.0) H 10/08/18 05:40 BUN 28 mg/dL (7-25) H 10/08/18 05:40 Creatinine 0.6 mg/dL (0.7-1.3) L 10/08/18 05:40 Est GFR ( Amer) > 60.0 ml/min (>90) 10/08/18 05:40 Est GFR (Non-Af Amer) > 60.0 ml/min 10/08/18 05:40 BUN/Creatinine Ratio 46.7 10/08/18 05:40 Glucose 73 mg/dL (70-105) 10/08/18 05:40 POC Glucose 117 MG/DL (70 - 105) H 10/06/18 16:49 Calcium 8.1 mg/dL (8.6-10.3) L 10/08/18 05:40 Total Bilirubin 0.5 mg/dL (0.3-1.0) 10/08/18 05:40 AST 40 U/L (13-39) H 10/08/18 05:40 ALT 17 U/L (7-52) 10/08/18 05:40 Alkaline Phosphatase 45 U/L (34-104) 10/08/18 05:40 Total Protein 7.1 gm/dL (6.0-8.3) 10/08/18 05:40 Albumin 4.0 gm/dL (4.2-5.5) L 10/08/18 05:40 Globulin 3.1 gm/dL 10/08/18 05:40 Albumin/Globulin Ratio 1.3 (1.0-1.8) 10/08/18 05:40 Lipase 19 U/L (11-82) 10/06/18 11:30 TSH 0.39 uIU/ml (0.34-5.60) 10/07/18 06:00 Urine Source CATH 10/06/18 12:35 Urine Color YELLOW 10/06/18 12:35 Urine Clarity CLEAR (CLEAR) 10/06/18 12:35 Urine pH 6.0 (4.6 - 8.0) 10/06/18 12:35 Ur Specific [place] 1.025 (1.005-1.030) 10/06/18 12:35 Urine Protein 30 mg/dL (NEGATIVE) H 10/06/18 12:35 Urine Glucose (UA) NEGATIVE mg/dL (NEGATIVE) 10/06/18 12:35 Urine Ketones 40 mg/dL (NEGATIVE) H 10/06/18 12:35 Urine Blood NEGATIVE (NEGATIVE) 10/06/18 12:35 Urine Nitrate NEGATIVE (NEGATIVE) 10/06/18 12:35 Urine Bilirubin SMALL (NEGATIVE) H 10/06/18 12:35 Urine Urobilinogen 0.2 E.U./dL (0.2 - 1.0) 10/06/18 12:35 Ur Leukocyte Esterase NEGATIVE (NEGATIVE) 10/06/18 12:35 Urine RBC 2-5 /hpf (0-5) H 10/06/18 12:35 Urine WBC 0-2 /hpf (0-5) 10/06/18 12:35 Ur Epithelial Cells FEW /lpf (FEW) 10/06/18 12:35 Urine Bacteria FEW /hpf (NONE SEEN) 10/06/18 12:35 Urine Mucus MODERATE /lpf (FEW) 10/06/18 12:35 - Physical Exam Vitals and I&O: Vital Signs Temp 98.5 F 10/08/18 20:00 Pulse 87 10/08/18 20:00 Resp 18 10/08/18 20:00 BP 106/71 10/08/18 20:00 Pulse Ox 98 10/08/18 18:57 Intake & Output 10/08/18 10/08/18 10/09/18 06:59 18:59 06:59 Intake Total 924 25 Balance 924 25 Weight (lbs) 43.817 kg 43.998 kg Intake: Intake, IV Amount 924 Sodium Chloride 0.9% 1, 924 000 ml @ 110 mls/hr IV . Q9H6M [facility] Rx#:[id number] Oral 0 25 Other: # Voids 2 # Bowel Movements 1 Weight Source Bedscale Bedscale Active Medications: Current Medications Acetaminophen (Tylenol) 650 mg GT Q4HR PRN PRN Reason: Pain Or Fever >99.9 Stop: 12/05/18 19:22 Alendronate Sodium (Fosamax) 70 mg PO QSAT [facility] Stop: 12/08/18 07:29 Ascorbic Acid (Vitamin C) 500 mg GT DAILY [facility] Stop: 12/06/18 08:59 Last Admin: 10/08/18 08:35 Dose: 500 mg Bisacodyl (Dulcolax 10 Mg Supp) 10 mg RC Q24HR PRN PRN Reason: MODERATE CONSTIPATION Stop: 12/06/18 11:44 Calcium Carbonate (Os-Jesus) 500 mg GT DAILY [facility] Stop: 12/06/18 08:59 Last Admin: 10/08/18 08:35 Dose: 500 mg Cholecalciferol (Vitamin D3) 1,000 iu GT DAILY [facility] Stop: 12/06/18 08:59 Last Admin: 10/08/18 08:35 Dose: 1,000 iu Docusate Sodium (Colace) 200 mg GT Q24HR [facility] Stop: 12/06/18 09:44 Last Admin: 10/08/18 09:57 Dose: 200 mg Ceftriaxone Sodium 1 gm/ (Sodium Chloride) 50 mls @ 100 mls/hr IV Q24HR [facility] Stop: 12/06/18 11:59 Last Admin: 10/08/18 12:46 Dose: 100 mls/hr Dextrose (D5w) 1,000 mls @ 100 mls/hr IV .Q10H [facility] Stop: 12/07/18 08:59 Last Admin: 10/08/18 09:14 Dose: 100 mls/hr Lactobacillus Rhamnosus (Culturelle 15b) 1 each PO DAILY [facility] Stop: 12/08/18 08:59 Magnesium Hydroxide (Milk Of Magnesia) 30 ml GT Q24HR PRN PRN Reason: Constipation Stop: 12/06/18 11:44 Mineral Oil (Mineral Oil 30 Ml) 30 ml PO DAILY PRN PRN Reason: Constipation Stop: 12/06/18 13:43 Miscellaneous (Probiotic Screen) 1 ea MC PRN PRN PRN Reason: PROTOCOL Stop: 12/07/18 13:57 Ondansetron HCl (Zofran) 4 mg IV Q8H PRN PRN Reason: Nausea / Vomiting Stop: 12/05/18 15:56 Last Admin: 10/06/18 17:09 Dose: 4 mg Pantoprazole Sodium (Protonix) 40 mg IVP BID [facility] Stop: 12/05/18 16:59 Last Admin: 10/08/18 17:05 Dose: 40 mg Polyethylene Glycol (Miralax) 17 gm GT BID [facility] Stop: 12/06/18 08:59 Last Admin: 10/08/18 17:05 Dose: 17 gm Sodium Phosphate (Fleet Enema) 135 ml RC Q24HR [facility] Stop: 12/06/18 11:44 Last Admin: 10/08/18 11:56 Dose: 135 ml General: Alert, Other (Patient is non verbal profound MR) HEENT: Atraumatic Neck: Supple Cardiovascular: Regular rate Abdomen: Bowel sounds Extremities: Other (Contracted) Neurological: Other (Non ambulatory) Skin: Other (Warm and dry) Psych/Mental Status: Other (Profound MR) - Procedures Procedures: Procedures Procedure Code Date CHANGE FEEDING DEVICE IN UP INTEST TRACT, [employer]INEER APPROACH [id number] 02/02/17 CHANGE GASTROSTOMY TUBE 37173 02/02/17 DIAGNOSTIC COLONOSCOPY 10606 06/26/16 EGD BIOPSY SINGLE/MULTIPLE 57234 12/22/13 ESOPHAGOGASTRODUODENOSCOPY [EGD] W/CLOSED BIOPSY 45.16 12/22/13 INFLUENZA VACCINATION 99.52 07/14/13 INSERT INDWELLING CATH 57.94 05/17/12 INSERT INTESTINAL TUBE 96.08 05/17/12 INSERT TEMP BLADDER CATH 89882 05/17/12 INSJ PICC 5 YR+ W/O IMAGING 17943 05/17/12 INSPECTION OF LOWER INTESTINAL TRACT, ENDO [id number] 06/26/16 OPEN AND OTHER CECECTOMY 45.72 05/17/12 OPEN AND OTHER RIGHT HEMICOLECTOMY 45.73 05/17/12 PARTIAL REMOVAL OF COLON 12725 05/17/12 UNLISTED PX SMALL INTESTINE 88648 05/17/12 VENOUS CATHETERIZATION NEC 38.93 05/17/12 Assessment/Plan - Assessment Assessment: 1. Fecal impaction 2. Coffee ground emesis 3. Abdominal distention 4. Non verbal -continue with mineral oil through G tube -enema prn -daily stool softeners -okay to advance diet, and G tube for supplement and meds
[2018-10-09] MEDS: Dextrose 5% 1,000 ML IV SCH ×2 (06:35→23:19)
[2018-10-09 08:01] LABS: % BASOPHILS 0.5 % (0.0-2.0); % EOSINOPHILS 2.2 % (0.0-5.0); % LYMPHOCYTES 38.5 % (20.0-50.0); % MONOCYTES 8.8 % (2.0-10.0); EOSINOPHILE ABSOLUTE 0.1 Th/cmm (0.1-0.4); HEMATOCRIT 39.5 % (41.0-60); HEMOGLOBIN 13.1 gm/dL (12-16); LYMPHOCYTE ABSOLUTE 1.9 Th/cmm (1.5-3.0); MEAN CELL VOLUME 90.5 fl (80-99); MEAN CORPUSCULAR HGB CONC 33.2 pg (28.0-36.0); MEAN PLATELET VOLUME 6.6 fl; MONOCYTE ABSOLUTE 0.4 Th/cmm (0.3-1.0); NEUTROPHILE ABSOLUTE 2.6 Th/cmm (1.8-8.0); PLATELET COUNT 158 Th/cmm (150-400); RED BLOOD COUNT 4.36 Mil/cmm (4.30-5.70); RED CELL DISTRIBUTION WIDTH 12.3 % (11.5-20.0)
[2018-10-09 08:19] LABS: ALB/GLOB RATIO 1.4 (1.0-1.8); ALKALINE PHOSPHATASE 51 U/L (34-104); ANION GAP 13.3 (7.0-16.0); BILIRUBIN,TOTAL 0.5 mg/dL (0.3-1.0); BUN - UREA NITROGEN 10 mg/dL (7-25); CALCIUM SERUM 8.3 mg/dL (8.6-10.3); CARBON DIOXIDE 25.7 mEq/L (21.0-31.0); CHLORIDE 105 mEq/L (98-107); CREATININE - SERUM 0.5 mg/dL (0.7-1.3); GFR AFRICAN-AMERICAN > 60.0 ml/min (>90); GFR NON AFRICAN-AMERICAN > 60.0 ml/min; GLUCOSE 118 mg/dL (70-105); SGOT 20 U/L (13-39); SGPT/ALT 15 U/L (7-52); SODIUM SERUM 141 mEq/L (136-145); TOTAL PROTEIN,SERUM 6.9 gm/dL (6.0-8.3)
--- NOTE | 2018-10-09 08:29 | Diagnostic Imaging Report ---
KUB abdominal film HISTORY: Abdominal distention The exam demonstrates multiple loops of mildly dilated large and small bowel. Findings may be associated with an adynamic ileus. Balloontipped catheter projects over the left upper quadrant. No free intraperitoneal air. IMPRESSION: 1. Mildly dilated air-filled large and small bowel. Findings suggest an a dynamic ileus. CT documented changes of fecal impaction not appreciated at this time. If symptoms persist, a small bowel follow-through would provide for exclusion of obstruction.
[2018-10-09] MEDS ORDERED: Potassium Phosphate 20 MMOLE in Sodium Chloride 0.9% 250 ML IV ONE (08:36)
--- NOTE | 2018-10-09 08:36 | GI Progress Note ---
Subjective - Review of Systems Subjective: NO EVENTS Objective - Results Result Diagrams: 10/09/18 07:48 10/09/18 07:48 Recent Labs: Laboratory Last Values WBC 5.0 Th/cmm (4.8-10.8) 10/09/18 07:48 RBC 4.36 Mil/cmm (4.30-5.70) 10/09/18 07:48 Hgb 13.1 gm/dL (12-16) 10/09/18 07:48 Hct 39.5 % (41.0-60) L 10/09/18 07:48 MCV 90.5 fl (80-99) 10/09/18 07:48 MCH 30.0 pg (26.0-30.0) 10/09/18 07:48 MCHC Differential 33.2 pg (28.0-36.0) 10/09/18 07:48 RDW 12.3 % (11.5-20.0) 10/09/18 07:48 Plt Count 158 Th/cmm (150-400) 10/09/18 07:48 MPV 6.6 fl 10/09/18 07:48 Add Manual Diff YES 10/06/18 11:30 Neutrophils % 50.0 % (40.0-80.0) 10/09/18 07:48 Band Neutrophils % 2 % (0-10) 10/06/18 11:30 Lymphocytes % 38.5 % (20.0-50.0) 10/09/18 07:48 Monocytes % 8.8 % (2.0-10.0) 10/09/18 07:48 Eosinophils % 2.2 % (0.0-5.0) 10/09/18 07:48 Basophils % 0.5 % (0.0-2.0) 10/09/18 07:48 Neutrophils (Manual) 89 % (40-80) H 10/06/18 11:30 Lymphocytes 7 % (20-50) L 10/06/18 11:30 Monocytes 2 % (2-10) 10/06/18 11:30 Eosinophils 0 % (0-5) 10/06/18 11:30 Basophils 0 % (0-3) 10/06/18 11:30 PT 10.4 SECONDS (9.5-11.5) 10/06/18 11:30 INR 1.00 (0.5-1.4) 10/06/18 11:30 PTT (Actin FS) 27.3 SECONDS (26.0-38.0) 10/06/18 11:30 Sodium 141 mEq/L (136-145) 10/09/18 07:48 Potassium 3.0 mEq/L (3.5-5.1) L D 10/09/18 07:48 Chloride 105 mEq/L (98-107) 10/09/18 07:48 Carbon Dioxide 25.7 mEq/L (21.0-31.0) 10/09/18 07:48 Anion Gap 13.3 (7.0-16.0) 10/09/18 07:48 BUN 10 mg/dL (7-25) 10/09/18 07:48 Creatinine 0.5 mg/dL (0.7-1.3) L 10/09/18 07:48 Est GFR ( Amer) > 60.0 ml/min (>90) 10/09/18 07:48 Est GFR (Non-Af Amer) > 60.0 ml/min 10/09/18 07:48 BUN/Creatinine Ratio 20.0 10/09/18 07:48 Glucose 118 mg/dL (70-105) H 10/09/18 07:48 POC Glucose 117 MG/DL (70 - 105) H 10/06/18 16:49 Calcium 8.3 mg/dL (8.6-10.3) L 10/09/18 07:48 Total Bilirubin 0.5 mg/dL (0.3-1.0) 10/09/18 07:48 AST 20 U/L (13-39) 10/09/18 07:48 ALT 15 U/L (7-52) 10/09/18 07:48 Alkaline Phosphatase 51 U/L (34-104) 10/09/18 07:48 Total Protein 6.9 gm/dL (6.0-8.3) 10/09/18 07:48 Albumin 4.0 gm/dL (4.2-5.5) L 10/09/18 07:48 Globulin 2.9 gm/dL 10/09/18 07:48 Albumin/Globulin Ratio 1.4 (1.0-1.8) 10/09/18 07:48 Lipase 19 U/L (11-82) 10/06/18 11:30 TSH 0.39 uIU/ml (0.34-5.60) 10/07/18 06:00 Urine Source CATH 10/06/18 12:35 Urine Color YELLOW 10/06/18 12:35 Urine Clarity CLEAR (CLEAR) 10/06/18 12:35 Urine pH 6.0 (4.6 - 8.0) 10/06/18 12:35 Ur Specific [place] 1.025 (1.005-1.030) 10/06/18 12:35 Urine Protein 30 mg/dL (NEGATIVE) H 10/06/18 12:35 Urine Glucose (UA) NEGATIVE mg/dL (NEGATIVE) 10/06/18 12:35 Urine Ketones 40 mg/dL (NEGATIVE) H 10/06/18 12:35 Urine Blood NEGATIVE (NEGATIVE) 10/06/18 12:35 Urine Nitrate NEGATIVE (NEGATIVE) 10/06/18 12:35 Urine Bilirubin SMALL (NEGATIVE) H 10/06/18 12:35 Urine Urobilinogen 0.2 E.U./dL (0.2 - 1.0) 10/06/18 12:35 Ur Leukocyte Esterase NEGATIVE (NEGATIVE) 10/06/18 12:35 Urine RBC 2-5 /hpf (0-5) H 10/06/18 12:35 Urine WBC 0-2 /hpf (0-5) 10/06/18 12:35 Ur Epithelial Cells FEW /lpf (FEW) 10/06/18 12:35 Urine Bacteria FEW /hpf (NONE SEEN) 10/06/18 12:35 Urine Mucus MODERATE /lpf (FEW) 10/06/18 12:35 - Physical Exam Vitals and I&O: Vital Signs Temp 98.0 F 10/09/18 04:00 Pulse 73 10/09/18 04:00 Resp 18 10/09/18 04:00 BP 111/84 10/09/18 04:00 Pulse Ox 95 10/09/18 04:00 Intake & Output 10/08/18 10/09/18 10/09/18 18:59 06:59 18:59 Intake Total 25 1200 Balance 25 1200 Weight (lbs) 43.998 kg 43.998 kg Intake: Intake, IV Amount 1000 Dextrose 5% 1,000 ml @ 1000 100 mls/hr IV .Q10H [facility] Rx#:[id number] Oral 25 Other 200 Other: # Voids 2 3 # Bowel Movements 1 Weight Source Bedscale Bedscale Active Medications: Current Medications Acetaminophen (Tylenol) 650 mg GT Q4HR PRN PRN Reason: Pain Or Fever >99.9 Stop: 12/05/18 19:22 Last Admin: 10/09/18 04:15 Dose: 650 mg Alendronate Sodium (Fosamax) 70 mg PO QSAT [facility] Stop: 12/08/18 07:29 Last Admin: 10/09/18 06:34 Dose: 70 mg Ascorbic Acid (Vitamin C) 500 mg GT DAILY [facility] Stop: 12/06/18 08:59 Last Admin: 10/08/18 08:35 Dose: 500 mg Bisacodyl (Dulcolax 10 Mg Supp) 10 mg RC Q24HR PRN PRN Reason: MODERATE CONSTIPATION Stop: 12/06/18 11:44 Calcium Carbonate (Os-Jesus) 500 mg GT DAILY [facility] Stop: 12/06/18 08:59 Last Admin: 10/08/18 08:35 Dose: 500 mg Cholecalciferol (Vitamin D3) 1,000 iu GT DAILY [facility] Stop: 12/06/18 08:59 Last Admin: 10/08/18 08:35 Dose: 1,000 iu Docusate Sodium (Colace) 200 mg GT Q24HR [facility] Stop: 12/06/18 09:44 Last Admin: 10/08/18 09:57 Dose: 200 mg Ceftriaxone Sodium 1 gm/ (Sodium Chloride) 50 mls @ 100 mls/hr IV Q24HR [facility] Stop: 12/06/18 11:59 Last Admin: 10/08/18 12:46 Dose: 100 mls/hr Dextrose (D5w) 1,000 mls @ 100 mls/hr IV .Q10H [facility] Stop: 12/07/18 08:59 Last Admin: 10/09/18 06:35 Dose: 100 mls/hr Lactobacillus Rhamnosus (Culturelle 15b) 1 each PO DAILY [facility] Stop: 12/08/18 08:59 Magnesium Hydroxide (Milk Of Magnesia) 30 ml GT Q24HR PRN PRN Reason: Constipation Stop: 12/06/18 11:44 Mineral Oil (Mineral Oil 30 Ml) 30 ml PO DAILY PRN PRN Reason: Constipation Stop: 12/06/18 13:43 Miscellaneous (Probiotic Screen) 1 ea MC PRN PRN PRN Reason: PROTOCOL Stop: 12/07/18 13:57 Ondansetron HCl (Zofran) 4 mg IV Q8H PRN PRN Reason: Nausea / Vomiting Stop: 12/05/18 15:56 Last Admin: 10/06/18 17:09 Dose: 4 mg Pantoprazole Sodium (Protonix) 40 mg IVP BID [facility] Stop: 12/05/18 16:59 Last Admin: 10/08/18 17:05 Dose: 40 mg Polyethylene Glycol (Miralax) 17 gm GT BID [facility] Stop: 12/06/18 08:59 Last Admin: 10/08/18 17:05 Dose: 17 gm Sodium Phosphate (Fleet Enema) 135 ml RC Q24HR [facility] Stop: 12/06/18 11:44 Last Admin: 10/08/18 11:56 Dose: 135 ml General: Alert, Other (Patient is non verbal profound MR) HEENT: Atraumatic Neck: Supple Cardiovascular: Regular rate Abdomen: Bowel sounds Extremities: Other (Contracted) Neurological: Other (Non ambulatory) Skin: Other (Warm and dry) Psych/Mental Status: Other (Profound MR) - Procedures Procedures: Procedures Procedure Code Date CHANGE FEEDING DEVICE IN UP INTEST TRACT, [employer]ORER APPROACH [id number] 02/02/17 CHANGE GASTROSTOMY TUBE 48061 02/02/17 DIAGNOSTIC COLONOSCOPY 11598 06/26/16 EGD BIOPSY SINGLE/MULTIPLE 61344 12/22/13 ESOPHAGOGASTRODUODENOSCOPY [EGD] W/CLOSED BIOPSY 45.16 12/22/13 INFLUENZA VACCINATION 99.52 07/14/13 INSERT INDWELLING CATH 57.94 05/17/12 INSERT INTESTINAL TUBE 96.08 05/17/12 INSERT TEMP BLADDER CATH 16390 05/17/12 INSJ PICC 5 YR+ W/O IMAGING 87041 05/17/12 INSPECTION OF LOWER INTESTINAL TRACT, ENDO [id number] 06/26/16 OPEN AND OTHER CECECTOMY 45.72 05/17/12 OPEN AND OTHER RIGHT HEMICOLECTOMY 45.73 05/17/12 PARTIAL REMOVAL OF COLON 83117 05/17/12 UNLISTED PX SMALL INTESTINE 28092 05/17/12 VENOUS CATHETERIZATION NEC 38.93 05/17/12 Assessment/Plan - Assessment Assessment: 33 YO MALE WITH DYSPHAGIA AND FECAL IMPACTION HAS GT BUT CONY PO DIET 1.CONT SUPP CARE 2.CONT LAXATIVES
[2018-10-09] MEDS: Multivitamin w/ Minerals Tab GT SCH (08:51)
[2018-10-09] MEDS: Lactobacillus Rhamnosus GG 15 Billion CFU CAP.SPRINK PO SCH (08:51)
[2018-10-09] MEDS: POLYETHYLENE GLYCOL 3350 17 GM PACK GT SCH ×2 (08:51→17:17)
[2018-10-09] MEDS: Docusate Sodium 100 mg/10 mL UD GT SCH (11:30)
--- NOTE | 2018-10-09 15:07 | General Progress Note ---
Subjective - Review of Systems Service Date: 10/09/18 Subjective: Patient non verbal Objective - Results Result Diagrams: 10/09/18 07:48 10/09/18 07:48 Recent Labs: Laboratory Last Values WBC 5.0 Th/cmm (4.8-10.8) 10/09/18 07:48 RBC 4.36 Mil/cmm (4.30-5.70) 10/09/18 07:48 Hgb 13.1 gm/dL (12-16) 10/09/18 07:48 Hct 39.5 % (41.0-60) L 10/09/18 07:48 MCV 90.5 fl (80-99) 10/09/18 07:48 MCH 30.0 pg (26.0-30.0) 10/09/18 07:48 MCHC Differential 33.2 pg (28.0-36.0) 10/09/18 07:48 RDW 12.3 % (11.5-20.0) 10/09/18 07:48 Plt Count 158 Th/cmm (150-400) 10/09/18 07:48 MPV 6.6 fl 10/09/18 07:48 Add Manual Diff YES 10/06/18 11:30 Neutrophils % 50.0 % (40.0-80.0) 10/09/18 07:48 Band Neutrophils % 2 % (0-10) 10/06/18 11:30 Lymphocytes % 38.5 % (20.0-50.0) 10/09/18 07:48 Monocytes % 8.8 % (2.0-10.0) 10/09/18 07:48 Eosinophils % 2.2 % (0.0-5.0) 10/09/18 07:48 Basophils % 0.5 % (0.0-2.0) 10/09/18 07:48 Neutrophils (Manual) 89 % (40-80) H 10/06/18 11:30 Lymphocytes 7 % (20-50) L 10/06/18 11:30 Monocytes 2 % (2-10) 10/06/18 11:30 Eosinophils 0 % (0-5) 10/06/18 11:30 Basophils 0 % (0-3) 10/06/18 11:30 PT 10.4 SECONDS (9.5-11.5) 10/06/18 11:30 INR 1.00 (0.5-1.4) 10/06/18 11:30 PTT (Actin FS) 27.3 SECONDS (26.0-38.0) 10/06/18 11:30 Sodium 141 mEq/L (136-145) 10/09/18 07:48 Potassium 3.0 mEq/L (3.5-5.1) L D 10/09/18 07:48 Chloride 105 mEq/L (98-107) 10/09/18 07:48 Carbon Dioxide 25.7 mEq/L (21.0-31.0) 10/09/18 07:48 Anion Gap 13.3 (7.0-16.0) 10/09/18 07:48 BUN 10 mg/dL (7-25) 10/09/18 07:48 Creatinine 0.5 mg/dL (0.7-1.3) L 10/09/18 07:48 Est GFR ( Amer) > 60.0 ml/min (>90) 10/09/18 07:48 Est GFR (Non-Af Amer) > 60.0 ml/min 10/09/18 07:48 BUN/Creatinine Ratio 20.0 10/09/18 07:48 Glucose 118 mg/dL (70-105) H 10/09/18 07:48 POC Glucose 117 MG/DL (70 - 105) H 10/06/18 16:49 Calcium 8.3 mg/dL (8.6-10.3) L 10/09/18 07:48 Total Bilirubin 0.5 mg/dL (0.3-1.0) 10/09/18 07:48 AST 20 U/L (13-39) 10/09/18 07:48 ALT 15 U/L (7-52) 10/09/18 07:48 Alkaline Phosphatase 51 U/L (34-104) 10/09/18 07:48 Total Protein 6.9 gm/dL (6.0-8.3) 10/09/18 07:48 Albumin 4.0 gm/dL (4.2-5.5) L 10/09/18 07:48 Globulin 2.9 gm/dL 10/09/18 07:48 Albumin/Globulin Ratio 1.4 (1.0-1.8) 10/09/18 07:48 Lipase 19 U/L (11-82) 10/06/18 11:30 TSH 0.39 uIU/ml (0.34-5.60) 10/07/18 06:00 Urine Source CATH 10/06/18 12:35 Urine Color YELLOW 10/06/18 12:35 Urine Clarity CLEAR (CLEAR) 10/06/18 12:35 Urine pH 6.0 (4.6 - 8.0) 10/06/18 12:35 Ur Specific [place] 1.025 (1.005-1.030) 10/06/18 12:35 Urine Protein 30 mg/dL (NEGATIVE) H 10/06/18 12:35 Urine Glucose (UA) NEGATIVE mg/dL (NEGATIVE) 10/06/18 12:35 Urine Ketones 40 mg/dL (NEGATIVE) H 10/06/18 12:35 Urine Blood NEGATIVE (NEGATIVE) 10/06/18 12:35 Urine Nitrate NEGATIVE (NEGATIVE) 10/06/18 12:35 Urine Bilirubin SMALL (NEGATIVE) H 10/06/18 12:35 Urine Urobilinogen 0.2 E.U./dL (0.2 - 1.0) 10/06/18 12:35 Ur Leukocyte Esterase NEGATIVE (NEGATIVE) 10/06/18 12:35 Urine RBC 2-5 /hpf (0-5) H 10/06/18 12:35 Urine WBC 0-2 /hpf (0-5) 10/06/18 12:35 Ur Epithelial Cells FEW /lpf (FEW) 10/06/18 12:35 Urine Bacteria FEW /hpf (NONE SEEN) 10/06/18 12:35 Urine Mucus MODERATE /lpf (FEW) 10/06/18 12:35 - Physical Exam Vitals and I&O: Vital Signs Temp 97.6 F 10/09/18 11:53 Pulse 79 10/09/18 11:53 Resp 18 10/09/18 11:53 BP 128/65 10/09/18 11:53 Pulse Ox 98 10/09/18 11:53 Intake & Output 10/08/18 10/09/18 10/09/18 18:59 06:59 18:59 Intake Total 25 1200 Balance 25 1200 Weight (lbs) 43.998 kg 43.998 kg Intake: Intake, IV Amount 1000 Dextrose 5% 1,000 ml @ 1000 100 mls/hr IV .Q10H [facility] Rx#:[id number] Oral 25 Other 200 Other: # Voids 2 3 # Bowel Movements 1 Stool Characteristics Soft Liquid Brown Weight Source Bedscale Bedscale Active Medications: Current Medications Acetaminophen (Tylenol) 650 mg GT Q4HR PRN PRN Reason: Pain Or Fever >99.9 Stop: 12/05/18 19:22 Last Admin: 10/09/18 04:15 Dose: 650 mg Alendronate Sodium (Fosamax) 70 mg PO QSAT [facility] Stop: 12/08/18 07:29 Last Admin: 10/09/18 06:34 Dose: 70 mg Ascorbic Acid (Vitamin C) 500 mg GT DAILY [facility] Stop: 12/06/18 08:59 Last Admin: 10/09/18 08:51 Dose: 500 mg Bisacodyl (Dulcolax 10 Mg Supp) 10 mg RC Q24HR PRN PRN Reason: MODERATE CONSTIPATION Stop: 12/06/18 11:44 Calcium Carbonate (Os-[place]) 500 mg GT DAILY [facility] Stop: 12/06/18 08:59 Last Admin: 10/09/18 08:51 Dose: 500 mg Cholecalciferol (Vitamin D3) 1,000 iu GT DAILY [facility] Stop: 12/06/18 08:59 Last Admin: 10/09/18 08:51 Dose: 1,000 iu Docusate Sodium (Colace) 200 mg GT Q24HR [facility] Stop: 12/06/18 09:44 Last Admin: 10/09/18 11:30 Dose: 200 mg Ceftriaxone Sodium 1 gm/ (Sodium Chloride) 50 mls @ 100 mls/hr IV Q24HR [facility] Stop: 12/06/18 11:59 Last Admin: 10/08/18 12:46 Dose: 100 mls/hr Dextrose (D5w) 1,000 mls @ 100 mls/hr IV .Q10H [facility] Stop: 12/07/18 08:59 Last Admin: 10/09/18 06:35 Dose: 100 mls/hr Lactobacillus Rhamnosus (Culturelle 15b) 1 each PO DAILY [facility] Stop: 12/08/18 08:59 Last Admin: 10/09/18 08:51 Dose: 1 each Magnesium Hydroxide (Milk Of Magnesia) 30 ml GT Q24HR PRN PRN Reason: Constipation Stop: 12/06/18 11:44 Mineral Oil (Mineral Oil 30 Ml) 30 ml PO DAILY PRN PRN Reason: Constipation Stop: 12/06/18 13:43 Miscellaneous (Probiotic Screen) 1 ea MC PRN PRN PRN Reason: PROTOCOL Stop: 12/07/18 13:57 Ondansetron HCl (Zofran) 4 mg IV Q8H PRN PRN Reason: Nausea / Vomiting Stop: 12/05/18 15:56 Last Admin: 10/06/18 17:09 Dose: 4 mg Pantoprazole Sodium (Protonix) 40 mg IVP BID [facility] Stop: 12/05/18 16:59 Last Admin: 10/09/18 08:51 Dose: 40 mg Polyethylene Glycol (Miralax) 17 gm GT BID [facility] Stop: 12/06/18 08:59 Last Admin: 10/09/18 08:51 Dose: 17 gm Sodium Phosphate (Fleet Enema) 135 ml RC Q24HR [facility] Stop: 12/06/18 11:44 Last Admin: 10/08/18 11:56 Dose: 135 ml General: Alert, Other (Patient is non verbal, profound MR) HEENT: Atraumatic Neck: Supple Cardiovascular: Regular rate Abdomen: Bowel sounds Extremities: Other (Contracted) Neurological: Other (Non ambulatory) Skin: Other (Warm and dry) Psych/Mental Status: Other (Profound MR) - Procedures Procedures: Procedures Procedure Code Date CHANGE FEEDING DEVICE IN UP INTEST TRACT, TECHNICAL TRANSLATOR APPROACH [id number] 02/02/17 CHANGE GASTROSTOMY TUBE 62786 02/02/17 DIAGNOSTIC COLONOSCOPY 31763 06/26/16 EGD BIOPSY SINGLE/MULTIPLE 89423 12/22/13 ESOPHAGOGASTRODUODENOSCOPY [EGD] W/CLOSED BIOPSY 45.16 12/22/13 INFLUENZA VACCINATION 99.52 07/14/13 INSERT INDWELLING CATH 57.94 05/17/12 INSERT INTESTINAL TUBE 96.08 05/17/12 INSERT TEMP BLADDER CATH 23350 05/17/12 INS PICC 5 YR+ W/O IMAGING 59987 05/17/12 INSPECTION OF LOWER INTESTINAL TRACT, ENDO [id number] 06/26/16 OPEN AND OTHER CECECTOMY 45.72 05/17/12 OPEN AND OTHER RIGHT HEMICOLECTOMY 45.73 05/17/12 PARTIAL REMOVAL OF COLON 43932 05/17/12 UNLISTED PX SMALL INTESTINE 49615 05/17/12 VENOUS CATHETERIZATION NEC 38.93 05/17/12 Assessment/Plan - Assessment Assessment: Patient is awake, calm. Potassium low. He had one bowel movement. Dx: Fecal impactation, [place] emesis, Leukocytosis, UTI, dehydration, Hypernatremia , Hyperkalemia, Intellectually disable CP, Peg in place. - Plan Plan: Patient in IV NS, IV AB, Continue with SNF meds, already seen by GI. K is replaced. IV change to D5. Will continue to monitor. Nutritional Asmnt/Malnutr-PDOC - Dietary Evaluation Malnutrition Findings (Please click <Entered> for more info): Nutritional Asmnt/Malnutrition Start: 10/07/18 15: 45 Text: Status: Complete Freq: Protocol: Document 10/07/18 15:45 OSCAR (Rec: 10/07/18 16:08 OSCAR [email or web address]) Nutritional Asmnt/Malnutrition Patient General Information Nutritional Screening High Risk Consult Diagnosis ileus, fecal impaction Pertinent Medical Hx/Surgical Hx CP, quadriplegic, Gtube Subjective Information Pt seen lying in bed, non verbal, NPO status. Consult received for shavon [place]. Current Diet Order/ Nutrition Support NPO Pertinent Medications vitC, os-warren, vit D3, colace, mineral oil, protonix, miralax , nacl 0.9% Pertinent Labs 10/07 BUN 32, Cr 8.5, alb 4.0 Nutritional Hx/Data Height 1.68 m Height (Calculated Centimeters) 167.6 Current Weight (lbs) 44.906 kg Weight (Calculated Kilograms) 44.9 Weight (Calculated Grams) 19265.6 [place] Body Weight 142 Body Mass Index (BMI) 16.0 Weight Status Underweight GI Symptoms GI Symptoms None Last BM none Difficult in: None Skin Integrity/Comment: intact, healed incision. shavon 10 Estimated Nutritional Goals BEE in Kcals: Using Current wt Calories/Kcals/Kg 30-35 Kcals Calculated 0631-7805 Protein: Using Current wt Protein g/k.2-1.4 Protein Calculated 54-63 Fluid: ml 1350-1575ml (1ml/kcal) Nutritional Problem 1. Problem Problem inadequate energy intake Etiology GI dysfunction Signs/Symptoms: GT not initiated, NPO status Intervention/Recommendation Comments 1. Monitor NPO status. 2. Monitor GI symptoms, wt, skin integrity and labs 3. F/U as high risk in 2-3 days Expected Outcomes/Goals Expected Outcomes/Goals 1. Pt to meet at least 90% of nutritional needs via nutrition support with tolerance 2. Wt stability, skin to remain intact, labs to approach WNL.
[2018-10-09] MEDS: Fleet Enema 135 mL RC SCH (17:24)
[2018-10-10 08:10] LABS: % BASOPHILS 0.2 % (0.0-2.0); % EOSINOPHILS 6.9 % (0.0-5.0); % LYMPHOCYTES 33.7 % (20.0-50.0); % MONOCYTES 6.4 % (2.0-10.0); % NEUTROPHILS 52.8 % (40.0-80.0); EOSINOPHILE ABSOLUTE 0.4 Th/cmm (0.1-0.4); HEMATOCRIT 39.1 % (41.0-60); HEMOGLOBIN 12.7 gm/dL (12-16); LYMPHOCYTE ABSOLUTE 1.9 Th/cmm (1.5-3.0); MEAN CELL VOLUME 92.4 fl (80-99); MEAN CORPUSCULAR HGB CONC 32.5 pg (28.0-36.0); MEAN PLATELET VOLUME 6.9 fl; MONOCYTE ABSOLUTE 0.4 Th/cmm (0.3-1.0); NEUTROPHILE ABSOLUTE 2.9 Th/cmm (1.8-8.0); PLATELET COUNT 144 Th/cmm (150-400); RED BLOOD COUNT 4.24 Mil/cmm (4.30-5.70); RED CELL DISTRIBUTION WIDTH 12.4 % (11.5-20.0); WHITE BLOOD COUNT 5.6 Th/cmm (4.8-10.8)
--- NOTE | 2018-10-10 08:18 | GI Progress Note ---
Subjective - Review of Systems Subjective: NO EVENTS Objective - Results Result Diagrams: 10/09/18 07:48 10/09/18 07:48 Recent Labs: Laboratory Last Values WBC 5.0 Th/cmm (4.8-10.8) 10/09/18 07:48 RBC 4.36 Mil/cmm (4.30-5.70) 10/09/18 07:48 Hgb 13.1 gm/dL (12-16) 10/09/18 07:48 Hct 39.5 % (41.0-60) L 10/09/18 07:48 MCV 90.5 fl (80-99) 10/09/18 07:48 MCH 30.0 pg (26.0-30.0) 10/09/18 07:48 MCHC Differential 33.2 pg (28.0-36.0) 10/09/18 07:48 RDW 12.3 % (11.5-20.0) 10/09/18 07:48 Plt Count 158 Th/cmm (150-400) 10/09/18 07:48 MPV 6.6 fl 10/09/18 07:48 Add Manual Diff YES 10/06/18 11:30 Neutrophils % 50.0 % (40.0-80.0) 10/09/18 07:48 Band Neutrophils % 2 % (0-10) 10/06/18 11:30 Lymphocytes % 38.5 % (20.0-50.0) 10/09/18 07:48 Monocytes % 8.8 % (2.0-10.0) 10/09/18 07:48 Eosinophils % 2.2 % (0.0-5.0) 10/09/18 07:48 Basophils % 0.5 % (0.0-2.0) 10/09/18 07:48 Neutrophils (Manual) 89 % (40-80) H 10/06/18 11:30 Lymphocytes 7 % (20-50) L 10/06/18 11:30 Monocytes 2 % (2-10) 10/06/18 11:30 Eosinophils 0 % (0-5) 10/06/18 11:30 Basophils 0 % (0-3) 10/06/18 11:30 PT 10.4 SECONDS (9.5-11.5) 10/06/18 11:30 INR 1.00 (0.5-1.4) 10/06/18 11:30 PTT (Actin FS) 27.3 SECONDS (26.0-38.0) 10/06/18 11:30 Sodium 141 mEq/L (136-145) 10/09/18 07:48 Potassium 3.0 mEq/L (3.5-5.1) L D 10/09/18 07:48 Chloride 105 mEq/L (98-107) 10/09/18 07:48 Carbon Dioxide 25.7 mEq/L (21.0-31.0) 10/09/18 07:48 Anion Gap 13.3 (7.0-16.0) 10/09/18 07:48 BUN 10 mg/dL (7-25) 10/09/18 07:48 Creatinine 0.5 mg/dL (0.7-1.3) L 10/09/18 07:48 Est GFR ( Amer) > 60.0 ml/min (>90) 10/09/18 07:48 Est GFR (Non-Af Amer) > 60.0 ml/min 10/09/18 07:48 BUN/Creatinine Ratio 20.0 10/09/18 07:48 Glucose 118 mg/dL (70-105) H 10/09/18 07:48 POC Glucose 117 MG/DL (70 - 105) H 10/06/18 16:49 Calcium 8.3 mg/dL (8.6-10.3) L 10/09/18 07:48 Total Bilirubin 0.5 mg/dL (0.3-1.0) 10/09/18 07:48 AST 20 U/L (13-39) 10/09/18 07:48 ALT 15 U/L (7-52) 10/09/18 07:48 Alkaline Phosphatase 51 U/L (34-104) 10/09/18 07:48 Total Protein 6.9 gm/dL (6.0-8.3) 10/09/18 07:48 Albumin 4.0 gm/dL (4.2-5.5) L 10/09/18 07:48 Globulin 2.9 gm/dL 10/09/18 07:48 Albumin/Globulin Ratio 1.4 (1.0-1.8) 10/09/18 07:48 Lipase 19 U/L (11-82) 10/06/18 11:30 TSH 0.39 uIU/ml (0.34-5.60) 10/07/18 06:00 Urine Source CATH 10/06/18 12:35 Urine Color YELLOW 10/06/18 12:35 Urine Clarity CLEAR (CLEAR) 10/06/18 12:35 Urine pH 6.0 (4.6 - 8.0) 10/06/18 12:35 Ur Specific [place] 1.025 (1.005-1.030) 10/06/18 12:35 Urine Protein 30 mg/dL (NEGATIVE) H 10/06/18 12:35 Urine Glucose (UA) NEGATIVE mg/dL (NEGATIVE) 10/06/18 12:35 Urine Ketones 40 mg/dL (NEGATIVE) H 10/06/18 12:35 Urine Blood NEGATIVE (NEGATIVE) 10/06/18 12:35 Urine Nitrate NEGATIVE (NEGATIVE) 10/06/18 12:35 Urine Bilirubin SMALL (NEGATIVE) H 10/06/18 12:35 Urine Urobilinogen 0.2 E.U./dL (0.2 - 1.0) 10/06/18 12:35 Ur Leukocyte Esterase NEGATIVE (NEGATIVE) 10/06/18 12:35 Urine RBC 2-5 /hpf (0-5) H 10/06/18 12:35 Urine WBC 0-2 /hpf (0-5) 10/06/18 12:35 Ur Epithelial Cells FEW /lpf (FEW) 10/06/18 12:35 Urine Bacteria FEW /hpf (NONE SEEN) 10/06/18 12:35 Urine Mucus MODERATE /lpf (FEW) 10/06/18 12:35 - Physical Exam Vitals and I&O: Vital Signs Temp 97.5 F 10/10/18 04:00 Pulse 53 10/10/18 04:00 Resp 18 10/10/18 04:00 BP 96/51 10/10/18 04:00 Pulse Ox 98 10/10/18 04:00 Intake & Output 10/09/18 10/10/18 10/10/18 18:59 06:59 18:59 Intake Total 1780 110 Balance 1780 110 Weight (lbs) 43.998 kg 43.998 kg Intake: Intake, IV Amount 1000 Dextrose 5% 1,000 ml @ 1000 100 mls/hr IV .Q10H [facility] Rx#:[id number] Oral 100 60 Other 680 50 Other: # Voids 1 2 # Bowel Movements 2 Stool Characteristics Soft Liquid Brown Weight Source Bedscale Bedscale Active Medications: Current Medications Acetaminophen (Tylenol) 650 mg GT Q4HR PRN PRN Reason: Pain Or Fever >99.9 Stop: 12/05/18 19:22 Last Admin: 10/09/18 04:15 Dose: 650 mg Alendronate Sodium (Fosamax) 70 mg PO QSAT [facility] Stop: 12/08/18 07:29 Last Admin: 10/09/18 06:34 Dose: 70 mg Ascorbic Acid (Vitamin C) 500 mg GT DAILY [facility] Stop: 12/06/18 08:59 Last Admin: 10/09/18 08:51 Dose: 500 mg Bisacodyl (Dulcolax 10 Mg Supp) 10 mg RC Q24HR PRN PRN Reason: MODERATE CONSTIPATION Stop: 12/06/18 11:44 Calcium Carbonate (Os-Jesus) 500 mg GT DAILY [facility] Stop: 12/06/18 08:59 Last Admin: 10/09/18 08:51 Dose: 500 mg Cholecalciferol (Vitamin D3) 1,000 iu GT DAILY [facility] Stop: 12/06/18 08:59 Last Admin: 10/09/18 08:51 Dose: 1,000 iu Docusate Sodium (Colace) 200 mg GT Q24HR [facility] Stop: 12/06/18 09:44 Last Admin: 10/09/18 11:30 Dose: 200 mg Ceftriaxone Sodium 1 gm/ (Sodium Chloride) 50 mls @ 100 mls/hr IV Q24HR [facility] Stop: 12/06/18 11:59 Last Admin: 10/08/18 12:46 Dose: 100 mls/hr Dextrose (D5w) 1,000 mls @ 100 mls/hr IV .Q10H [facility] Stop: 12/07/18 08:59 Last Admin: 10/09/18 23:19 Dose: 100 mls/hr Lactobacillus Rhamnosus (Culturelle 15b) 1 each PO DAILY [facility] Stop: 12/08/18 08:59 Last Admin: 10/09/18 08:51 Dose: 1 each Magnesium Hydroxide (Milk Of Magnesia) 30 ml GT Q24HR PRN PRN Reason: Constipation Stop: 12/06/18 11:44 Mineral Oil (Mineral Oil 30 Ml) 30 ml PO DAILY PRN PRN Reason: Constipation Stop: 12/06/18 13:43 Miscellaneous (Probiotic Screen) 1 ea MC PRN PRN PRN Reason: PROTOCOL Stop: 12/07/18 13:57 Ondansetron HCl (Zofran) 4 mg IV Q8H PRN PRN Reason: Nausea / Vomiting Stop: 12/05/18 15:56 Last Admin: 10/09/18 17:23 Dose: 4 mg Pantoprazole Sodium (Protonix) 40 mg IVP BID [facility] Stop: 12/05/18 16:59 Last Admin: 10/09/18 17:23 Dose: 40 mg Polyethylene Glycol (Miralax) 17 gm GT BID [facility] Stop: 12/06/18 08:59 Last Admin: 10/09/18 17:17 Dose: 17 gm Sodium Phosphate (Fleet Enema) 135 ml RC Q24HR [facility] Stop: 12/06/18 11:44 Last Admin: 10/09/18 17:24 Dose: 135 ml General: Alert, Other (Patient is non verbal, profound MR) HEENT: Atraumatic Neck: Supple Cardiovascular: Regular rate Abdomen: Bowel sounds Extremities: Other (Contracted) Neurological: Other (Non ambulatory) Skin: Other (Warm and dry) Psych/Mental Status: Other (Profound MR) - Procedures Procedures: Procedures Procedure Code Date CHANGE FEEDING DEVICE IN UP INTEST TRACT, RIGGING LOFT REPAIRER APPROACH [id number] 02/02/17 CHANGE GASTROSTOMY TUBE 05001 02/02/17 DIAGNOSTIC COLONOSCOPY 63870 06/26/16 EGD BIOPSY SINGLE/MULTIPLE 24187 12/22/13 ESOPHAGOGASTRODUODENOSCOPY [EGD] W/CLOSED BIOPSY 45.16 12/22/13 INFLUENZA VACCINATION 99.52 07/14/13 INSERT INDWELLING CATH 57.94 05/17/12 INSERT INTESTINAL TUBE 96.08 05/17/12 INSERT TEMP BLADDER CATH 08739 05/17/12 INSJ PICC 5 YR+ W/O IMAGING 00674 05/17/12 INSPECTION OF LOWER INTESTINAL TRACT, ENDO [id number] 06/26/16 OPEN AND OTHER CECECTOMY 45.72 05/17/12 OPEN AND OTHER RIGHT HEMICOLECTOMY 45.73 05/17/12 PARTIAL REMOVAL OF COLON 42903 05/17/12 UNLISTED PX SMALL INTESTINE 82321 05/17/12 VENOUS CATHETERIZATION NEC 38.93 05/17/12 Assessment/Plan - Assessment Assessment: 33 YO MALE WITH DYSPHAGIA AND FECAL IMPACTION HAS GT BUT CONY PO DIET 1.CONT SUPP CARE 2.CONT LAXATIVES
[2018-10-10 08:21] LABS: ALB/GLOB RATIO 1.3 (1.0-1.8); ALBUMIN 3.4 gm/dL (4.2-5.5); ALKALINE PHOSPHATASE 43 U/L (34-104); ANION GAP 10.3 (7.0-16.0); BILIRUBIN,TOTAL 0.6 mg/dL (0.3-1.0); BUN - UREA NITROGEN 6 mg/dL (7-25); CALCIUM SERUM 7.8 mg/dL (8.6-10.3); CARBON DIOXIDE 28.6 mEq/L (21.0-31.0); CHLORIDE 104 mEq/L (98-107); CREATININE - SERUM 0.5 mg/dL (0.7-1.3); GFR AFRICAN-AMERICAN > 60.0 ml/min (>90); GFR NON AFRICAN-AMERICAN > 60.0 ml/min; GLUCOSE 111 mg/dL (70-105); SGOT 19 U/L (13-39); SGPT/ALT 13 U/L (7-52); SODIUM SERUM 140 mEq/L (136-145)
[2018-10-10 08:34] LABS: POTASSIUM SERUM 2.9 mEq/L (3.5-5.1)
[2018-10-10] MEDS ORDERED: KCL 20mEq/100mL Premix 20 MEQ/100 ML PIGGYBACK IV ONE ×2 (08:46→08:47)
[2018-10-10] MEDS: POLYETHYLENE GLYCOL 3350 17 GM PACK GT SCH ×2 (10:15→16:44)
[2018-10-10] MEDS: Multivitamin w/ Minerals Tab GT SCH (10:15)
[2018-10-10] MEDS: Lactobacillus Rhamnosus GG 15 Billion CFU CAP.SPRINK PO SCH (10:15)
[2018-10-10] MEDS: Docusate Sodium 100 mg/10 mL UD GT SCH (10:15)
[2018-10-10] MEDS: Dextrose 5% 1,000 ML IV SCH (10:16)
--- NOTE | 2018-10-10 12:18 | Discharge Summary ---
General Discharge Summary - Discharge Summary Date of Admission: 10/06/18 Admitting Diagnosis: Coffe ground hemesis, Impactation, Leukocytosis, UTI, Dehydration, CP Discharge Date: 10/10/18 Discharge Diagnosis: Impactation resolved, Leukocytosis resolved, UTI resolved, Dehydration resolved, CP Laboratory Findings: Laboratory Results - last 24 hr 10/10/18 10/10/18 07:18 07:18 WBC 5.6 RBC 4.24 L Hgb 12.7 Hct 39.1 L MCV 92.4 MCH 30.0 MCHC Differential 32.5 RDW 12.4 Plt Count 144 L MPV 6.9 Neutrophils % 52.8 Lymphocytes % 33.7 Monocytes % 6.4 Eosinophils % 6.9 H Basophils % 0.2 Sodium 140 Potassium 2.9 L* Chloride 104 Carbon Dioxide 28.6 Anion Gap 10.3 BUN 6 L Creatinine 0.5 L Est GFR ( Amer) > 60.0 Est GFR (Non-Af Amer) > 60.0 BUN/Creatinine Ratio 12.0 Glucose 111 H Calcium 7.8 L Total Bilirubin 0.6 AST 19 ALT 13 Alkaline Phosphatase 43 Total Protein 6.0 Albumin 3.4 L Globulin 2.6 Albumin/Globulin Ratio 1.3 Hospital Course: Patient responded to treatment, leukocytosis was resolved, and he had larger bowel movements. Treatment: Patient was started in IV NS, IV AB, Miralax and continue with SNF meds. Condition at Discharge: Stable Disposition: Discharge/Transfered to SNF Home Medications: Home Medication Medication Instructions Recorded Type Acetaminophen [Tylenol] 650 mg GT Q4HR PRN tab 07/12/18 Rx Alendronate Sodium [Fosamax*] 70 mg PO QSAT tab 07/12/18 Rx Ascorbic Acid [Vitamin C] 500 mg GT DAILY tab 07/12/18 Rx Bisacodyl [Dulcolax 10 Mg Supp] 10 mg RC Q96H PRN sup 07/12/18 Rx Calcium Carbonate [Os-Jesus] 500 mg GT DAILY tab 07/12/18 Rx Docusate Sodium [Colace] 200 mg GT Q12HR ud 07/12/18 Rx Fleet Enema 135 ml RC Q96H PRN btl 07/12/18 Rx Magnesium Hydroxide [Milk of 30 ml GT Q72H PRN udc 07/12/18 Rx Magnesia] Meloxicam [Mobic] 7.5 mg GT BID 07/12/18 Rx Multivitamin w/ Minerals 1 tab GT DAILY tab 07/12/18 Rx [Theragran M] Nitroglycerin [Nitrostat*] 0.4 mg SL Q5MIN PRN tab 07/12/18 Rx Pantoprazole [Protonix] 40 mg IVP DAILY vial 07/12/18 Rx Polyethylene Glycol 3350 [Miralax] 17 gm GT BID pack 07/12/18 Rx Peg Electrolyte Lavage Vaishnavi 4,000 ml PO PRN PRN btl 07/23/18 Rx [Golytely] Vitamin D 1,000 iu GT DAILY 10/06/18 History Inpatient Medications: Current Medications Acetaminophen (Tylenol) 650 mg GT Q4HR PRN PRN Reason: Pain Or Fever >99.9 Stop: 12/05/18 19:22 Last Admin: 10/09/18 04:15 Dose: 650 mg Alendronate Sodium (Fosamax) 70 mg PO QSAT [facility] Stop: 12/08/18 07:29 Last Admin: 10/09/18 06:34 Dose: 70 mg Ascorbic Acid (Vitamin C) 500 mg GT DAILY [facility] Stop: 12/06/18 08:59 Last Admin: 10/10/18 10:15 Dose: 500 mg Bisacodyl (Dulcolax 10 Mg Supp) 10 mg RC Q24HR PRN PRN Reason: MODERATE CONSTIPATION Stop: 12/06/18 11:44 Calcium Carbonate (Os-Jesus) 500 mg GT DAILY [facility] Stop: 12/06/18 08:59 Last Admin: 10/10/18 10:15 Dose: 500 mg Cholecalciferol (Vitamin D3) 1,000 iu GT DAILY [facility] Stop: 12/06/18 08:59 Last Admin: 10/10/18 10:15 Dose: 1,000 iu Docusate Sodium (Colace) 200 mg GT Q24HR [facility] Stop: 12/06/18 09:44 Last Admin: 10/10/18 10:15 Dose: 200 mg Ceftriaxone Sodium 1 gm/ (Sodium Chloride) 50 mls @ 100 mls/hr IV Q24HR [facility] Stop: 12/06/18 11:59 Last Admin: 10/08/18 12:46 Dose: 100 mls/hr Dextrose (D5w) 1,000 mls @ 100 mls/hr IV .Q10H [facility] Stop: 12/07/18 08:59 Last Admin: 10/10/18 10:16 Dose: 100 mls/hr Lactobacillus Rhamnosus (Culturelle 15b) 1 each PO DAILY [facility] Stop: 12/08/18 08:59 Last Admin: 10/10/18 10:15 Dose: 1 each Magnesium Hydroxide (Milk Of Magnesia) 30 ml GT Q24HR PRN PRN Reason: Constipation Stop: 12/06/18 11:44 Mineral Oil (Mineral Oil 30 Ml) 30 ml PO DAILY PRN PRN Reason: Constipation Stop: 12/06/18 13:43 Miscellaneous (Probiotic Screen) 1 ea MC PRN PRN PRN Reason: PROTOCOL Stop: 12/07/18 13:57 Ondansetron HCl (Zofran) 4 mg IV Q8H PRN PRN Reason: Nausea / Vomiting Stop: 12/05/18 15:56 Last Admin: 10/09/18 17:23 Dose: 4 mg Pantoprazole Sodium (Protonix) 40 mg IVP BID [facility] Stop: 12/05/18 16:59 Last Admin: 10/10/18 10:15 Dose: 40 mg Polyethylene Glycol (Miralax) 17 gm GT BID [facility] Stop: 12/06/18 08:59 Last Admin: 10/10/18 10:15 Dose: 17 gm Sodium Phosphate (Fleet Enema) 135 ml RC Q24HR [facility] Stop: 12/06/18 11:44 Last Admin: 10/09/18 17:24 Dose: 135 ml Activity: Bed Rest Consults and Follow-Up: Javier Escudero [Primary Care Provider] - Consulting Speciality: GI (PCP)
[2018-10-10] MEDS: Fleet Enema 135 mL RC SCH (16:40)
[2018-10-10] MEDS: cefTRIAXone 1 GM in Sodium Chloride 0.9% 50 ML IV SCH ×2 (16:44→18:41)
== END 2018-10-10 18:30 | DRG 247 ==
LOC: ER 10:07 → MSI 13:32
PROVIDERS: ADMIT General Practice; ATTEND General Practice
DX: K56.41 Fecal impaction (principal); E43 Unspecified severe protein-calorie malnutrition; K92.0 Hematemesis; R53.2 Functional quadriplegia; E87.0 Hyperosmolality and hypernatremia; R13.10 Dysphagia, unspecified; E87.5 Hyperkalemia; E86.0 Dehydration; D72.829 Elevated white blood cell count, unspecified; N39.0 Urinary tract infection, site not specified; G80.9 Cerebral palsy, unspecified; Z93.1 Gastrostomy status; Z68.1 Body mass index [BMI] 19.9 or less, adult
CPT/HCPCS: 36415-UA; 71045-TC; 74000-TC; 80053-TC; 81001-TC; 82948-90; 83036-90; 83690-TC; 84443-TC; 85007-TC; 85025-TC; 85610-TC; 90799; 93005; 96375; C9113; J0696; J2405; J3480; J7030; J7070; Z7610

== ENCOUNTER 2018-10-21 23:22 | Inpatient (IN) | payer MEDICAID ==
--- NOTE | 2018-10-21 23:34 | ED Physician Chart ---
ED Chief Complaint/HPI - Patient Information Date Seen:: 10/21/18 Time Seen:: 23:25 Chief Complaint:: abnormal x-ray History of Present Illness:: Patient had a KUB earlier today which was consistent with colonic ileus. Patient apparently has routine KUBs about every month because he has a history of ileus in the past. He has apparently been asymptomatic recently in terms of his GI tract. Allergies:: Allergies Allergy/AdvReac Type Severity Reaction Status Date / Time No Known Allergies Allergy Verified 10/06/18 10:34 Historian:: EMS Review:: Transfer documents Reviewed ED Past Medical History - Past Medical History Past Medical History: PUD/GERD, Other (severe mental retardation) Family History: Other (unavailable) Social History: Care Facility Surgical History: other (G-tube) Psychiatricy History: Other (severe mental retardation) Family Medical History - Family Member Mother History Unknown: Yes Ethnicity: Non- Living Status: Still Living ED Physical Exam - Physical Examination General/Constitutional: Well-developed, well-nourished, Alert, No distress Other Gen/Cons comments:: Nonverbal Head: Atraumatic Eyes: Lids, conjuctiva normal, PERRL Skin: Nl inspection ENMT: External ears, nose nl Neck: No nuchal rigidity Respiratory: Nl effort/Exclusion, Clear to Auscultation, No Wheeze/Rhonchi/Rales Cardio Vascular: RRR, No murmur, gallop, rubs GI: No tenderness/rebounding/guarding, No organomegaly, No hernia, Normal BS's, Nondistended, No mass/bruits Extremities: Normal digits & nails ED Labs/Radiology/EKG Results - Lab Results Results: Laboratory Results WBC 5.2 Th/cmm (4.8-10.8) 10/21/18 00:04 RBC 4.63 Mil/cmm (4.30-5.70) 10/21/18 00:04 Hgb 13.8 gm/dL (12-16) 10/21/18 00:04 Hct 42.3 % (41.0-60) 10/21/18 00:04 MCV 91.3 fl (80-99) 10/21/18 00:04 MCH 29.9 pg (26.0-30.0) 10/21/18 00:04 MCHC Differential 32.7 pg (28.0-36.0) 10/21/18 00:04 RDW 13.1 % (11.5-20.0) 10/21/18 00:04 Plt Count 196 Th/cmm (150-400) 10/21/18 00:04 MPV 6.8 fl 10/21/18 00:04 Neutrophils % 46.6 % (40.0-80.0) 10/21/18 00:04 Lymphocytes % 38.7 % (20.0-50.0) 10/21/18 00:04 Monocytes % 6.0 % (2.0-10.0) 10/21/18 00:04 Eosinophils % 8.1 % (0.0-5.0) H 10/21/18 00:04 Basophils % 0.6 % (0.0-2.0) 10/21/18 00:04 Sodium 138 mEq/L (136-145) 10/21/18 00:04 Potassium 3.7 mEq/L (3.5-5.1) 10/21/18 00:04 Chloride 104 mEq/L (98-107) 10/21/18 00:04 Carbon Dioxide 26.1 mEq/L (21.0-31.0) 10/21/18 00:04 Anion Gap 11.6 (7.0-16.0) 10/21/18 00:04 BUN 11 mg/dL (7-25) 10/21/18 00:04 Creatinine 0.6 mg/dL (0.7-1.3) L 10/21/18 00:04 Est GFR ( Amer) > 60.0 ml/min (>90) 10/21/18 00:04 Est GFR (Non-Af Amer) > 60.0 ml/min 10/21/18 00:04 BUN/Creatinine Ratio 18.3 10/21/18 00:04 Glucose 85 mg/dL (70-105) 10/21/18 00:04 Calcium 9.3 mg/dL (8.6-10.3) 10/21/18 00:04 Lipase 21 U/L (11-82) 10/21/18 00:04 - Radiology Results Results: CT scan showed diffuse colonic ileus ED Septic Shock - . Is Septic Shock (SBP<90, OR Lactate>4 mmol\L) present?: No ED Reassessment (Disposition) - Reassessment Reassessment Condition:: Unchanged - Diagnosis Diagnosis:: colonic ileus - Patient Disposition Admitted to:: Med/Surg Spoke to:: Sobia Menard Admitting Medical Physician:: Sobia Menard Condition at Disposition:: Stable, Unchanged
[2018-10-22 00:22] LABS: % BASOPHILS 0.6 % (0.0-2.0); % EOSINOPHILS 8.1 % (0.0-5.0); % LYMPHOCYTES 38.7 % (20.0-50.0); % NEUTROPHILS 46.6 % (40.0-80.0); EOSINOPHILE ABSOLUTE 0.4 Th/cmm (0.1-0.4); HEMATOCRIT 42.3 % (41.0-60); HEMOGLOBIN 13.8 gm/dL (12-16); MEAN CELL VOLUME 91.3 fl (80-99); MEAN CORPUSCULAR HEMOGLOBIN 29.9 pg (26.0-30.0); MEAN CORPUSCULAR HGB CONC 32.7 pg (28.0-36.0); MONOCYTE ABSOLUTE 0.3 Th/cmm (0.3-1.0); NEUTROPHILE ABSOLUTE 2.5 Th/cmm (1.8-8.0); PLATELET COUNT 196 Th/cmm (150-400); RED BLOOD COUNT 4.63 Mil/cmm (4.30-5.70); RED CELL DISTRIBUTION WIDTH 13.1 % (11.5-20.0); WHITE BLOOD COUNT 5.2 Th/cmm (4.8-10.8)
[2018-10-22 00:36] LABS: ANION GAP 11.6 (7.0-16.0); BUN - UREA NITROGEN 11 mg/dL (7-25); CALCIUM SERUM 9.3 mg/dL (8.6-10.3); CARBON DIOXIDE 26.1 mEq/L (21.0-31.0); CHLORIDE 104 mEq/L (98-107); CREATININE - SERUM 0.6 mg/dL (0.7-1.3); GFR AFRICAN-AMERICAN > 60.0 ml/min (>90); GFR NON AFRICAN-AMERICAN > 60.0 ml/min; GLUCOSE 85 mg/dL (70-105); LIPASE 21 U/L (11-82); POTASSIUM SERUM 3.7 mEq/L (3.5-5.1); SODIUM SERUM 138 mEq/L (136-145)
[2018-10-22 04:35] VITALS: BP 101/62
[2018-10-22] MEDS ORDERED: Fleet Enema 135 mL RC ONE (05:00)
[2018-10-22 06:47] LABS: % BASOPHILS 0.5 % (0.0-2.0); % EOSINOPHILS 5.1 % (0.0-5.0); % LYMPHOCYTES 41.4 % (20.0-50.0); % MONOCYTES 4.8 % (2.0-10.0); % NEUTROPHILS 48.2 % (40.0-80.0); EOSINOPHILE ABSOLUTE 0.3 Th/cmm (0.1-0.4); HEMATOCRIT 42.4 % (41.0-60); HEMOGLOBIN 14.2 gm/dL (12-16); LYMPHOCYTE ABSOLUTE 2.2 Th/cmm (1.5-3.0); MEAN CELL VOLUME 91.9 fl (80-99); MEAN CORPUSCULAR HEMOGLOBIN 30.8 pg (26.0-30.0); MEAN CORPUSCULAR HGB CONC 33.5 pg (28.0-36.0); MONOCYTE ABSOLUTE 0.3 Th/cmm (0.3-1.0); NEUTROPHILE ABSOLUTE 2.5 Th/cmm (1.8-8.0); PLATELET COUNT 211 Th/cmm (150-400); RED BLOOD COUNT 4.61 Mil/cmm (4.30-5.70); RED CELL DISTRIBUTION WIDTH 12.9 % (11.5-20.0); WHITE BLOOD COUNT 5.3 Th/cmm (4.8-10.8)
[2018-10-22 06:59] LABS: ANION GAP 18.5 (7.0-16.0); BUN - UREA NITROGEN 15 mg/dL (7-25); CALCIUM SERUM 9.3 mg/dL (8.6-10.3); CARBON DIOXIDE 22.2 mEq/L (21.0-31.0); CHLORIDE 104 mEq/L (98-107); CREATININE - SERUM 0.5 mg/dL (0.7-1.3); GFR AFRICAN-AMERICAN > 60.0 ml/min (>90); GFR NON AFRICAN-AMERICAN > 60.0 ml/min; GLUCOSE 60 mg/dL (70-105); MAGNESIUM 2.2 mg/dL (1.9-2.7); POTASSIUM SERUM 3.7 mEq/L (3.5-5.1); SODIUM SERUM 141 mEq/L (136-145)
[2018-10-22] MEDS ORDERED: Fleet Enema 135 mL RC PRN (08:15)
--- NOTE | 2018-10-22 08:16 | Diagnostic Imaging Report ---
Exam: CT examination of pelvis. HISTORY: Colonic ileus Total DLP equals 433 CTDI equals 8.3 Findings: Multiple views of the section of the abdomen pelvis obtained from lower thorax to pubic symphysis without the administration of oral or intravenous contrast material, the study compared to the prior examination of 10/06/2018 The study demonstrates normal aeration of lung parenchyma the bases. There is evidence for significant air fluid distention small bowel large bowel loops. The findings suggestive of diffuse apparently curious. The visualized liver parenchyma spleen are intact. The kidneys demonstrate no evidence of obstructive uropathy nephrolithiasis. Gastrostomy tube in the stomach. Large amount of fecal content is noted throughout the colon. Urinary bladder is intact. The bladder wall somewhat thickened. Air-fluid level is noted in the rectum. IMPRESSION: Severe distention of small bowel and large bowel loops air-fluid levels. Moderate amount fecal content throughout the colon The colon is severely dilated. Gastrostomy tube in the stomach. Uterine bladder wall thickening. Cystitis cannot be excluded.
[2018-10-22] MEDS: Docusate Sodium 100 mg/10 mL UD GT SCH (08:28)
--- NOTE | 2018-10-22 08:33 | History & Physical ---
ADMIT DATE: 10/22/2018 CHIEF COMPLAINT: Recurrent constipation and abnormal abdominal x-ray. HISTORY OF PRESENT ILLNESS: This is a 33-year-old gentleman who lives at [facility] who has been admitted in the past for similar episodes of ileus and constipation, presented last night to the ER with couple of day history of constipation and possibly abdominal discomfort. Apparently, there was a KUB done at the facility where he resides that showed moderate colonic ileus. The patient was then referred for evaluation to the ER for further management and care. Given his previous episodes of ileus and fecal impaction/stasis, he has been admitted to the medical floor for further management and care. There is no other history available at this time as the patient is nonverbal, but he is currently asleep and appears to be comfortable. PAST MEDICAL HISTORY: Profound intellectual disability, cerebral palsy. History of acid reflux disease, history of osteoarthritis, osteoporosis and chronic constipation. PAST SURGICAL HISTORY: Includes PEG. FAMILY HISTORY: Likely noncontributory to this admission. SOCIAL HISTORY: No tobacco, ETOH or illicit drug usage. He lives at [facility] under the care of Dr. Escudero. ALLERGIES: NKDA. OUTPATIENT MEDICATIONS: Tylenol 650 q.4 p.r.n. for pain, Fosamax 70 mg every Thursday, ascorbic acid 100 mg q. daily, Dulcolax 10 mg per rectum q.24 hours p.r.n. for severe constipation. Calcium carbonate 500 mg every day, docusate sodium 200 mg via G-tube q.24 hours. Fleet enema 135 mL q.24 hours for severe constipation. Culturelle 1 cap every day, magnesium or milk of magnesia 30 mL q.72 hours. Meloxicam 7.5 b.i.d., mineral oil 30 mL q. daily, multivitamins and minerals q. daily, nitroglycerin sublingual 0.4 p.r.n. for chest pain, Protonix 40 mg IV b.i.d., MiraLax 17 grams b.i.d. REVIEW OF SYSTEMS: Unable to be done given the patient's condition, but per records, there is no recent history of fever, chills, weight loss, abdominal pain, nausea, vomiting or diarrhea. +constipation. PHYSICAL EXAMINATION: VITAL SIGNS: Temperature 98.4, pulse 52, respirations 18, BP 101/62, satting 99% on room air. GENERAL: He is a well-nourished, developmentally delayed gentleman, currently asleep, appears to be comfortable, nontoxic appearing. HEAD: Normocephalic, atraumatic. NECK: There is no JVD or LAD. CARDIOVASCULAR: Regular rate, sue, but no murmurs noted. LUNGS: Clear to auscultation bilaterally. ABDOMEN: Soft, supple, mildly distended, but nontender, no masses palpated. There are no peritoneal signs, and currently, there are normoactive bowel sounds. G-tube in place. EXTREMITIES: On lower extremities, there is no pedal edema. LABORATORY DATA: CBC was essentially within normal limits. Chemistry was within normal limits. Glucose 60. ASSESSMENT: 1. Recurrent abdominal distention, likely secondary to ileus versus fecal stasis/impaction. 2. History of chronic constipation with previous multiple admissions for ileus. 3. History of acid reflux disease. 4. History of dysphagia, status post PEG placement. 5. History of osteoarthritis. 6. History of osteoporosis. 7. History of profound mental disability. PLAN: The patient has been admitted to the medical floor for further management and care. He has been placed on IV fluids. His G-tube feeds have been stopped in the interim, and he has received 1 Fleet enema since admission. He will be placed on a bowel regimen including, Dulcolax, docusate sodium as well as a mineral oil enema and polyethylene glycol, which he already has been on at the senior care. If these modalities do not improve, I will ask for a GI consult for further management and care. JOB# [id number] GUERO
[2018-10-22] MEDS: D5-0.45NS 1,000 ML IV SCH (10:12)
--- NOTE | 2018-10-22 10:13 | Diagnostic Imaging Report ---
KUB single view HISTORY: Ileus, constipation COMPARISON: CT abdomen and pelvis performed on 10/22/2018 FINDINGS: There is severe generalized gaseous distended loops of bowel. Mild to moderate stool is noted greatest within the right colon and transverse colon. Percutaneous gastric feeding tube is noted. There is evidence of hip dysplasia bilaterally. IMPRESSION: Severe generalized gaseous distended loops of bowel which may be due to severe ileus. Moderate stool is noted greatest within the right colon and transverse colon better seen on recent CT exam.
[2018-10-22] MEDS ORDERED: VTE Chemical Prophylaxis Screen/Admission MC PRN (13:21)
[2018-10-22] MEDS: Heparin Sod 5,000Units/ML 5,000 UNITS/ML VIAL SUBQ SCH (20:58)
[2018-10-23 06:50] LABS: % BASOPHILS 0.4 % (0.0-2.0); % EOSINOPHILS 2.5 % (0.0-5.0); % LYMPHOCYTES 39.7 % (20.0-50.0); % MONOCYTES 5.7 % (2.0-10.0); % NEUTROPHILS 51.7 % (40.0-80.0); EOSINOPHILE ABSOLUTE 0.1 Th/cmm (0.1-0.4); HEMATOCRIT 41.5 % (41.0-60); HEMOGLOBIN 13.7 gm/dL (12-16); MEAN CELL VOLUME 92.1 fl (80-99); MEAN CORPUSCULAR HEMOGLOBIN 30.4 pg (26.0-30.0); MONOCYTE ABSOLUTE 0.3 Th/cmm (0.3-1.0); NEUTROPHILE ABSOLUTE 2.7 Th/cmm (1.8-8.0); PLATELET COUNT 207 Th/cmm (150-400); RED BLOOD COUNT 4.51 Mil/cmm (4.30-5.70); RED CELL DISTRIBUTION WIDTH 12.8 % (11.5-20.0); WHITE BLOOD COUNT 5.1 Th/cmm (4.8-10.8)
[2018-10-23 06:58] LABS: ANION GAP 15.7 (7.0-16.0); BUN - UREA NITROGEN 18 mg/dL (7-25); CALCIUM SERUM 8.7 mg/dL (8.6-10.3); CARBON DIOXIDE 22.3 mEq/L (21.0-31.0); CHLORIDE 105 mEq/L (98-107); CREATININE - SERUM 0.6 mg/dL (0.7-1.3); GFR AFRICAN-AMERICAN > 60.0 ml/min (>90); GFR NON AFRICAN-AMERICAN > 60.0 ml/min; GLUCOSE 103 mg/dL (70-105); SODIUM SERUM 139 mEq/L (136-145)
[2018-10-23] MEDS: Docusate Sodium 100 mg/10 mL UD GT SCH (09:07)
[2018-10-23] MEDS: Heparin Sod 5,000Units/ML 5,000 UNITS/ML VIAL SUBQ SCH ×2 (09:07→20:43)
--- NOTE | 2018-10-23 11:45 | Internal Medicine Prog Note ---
Internal Medicine Subjective - Subjective Service Date: 10/23/18 (NO BM'S REPORTED. D/W GI) Patient seen and examined:: with staff Patient is:: awake Patient Complaints of:: constipation Per staff patient has:: no adverse event Internal Medicine Objective - Results Result Diagrams: 10/23/18 06:05 10/23/18 06:05 Recent Labs: Laboratory Last Values WBC 5.1 Th/cmm (4.8-10.8) 10/23/18 06:05 RBC 4.51 Mil/cmm (4.30-5.70) 10/23/18 06:05 Hgb 13.7 gm/dL (12-16) 10/23/18 06:05 Hct 41.5 % (41.0-60) 10/23/18 06:05 MCV 92.1 fl (80-99) 10/23/18 06:05 MCH 30.4 pg (26.0-30.0) H 10/23/18 06:05 MCHC Differential 33.0 pg (28.0-36.0) 10/23/18 06:05 RDW 12.8 % (11.5-20.0) 10/23/18 06:05 Plt Count 207 Th/cmm (150-400) 10/23/18 06:05 MPV 7.0 fl 10/23/18 06:05 Neutrophils % 51.7 % (40.0-80.0) 10/23/18 06:05 Lymphocytes % 39.7 % (20.0-50.0) 10/23/18 06:05 Monocytes % 5.7 % (2.0-10.0) 10/23/18 06:05 Eosinophils % 2.5 % (0.0-5.0) 10/23/18 06:05 Basophils % 0.4 % (0.0-2.0) 10/23/18 06:05 Sodium 139 mEq/L (136-145) 10/23/18 06:05 Potassium 4.0 mEq/L (3.5-5.1) 10/23/18 06:05 Chloride 105 mEq/L (98-107) 10/23/18 06:05 Carbon Dioxide 22.3 mEq/L (21.0-31.0) 10/23/18 06:05 Anion Gap 15.7 (7.0-16.0) 10/23/18 06:05 BUN 18 mg/dL (7-25) 10/23/18 06:05 Creatinine 0.6 mg/dL (0.7-1.3) L 10/23/18 06:05 Est GFR ( Amer) > 60.0 ml/min (>90) 10/23/18 06:05 Est GFR (Non-Af Amer) > 60.0 ml/min 10/23/18 06:05 BUN/Creatinine Ratio 30.0 10/23/18 06:05 Glucose 103 mg/dL (70-105) 10/23/18 06:05 POC Glucose 56 MG/DL (70 - 105) L 10/22/18 04:09 Calcium 8.7 mg/dL (8.6-10.3) 10/23/18 06:05 Magnesium 2.2 mg/dL (1.9-2.7) 10/22/18 05:35 Lipase 21 U/L (11-82) 10/21/18 00:04 - Physical Exam Vitals and I&O: Vital Signs Temp 97.2 F 10/23/18 07:52 Pulse 56 10/23/18 07:52 Resp 18 10/23/18 07:52 BP 106/65 10/23/18 07:52 Pulse Ox 97 10/23/18 07:52 Intake & Output 10/22/18 10/23/18 10/23/18 18:59 06:59 18:59 Intake Total 1200 Balance 1200 Weight (lbs) 46.72 kg 46.72 kg Intake: Intake, IV Amount 1000 D5-0.45NS 1,000 ml @ 75 1000 mls/hr IV .[id number] [facility] Rx #:[id number] Other 200 Other: # Voids 3 2 Weight Source Bedscale Bedscale Active Medications: Current Medications Bisacodyl (Dulcolax 10 Mg Supp) 10 mg RC Q24HR PRN PRN Reason: MODERATE CONSTIPATION Stop: 12/21/18 08:00 Last Admin: 10/22/18 18:34 Dose: 10 mg Docusate Sodium (Colace) 200 mg GT DAILY [facility] Stop: 12/21/18 08:59 Last Admin: 10/23/18 09:07 Dose: 200 mg Heparin Sodium (Porcine) (Heparin) 5,000 units SUBQ Q12H [facility] Stop: 12/21/18 20:59 Last Admin: 10/23/18 09:07 Dose: 5,000 units Dextrose/Sodium Chloride (D5-0.45ns) 1,000 mls @ 75 mls/hr IV .[id number] [facility] Stop: 12/21/18 02:58 Last Admin: 10/23/18 00:00 Dose: 75 mls/hr Magnesium Citrate (Citroma) 17.5 gm GT X1 ONE Stop: 10/23/18 11:18 Mineral Oil (Fleet Mineral Oil) 118 ml RC X1 ONE Stop: 10/23/18 11:18 Mineral Oil (Mineral Oil 30 Ml) 30 ml GT BID [facility] Stop: 12/22/18 16:59 Miscellaneous (Vte Chemical Prophylaxis Screen/ Admission) 1 ea MC PRN PRN PRN Reason: PROTOCOL Stop: 12/21/18 13:20 Sodium Phosphate (Fleet Enema) 135 ml RC Q24HR PRN PRN Reason: SEVERE CONSTIPATION Stop: 12/21/18 08:14 Last Admin: 10/22/18 16:15 Dose: 135 ml HEENT: NC/AT, PERRLA, EOMI Neck: Supple, No JVD Lungs: CTAB Cardiovascular: RRR, Normal S1, without murmur Abdomen: soft, non-tender, non-distended, +GT, positive bowel sound Extremities: clear - Procedures Procedures: Procedures Procedure Code Date CHANGE FEEDING DEVICE IN UP INTEST TRACT, GROUP HOME PARAPROFESSIONAL APPROACH [id number] 02/02/17 CHANGE GASTROSTOMY TUBE 24807 02/02/17 DIAGNOSTIC COLONOSCOPY 21152 06/26/16 EGD BIOPSY SINGLE/MULTIPLE 46073 12/22/13 ESOPHAGOGASTRODUODENOSCOPY [EGD] W/CLOSED BIOPSY 45.16 12/22/13 INFLUENZA VACCINATION 99.52 07/14/13 INSERT INDWELLING CATH 57.94 05/17/12 INSERT INTESTINAL TUBE 96.08 05/17/12 INSERT TEMP BLADDER CATH 72935 05/17/12 [facility] PICC 5 YR+ W/O IMAGING 30005 05/17/12 INSPECTION OF LOWER INTESTINAL TRACT, ENDO [id number] 06/26/16 OPEN AND OTHER CECECTOMY 45.72 05/17/12 OPEN AND OTHER RIGHT HEMICOLECTOMY 45.73 05/17/12 PARTIAL REMOVAL OF COLON 07576 05/17/12 UNLISTED PX SMALL INTESTINE 93886 05/17/12 VENOUS CATHETERIZATION NEC 38.93 05/17/12 KUB-SEVERE GENERILIZED GASEOUS DISTENDED LOOPS OF BOWEL Internal Medicine Assmt/Plan - Assessment Assessment: RECURRENT ABD DISTENTION 2RY TO CONSTIPATION/ILEUS CONTIPATION/ILEUS HX OF DYSPHAGIA-S/P PEG HX OF INTELLECTUAL DISABILITY HX OF OP - Plan Plan: CONT WITH CURRENT SUPPORTIVE CARE AND MGT CONT WITH IVF/PEG FEEDS ON HOLD CONT WITH MINERAL OIL ENEMA BID, DULCOLAX, DSS FLEET ENEMA PRN GI EVAL NOTED/APPRECIATED Nutritional Asmnt/Malnutr-PDOC - Dietary Evaluation Malnutrition Findings (Please click <Entered> for more info): Nutritional Asmnt/Malnutrition Start: 10/22/18 15: 51 Text: Status: Complete Freq: Protocol: Document 10/22/18 15:51 LCHENG (Rec: 10/22/18 15:58 LCHENG [email or web address]) Nutritional Asmnt/Malnutrition Patient General Information Nutritional Screening High Risk Diagnosis constipation Pertinent Medical Hx/Surgical Hx PUD/GERD, MR, Gtube Subjective Information Pt seen asleep in bed at time of visit. NPO status. Current Diet Order/ Nutrition Support NPO Pertinent Medications D5-0.45ns, colace, mineral oil Pertinent Labs 5/10 Cr 0.5, glucose 60 Nutritional Hx/Data Height 1.68 m Height (Calculated Centimeters) 167.6 Current Weight (lbs) 46.72 kg Weight (Calculated Kilograms) 46.7 Weight (Calculated Grams) 30582.0 [place] Body Weight 142 Body Mass Index (BMI) 16.6 Weight Status Underweight GI Symptoms GI Symptoms Constipation Last BM not indicated Difficult in: None Skin Integrity/Comment: intact Estimated Nutritional Goals BEE in Kcals: Using Current wt Calories/Kcals/Kg 30-35 Kcals Calculated 9109-0667 Protein: Using Current wt Protein g/k.2-1.4 Protein Calculated 56-66 Fluid: ml 1410-1645ml (1m/kcal) Nutritional Problem 1. Problem Problem altered GI function Etiology possible GI dysfunction Signs/Symptoms: constipation Intervention/Recommendation Comments 1. Monitor NPO status. Resume TF as tolerated when medically appropriate. Consider PPN if TF not tolerated. 2. Monitor GI function, wt, labs and skin integrity 3. F/U as high risk in 2-3 days Expected Outcomes/Goals Expected Outcomes/Goals 1. Pt to meet at least 90% of nutritional needs via nutrition support with tolerance 2. Wt stability, GI function to improve, skin to remain intact, labs to approach WNL.
[2018-10-23] MEDS ORDERED: MINERAL OIL ENEMA 135 ML BOTTLE RC ONE (12:30)
[2018-10-23] MEDS ORDERED: Magnesium Citrate 1.75 GM/300 mL Bottle GT ONE (12:30)
[2018-10-23] MEDS: D5-0.45NS 1,000 ML IV SCH ×2 (12:35)
--- NOTE | 2018-10-23 22:37 | Consultation ---
DATE OF CONSULTATION: 10/23/2018 REASON FOR CONSULTATION: Fecal impaction. HISTORY OF PRESENT ILLNESS: This consult was obtained through the courtesy of Dr. 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 The patient's mother is with him. She is very involved. After examined, she stated that usually have a bowel movement every day, but it starts sometimes, it become less than usual and then he has a backup and then end up with constipation and fecal impaction. PAST MEDICAL HISTORY: Developmental delay, cerebral palsy, GERD, osteoarthritis, osteoporosis, chronic constipation. PAST SURGICAL HISTORY: PEG. SOCIAL HISTORY: Nonsmoker, alcoholic, IV drug abuser. FAMILY HISTORY: Noncontributory. ALLERGIES: No known drug allergies. MEDICATIONS: The patient is on bisacodyl, Colace, subcutaneous heparin, mineral oil p.r.n. REVIEW OF SYSTEMS: Unobtainable. PHYSICAL EXAMINATION: GENERAL: The patient is awake, somewhat responsive, not oriented, no acute distress. VITAL SIGNS: Blood pressure 106/65, heart rate 56, respiratory rate 18, temperature 99.0. HEAD AND NECK: Pupils reactive to light. Extraocular muscles could not be tested. Oral cavity no lesion. NECK: Supple. CHEST: Good air entry. LUNGS: Clear to auscultation. CARDIOVASCULAR: Showed regular rate and rhythm. No murmur or gallop. ABDOMEN: Soft, positive bowel sound. There is a G-tube in place. Bowel sounds are present. EXTREMITIES: Lower extremities, no edema. CENTRAL NERVOUS SYSTEM: Unable to evaluate. LABORATORY DATA: CBC unremarkable, so was chemistry, but no liver enzymes were done. CAT scan showed gastric distention with the intestine. IMPRESSION: A 33-year-old with recurrent fecal impaction, abdominal distention. ASSESSMENT AND PLAN: 1. Recurrent fecal impaction with chronic constipation. We will give the patient one dose of mineral oil enema now, then we will give a bottle of mag citrate, then we will increase mineral oil to twice daily on a regular basis, then further recommendations to follow. OTHER MEDICAL PROBLEM: As per Dr. Menard. ADDENDUM TO THE PAST SURGICAL HISTORY: The patient had an exploratory laparotomy supposed to be for bowel obstruction, but turned out to be just according to the mother twist of small intestine, which was released and he did better after that. [facility]# [id number]
[2018-10-24] MEDS: D5-0.45NS 1,000 ML IV SCH ×2 (01:15→14:45)
[2018-10-24] MEDS: Docusate Sodium 100 mg/10 mL UD GT SCH (09:46)
[2018-10-24] MEDS: Heparin Sod 5,000Units/ML 5,000 UNITS/ML VIAL SUBQ SCH ×2 (09:47→20:46)
--- NOTE | 2018-10-24 10:14 | GI Progress Note ---
Subjective - Review of Systems Service Date: 10/24/18 Events since last encounter: no events Subjective: Big BM yesterday Objective - Results Result Diagrams: 10/23/18 06:05 10/23/18 06:05 Recent Labs: Laboratory Last Values WBC 5.1 Th/cmm (4.8-10.8) 10/23/18 06:05 RBC 4.51 Mil/cmm (4.30-5.70) 10/23/18 06:05 Hgb 13.7 gm/dL (12-16) 10/23/18 06:05 Hct 41.5 % (41.0-60) 10/23/18 06:05 MCV 92.1 fl (80-99) 10/23/18 06:05 MCH 30.4 pg (26.0-30.0) H 10/23/18 06:05 MCHC Differential 33.0 pg (28.0-36.0) 10/23/18 06:05 RDW 12.8 % (11.5-20.0) 10/23/18 06:05 Plt Count 207 Th/cmm (150-400) 10/23/18 06:05 MPV 7.0 fl 10/23/18 06:05 Neutrophils % 51.7 % (40.0-80.0) 10/23/18 06:05 Lymphocytes % 39.7 % (20.0-50.0) 10/23/18 06:05 Monocytes % 5.7 % (2.0-10.0) 10/23/18 06:05 Eosinophils % 2.5 % (0.0-5.0) 10/23/18 06:05 Basophils % 0.4 % (0.0-2.0) 10/23/18 06:05 Sodium 139 mEq/L (136-145) 10/23/18 06:05 Potassium 4.0 mEq/L (3.5-5.1) 10/23/18 06:05 Chloride 105 mEq/L (98-107) 10/23/18 06:05 Carbon Dioxide 22.3 mEq/L (21.0-31.0) 10/23/18 06:05 Anion Gap 15.7 (7.0-16.0) 10/23/18 06:05 BUN 18 mg/dL (7-25) 10/23/18 06:05 Creatinine 0.6 mg/dL (0.7-1.3) L 10/23/18 06:05 Est GFR ( Amer) > 60.0 ml/min (>90) 10/23/18 06:05 Est GFR (Non-Af Amer) > 60.0 ml/min 10/23/18 06:05 BUN/Creatinine Ratio 30.0 10/23/18 06:05 Glucose 103 mg/dL (70-105) 10/23/18 06:05 POC Glucose 107 MG/DL (70 - 105) H 10/23/18 17:42 Calcium 8.7 mg/dL (8.6-10.3) 10/23/18 06:05 Magnesium 2.2 mg/dL (1.9-2.7) 10/22/18 05:35 Lipase 21 U/L (11-82) 10/21/18 00:04 - Physical Exam Vitals and I&O: Vital Signs Temp 96.7 F 10/24/18 08:00 Pulse 54 10/24/18 08:00 Resp 18 10/24/18 08:00 BP 105/77 10/24/18 08:00 Pulse Ox 100 10/24/18 08:00 Intake & Output 10/23/18 10/24/18 10/24/18 18:59 06:59 18:59 Intake Total 1343.75 950 Balance 1343.75 950 Weight (lbs) 46.72 kg 46.72 kg Intake: Intake, IV Amount 943.75 950 D5-0.45NS 1,000 ml @ 75 943.75 950 mls/hr IV .[id number] [facility] Rx #:[id number] Other 400 Other: # Voids 2 # Bowel Movements 0 Weight Source Bedscale Bedscale Active Medications: Current Medications Bisacodyl (Dulcolax 10 Mg Supp) 10 mg RC Q24HR PRN PRN Reason: MODERATE CONSTIPATION Stop: 12/21/18 08:00 Last Admin: 10/23/18 20:43 Dose: 10 mg Docusate Sodium (Colace) 200 mg GT DAILY [facility] Stop: 12/21/18 08:59 Last Admin: 10/24/18 09:46 Dose: 200 mg Heparin Sodium (Porcine) (Heparin) 5,000 units SUBQ Q12H [facility] Stop: 12/21/18 20:59 Last Admin: 10/24/18 09:47 Dose: 5,000 units Dextrose/Sodium Chloride (D5-0.45ns) 1,000 mls @ 75 mls/hr IV .[id number] [facility] Stop: 12/21/18 02:58 Last Admin: 10/24/18 01:15 Dose: 75 mls/hr Mineral Oil (Mineral Oil 30 Ml) 30 ml GT BID [facility] Stop: 12/22/18 16:59 Last Admin: 10/24/18 09:46 Dose: 30 ml Miscellaneous (Vte Chemical Prophylaxis Screen/ Admission) 1 ea MC PRN PRN PRN Reason: PROTOCOL Stop: 12/21/18 13:20 Sodium Phosphate (Fleet Enema) 135 ml RC Q24HR PRN PRN Reason: SEVERE CONSTIPATION Stop: 12/21/18 08:14 Last Admin: 10/22/18 16:15 Dose: 135 ml General: Alert, No acute distress Cardiovascular: Regular rate, Normal S1, Normal S2 Lungs: Clear to auscultation Abdomen: Bowel sounds, Soft, Other (G tube and surgical scar), no Tender, no Mass - Procedures Procedures: Procedures Procedure Code Date CHANGE FEEDING DEVICE IN UP INTEST TRACT, APPAREL DESIGNER APPROACH [id number] 02/02/17 CHANGE GASTROSTOMY TUBE 74015 02/02/17 DIAGNOSTIC COLONOSCOPY 88000 06/26/16 EGD BIOPSY SINGLE/MULTIPLE 67160 12/22/13 ESOPHAGOGASTRODUODENOSCOPY [EGD] W/CLOSED BIOPSY 45.16 12/22/13 INFLUENZA VACCINATION 99.52 07/14/13 INSERT INDWELLING CATH 57.94 05/17/12 INSERT INTESTINAL TUBE 96.08 05/17/12 INSERT TEMP BLADDER CATH 34317 05/17/12 [facility] PICC 5 YR+ W/O IMAGING 93944 05/17/12 INSPECTION OF LOWER INTESTINAL TRACT, ENDO [id number] 06/26/16 OPEN AND OTHER CECECTOMY 45.72 05/17/12 OPEN AND OTHER RIGHT HEMICOLECTOMY 45.73 05/17/12 PARTIAL REMOVAL OF COLON 55638 05/17/12 UNLISTED PX SMALL INTESTINE 17388 05/17/12 VENOUS CATHETERIZATION NEC 38.93 05/17/12 Assessment/Plan - Assessment Assessment: Fecal impaction Chronic constipation - Plan Plan: 1.Fecal impaction Good response to mag citrate. Chronic constipation OPT daily mineral oil or MOM
[2018-10-25] MEDS: D5-0.45NS 1,000 ML IV SCH ×2 (05:20→16:22)
--- NOTE | 2018-10-25 09:12 | Diagnostic Imaging Report ---
KUB abdominal film HISTORY: Pain, fecal impaction The exam demonstrates a distended stool-filled rectum. Mildly dilated small bowel and nondilated large bowel noted. Blue-tip catheter is seen over the upper left mid abdomen. No free intraperitoneal air. IMPRESSION: 1. Distended stool-filled rectum consistent with changes of a fecal impaction.
[2018-10-25] MEDS: Docusate Sodium 100 mg/10 mL UD GT SCH (09:13)
[2018-10-25] MEDS: Heparin Sod 5,000Units/ML 5,000 UNITS/ML VIAL SUBQ SCH ×2 (09:13→20:19)
--- NOTE | 2018-10-25 09:16 | Internal Medicine Prog Note ---
Internal Medicine Subjective - Subjective Service Date: 10/25/18 (had large bm yesterday and earlier thia am. Domo puree diet well. Awaiting KUB.) Patient is:: asleep Per staff patient has:: no adverse event Internal Medicine Objective - Results Result Diagrams: 10/23/18 06:05 10/23/18 06:05 Recent Labs: Laboratory Last Values WBC 5.1 Th/cmm (4.8-10.8) 10/23/18 06:05 RBC 4.51 Mil/cmm (4.30-5.70) 10/23/18 06:05 Hgb 13.7 gm/dL (12-16) 10/23/18 06:05 Hct 41.5 % (41.0-60) 10/23/18 06:05 MCV 92.1 fl (80-99) 10/23/18 06:05 MCH 30.4 pg (26.0-30.0) H 10/23/18 06:05 MCHC Differential 33.0 pg (28.0-36.0) 10/23/18 06:05 RDW 12.8 % (11.5-20.0) 10/23/18 06:05 Plt Count 207 Th/cmm (150-400) 10/23/18 06:05 MPV 7.0 fl 10/23/18 06:05 Neutrophils % 51.7 % (40.0-80.0) 10/23/18 06:05 Lymphocytes % 39.7 % (20.0-50.0) 10/23/18 06:05 Monocytes % 5.7 % (2.0-10.0) 10/23/18 06:05 Eosinophils % 2.5 % (0.0-5.0) 10/23/18 06:05 Basophils % 0.4 % (0.0-2.0) 10/23/18 06:05 Sodium 139 mEq/L (136-145) 10/23/18 06:05 Potassium 4.0 mEq/L (3.5-5.1) 10/23/18 06:05 Chloride 105 mEq/L (98-107) 10/23/18 06:05 Carbon Dioxide 22.3 mEq/L (21.0-31.0) 10/23/18 06:05 Anion Gap 15.7 (7.0-16.0) 10/23/18 06:05 BUN 18 mg/dL (7-25) 10/23/18 06:05 Creatinine 0.6 mg/dL (0.7-1.3) L 10/23/18 06:05 Est GFR ( Amer) > 60.0 ml/min (>90) 10/23/18 06:05 Est GFR (Non-Af Amer) > 60.0 ml/min 10/23/18 06:05 BUN/Creatinine Ratio 30.0 10/23/18 06:05 Glucose 103 mg/dL (70-105) 10/23/18 06:05 POC Glucose 107 MG/DL (70 - 105) H 10/23/18 17:42 Calcium 8.7 mg/dL (8.6-10.3) 10/23/18 06:05 Magnesium 2.2 mg/dL (1.9-2.7) 10/22/18 05:35 Lipase 21 U/L (11-82) 10/21/18 00:04 - Physical Exam Vitals and I&O: Vital Signs Temp 97.1 F 10/25/18 07:37 Pulse 60 10/25/18 07:37 Resp 18 10/25/18 07:37 BP 107/66 10/25/18 07:37 Pulse Ox 97 10/25/18 07:37 Intake & Output 10/24/18 10/25/18 10/25/18 18:59 06:59 18:59 Intake Total 1200 1100 Output Total 2 Balance 1198 1100 Weight (lbs) 46.72 kg 46.72 kg Intake: Intake, IV Amount 1000 1000 D5-0.45NS 1,000 ml @ 75 1000 1000 mls/hr IV .[id number] [facility] Rx #:[id number] Tube Feeding 100 Other 200 Output: Urine 2 Other: # Voids 2 # Bowel Movements 1 Weight Source Bedscale Bedscale Active Medications: Current Medications Bisacodyl (Dulcolax 10 Mg Supp) 10 mg RC Q24HR PRN PRN Reason: MODERATE CONSTIPATION Stop: 12/21/18 08:00 Last Admin: 10/23/18 20:43 Dose: 10 mg Docusate Sodium (Colace) 200 mg GT DAILY [facility] Stop: 12/21/18 08:59 Last Admin: 10/24/18 09:46 Dose: 200 mg Heparin Sodium (Porcine) (Heparin) 5,000 units SUBQ Q12H [facility] Stop: 12/21/18 20:59 Last Admin: 10/24/18 20:46 Dose: 5,000 units Dextrose/Sodium Chloride (D5-0.45ns) 1,000 mls @ 75 mls/hr IV .[id number] [facility] Stop: 12/21/18 02:58 Last Admin: 10/25/18 05:20 Dose: 75 mls/hr Mineral Oil (Mineral Oil 30 Ml) 30 ml GT BID [facility] Stop: 12/22/18 16:59 Last Admin: 10/24/18 16:23 Dose: 30 ml Miscellaneous (Vte Chemical Prophylaxis Screen/ Admission) 1 ea MC PRN PRN PRN Reason: PROTOCOL Stop: 12/21/18 13:20 Sodium Phosphate (Fleet Enema) 135 ml RC Q24HR PRN PRN Reason: SEVERE CONSTIPATION Stop: 12/21/18 08:14 Last Admin: 10/22/18 16:15 Dose: 135 ml HEENT: NC/AT, PERRLA, EOMI Neck: Supple, No JVD Lungs: CTAB Cardiovascular: RRR, Normal S1, without murmur Abdomen: soft, non-tender, non-distended, +GT, positive bowel sound Extremities: clear - Procedures Procedures: Procedures Procedure Code Date CHANGE FEEDING DEVICE IN UP INTEST TRACT, HELP [employer] APPROACH [id number] 02/02/17 CHANGE GASTROSTOMY TUBE 85806 02/02/17 DIAGNOSTIC COLONOSCOPY 42700 06/26/16 EGD BIOPSY SINGLE/MULTIPLE 29420 12/22/13 ESOPHAGOGASTRODUODENOSCOPY [EGD] W/CLOSED BIOPSY 45.16 12/22/13 INFLUENZA VACCINATION 99.52 07/14/13 INSERT INDWELLING CATH 57.94 05/17/12 INSERT INTESTINAL TUBE 96.08 05/17/12 INSERT TEMP BLADDER CATH 14706 05/17/12 INS PICC 5 YR+ W/O IMAGING 11568 05/17/12 INSPECTION OF LOWER INTESTINAL TRACT, ENDO [id number] 06/26/16 OPEN AND OTHER CECECTOMY 45.72 05/17/12 OPEN AND OTHER RIGHT HEMICOLECTOMY 45.73 05/17/12 PARTIAL REMOVAL OF COLON 43002 05/17/12 UNLISTED PX SMALL INTESTINE 66015 05/17/12 VENOUS CATHETERIZATION NEC 38.93 05/17/12 Internal Medicine Assmt/Plan - Assessment Assessment: RECURRENT ABD DISTENTION 2RY TO CONSTIPATION-clinically improved. CONTIPATION/ILEUS-clinically improved. HX OF DYSPHAGIA-S/P PEG-for med administratuin only. HX OF INTELLECTUAL DISABILITY HX OF OP - Plan Plan: CONT WITH CURRENT SUPPORTIVE CARE AND MGT CONT WITH IVF/PEG FEEDS ON HOLD CONT WITH MINERAL OIL ENEMA BID, DULCOLAX, DSS FLEET ENEMA PRN RAJINDER SUL[place] DC PLANNING FOR TODAY Nutritional Asmnt/Malnutr-PDOC - Dietary Evaluation Malnutrition Findings (Please click <Entered> for more info): Nutritional Asmnt/Malnutrition Start: 10/22/18 15: 51 Text: Status: Complete Freq: Protocol: Document 10/22/18 15:51 LCHENG (Rec: 10/22/18 15:58 [email or web address]) Nutritional Asmnt/Malnutrition Patient General Information Nutritional Screening High Risk Diagnosis constipation Pertinent Medical Hx/Surgical Hx PUD/GERD, MR, Gtube Subjective Information Pt seen asleep in bed at time of visit. NPO status. Current Diet Order/ Nutrition Support NPO Pertinent Medications D5-0.45ns, colace, mineral oil Pertinent Labs 5/10 Cr 0.5, glucose 60 Nutritional Hx/Data Height 1.68 m Height (Calculated Centimeters) 167.6 Current Weight (lbs) 46.72 kg Weight (Calculated Kilograms) 46.7 Weight (Calculated Grams) 31727.0 [place] Body Weight 142 Body Mass Index (BMI) 16.6 Weight Status Underweight GI Symptoms GI Symptoms Constipation Last BM not indicated Difficult in: None Skin Integrity/Comment: intact Estimated Nutritional Goals BEE in Kcals: Using Current wt Calories/Kcals/Kg 30-35 Kcals Calculated 0696-1496 Protein: Using Current wt Protein g/k.2-1.4 Protein Calculated 56-66 Fluid: ml 1410-1645ml (1m/kcal) Nutritional Problem 1. Problem Problem altered GI function Etiology possible GI dysfunction Signs/Symptoms: constipation Intervention/Recommendation Comments 1. Monitor NPO status. Resume TF as tolerated when medically appropriate. Consider PPN if TF not tolerated. 2. Monitor GI function, wt, labs and skin integrity 3. F/U as high risk in 2-3 days Expected Outcomes/Goals Expected Outcomes/Goals 1. Pt to meet at least 90% of nutritional needs via nutrition support with tolerance 2. Wt stability, GI function to improve, skin to remain intact, labs to approach WNL.
[2018-10-25] MEDS ORDERED: MINERAL OIL ENEMA 135 ML BOTTLE RC ONE (10:36)
[2018-10-25] MEDS ORDERED: Magnesium Citrate 1.75 GM/300 mL Bottle PO ONE (10:39)
--- NOTE | 2018-10-25 10:48 | GI Progress Note ---
Subjective - Review of Systems Service Date: 10/25/18 Events since last encounter: No events Subjective: constipated again Objective - Results Result Diagrams: 10/23/18 06:05 10/23/18 06:05 Recent Labs: Laboratory Last Values WBC 5.1 Th/cmm (4.8-10.8) 10/23/18 06:05 RBC 4.51 Mil/cmm (4.30-5.70) 10/23/18 06:05 Hgb 13.7 gm/dL (12-16) 10/23/18 06:05 Hct 41.5 % (41.0-60) 10/23/18 06:05 MCV 92.1 fl (80-99) 10/23/18 06:05 MCH 30.4 pg (26.0-30.0) H 10/23/18 06:05 MCHC Differential 33.0 pg (28.0-36.0) 10/23/18 06:05 RDW 12.8 % (11.5-20.0) 10/23/18 06:05 Plt Count 207 Th/cmm (150-400) 10/23/18 06:05 MPV 7.0 fl 10/23/18 06:05 Neutrophils % 51.7 % (40.0-80.0) 10/23/18 06:05 Lymphocytes % 39.7 % (20.0-50.0) 10/23/18 06:05 Monocytes % 5.7 % (2.0-10.0) 10/23/18 06:05 Eosinophils % 2.5 % (0.0-5.0) 10/23/18 06:05 Basophils % 0.4 % (0.0-2.0) 10/23/18 06:05 Sodium 139 mEq/L (136-145) 10/23/18 06:05 Potassium 4.0 mEq/L (3.5-5.1) 10/23/18 06:05 Chloride 105 mEq/L (98-107) 10/23/18 06:05 Carbon Dioxide 22.3 mEq/L (21.0-31.0) 10/23/18 06:05 Anion Gap 15.7 (7.0-16.0) 10/23/18 06:05 BUN 18 mg/dL (7-25) 10/23/18 06:05 Creatinine 0.6 mg/dL (0.7-1.3) L 10/23/18 06:05 Est GFR ( Amer) > 60.0 ml/min (>90) 10/23/18 06:05 Est GFR (Non-Af Amer) > 60.0 ml/min 10/23/18 06:05 BUN/Creatinine Ratio 30.0 10/23/18 06:05 Glucose 103 mg/dL (70-105) 10/23/18 06:05 POC Glucose 107 MG/DL (70 - 105) H 10/23/18 17:42 Calcium 8.7 mg/dL (8.6-10.3) 10/23/18 06:05 Magnesium 2.2 mg/dL (1.9-2.7) 10/22/18 05:35 Lipase 21 U/L (11-82) 10/21/18 00:04 - Physical Exam Vitals and I&O: Vital Signs Temp 97.1 F 10/25/18 07:37 Pulse 60 10/25/18 07:37 Resp 18 10/25/18 07:37 BP 107/66 10/25/18 07:37 Pulse Ox 97 10/25/18 07:37 Intake & Output 10/24/18 10/25/18 10/25/18 18:59 06:59 18:59 Intake Total 1200 1100 Output Total 2 Balance 1198 1100 Weight (lbs) 46.72 kg 46.72 kg Intake: Intake, IV Amount 1000 1000 D5-0.45NS 1,000 ml @ 75 1000 1000 mls/hr IV .[id number] [facility] Rx #:[id number] Tube Feeding 100 Other 200 Output: Urine 2 Other: # Voids 2 # Bowel Movements 1 Weight Source Bedscale Bedscale Active Medications: Current Medications Bisacodyl (Dulcolax 10 Mg Supp) 10 mg RC Q24HR PRN PRN Reason: MODERATE CONSTIPATION Stop: 12/21/18 08:00 Last Admin: 10/23/18 20:43 Dose: 10 mg Docusate Sodium (Colace) 200 mg GT DAILY [facility] Stop: 12/21/18 08:59 Last Admin: 10/25/18 09:13 Dose: 200 mg Heparin Sodium (Porcine) (Heparin) 5,000 units SUBQ Q12H [facility] Stop: 12/21/18 20:59 Last Admin: 10/25/18 09:13 Dose: 5,000 units Dextrose/Sodium Chloride (D5-0.45ns) 1,000 mls @ 75 mls/hr IV .[id number] ALLISON Stop: 12/21/18 02:58 Last Admin: 10/25/18 05:20 Dose: 75 mls/hr Magnesium Citrate (Citroma) 17.5 gm PO X1 ONE Stop: 10/25/18 10:40 Mineral Oil (Mineral Oil 30 Ml) 30 ml GT BID ALLISON Stop: 12/22/18 16:59 Last Admin: 10/25/18 09:13 Dose: 30 ml Mineral Oil (Fleet Mineral Oil) 118 ml RC X1 ONE Stop: 10/25/18 10:37 Miscellaneous (Vte Chemical Prophylaxis Screen/ Admission) 1 ea MC PRN PRN PRN Reason: PROTOCOL Stop: 12/21/18 13:20 Sodium Phosphate (Fleet Enema) 135 ml RC Q24HR PRN PRN Reason: SEVERE CONSTIPATION Stop: 12/21/18 08:14 Last Admin: 10/22/18 16:15 Dose: 135 ml General: Alert, No acute distress Cardiovascular: Regular rate, Normal S1, Normal S2 Lungs: Clear to auscultation Abdomen: Bowel sounds, Soft, Other (G tube and surgical scar), no Tender, no Mass - Procedures Procedures: Procedures Procedure Code Date CHANGE FEEDING DEVICE IN UP INTEST TRACT, DIRECTOR OF PLANNING APPROACH [id number] 02/02/17 CHANGE GASTROSTOMY TUBE 59058 02/02/17 DIAGNOSTIC COLONOSCOPY 22029 06/26/16 EGD BIOPSY SINGLE/MULTIPLE 91412 12/22/13 ESOPHAGOGASTRODUODENOSCOPY [EGD] W/CLOSED BIOPSY 45.16 12/22/13 INFLUENZA VACCINATION 99.52 07/14/13 INSERT INDWELLING CATH 57.94 05/17/12 INSERT INTESTINAL TUBE 96.08 05/17/12 INSERT TEMP BLADDER CATH 07807 05/17/12 INSJ PICC 5 YR+ W/O IMAGING 70907 05/17/12 INSPECTION OF LOWER INTESTINAL TRACT, ENDO [id number] 06/26/16 OPEN AND OTHER CECECTOMY 45.72 05/17/12 OPEN AND OTHER RIGHT HEMICOLECTOMY 45.73 05/17/12 PARTIAL REMOVAL OF COLON 90499 05/17/12 UNLISTED PX SMALL INTESTINE 78025 05/17/12 VENOUS CATHETERIZATION NEC 38.93 05/17/12 Assessment/Plan - Assessment Assessment: Fecal impaction Chronic constipation - Plan Plan: 1.Fecal impaction Good response to mag citrate. Repeat again both Mag citrate and mineral oil 2. Chronic constipation OPT daily mineral oil or MOM
--- NOTE | 2018-10-25 16:37 | Discharge Summary ---
DATE OF DISCHARGE: 10/25/2018 DATE OF DISCHARGE: 10/25/2018. ADMITTING DIAGNOSES: 1. Abdominal distention secondary to ileus and fecal retention. 2. History of chronic constipation with previous admissions for ileus. SECONDARY DIAGNOSES: Include history of acid reflux disease, history of dysphagia with previous PEG placement, history of arthritis, history of osteoporosis, profound mental disability. DISCHARGE DIAGNOSES: Abdominal distention secondary to ileus with fecal stasis - clinically improved. CONSULTANTS: Dr. Chan, GI. MAJOR PROCEDURES: On 10/22/2018, the patient underwent a CT of the pelvis showing severe distention of small bowel and large bowel loops with air fluid levels. Moderate amount of fecal content throughout the colon. The colon was severely dilated. Gastrostomy tube is noted in the stomach. KUB done on 10/22/2018 shows severe generalized gaseous distended loops of bowel , which may be due to severe ileus. Moderate stool is noted, greatest within the right colon and transverse colon. Repeat KUB on 10/25/2018 shows distended stool filled rectum consistent with changes of fecal impaction. BRIEF HOSPITAL COURSE: This is a 33-year-old male with history significant for chronic constipation, ileus, who has been admitted to this facility in the past for fecal retention and impaction, presented to the ER with a 2-day history of constipation and discomfort. A KUB was done on an outpatient basis showing ileus and fecal stasis. Therefore, the patient was referred to the ER for further management and care. The patient was admitted to the Medical Surgical floor, placed on a bowel regimen including oil enema twice a day (GI recs). GI consult was also asked for further management and care. The patient received initially a Fleet enema and was placed on stool softeners and was made n.p.o. initially. The patient had a large bowel movement by hospital day #2 and again another bowel movement a day later with improvement of his distention. Initially, his abdomen was mildly distended, becoming less distended. Objectively, the patient has remained stable throughout his hospital stay including vital signs and labs. Patient was started on a soft/puree diet and his regular medications were resumed via his G tube (GT is use for medication administration purpses). Both diet and meds have been tolerated well. DISCHARGE MEDICATIONS: Mineral oil enema 30 mL via G-tube b.i.d., Tylenol 650 q. 4 hours p.r.n. for pain, Fosamax 70 mg every Thursday, ascorbic acid 500 mg every day, calcium carbonate 500 mg daily, Culturelle via G-tube daily, milk of magnesia p.r.n., meloxicam 7.5 b.i.d., multivitamins with minerals daily, nitroglycerin p.r.n. for chest pain, Protonix 40 mg b.i.d., MiraLax 17 grams b.i.d., Dulcolax suppository 10 mg every day p.r.n. for constipation, docusate sodium 200 mg q. 24 hours, fleet enema every day p.r.n. for severe constipation. DISPOSITION: The patient was discharged back to [facility] under the care of his primary care doctor (Dr. Escudero). JOB# [id number] MTDD
[2018-10-26] MEDS: D5-0.45NS 1,000 ML IV SCH (02:07)
[2018-10-26] MEDS: Heparin Sod 5,000Units/ML 5,000 UNITS/ML VIAL SUBQ SCH (09:54)
[2018-10-26] MEDS: Docusate Sodium 100 mg/10 mL UD GT SCH (09:54)
[2018-10-26] MEDS ORDERED: Magnesium Citrate 1.75 GM/300 mL Bottle GT ONE (10:38)
--- NOTE | 2018-10-26 10:41 | GI Progress Note ---
Subjective - Review of Systems Service Date: 10/26/18 Events since last encounter: No events Subjective: Better Objective - Results Result Diagrams: 10/23/18 06:05 10/23/18 06:05 Recent Labs: Laboratory Last Values WBC 5.1 Th/cmm (4.8-10.8) 10/23/18 06:05 RBC 4.51 Mil/cmm (4.30-5.70) 10/23/18 06:05 Hgb 13.7 gm/dL (12-16) 10/23/18 06:05 Hct 41.5 % (41.0-60) 10/23/18 06:05 MCV 92.1 fl (80-99) 10/23/18 06:05 MCH 30.4 pg (26.0-30.0) H 10/23/18 06:05 MCHC Differential 33.0 pg (28.0-36.0) 10/23/18 06:05 RDW 12.8 % (11.5-20.0) 10/23/18 06:05 Plt Count 207 Th/cmm (150-400) 10/23/18 06:05 MPV 7.0 fl 10/23/18 06:05 Neutrophils % 51.7 % (40.0-80.0) 10/23/18 06:05 Lymphocytes % 39.7 % (20.0-50.0) 10/23/18 06:05 Monocytes % 5.7 % (2.0-10.0) 10/23/18 06:05 Eosinophils % 2.5 % (0.0-5.0) 10/23/18 06:05 Basophils % 0.4 % (0.0-2.0) 10/23/18 06:05 Sodium 139 mEq/L (136-145) 10/23/18 06:05 Potassium 4.0 mEq/L (3.5-5.1) 10/23/18 06:05 Chloride 105 mEq/L (98-107) 10/23/18 06:05 Carbon Dioxide 22.3 mEq/L (21.0-31.0) 10/23/18 06:05 Anion Gap 15.7 (7.0-16.0) 10/23/18 06:05 BUN 18 mg/dL (7-25) 10/23/18 06:05 Creatinine 0.6 mg/dL (0.7-1.3) L 10/23/18 06:05 Est GFR ( Amer) > 60.0 ml/min (>90) 10/23/18 06:05 Est GFR (Non-Af Amer) > 60.0 ml/min 10/23/18 06:05 BUN/Creatinine Ratio 30.0 10/23/18 06:05 Glucose 103 mg/dL (70-105) 10/23/18 06:05 POC Glucose 107 MG/DL (70 - 105) H 10/23/18 17:42 Calcium 8.7 mg/dL (8.6-10.3) 10/23/18 06:05 Magnesium 2.2 mg/dL (1.9-2.7) 10/22/18 05:35 Lipase 21 U/L (11-82) 10/21/18 00:04 - Physical Exam Vitals and I&O: Vital Signs Temp 97.4 F 10/26/18 07:42 Pulse 54 10/26/18 07:42 Resp 18 10/26/18 07:42 BP 99/68 10/26/18 07:42 Pulse Ox 95 10/26/18 07:42 Intake & Output 10/25/18 10/26/18 10/26/18 18:59 06:59 18:59 Intake Total 827.5 781.25 Balance 827.5 781.25 Weight (lbs) 46.72 kg Intake: Intake, IV Amount 827.5 731.25 D5-0.45NS 1,000 ml @ 75 827.5 731.25 mls/hr IV .[id number] [facility] Rx #:[id number] Tube Feeding 50 Other: # Voids 2 # Bowel Movements 1 Stool Characteristics Liquid Weight Source Bedscale Active Medications: Current Medications Bisacodyl (Dulcolax 10 Mg Supp) 10 mg RC Q24HR PRN PRN Reason: MODERATE CONSTIPATION Stop: 12/21/18 08:00 Last Admin: 10/23/18 20:43 Dose: 10 mg Docusate Sodium (Colace) 200 mg GT DAILY [facility] Stop: 12/21/18 08:59 Last Admin: 10/26/18 09:54 Dose: 200 mg Heparin Sodium (Porcine) (Heparin) 5,000 units SUBQ Q12H [facility] Stop: 12/21/18 20:59 Last Admin: 10/26/18 09:54 Dose: 5,000 units Dextrose/Sodium Chloride (D5-0.45ns) 1,000 mls @ 75 mls/hr IV .[id number] [facility] Stop: 12/21/18 02:58 Last Admin: 10/26/18 02:07 Dose: 75 mls/hr Magnesium Citrate (Citroma) 17.5 gm GT X1 ONE Stop: 10/26/18 10:39 Mineral Oil (Mineral Oil 30 Ml) 30 ml GT BID ALLISON Stop: 12/22/18 16:59 Last Admin: 10/26/18 09:53 Dose: 30 ml Miscellaneous (Vte Chemical Prophylaxis Screen/ Admission) 1 ea MC PRN PRN PRN Reason: PROTOCOL Stop: 12/21/18 13:20 Sodium Phosphate (Fleet Enema) 135 ml RC Q24HR PRN PRN Reason: SEVERE CONSTIPATION Stop: 12/21/18 08:14 Last Admin: 10/22/18 16:15 Dose: 135 ml General: Alert, No acute distress Cardiovascular: Regular rate, Normal S1, Normal S2 Lungs: Clear to auscultation Abdomen: Bowel sounds, Soft, Other (G tube and surgical scar), no Tender, no Mass - Procedures Procedures: Procedures Procedure Code Date CHANGE FEEDING DEVICE IN UP INTEST TRACT, HASH SLINGER APPROACH [id number] 02/02/17 CHANGE GASTROSTOMY TUBE 06912 02/02/17 DIAGNOSTIC COLONOSCOPY 34565 06/26/16 EGD BIOPSY SINGLE/MULTIPLE 01806 12/22/13 ESOPHAGOGASTRODUODENOSCOPY [EGD] W/CLOSED BIOPSY 45.16 12/22/13 INFLUENZA VACCINATION 99.52 07/14/13 INSERT INDWELLING CATH 57.94 05/17/12 INSERT INTESTINAL TUBE 96.08 05/17/12 INSERT TEMP BLADDER CATH 56190 05/17/12 INSJ PICC 5 YR+ W/O IMAGING 38296 05/17/12 INSPECTION OF LOWER INTESTINAL TRACT, ENDO [id number] 06/26/16 OPEN AND OTHER CECECTOMY 45.72 05/17/12 OPEN AND OTHER RIGHT HEMICOLECTOMY 45.73 05/17/12 PARTIAL REMOVAL OF COLON 91795 05/17/12 UNLISTED PX SMALL INTESTINE 39732 05/17/12 VENOUS CATHETERIZATION NEC 38.93 05/17/12 Assessment/Plan - Assessment Assessment: Fecal impaction Chronic constipation - Plan Plan: 1.Fecal impaction Good response to mag citrate. Repeat again both Mag citrate and mineral oil 2. Chronic constipation OPT daily mineral oil or MOM and Miralax
--- NOTE | 2018-10-26 12:15 | Diagnostic Imaging Report ---
Exam: KUB of the abdomen HISTORY: Constipation Findings: Supine examination the abdomen reviewed and compared to prior study of 10/25/2018 demonstrates unchanged appearance of the distention with air small bowel and large bowel loops throughout. Gastrostomy tube midline. There is no evidence of constipation. IMPRESSION: Extensive pelvic ileus with distended small bowel and large bowel loops throughout the abdomen with air.
== END 2018-10-26 18:05 | DRG 247 ==
LOC: ER 23:22 → MSI 10-22 02:40
PROVIDERS: ADMIT Internal Medicine; ATTEND Internal Medicine
DX: K56.7 Ileus, unspecified (principal); F73 Profound intellectual disabilities; R53.2 Functional quadriplegia; Z93.1 Gastrostomy status; M81.0 Age-related osteoporosis without current pathological fracture; M19.90 Unspecified osteoarthritis, unspecified site; K21.9 Gastro-esophageal reflux disease without esophagitis; G80.9 Cerebral palsy, unspecified; K59.09 Other constipation
CPT/HCPCS: 36415-UA; 74000-TC; 80048-TC; 82948-90; 83690-TC; 83735-TC; 85025-TC; J1644; J7070; Z7610

== ENCOUNTER 2018-11-01 21:35 | Inpatient (IN) | payer MEDICAID ==
--- NOTE | 2018-11-01 22:21 | ED Physician Chart ---
ED Chief Complaint/HPI - Patient Information Date Seen:: 11/01/18 Time Seen:: 22:00 Chief Complaint:: Pt has not had bowel movement for about 3 days. History of Present Illness:: Brought in by ambulance from nursing facility because pt has not had a bowel movement for about 3 days. Pt appears to be comfortable without distress. 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 Pt is not cooperative; thus, H & P are limited. Allergies:: Allergies Allergy/AdvReac Type Severity Reaction Status Date / Time No Known Allergies Allergy Verified 10/21/18 23:39 Vitals:: Vital Signs - 8 hr 11/01/18 21:46 Temp 98 F HR 85 RR 17 BP 126/67 O2 Sat % 96 Historian:: Family Member (mother.), Medical Records (from transferring facility.) Review:: Nurse's Note Reviewed, Transfer documents Reviewed ED Review of Systems - Review of Systems General/Constitutional: Other (Pt does not cooperate for ROS.) ED Past Medical History - Past Medical History Past Medical History: PUD/GERD, Arthritis, Other (profound intellectual disabilities/cerebral palsy.) Family History: None Social History: Non Smoker, No Alcohol, No Drug Use, Single, Care Facility Surgical History: PEG/GTube, other (abdominal surgery in 2011) Psychiatricy History: Dementia Medication: Reviewed Family Medical History - Family Member Mother History Unknown: Yes Ethnicity: Non- Living Status: Still Living ED Physical Exam - Physical Examination General/Constitutional: Awake, Well-developed, well-nourished ( male), Alert, No distress, Non-toxic appearing Other Gen/Cons comments:: Pt is reponsive to voice and tactile stimuli. Head: Atraumatic Eyes: Lids, conjuctiva normal, PERRL Skin: No lymphadenopathy ENMT: External ears, nose nl, Nasal exam nl, Oropharynx nl Neck: Nontender, Full ROM w/o pain, No nuchal rigidity Respiratory: Nl effort/Exclusion, Clear to Auscultation, No Wheeze/Rhonchi/Rales Cardio Vascular: RRR, No murmur, gallop, rubs GI: No organomegaly, No hernia, Normal BS's, No mass/bruits, No McBurney tenderness Other GI comments:: Gastrostomy tube was noticed at epigastric region. No R/G. ? mild distension. Extremities: No edema Other Neuro/Psych comments:: Alert and responsive to voice and tactile stimuli. Contractures noticed in all 4 extremities. Pt has spontaneous movements noticed in all 4 extremities. ED Labs/Radiology/EKG Results - Lab Results Results: Laboratory Results - last 24 hr 11/01/18 11/01/18 22:00 22:00 WBC 6.0 RBC 4.03 L Hgb 12.0 Hct 36.9 L MCV 91.6 MCH 29.8 MCHC Differential 32.6 RDW 12.9 Plt Count 179 MPV 6.7 Neutrophils % 55.6 Lymphocytes % 32.0 Monocytes % 8.7 Eosinophils % 2.9 Basophils % 0.8 Sodium 137 Potassium 4.9 Chloride 103 Carbon Dioxide 26.3 Anion Gap 12.6 BUN 14 Creatinine 0.6 L Est GFR ( Amer) > 60.0 Est GFR (Non-Af Amer) > 60.0 BUN/Creatinine Ratio 23.3 Glucose 86 Calcium 9.0 Total Bilirubin 0.2 L AST 17 ALT 16 Alkaline Phosphatase 50 Total Protein 6.5 Albumin 3.9 L Globulin 2.6 Albumin/Globulin Ratio 1.5 Laboratory Last Values WBC 6.0 Th/cmm (4.8-10.8) 11/01/18 22:00 RBC 4.03 Mil/cmm (4.30-5.70) L 11/01/18 22:00 Hgb 12.0 gm/dL (12-16) 11/01/18 22:00 Hct 36.9 % (41.0-60) L 11/01/18 22:00 MCV 91.6 fl (80-99) 11/01/18 22:00 MCH 29.8 pg (26.0-30.0) 11/01/18 22:00 MCHC Differential 32.6 pg (28.0-36.0) 11/01/18 22:00 RDW 12.9 % (11.5-20.0) 11/01/18 22:00 Plt Count 179 Th/cmm (150-400) 11/01/18 22:00 MPV 6.7 fl 11/01/18 22:00 Neutrophils % 55.6 % (40.0-80.0) 11/01/18 22:00 Lymphocytes % 32.0 % (20.0-50.0) 05/20/19 22:00 Monocytes % 8.7 % (2.0-10.0) 11/01/18 22:00 Eosinophils % 2.9 % (0.0-5.0) 11/01/18 22:00 Basophils % 0.8 % (0.0-2.0) 11/01/18 22:00 Sodium 137 mEq/L (136-145) 11/01/18 22:00 Potassium 4.9 mEq/L (3.5-5.1) 11/01/18 22:00 Chloride 103 mEq/L (98-107) 11/01/18 22:00 Carbon Dioxide 26.3 mEq/L (21.0-31.0) 11/01/18 22:00 Anion Gap 12.6 (7.0-16.0) 11/01/18 22:00 BUN 14 mg/dL (7-25) 11/01/18 22:00 Creatinine 0.6 mg/dL (0.7-1.3) L 11/01/18 22:00 Est GFR ( Amer) > 60.0 ml/min (>90) 11/01/18 22:00 Est GFR (Non-Af Amer) > 60.0 ml/min 11/01/18 22:00 BUN/Creatinine Ratio 23.3 11/01/18 22:00 Glucose 86 mg/dL (70-105) 11/01/18 22:00 Calcium 9.0 mg/dL (8.6-10.3) 11/01/18 22:00 Total Bilirubin 0.2 mg/dL (0.3-1.0) L 11/01/18 22:00 AST 17 U/L (13-39) 11/01/18 22:00 ALT 16 U/L (7-52) 11/01/18 22:00 Alkaline Phosphatase 50 U/L (34-104) 11/01/18 22:00 Total Protein 6.5 gm/dL (6.0-8.3) 11/01/18 22:00 Albumin 3.9 gm/dL (4.2-5.5) L 11/01/18 22:00 Globulin 2.6 gm/dL 11/01/18 22:00 Albumin/Globulin Ratio 1.5 (1.0-1.8) 11/01/18 22:00 Pending lab results to be followed by admitting attending silvestreyician: urinalysis. - Radiology Results Results: CT abdomen/pelvis: Probable trace bilateral pleural effusions. Mild dependent atelectasis bilaterally. Prominence of the wall of the distal esophagus may represent esophagitis. Interposition of colon anterior to the liver. No hydronephrosis or definite stone. Very large amount of stool in the rectum is compatible with fecal impaction. Large amount of stool in the rest of colon is suggestive of constipation. Prominent fluid and gas filled small bowel loops are nonspecific but may represent enteritis or ileus. Nonspecific bladder wall thickening. Please correlate with urinalysis to evaluate for cystitis. Percutaneous G-tube in place. Chronic dysplasia of the hips. Official report per Dr. Joy Swan, radiologist. ED Septic Shock - . Is Septic Shock (SBP<90, OR Lactate>4 mmol\L) present?: No - <6hrs of presentation: Vital Signs: Vital Signs - 8 hr 11/01/18 21:46 Temp 98 F HR 85 RR 17 BP 126/67 O2 Sat % 96 ED Reassessment (Disposition) - Reassessment Reassessment:: 0008 Pt remains stable. Case was discussed with Dr. Menard with pertinent info reviewed. Pt is to be [facility] to [facility] under his care. Reassessment Condition:: Improved - Diagnosis Diagnosis:: Fecal impaction. Profound intellectual disability. - Patient Disposition Admitted to:: Med/Surg Admitting Medical Physician:: Sobia Menard Time:: 00:15 Condition at Disposition:: Stable
[2018-11-01 22:22] LABS: % BASOPHILS 0.8 % (0.0-2.0); % EOSINOPHILS 2.9 % (0.0-5.0); % MONOCYTES 8.7 % (2.0-10.0); % NEUTROPHILS 55.6 % (40.0-80.0); EOSINOPHILE ABSOLUTE 0.2 Th/cmm (0.1-0.4); HEMATOCRIT 36.9 % (41.0-60); LYMPHOCYTE ABSOLUTE 1.9 Th/cmm (1.5-3.0); MEAN CELL VOLUME 91.6 fl (80-99); MEAN CORPUSCULAR HEMOGLOBIN 29.8 pg (26.0-30.0); MEAN CORPUSCULAR HGB CONC 32.6 pg (28.0-36.0); MONOCYTE ABSOLUTE 0.5 Th/cmm (0.3-1.0); NEUTROPHILE ABSOLUTE 3.4 Th/cmm (1.8-8.0); PLATELET COUNT 179 Th/cmm (150-400); RED BLOOD COUNT 4.03 Mil/cmm (4.30-5.70); RED CELL DISTRIBUTION WIDTH 12.9 % (11.5-20.0)
[2018-11-01 22:27] LABS: ALB/GLOB RATIO 1.5 (1.0-1.8); ALBUMIN 3.9 gm/dL (4.2-5.5); ALKALINE PHOSPHATASE 50 U/L (34-104); ANION GAP 12.6 (7.0-16.0); BILIRUBIN,TOTAL 0.2 mg/dL (0.3-1.0); BUN - UREA NITROGEN 14 mg/dL (7-25); CARBON DIOXIDE 26.3 mEq/L (21.0-31.0); CHLORIDE 103 mEq/L (98-107); CREATININE - SERUM 0.6 mg/dL (0.7-1.3); GFR AFRICAN-AMERICAN > 60.0 ml/min (>90); GFR NON AFRICAN-AMERICAN > 60.0 ml/min; GLUCOSE 86 mg/dL (70-105); POTASSIUM SERUM 4.9 mEq/L (3.5-5.1); SGOT 17 U/L (13-39); SGPT/ALT 16 U/L (7-52); SODIUM SERUM 137 mEq/L (136-145); TOTAL PROTEIN,SERUM 6.5 gm/dL (6.0-8.3)
[2018-11-02 00:41] LABS: URINE SOURCE CATH
[2018-11-02 00:45] LABS: URINE BILIRUBIN NEGATIVE (NEGATIVE); URINE BLOOD NEGATIVE (NEGATIVE); URINE GLUCOSE (UA) NEGATIVE (NEGATIVE); URINE KETONE NEGATIVE (NEGATIVE); URINE LEUKOCYTE ESTERASE NEGATIVE (NEGATIVE); URINE NITRATE NEGATIVE (NEGATIVE); URINE PROTEIN NEGATIVE (NEGATIVE); URINE UROBILINOGEN 0.2 E.U./dL (0.2 - 1.0)
[2018-11-02 00:46] LABS: URINE CLARITY CLEAR (CLEAR); URINE COLOR YELLOW
[2018-11-02 00:47] LABS: URINE MICROSCOPIC INDICATED? NO
[2018-11-02] MEDS ORDERED: Fleet Enema 135 mL RC ONE (00:48)
[2018-11-02 01:00] VITALS: BP 104/69
[2018-11-02] MEDS ORDERED: D5-0.45NS 1,000 ML IV ONE (01:00)
[2018-11-02 06:39] LABS: % BASOPHILS 0.4 % (0.0-2.0); % EOSINOPHILS 3.6 % (0.0-5.0); % LYMPHOCYTES 35.9 % (20.0-50.0); % MONOCYTES 6.9 % (2.0-10.0); % NEUTROPHILS 53.2 % (40.0-80.0); EOSINOPHILE ABSOLUTE 0.2 Th/cmm (0.1-0.4); HEMATOCRIT 36.5 % (41.0-60); LYMPHOCYTE ABSOLUTE 1.8 Th/cmm (1.5-3.0); MEAN CELL VOLUME 91.1 fl (80-99); MEAN CORPUSCULAR HGB CONC 32.9 pg (28.0-36.0); MONOCYTE ABSOLUTE 0.4 Th/cmm (0.3-1.0); NEUTROPHILE ABSOLUTE 2.7 Th/cmm (1.8-8.0); PLATELET COUNT 170 Th/cmm (150-400); RED BLOOD COUNT 4.01 Mil/cmm (4.30-5.70); RED CELL DISTRIBUTION WIDTH 12.5 % (11.5-20.0); WHITE BLOOD COUNT 5.1 Th/cmm (4.8-10.8)
[2018-11-02 07:02] LABS: ALB/GLOB RATIO 1.5 (1.0-1.8); ALBUMIN 3.7 gm/dL (4.2-5.5); ALKALINE PHOSPHATASE 44 U/L (34-104); ANION GAP 9.8 (7.0-16.0); BILIRUBIN,TOTAL 0.3 mg/dL (0.3-1.0); BUN - UREA NITROGEN 11 mg/dL (7-25); CALCIUM SERUM 8.7 mg/dL (8.6-10.3); CARBON DIOXIDE 26.6 mEq/L (21.0-31.0); CHLORIDE 108 mEq/L (98-107); CREATININE - SERUM 0.6 mg/dL (0.7-1.3); GFR AFRICAN-AMERICAN > 60.0 ml/min (>90); GFR NON AFRICAN-AMERICAN > 60.0 ml/min; GLUCOSE 101 mg/dL (70-105); MAGNESIUM 2.4 mg/dL (1.9-2.7); POTASSIUM SERUM 4.4 mEq/L (3.5-5.1); SGOT 16 U/L (13-39); SGPT/ALT 15 U/L (7-52); SODIUM SERUM 140 mEq/L (136-145); TOTAL PROTEIN,SERUM 6.1 gm/dL (6.0-8.3)
--- NOTE | 2018-11-02 09:28 | Diagnostic Imaging Report ---
CT abdomen and pelvis without intravenous contrast Indication: Fecal impaction Comparison: CT abdomen and pelvis on 10/22/2018, Technique: Axial images were obtained from the lung bases to the bilateral proximal femurs without IV contrast. Coronal reconstructions were made. total DLP: 490, CTDI 8.5 FINDINGS: Hypoventilatory atelectatic changes of the lung bases are noted. There may be trace effusions. Injury loops of bowel are seen on the left hemidiaphragm. There is mild prominence of the distal esophageal wall. Exam is limited due to lack of IV and oral contrast and lack of intra-abdominal body fat. Exam is also limited due to positioning of discrete focal hepatic lesions. There is suboptimal assessment of the spleen and pancreas. No focal adrenal lesions. No hydronephrosis or nephrolithiasis. There is massive amount of stool throughout the colon with significant distal fecal impaction anterior displacement of the urinary bladder with urinary bladder wall thickening noted. Diffuse gas distended loops of bowel are also noted. Fluid-filled loops of small bowel are also noted along the right lower quadrant. Appendix is not visualized. No free air or free fluid. Scoliosis is noted. Developmental hip dysplasia of both hips are noted. IMPRESSION: Limited exam demonstrating significant stool throughout the colon with significant distal fecal impaction and associated mass effect and anterior displacement of the urine bladder. Additional probable gas-filled loops of bowel and fluid distended loops of bowel on the right lower quadrant which may be due to enteritis or ileus. Urinary bladder wall thickening. Inflammatory process cannot be excluded. Mild prominence of distal esophageal wall which may be due to underlying inflammatory or infiltrative process focal correlation is needed. Percutaneous gastric feeding tube noted. Bilateral chronic developmental hip dysplasia.
[2018-11-02] MEDS: Fleet Enema 135 mL RC SCH (14:51)
[2018-11-02] MEDS: POLYETHYLENE GLYCOL 3350 17 GM PACK GT SCH (16:21)
--- NOTE | 2018-11-02 22:10 | History & Physical ---
ADMIT DATE: 11/02/2018 CHIEF COMPLAINT: Constipation. HISTORY OF PRESENT ILLNESS: Please refer to the recent H an P done on 10/22/2018. This is a 33-year-old male who lives at [facility] [place] who as noted above, was recently admitted to this facility for constipation/ileus for which he has been admitted in the past. The patient was sent on oil enemas prescribed on a daily basis, but despite getting the enemas, he returns with a 3-day history of constipation. There is no other significant history such as abdominal pain or abdominal distention. At the ER, abdominal and pelvis CT showing loops of bowel are seen on the left hemidiaphragm. There is mild prominence of the distal esophageal wall. Exam is limited due to lack of IV and oral contrast and lack of intraabdominal body fat. There is suboptimal Assessment of the spleen and pancreas. No focal adrenal lesions. No hydronephrosis or nephrolithiasis is noted. There is massive amount of stool throughout the colon with significant distal fecal impaction with anterior displacement of the urinary bladder with urinary bladder wall thickening noted. Diffuse gas distended loops of bowel are also seen. Fluid filled loops of small bowel were also noted along the right lower quadrant. The patient has been admitted to the medical floor for further management and care. PAST MEDICAL HISTORY: Profound intellectual disability, cerebral palsy, GERD, osteoarthritis, osteoporosis, chronic constipation with previous ileus, and fecal impactions. PAST SURGICAL HISTORY: Status post PEG placement - patient currently only uses PEG for meds. FAMILY HISTORY: Noncontributory to this admission. SOCIAL HISTORY: No tobacco, ETOH, or illicit drug usage. ALLERGIES: NKDA. OUTPATIENT MEDICATIONS: Tylenol 650 q. 4 p.r.n. for fever or pain, Fosamax 70 mg every Thursday, vitamin C 500 mg every day, Dulcolax 10 mg q. 24 hours, calcium carbonate 500 mg every day, docusate sodium 200 mg q. 12, Fleet enema at bedtime p.r.n. for severe constipation, lactobacillus once daily, milk of magnesia 30 mL q. 72 hours, meloxicam 7.5 b.i.d., mineral oil 30 mL via G-tube daily, multivitamins every day, nitroglycerin 0.4 sublingual q. 5 minutes p.r.n. for chest pain, Protonix 40 mg b.i.d. and MiraLax 17 grams b.i.d. REVIEW OF SYSTEMS: Unable to be done given patient's condition. PHYSICAL EXAMINATION: VITAL SIGNS: Temperature 97.4, pulse 61, respirations 18, BP 110/67, sats 95-99% on room air. GENERAL: He is a well-nourished, developmentally delayed male, not in acute distress, appears to be nontoxic. HEAD AND NECK: Pupils are reactive to light. Oropharynx moist and clear. NECK: There is no JVD or LAD. CARDIOVASCULAR: Regular rate and rhythm without any murmurs. RESPIRATORY: Lungs are clear to auscultation bilaterally with poor inspiratory effort. ABDOMEN: Soft, flat. There is no distention. There is no rebound. There is no organomegaly. Currently, there are normoactive bowel sounds. EXTREMITIES: Lower extremities, he has no pedal edema. Upper and lower extremities are contracted. LABORATORY DATA: CBC was essentially within normal limits. Chem-7 was within normal limits. LFTs were within normal limits. TSH was normal at 1.02. UA was essentially within normal limits. DIAGNOSTICS: Please refer to the HPI. IMPRESSION: 1. Recurrent ileus with fecal impaction. 2. Acute on chronic constipation. 3. History of acid reflux disease. 4. History of dysphagia, status post PEG placement for meds. 5. History of osteoporosis. 6. History of osteoarthritis. 7. History of profound mental disability with cerebral palsy. PLAN: The patient has been admitted to medical/surgical floor for further management and care. He has been placed on IV fluids, currently n.p.o. and as previously recommended by GI, he will be placed on mineral oil twice a day as this has helped in the past with his other bowel regimen. A KUB will also be asked for and once the constipation and fecal impaction have improved, I will start him on his regular diet. [facility]# [id number]
[2018-11-03] MEDS: POLYETHYLENE GLYCOL 3350 17 GM PACK GT SCH ×2 (08:49→16:24)
--- NOTE | 2018-11-03 08:50 | Diagnostic Imaging Report ---
KUB single view HISTORY: Constipation COMPARISON: KUB performed on 10/26/2018 CT abdomen and pelvis performed on 11/01/2018 FINDINGS: There are severe generalized distended loops of bowel greatest involving the large bowel. There is copious stool seen along the left colon. No obvious distal fecal impaction identified by x-ray. Developmental hip dysplasia is noted. Increased sclerotic densities of the right proximal femoral shaft are noted. There may have been old trauma to the left proximal femoral shaft. IMPRESSION: Severe generalized gas-distended loops of bowel primarily large bowel. There is copious stool in the region of the left colon. No significant distal fecal impaction identified on this x-ray. Developmental bilateral hip dysplasia. Increase sclerotic densities of the right proximal femoral shaft may be due to enchondroma formation or other lesions. Recommend correlation with old exams and/or follow-up surveillance. Probable old trauma to the proximal left femur.
--- NOTE | 2018-11-03 09:18 | Internal Medicine Prog Note ---
Internal Medicine Subjective - Subjective Service Date: 11/03/18 (comfortable, no acute events--has had 2 BM's since admission.) Patient seen and examined:: with staff Patient is:: awake Per staff patient has:: no adverse event Internal Medicine Objective - Results Result Diagrams: 11/02/18 06:05 11/02/18 06:05 Recent Labs: Laboratory Last Values WBC 5.1 Th/cmm (4.8-10.8) 11/02/18 06:05 RBC 4.01 Mil/cmm (4.30-5.70) L 11/02/18 06:05 Hgb 12.0 gm/dL (12-16) 11/02/18 06:05 Hct 36.5 % (41.0-60) L 11/02/18 06:05 MCV 91.1 fl (80-99) 11/02/18 06:05 MCH 30.0 pg (26.0-30.0) 11/02/18 06:05 MCHC Differential 32.9 pg (28.0-36.0) 11/02/18 06:05 RDW 12.5 % (11.5-20.0) 11/02/18 06:05 Plt Count 170 Th/cmm (150-400) 11/02/18 06:05 MPV 6.7 fl 11/02/18 06:05 Neutrophils % 53.2 % (40.0-80.0) 11/02/18 06:05 Lymphocytes % 35.9 % (20.0-50.0) 11/02/18 06:05 Monocytes % 6.9 % (2.0-10.0) 11/02/18 06:05 Eosinophils % 3.6 % (0.0-5.0) 11/02/18 06:05 Basophils % 0.4 % (0.0-2.0) 11/02/18 06:05 Sodium 140 mEq/L (136-145) 11/02/18 06:05 Potassium 4.4 mEq/L (3.5-5.1) 11/02/18 06:05 Chloride 108 mEq/L (98-107) H 11/02/18 06:05 Carbon Dioxide 26.6 mEq/L (21.0-31.0) 11/02/18 06:05 Anion Gap 9.8 (7.0-16.0) 11/02/18 06:05 BUN 11 mg/dL (7-25) 11/02/18 06:05 Creatinine 0.6 mg/dL (0.7-1.3) L 11/02/18 06:05 Est GFR ( Amer) > 60.0 ml/min (>90) 11/02/18 06:05 Est GFR (Non-Af Amer) > 60.0 ml/min 11/02/18 06:05 BUN/Creatinine Ratio 18.3 11/02/18 06:05 Glucose 101 mg/dL (70-105) 11/02/18 06:05 Calcium 8.7 mg/dL (8.6-10.3) 11/02/18 06:05 Magnesium 2.4 mg/dL (1.9-2.7) 11/02/18 06:05 Total Bilirubin 0.3 mg/dL (0.3-1.0) 11/02/18 06:05 AST 16 U/L (13-39) 11/02/18 06:05 ALT 15 U/L (7-52) 11/02/18 06:05 Alkaline Phosphatase 44 U/L (34-104) 11/02/18 06:05 Total Protein 6.1 gm/dL (6.0-8.3) 11/02/18 06:05 Albumin 3.7 gm/dL (4.2-5.5) L 11/02/18 06:05 Globulin 2.4 gm/dL 11/02/18 06:05 Albumin/Globulin Ratio 1.5 (1.0-1.8) 11/02/18 06:05 TSH 1.02 uIU/ml (0.34-5.60) 11/02/18 06:05 Urine Source CATH 11/01/18 23:50 Urine Color YELLOW 11/01/18 23:50 Urine Clarity CLEAR (CLEAR) 11/01/18 23:50 Urine pH 7.0 (4.6 - 8.0) 11/01/18 23:50 Ur Specific [place] 1.015 (1.005-1.030) 11/01/18 23:50 Urine Protein NEGATIVE mg/dL (NEGATIVE) 11/01/18 23:50 Urine Glucose (UA) NEGATIVE mg/dL (NEGATIVE) 11/01/18 23:50 Urine Ketones NEGATIVE mg/dL (NEGATIVE) 11/01/18 23:50 Urine Blood NEGATIVE (NEGATIVE) 11/01/18 23:50 Urine Nitrate NEGATIVE (NEGATIVE) 11/01/18 23:50 Urine Bilirubin NEGATIVE (NEGATIVE) 11/01/18 23:50 Urine Urobilinogen 0.2 E.U./dL (0.2 - 1.0) 11/01/18 23:50 Ur Leukocyte Esterase NEGATIVE (NEGATIVE) 11/01/18 23:50 - Physical Exam Vitals and I&O: Vital Signs Temp 97.4 F 11/03/18 08:00 Pulse 94 11/03/18 08:00 Resp 18 11/03/18 08:00 BP 125/57 11/03/18 08:00 Pulse Ox 98 11/03/18 08:00 Intake & Output 11/02/18 11/03/18 11/03/18 18:59 06:59 18:59 Weight (lbs) 48.534 kg 48.534 kg Other: # Voids 3 3 # Bowel Movements 1 Weight Source Bedscale Bedscale Active Medications: Current Medications Bisacodyl (Dulcolax 10 Mg Supp) 20 mg RC Q24HR PRN PRN Reason: constipation Stop: 01/01/19 12:44 Docusate Sodium (Colace) 250 mg PO BID ALLISON Stop: 01/01/19 08:59 Last Admin: 11/03/18 08:49 Dose: 250 mg Dextrose/Sodium Chloride (D5-0.45ns) 1,000 mls @ 75 mls/hr IV .[id number] ALLISON Stop: 01/02/19 09:09 Mineral Oil (Mineral Oil 30 Ml) 30 ml GT BID ALLISON Stop: 01/01/19 16:59 Last Admin: 11/03/18 08:49 Dose: 30 ml Pantoprazole Sodium (Protonix) 40 mg IVP DAILY ALLISON Stop: 01/01/19 08:59 Last Admin: 11/02/18 08:45 Dose: 40 mg Polyethylene Glycol (Miralax) 17 gm GT BID ALLISON Stop: 01/01/19 16:59 Last Admin: 11/03/18 08:49 Dose: 17 gm Polyethylene Glycol/Electrolytes (Golytely) 2,000 ml PO X1 ONE Stop: 11/03/18 09:12 Sodium Phosphate (Fleet Enema) 135 ml RC DAILY ALLISON Stop: 01/01/19 12:59 Last Admin: 11/02/18 14:51 Dose: 135 ml General: NAD HEENT: NC/AT, PERRLA, EOMI Neck: No LAD Lungs: CTAB Cardiovascular: RRR, Normal S1, Normal S2, without murmur Abdomen: soft, non-tender, distended, +GT, positive bowel sound Extremities: clear, contracture Neurological: no change - Procedures Procedures: Procedures Procedure Code Date CHANGE FEEDING DEVICE IN UP INTEST TRACT, MASTER ESTHETICIAN APPROACH [id number] 02/02/17 CHANGE GASTROSTOMY TUBE 02382 02/02/17 DIAGNOSTIC COLONOSCOPY 29383 06/26/16 EGD BIOPSY SINGLE/MULTIPLE 98139 12/22/13 ESOPHAGOGASTRODUODENOSCOPY [EGD] W/CLOSED BIOPSY 45.16 12/22/13 INFLUENZA VACCINATION 99.52 07/14/13 INSERT INDWELLING CATH 57.94 05/17/12 INSERT INTESTINAL TUBE 96.08 05/17/12 INSERT TEMP BLADDER CATH 03878 05/17/12 INSJ PICC 5 YR+ W/O IMAGING 16963 05/17/12 INSPECTION OF LOWER INTESTINAL TRACT, ENDO [id number] 06/26/16 OPEN AND OTHER CECECTOMY 45.72 05/17/12 OPEN AND OTHER RIGHT HEMICOLECTOMY 45.73 05/17/12 PARTIAL REMOVAL OF COLON 69373 05/17/12 UNLISTED PX SMALL INTESTINE 38242 05/17/12 VENOUS CATHETERIZATION NEC 38.93 05/17/12 KUB: SEVERE GENERALIZED GAS-DISTENDED LOOPS OF BOWEL PRIMARILY LARGE BOWEL. THERE ARE COPIOUS AMOUNT OF STOOL IN THE REGION OF THE LEFT COLON WITHOUT SIGNIFICANT FECAL IMPACTION. DEVELOPMENTAL BILATERAL HIP DYSPLASIA. Internal Medicine Assmt/Plan - Assessment Assessment: RECURRENT ILEUS/FECAL IMPACTION-CLINICALLY IMPROVING ACUTE ON CHRONIC CONSTIPATION HISTORY OF GERD HISTORY OF PEG PLACEMENT-CURRENTLY USE FOR MEDICATIONS HISTORY OF PROFOUND INTELLECTUAL DISABILITY HISTORY OF CEREBRAL PALSY WITH BILATERAL UPPER/LOWER CONTRACTURES HISTORY OF OA HISTORY OF OP - Plan Plan: CONT WITH CURRENT MS SUPPORTIVE CARE AND MGT CONT WITH IVF, NPO FOR NOW CONT WITH CURRENT BOWEL REGIMEN (DULCOLAX ID QDAY/DSS BID/OIL ENEMAS-ID BID/ FLEET ENEMA QDAY WILL START GOLYTELY AND MONITOR FOLLOW KUB Nutritional Asmnt/Malnutr-PDOC - Dietary Evaluation Malnutrition Findings (Please click <Entered> for more info): Nutritional Asmnt/Malnutrition Start: 11/02/18 13: 57 Text: Status: Complete Freq: Protocol: Document 11/02/18 13:57 [email or web address] (Rec: 11/02/18 14:06 VENANCIO [email or web address]) Nutritional Asmnt/Malnutrition Patient General Information Nutritional Screening High Risk Consult Diagnosis recurrent ileus, constipation Pertinent Medical Hx/Surgical Hx PUD/GERD, arthritis, profound intellectual disabilities, CP, PEG/Gtube, abd surgery, dementia Subjective Information Consult received for shavon 9. Pt admited for constipation x 3 days. Pt seen lying in bed, non verbal, family at bedside . RN reported pt had BM after giving enema. Pt still on NPO status. Spoke with family, encouraged giving adequate fluid to avoid constipation. Current Diet Order/ Nutrition Support NPO Pertinent Medications D5-0.45ns, colace, mineral oil , protonix, miralax, enema Pertinent Labs 11/02 Cl 108, Cr 0.6, alb 3.7 Nutritional Hx/Data Height 1.68 m Height (Calculated Centimeters) 167.6 Current Weight (lbs) 48.534 kg Weight (Calculated Kilograms) 48.5 Weight (Calculated Grams) 77457.4 [place] Body Weight 142 Body Mass Index (BMI) 17.2 Weight Status Underweight GI Symptoms GI Symptoms None Last BM 11/02 Difficult in: None Skin Integrity/Comment: scar to R/L hip, abdomen shavon 9 Current %PO Negligible < 25% Estimated Nutritional Goals BEE in Kcals: Using Current wt Calories/Kcals/Kg 27-32 Kcals Calculated 9707-9504 Protein: Using Current wt Protein g/k-1.2 Protein Calculated 49-59 Fluid: ml 1323-1568ml (1ml/kcal) Nutritional Problem No current Nutrition Prob Problem N/A Malnutrition Alert Is there a minimum of two criteria No selected? Query Text:Check all the applicable criteria. A minimum of two criteria are recommended for diagnosis of either severe or non-severe malnutrition. Malnutrition Related to Morbid Obesity Malnutrition related to morbid obesity No Intervention/Recommendation Comments 1. Monitor NPO status. Recommend start wtih pureed diet when medically appropriate. Consider giving water flush via Gtube if pt not geting adequate fluid from oral diet. 2. Monitor PO intake, wt, labs and skin integrity 3. F/U as high risk in 2-3 days Expected Outcomes/Goals Expected Outcomes/Goals 1. PO intake to meet at least 75% of nutritional needs. 2. Wt stability, skin to remain intact, GI function improved, labs to approach WNL .
[2018-11-03] MEDS: Fleet Enema 135 mL RC SCH ×2 (09:20→10:23)
[2018-11-03] MEDS ORDERED: MINERAL OIL ENEMA 135 ML BOTTLE RC SCH (09:30)
[2018-11-03] MEDS: D5-0.45NS 1,000 ML IV SCH ×2 (09:46→23:12)
[2018-11-03] MEDS ORDERED: MINERAL OIL ENEMA 135 ML BOTTLE RC ONE (10:30)
[2018-11-03] MEDS: MINERAL OIL ENEMA 135 ML BOTTLE RC SCH (20:55)
[2018-11-04 06:34] LABS: EOSINOPHILE ABSOLUTE 0.3 Th/cmm (0.1-0.4); LYMPHOCYTE ABSOLUTE 1.7 Th/cmm (1.5-3.0); MONOCYTE ABSOLUTE 0.3 Th/cmm (0.3-1.0); NEUTROPHILE ABSOLUTE 1.5 Th/cmm (1.8-8.0)
[2018-11-04 06:36] LABS: % EOSINOPHILS 7.5 % (0.0-5.0); % LYMPHOCYTES 45.2 % (20.0-50.0); % MONOCYTES 7.4 % (2.0-10.0); % NEUTROPHILS 39.9 % (40.0-80.0); HEMATOCRIT 37.3 % (41.0-60); HEMOGLOBIN 12.3 gm/dL (12-16); MEAN CELL VOLUME 92.6 fl (80-99); MEAN CORPUSCULAR HEMOGLOBIN 30.5 pg (26.0-30.0); PLATELET COUNT 166 Th/cmm (150-400); RED BLOOD COUNT 4.02 Mil/cmm (4.30-5.70); RED CELL DISTRIBUTION WIDTH 12.3 % (11.5-20.0)
[2018-11-04 06:57] LABS: WHITE BLOOD COUNT 3.8 Th/cmm (4.8-10.8)
[2018-11-04 06:58] LABS: ALB/GLOB RATIO 1.6 (1.0-1.8); ALBUMIN 3.7 gm/dL (4.2-5.5); ALKALINE PHOSPHATASE 44 U/L (34-104); ANION GAP 13.3 (7.0-16.0); BILIRUBIN,TOTAL 0.4 mg/dL (0.3-1.0); BUN - UREA NITROGEN 6 mg/dL (7-25); CALCIUM SERUM 8.4 mg/dL (8.6-10.3); CARBON DIOXIDE 22.8 mEq/L (21.0-31.0); CHLORIDE 108 mEq/L (98-107); CREATININE - SERUM 0.5 mg/dL (0.7-1.3); GFR AFRICAN-AMERICAN > 60.0 ml/min (>90); GFR NON AFRICAN-AMERICAN > 60.0 ml/min; GLUCOSE 94 mg/dL (70-105); PHOSPHOROUS 2.7 mg/dL (2.5-5.0); POTASSIUM SERUM 4.1 mEq/L (3.5-5.1); SGOT 15 U/L (13-39); SGPT/ALT 12 U/L (7-52); SODIUM SERUM 140 mEq/L (136-145)
[2018-11-04] MEDS: POLYETHYLENE GLYCOL 3350 17 GM PACK GT SCH ×2 (09:05→16:42)
[2018-11-04] MEDS: MINERAL OIL ENEMA 135 ML BOTTLE RC SCH ×2 (10:49→22:00)
--- NOTE | 2018-11-04 12:15 | Internal Medicine Prog Note ---
Internal Medicine Subjective - Subjective Service Date: 11/04/18 (HAD BM YESTERDAY AFTER GOLYTELY) Patient seen and examined:: without staff Patient is:: awake Patient Complaints of:: bloated, other (LESS ABD DISTENTION NOTED TODAY) Per staff patient has:: no adverse event Internal Medicine Objective - Results Result Diagrams: 11/04/18 05:50 11/04/18 05:50 Recent Labs: Laboratory Last Values WBC 3.8 Th/cmm (4.8-10.8) L 11/04/18 05:50 RBC 4.02 Mil/cmm (4.30-5.70) L 11/04/18 05:50 Hgb 12.3 gm/dL (12-16) 11/04/18 05:50 Hct 37.3 % (41.0-60) L 11/04/18 05:50 MCV 92.6 fl (80-99) 11/04/18 05:50 MCH 30.5 pg (26.0-30.0) H 11/04/18 05:50 MCHC Differential 33.0 pg (28.0-36.0) 11/04/18 05:50 RDW 12.3 % (11.5-20.0) 11/04/18 05:50 Plt Count 166 Th/cmm (150-400) 11/04/18 05:50 MPV 6.8 fl 11/04/18 05:50 Neutrophils % 39.9 % (40.0-80.0) L 11/04/18 05:50 Lymphocytes % 45.2 % (20.0-50.0) 11/04/18 05:50 Monocytes % 7.4 % (2.0-10.0) 11/04/18 05:50 Eosinophils % 7.5 % (0.0-5.0) H 11/04/18 05:50 Basophils % 0.0 % (0.0-2.0) 11/04/18 05:50 Sodium 140 mEq/L (136-145) 11/04/18 05:50 Potassium 4.1 mEq/L (3.5-5.1) 11/04/18 05:50 Chloride 108 mEq/L (98-107) H 11/04/18 05:50 Carbon Dioxide 22.8 mEq/L (21.0-31.0) 11/04/18 05:50 Anion Gap 13.3 (7.0-16.0) 11/04/18 05:50 BUN 6 mg/dL (7-25) L 11/04/18 05:50 Creatinine 0.5 mg/dL (0.7-1.3) L 11/04/18 05:50 Est GFR ( Amer) > 60.0 ml/min (>90) 11/04/18 05:50 Est GFR (Non-Af Amer) > 60.0 ml/min 11/04/18 05:50 BUN/Creatinine Ratio 12.0 11/04/18 05:50 Glucose 94 mg/dL (70-105) 11/04/18 05:50 Calcium 8.4 mg/dL (8.6-10.3) L 11/04/18 05:50 Phosphorus 2.7 mg/dL (2.5-5.0) 11/04/18 05:50 Magnesium 2.4 mg/dL (1.9-2.7) 11/02/18 06:05 Total Bilirubin 0.4 mg/dL (0.3-1.0) 11/04/18 05:50 AST 15 U/L (13-39) 11/04/18 05:50 ALT 12 U/L (7-52) 11/04/18 05:50 Alkaline Phosphatase 44 U/L (34-104) 11/04/18 05:50 Total Protein 6.0 gm/dL (6.0-8.3) 11/04/18 05:50 Albumin 3.7 gm/dL (4.2-5.5) L 11/04/18 05:50 Globulin 2.3 gm/dL 11/04/18 05:50 Albumin/Globulin Ratio 1.6 (1.0-1.8) 11/04/18 05:50 TSH 1.02 uIU/ml (0.34-5.60) 11/02/18 06:05 Urine Source CATH 11/01/18 23:50 Urine Color YELLOW 11/01/18 23:50 Urine Clarity CLEAR (CLEAR) 11/01/18 23:50 Urine pH 7.0 (4.6 - 8.0) 11/01/18 23:50 Ur Specific [place] 1.015 (1.005-1.030) 11/01/18 23:50 Urine Protein NEGATIVE mg/dL (NEGATIVE) 11/01/18 23:50 Urine Glucose (UA) NEGATIVE mg/dL (NEGATIVE) 11/01/18 23:50 Urine Ketones NEGATIVE mg/dL (NEGATIVE) 11/01/18 23:50 Urine Blood NEGATIVE (NEGATIVE) 11/01/18 23:50 Urine Nitrate NEGATIVE (NEGATIVE) 11/01/18 23:50 Urine Bilirubin NEGATIVE (NEGATIVE) 11/01/18 23:50 Urine Urobilinogen 0.2 E.U./dL (0.2 - 1.0) 11/01/18 23:50 Ur Leukocyte Esterase NEGATIVE (NEGATIVE) 11/01/18 23:50 - Physical Exam Vitals and I&O: Vital Signs Temp 96.9 F 11/04/18 08:00 Pulse 47 11/04/18 08:00 Resp 18 11/04/18 08:00 BP 108/72 11/04/18 08:00 Pulse Ox 96 11/04/18 08:00 Intake & Output 11/03/18 11/04/18 11/04/18 18:59 06:59 18:59 Intake Total 2000 1000 Output Total 1250 Balance 2000 -250 Weight (lbs) 52.163 kg 52.163 kg Intake: Intake, IV Amount 1000 D5-0.45NS 1,000 ml @ 75 1000 mls/hr IV .[id number] [facility] Rx #:[id number] 1999 Output: Urine 1250 Other: # Voids 5 # Bowel Movements 1 Weight Source Bedscale Bedscale Active Medications: Current Medications Bisacodyl (Dulcolax 10 Mg Supp) 10 mg RC DAILY ALLISON Stop: 01/02/19 09:29 Last Admin: 11/04/18 09:05 Dose: 10 mg Docusate Sodium (Colace) 250 mg PO BID ALLISON Stop: 01/01/19 08:59 Last Admin: 11/04/18 09:05 Dose: 250 mg Dextrose/Sodium Chloride (D5-0.45ns) 1,000 mls @ 75 mls/hr IV .[id number] ALLISON Stop: 01/02/19 09:09 Last Admin: 11/03/18 23:12 Dose: 75 mls/hr Mineral Oil (Fleet Mineral Oil) 135 ml RC Q12HR ALLISON Stop: 01/02/19 20:59 Last Admin: 11/04/18 10:49 Dose: 135 ml Pantoprazole Sodium (Protonix) 40 mg IVP DAILY ALLISON Stop: 01/01/19 08:59 Last Admin: 11/04/18 09:05 Dose: 40 mg Polyethylene Glycol (Miralax) 17 gm GT BID ALLISON Stop: 01/01/19 16:59 Last Admin: 11/04/18 09:05 Dose: 17 gm Polyethylene Glycol/Electrolytes (Golytely) 200 ml PO Q8HR PRN PRN Reason: Constipation Stop: 01/03/19 12:59 General: NAD HEENT: NC/AT, PERRLA, EOMI Neck: No LAD Lungs: CTAB Cardiovascular: RRR, Normal S1, Normal S2, without murmur Abdomen: soft, non-tender, distended, +GT, positive bowel sound Extremities: clear, contracture Neurological: no change - Procedures Procedures: Procedures Procedure Code Date CHANGE FEEDING DEVICE IN UP INTEST TRACT, OPERATIONS SUPPORT SPECIALIST APPROACH [id number] 02/02/17 CHANGE GASTROSTOMY TUBE 62394 02/02/17 DIAGNOSTIC COLONOSCOPY 62870 06/26/16 EGD BIOPSY SINGLE/MULTIPLE 37034 12/22/13 ESOPHAGOGASTRODUODENOSCOPY [EGD] W/CLOSED BIOPSY 45.16 12/22/13 INFLUENZA VACCINATION 99.52 07/14/13 INSERT INDWELLING CATH 57.94 05/17/12 INSERT INTESTINAL TUBE 96.08 05/17/12 INSERT TEMP BLADDER CATH 52785 05/17/12 INSJ PICC 5 YR+ W/O IMAGING 21724 05/17/12 INSPECTION OF LOWER INTESTINAL TRACT, ENDO [id number] 06/26/16 OPEN AND OTHER CECECTOMY 45.72 05/17/12 OPEN AND OTHER RIGHT HEMICOLECTOMY 45.73 05/17/12 PARTIAL REMOVAL OF COLON 36563 05/17/12 UNLISTED PX SMALL INTESTINE 36686 05/17/12 VENOUS CATHETERIZATION NEC 38.93 05/17/12 Internal Medicine Assmt/Plan - Assessment Assessment: RECURRENT ILEUS/FECAL IMPACTION-CLINICALLY IMPROVING ACUTE ON CHRONIC CONSTIPATION HISTORY OF GERD HISTORY OF PEG PLACEMENT-CURRENTLY USE FOR MEDICATIONS HISTORY OF PROFOUND INTELLECTUAL DISABILITY HISTORY OF CEREBRAL PALSY WITH BILATERAL UPPER/LOWER CONTRACTURES HISTORY OF OA HISTORY OF OP - Plan Plan: CONT WITH CURRENT MS SUPPORTIVE CARE AND MGT CONT WITH IVF, NPO FOR NOW CONT WITH CURRENT BOWEL REGIMEN (DULCOLAX AL QDAY/DSS BID/OIL ENEMAS-AL BID/ FLEET ENEMA QDAY). WILL START GOLYTELY ON A DAILY/PRN BASIS FOLLOW KAYY D/W KERVIN FROM [facility] (GIVEN PTS REOCCURRENT EPISODES OF ILEUS/FECAL IMPACTION, WILL START ON PEG FEEDS AND DISCONTINUE PO'S FOR NOW). Nutritional Asmnt/Malnutr-PDOC - Dietary Evaluation Malnutrition Findings (Please click <Entered> for more info): Nutritional Asmnt/Malnutrition Start: 11/02/18 13: 57 Text: Status: Complete Freq: Protocol: Document 11/02/18 13:57 VENANCIO (Rec: 11/02/18 14:06 VENANCIO [email or web address]) Nutritional Asmnt/Malnutrition Patient General Information Nutritional Screening High Risk Consult Diagnosis recurrent ileus, constipation Pertinent Medical Hx/Surgical Hx PUD/GERD, arthritis, profound intellectual disabilities, CP, PEG/Gtube, abd surgery, dementia Subjective Information Consult received for shavon Dunne. Pt admited for constipation x 3 days. Pt seen lying in bed, non verbal, family at bedside . RN reported pt had BM after giving enema. Pt still on NPO status. Spoke with family, encouraged giving adequate fluid to avoid constipation. Current Diet Order/ Nutrition Support NPO Pertinent Medications D5-0.45ns, colace, mineral oil , protonix, miralax, enema Pertinent Labs 11/02 Cl 108, Cr 0.6, alb 3.7 Nutritional Hx/Data Height 1.68 m Height (Calculated Centimeters) 167.6 Current Weight (lbs) 48.534 kg Weight (Calculated Kilograms) 48.5 Weight (Calculated Grams) 28215.4 [place] Body Weight 142 Body Mass Index (BMI) 17.2 Weight Status Underweight GI Symptoms GI Symptoms None Last BM 11/02 Difficult in: None Skin Integrity/Comment: scar to R/L hip, abdomen shavon Dunne Current %PO Negligible < 25% Estimated Nutritional Goals BEE in Kcals: Using Current wt Calories/Kcals/Kg 27-32 Kcals Calculated 8593-2155 Protein: Using Current wt Protein g/k-1.2 Protein Calculated 49-59 Fluid: ml 1323-1568ml (1ml/kcal) Nutritional Problem No current Nutrition Prob Problem N/A Malnutrition Alert Is there a minimum of two criteria No selected? Query Text:Check all the applicable criteria. A minimum of two criteria are recommended for diagnosis of either severe or non-severe malnutrition. Malnutrition Related to Morbid Obesity Malnutrition related to morbid obesity No Intervention/Recommendation Comments 1. Monitor NPO status. Recommend start wtih pureed diet when medically appropriate. Consider giving water flush via Gtube if pt not geting adequate fluid from oral diet. 2. Monitor PO intake, wt, labs and skin integrity 3. F/U as high risk in 2-3 days Expected Outcomes/Goals Expected Outcomes/Goals 1. PO intake to meet at least 75% of nutritional needs. 2. Wt stability, skin to remain intact, GI function improved, labs to approach WNL .
[2018-11-04] MEDS: D5-0.45NS 1,000 ML IV SCH (12:26)
--- NOTE | 2018-11-04 12:59 | Diagnostic Imaging Report ---
KUB single view HISTORY: Constipation, ileus. COMPARISON: KUB on 11/03/2018 FINDINGS: There is persistent significant distended loops of air-filled bowel. No significant stool is identified. Percutaneous gastric feeding tube is noted. IMPRESSION: Persistent significant distended air-filled loops of primarily large bowel which may represent a severe ileus. No significant stool identified. Please correlate clinically. Percutaneous gastric feeding tube.
[2018-11-05] MEDS: POLYETHYLENE GLYCOL 3350 17 GM PACK GT SCH ×3 (08:21→16:22)
[2018-11-05] MEDS ORDERED: Docusate Sodium 100 mg/10 mL UD GT SCH (08:45)
[2018-11-05] MEDS ORDERED: MELOXICAM 7.5 MG GT SCH (09:00)
[2018-11-05] MEDS ORDERED: Multivitamin w/ Minerals Tab GT SCH (09:00)
[2018-11-05] MEDS ORDERED: Lactobacillus Rhamnosus GG 15 Billion CFU CAP.SPRINK GT SCH (09:00)
[2018-11-05] MEDS: MINERAL OIL ENEMA 135 ML BOTTLE RC SCH ×2 (09:23→10:03)
[2018-11-05] MEDS: D5-0.45NS 1,000 ML IV SCH (14:34)
[2018-11-05] MEDS ORDERED: Fleet Enema 135 mL RC SCH (21:00)
--- NOTE | 2018-11-20 16:43 | Discharge Summary ---
DATE OF DISCHARGE: 11/05/2018 ADMITTING DIAGNOSES: 1. Recurrent ileus with fecal impaction. 2. Acute on chronic constipation. SECONDARY DIAGNOSES: 1. History of acid reflux disease. 2. History of dysphagia, status post PEG placement, currently only for meds. 3. History of osteoporosis. 4. History of osteoarthritis. 5. History of profound mental disability with cerebral palsy. DISCHARGE DIAGNOSES: 1. Recurrent ileus with fecal impaction -- clinically improved. 2. Acute on chronic constipation -- clinically improved. CONSULTANTS: No consultants were used during this admission. MAJOR PROCEDURES: On 11/01/2018, the patient underwent a CT of the abdomen and pelvis without contrast, showing hypoventilatory atelectatic changes of the lung bases. A limited exam demonstrating significant stool throughout the colon with significant distal fecal impaction and associated mass effect and anterior displacement of the urinary bladder. BRIEF HOSPITAL COURSE: A 33-year-old male with multiple recent admissions for recurrent constipation, at times with fecal impaction, presented to the ER from [facility] with 2-3 day history of constipation. Apparently, the patient does not get symptomatic, in the sense that he complains of pain, but given his profound mental disability, once he does not have a bowel movement on a frequent basis, he gets transferred to the ER for eval. He underwent the above-mentioned CT of the abdomen and pelvis while at the ER and was admitted to the medical floor for management and care. The patient was placed on multiple bowel regimen medications including oil enemas b.i.d. and Fleet enemas as well as stool softeners. He was also kept n.p.o. and was started on IV fluids. By hospital day #2, he had a large BM after a rectal enema was placed, but did not have any other large bowel movements until the . Clinically speaking, he remained asymptomatic with a nondistended stomach that was nontender to palpation. His labs and vital signs remained stable throughout his hospital stay. A KUB was done on the , showing severe generalized gases in the loops of bowel, primarily large bowel. There was copious stool in the region of the left colon. There was no significant distal fecal impaction noted. A repeat KUB was done on the , showing persistent significant distended air filled loops of primary large bowel, which may represent ileus. As noted above, clinically he did improve with the bowel regimens that he was placed on and his p.o. feedings were resumed as well as his medications per G-tube. DISCHARGE MEDICATIONS: Tylenol 650 q 4 hours p.r.n. for fever or pain, Flomax 70 mg every Thursday, vitamin C 500 mg daily, Dulcolax 10 mg per rectum q. 24 hours, calcium carbonate 500 mg daily, docusate sodium 200 mg q. 12 hours, Fleet enema per rectum on a daily basis as needed, lactobacillus daily, meloxicam 7.5 b.i.d., mineral oil enemas 30 mL via G-tube b.i.d., multivitamins daily, nitroglycerin sublingual every 5 minutes p.r.n. for chest pain, Protonix 40 mg b.i.d. and MiraLax 17 grams b.i.d. DISPOSITION: The patient was discharged back to [facility] under the care of Dr. Escudero. I discussed the case with the patient's mother and suggested further followup with GI given his recurrent symptoms. In the past, he had been seen inpatient by GI service, but the patient may need closer followup including a possibility of doing a colonoscopy in the near future. [facility]# [id number]
== END 2018-11-05 18:40 | DRG 247 ==
LOC: ER 21:35 → MSI 11-02 00:23
PROVIDERS: ADMIT Internal Medicine; ATTEND Internal Medicine
DX: K56.7 Ileus, unspecified (principal); R53.2 Functional quadriplegia; E44.0 Moderate protein-calorie malnutrition; F73 Profound intellectual disabilities; G80.9 Cerebral palsy, unspecified; K21.9 Gastro-esophageal reflux disease without esophagitis; K31.9 Disease of stomach and duodenum, unspecified; M81.0 Age-related osteoporosis without current pathological fracture; M19.90 Unspecified osteoarthritis, unspecified site; K56.41 Fecal impaction; Z68.1 Body mass index [BMI] 19.9 or less, adult
CPT/HCPCS: 36415-UA; 74000-TC; 80053-TC; 81003-TC; 83735-TC; 84100-TC; 84443-TC; 85025-TC; C9113; Z7610